=== PATIENT | male | born 1955 | race Caucasian/White ===

== ENCOUNTER 2021-01-15 12:20 | Outpatient (REF) | payer OTHER, SELFPAY ==
[2021-01-15 13:55] LABS: MANUAL DIFF FLAG NO
[2021-01-15 14:02] LABS: Basophils Absolute Auto 0.1 X10*3/uL (0.0-0.2); Eosinophils Absolute Auto 0.1 X10*3/uL (0.0-0.4); Hemoglobin 19.1 g/dl (14.0-18.0); Imm Gran Abs Auto 0.05 X10*3/uL (0.00-0.03); Imm Gran Pct Auto 0.9 % (0.0-0.4); Lymphocytes Absolute Auto 1.2 X10*3/uL (1.2-4.9); Lymphocytes Percent Auto 19.8 % (20-40); Mean Corpuscular HGB Conc 33.9 g/dl (31.0-36.0); Mean Corpuscular Hemoglobin 34.4 pg (27.0-33.0); Mean Corpuscular Volume 101.6 fL (80-98); Mean Platelet Volume 10.4 fL (9.4-12.4); Monocytes Absolute Auto 0.7 X10*3/uL (0.1-1.2); Monocytes Percent Auto 12.7 % (2-11); Neutrophils Absolute Auto 3.8 X10*3/uL (2.0-8.3); Neutrophils Percent Auto 64.6 % (45-73); Platelet Count 168 X10*3/uL (160-400); Red Blood Count 5.55 X10*6/uL (4.60-5.80); Red Cell Distribution Width 12.7 % (11.0-16.0); White Blood Count 5.8 X10*3/uL (4.8-10.8)
[2021-01-15 14:03] LABS: Hematocrit 56.4 % (42-52)
[2021-01-15 14:33] LABS: Alanine Aminotransferase 22 U/L (0-40); Albumin Level 4.3 g/dL (3.5-5.0); Alkaline Phosphatase 131 U/L (39-117); Anion Gap 15 (12-20); Aspartate Amino Transferase 24 U/L (5-37); Bilirubin Total 1.1 mg/dL (0.0-1.0); Blood Urea Nitrogen 10 mg/dL (9-16); Calcium 9.4 mg/dL (8.4-10.2); Carbon Dioxide 28 mmol/L (22-29); Chloride 101 mmol/L (96-108); Cholesterol 190 mg/dL; Estimated Glomerular Filt Rate 59; Glucose Fasting 99 mg/dL (60-99); HDL Cholesterol 64 mg/dL; LDL Cholesterol Calculated 107 mg/dl; Potassium 4.4 mmol/L (3.3-5.1); Sodium 140 mmol/L (135-145); Total Protein 7.6 g/dL (6.5-8.0); Triglycerides 98 mg/dL
[2021-01-15 14:55] LABS: PSA,Total (Free>4and<10) 0.95 ng/mL (0.00-4.00); TSH reflex Free T4 1.64 uIU/mL (0.32-4.0); Vitamin D 25-OH Total 18.1 ng/mL (>30)
[2021-01-15 19:10] LABS: Vitamin B12 511 pg/mL (200-900)
[2021-01-16 04:34] LABS: Folate 11.4 ng/mL (> or = 4.0)
== END 2021-01-15 12:21 | disposition home or self-care (01) ==
LOC: HO.HMGCLDS 12:20
PROVIDERS: PCP Internal Medicine; Visit Provider Internal Medicine
DX: Z00.01 Encounter for general adult medical examination with abnormal findings (principal); R06.02 Shortness of breath; I10 Essential (primary) hypertension; R05 Cough; F12.10 Cannabis abuse, uncomplicated; F17.210 Nicotine dependence, cigarettes, uncomplicated
CPT/HCPCS: 36415; 80053; 80061; 82306; 82607; 82746; 84153; 84443; 85025

== ENCOUNTER 2021-04-15 07:42 | Outpatient (REF) | payer OTHER, SELFPAY ==
--- NOTE | ~2021-04-15 | CT_ITS ---
EXAMINATION: CT CHEST SCREENING CLINICAL INFORMATION: Nicotine dependence. COMPARISON: None. TECHNIQUE: Multidetector volumetric CT imaging of the chest is performed without contrast using low dose technique. Additional 2-D coronal and sagittal reformatted images and axial 3-D maximum intensity projection (MIP) images are generated on the CT workstation. This CT examination was performed using dose optimization techniques as appropriate, variously including the following: *Automated exposure control *Adjustment of mA and/or kV according to patient size (this includes techniques or standardized protocols for targeted exams where dose is matched to indication/reason for exam; i.e. extremities or head) *Use of iterative reconstruction technique DLP: 59 mGy-cm FINDINGS: LUNGS: There is evidence of emphysema. There is mild biapical pleural and parenchymal scarring. There are linear densities in both upper lobes probably representing scarring. There is a 3 mm left lower lobe nodule axial image 406 series 4. There is a mixed cystic and reticular area seen in the anterior segment of the right upper lobe near the interhemispheric fissure. MEDIASTINUM: There is mild coronary artery calcification. The ascending thoracic aorta is upper normal in size measuring 4 cm. The heart does not appear enlarged. There is no pericardial effusion. No adenopathy. Visualized thyroid gland unremarkable. PLEURA: There is no pleural effusion. No pleural mass or thickening. AXILLA: No lymphadenopathy. UPPER ABDOMEN: Unremarkable. OSSEOUS STRUCTURES: Mild degenerative changes of the spine. Slight loss of height of the T7-T9 vertebral bodies questionable for mild old compression fractures. CT/CT lung screening IMPRESSION: Emphysema. Bilateral upper lobe scarring. Solitary 3 mm left lower lobe nodule. ASSESSMENT: Lung-RADS category 2: Benign. RECOMMENDATION: Annual low-dose chest CT followup recommended.
== END 2021-04-15 07:43 | disposition home or self-care (01) ==
LOC: HO.CT 07:42
PROVIDERS: PCP Internal Medicine; Visit Provider Surgery
DX: Z12.2 Encounter for screening for malignant neoplasm of respiratory organs (principal); F17.210 Nicotine dependence, cigarettes, uncomplicated
CPT/HCPCS: 71271

== ENCOUNTER → 2021-04-16 10:11 | Outpatient (BNVA) | payer OTHER, SELFPAY | PROVIDERS: PCP Internal Medicine; Referring Provider Internal Medicine; Visit Provider Internal Medicine | DX: I25.10 Atherosclerotic heart disease of native coronary artery without angina pectoris (principal); I77.819 Aortic ectasia, unspecified site; I11.9 Hypertensive heart disease without heart failure; I51.7 Cardiomegaly; F17.210 Nicotine dependence, cigarettes, uncomplicated | CPT/HCPCS: 99202 ==

== ENCOUNTER → 2021-04-24 08:43 | Outpatient (BNVA) | payer OTHER, SELFPAY | PROVIDERS: PCP Internal Medicine; Visit Provider Internal Medicine Pulmonary Disease | DX: J44.9 Chronic obstructive pulmonary disease, unspecified (principal); F17.200 Nicotine dependence, unspecified, uncomplicated | CPT/HCPCS: 99202 ==

== ENCOUNTER 2021-04-30 21:09 | Inpatient (IN) | payer OTHER, SELFPAY ==
--- NOTE | ~2021-04-30 | XR_ITS ---
EXAMINATION: XR CHEST CLINICAL INFORMATION: NG tube placement COMPARISON: CT 04/15/2021 TECHNIQUE: Frontal view of the chest was obtained. FINDINGS: Enteric tube terminates in the stomach. Cardiac leads overlie the chest. The lung apices are not fully included in the [id number] of this study. Hyperexpanded lungs. Known emphysema. No consolidation, edema, or effusion. No pneumothorax. The cardiomediastinal silhouette is within normal limits. XR/XR chest 1V IMPRESSION: Enteric tube terminating in the stomach.
--- NOTE | ~2021-04-30 | CT_ITS ---
EXAMINATION: CT ABDOMEN AND PELVIS WITH CONTRAST CLINICAL INFORMATION: Abdominal pain. Abdominal distention. History of small bowel obstruction. COMPARISON: None TECHNIQUE: Multidetector volumetric images were obtained from the superior aspect of the liver through the pubic symphysis following administration 85 mL of Omnipaque 350 intravenous contrast. Sagittal and coronal reformatted images were obtained on the technologist's workstation. Oral contrast: No This CT examination was performed using dose optimization techniques as appropriate, variously including the following: *Automated exposure control *Adjustment of mA and/or kV according to patient size (this includes techniques or standardized protocols for targeted exams where dose is matched to indication/reason for exam; i.e. extremities or head) *Use of iterative reconstruction technique DLP: 432 mGy-cm FINDINGS: LUNG BASES: The visualized lung bases are unremarkable. LIVER, GALLBLADDER, AND BILIARY TREE: Hepatic cyst inferior right lobe of liver segment 6 measuring 1.6 cm. No suspicious hepatic lesions. No intrahepatic bile duct dilatation. Gallbladder is contracted. Small calcified gallstone within the gallbladder. No edema around the gallbladder. No bile duct dilatation. The extrahepatic CBD measures 6 mm in diameter. PANCREAS: Unremarkable. SPLEEN: Unremarkable. ADRENAL GLANDS: Unremarkable. KIDNEYS AND URETERS: The kidneys are normal in size, shape, and attenuation. No hydronephrosis, hydroureter, or calculi seen. No perinephric stranding. BLADDER: Unremarkable. GASTROINTESTINAL TRACT: There are mildly dilated small bowel loops in the mid to proximal abdomen. The distal small bowel loops are decompressed. Bowel pattern suggesting a mild small bowel obstruction. Transition point in the low pelvis. Coronal image 40/85 series 7. No mesenteric twist. No bowel wall thickening or edema. No distention of the colon. Moderate volume of stool in the colon. There are a few diverticula sigmoid colon but no evidence of diverticulitis. The appendix is not seen. ABDOMINAL WALL: There is an irregular soft tissue mass at the anterior abdominal wall at the left inguinal region.. This measures 2.1 x 3.1 x 1.3 cm. LYMPH NODES: Normal. VASCULAR: Vascular calcifications of aorta and iliac arteries. There is no aneurysm. PELVIC VISCERA: Unremarkable. OSSEOUS STRUCTURES: Unremarkable. CT/CT abdomen pelvis w con IMPRESSION: 1. Mild small bowel obstruction with transition point in the low pelvis. No bowel wall thickening or edema. 2. Soft tissue mass involving the anterior abdominal wall at the left inguinal region. 3. Contracted gallbladder with small gallstone. No bile duct dilatation.
[2021-04-30 21:21] VITALS: BP 152/108; PULSE 106; RESP 20; TEMP 36.6; BMI 24.3
--- NOTE | 2021-04-30 21:56 | ED.ABDPAIN ---
HPI - Abdominal Pain General Chief Complaint: Abdominal Pain Stated Complaint: abd pain Time Seen by Provider: 04/30/21 21:54 Source: patient and old records reviewed Mode of arrival: ambulatory Limitations: no limitations History of Present Illness MD elicited complaint: abdominal pain Pertinent past history: other (SBO) Onset (ago): week(s) (1) Pain Consistency: constant Location: epigastric Severity: severe Quality: stabbing Radiation: back and chest Migration to: no migration Exacerbating factors: eating and movement Relieving factors: nothing Associated symptoms: nausea and diarrhea Related Data Home Medications Medication Instructions Recorded Confirmed amlodipine 2.5 mg PO BEDTIME 04/30/21 04/30/21 pantoprazole 1 tab PO DAILY 04/30/21 04/30/21 tiotropium bromide [Spiriva with 1 cap INHALATION DAILY 04/30/21 04/30/21 HandiHaler] Previous Rx's Medication Instructions Recorded albuterol sulfate 90 mcg/actuation 2 puff INHALATION Q6H PRN #8.5 g 03/16/21 aerosol inhaler folic acid 1 mg tablet 1 mg PO DAILY #30 tab 03/27/21 multivitamin 1 tab PO DAILY #30 tab 03/27/21 umeclidinium 62.5 mcg-vilanterol 1 inh INHALATION DAILY 30 Days #1 04/24/21 25 mcg/actuation powdr for ea inhalation Allergies Allergy/AdvReac Type Severity Reaction Status Date / Time No Known Allergies Allergy Verified 04/30/21 21:21 Review of Systems Review of Systems Constitutional : No Weight loss, No Fever, No Chills ENT/Mouth : No sore throat, No Rhinorrhea Eyes: No Swelling, No Redness Cardiovascular : No Chest Pain, No SOB, NoEdema Respiratory : No Cough, No Sputum, No Wheezing Gastrointestinal : Positive Nausea, Positive Vomiting, positive Diarrhea, positive abdominal Pain, No Hematochezia, No Melena Genitourinary : No Dysuria, No Urinary Frequency, No Hematuria, No Urgency Musculoskeletal : No joint pain, No Myalgias, No Joint Swelling Skin : No Skin Lesions, No rash Neuro : No Weakness, No Numbness, No Dizziness, No Headache Psych : No Anxiety/Panic, No Depression Heme/Lymph: No Bruising, No Lymphadenopathy Endocrine : No Polyuria, No Polydipsia All other systems reviewed and are negative. Physical Exam Vital Signs: Vital Signs: Last Vital Signs Temp 98.0 F 05/01/21 00:22 Pulse 89 05/01/21 00:22 Resp 18 05/01/21 00:22 BP 161/93 H 05/01/21 00:22 Pulse Ox 94 05/01/21 00:22 Body Mass Index 24.3 Appearance: Alert. Oriented X3. anxious in pain mild acute distress. Eyes: Pupils equal, round and reactive to light. ENT: Pharynx normal. Neck: Normal inspection. Neck supple. CVS: Normal heart rate and rhythm. Pulses normal. Respiratory: No respiratory distress. Breath sounds normal. Abdomen: Soft and moderate epigastric ttp with guarding no rebound distended on exam Skin: Skin warm and dry. Normal skin color. Normal skin turgor. Extremities: No lower extremity edema. No calf ttp Neuro: Oriented X 3. No motor deficit. No sensory deficit. Course Course Course Narrative: CT scan positive for SBO - NG tube ordered, repeat IV pain medications ordered will call Dr. Chiang for admission - hx of same in past in January at [facility] did not require surgery Spoke to Dr. Chiang given his multiple medical problems including ETOH abuse and concern for withdrawal he is requesting medicine admission and he will follow along MDM - Abdominal Pain MDM Narrative Medical decision making narrative: 65 yo male heavy ETOH abuse, hx of SBO not requiring surgery in the past (prior hernia repair), HTN, chronic smoker, COPD comes in with c/o 1 week of upper abdominal pain radiating to back and chest along with nausea diarrhea + flatus seems unusual for SBO ?pancreatitis, will obtain labs, CT scan to evaluate pancreas as well as possible SBO, IV morphine for pain, EKG, dispo per results and findings, anticipate admission. Lab Data Result diagrams: 04/30/21 22:07 04/30/21 22:07 Labs: Lab Results 04/30/21 04/30/21 04/30/21 Range/Units 22:07 22:07 22:07 WBC 7.8 (4.8-10.8) X10*3/uL RBC 5.92 H (4.60-5.80) X10*6/uL Hgb 20.8 H (14.0-18.0) g/dl Hct 60.3 H (42-52) % MCV 101.9 H (80-98) fL MCH 35.1 H (27.0-33.0) pg MCHC 34.5 (31.0-36.0) g/dl RDW 14.1 (11.0-16.0) % Plt Count 155 L (160-400) X10*3/uL MPV 10.1 (9.4-12.4) fL Immature Gran % (Auto) 0.8 H (0.0-0.4) % Neut % (Auto) 69.1 (45-73) % Lymph % (Auto) 18.3 L (20-40) % [place] % (Auto) 10.3 (2-11) % Eos % (Auto) 0.9 (0-4) % Baso % (Auto) 0.6 (0-2) % Lymph # (Auto) 1.4 (1.2-4.9) X10*3/uL [place] # (Auto) 0.8 (0.1-1.2) X10*3/uL Eos # (Auto) 0.1 (0.0-0.4) X10*3/uL Baso # (Auto) 0.1 (0.0-0.2) X10*3/uL Abs Immat Gran (auto) 0.06 H (0.00-0.03) X10*3/uL Absolute Neuts (auto) 5.4 (2.0-8.3) X10*3/uL Absolute Nucleated RBC 0.000 (0.0-0.012) X10*3/uL Nucleated RBC % (auto) 0.0 (0.0-0.2) /100WBC Sodium 137 (135-145) mmol/L Potassium 4.4 (3.3-5.1) mmol/L Chloride 105 (96-108) mmol/L Carbon Dioxide 20 L (22-29) mmol/L Anion Gap 16 (12-20) BUN 10 (9-16) mg/dL Creatinine 1.10 (0.5-1.4) mg/dL Estim Creat Clear Calc 66.5 Estimated GFR > 60 Random Glucose 127 H (60-115) mg/dL Calcium 9.4 (8.4-10.2) mg/dL Magnesium 1.9 (1.6-2.6) mg/dL Total Bilirubin 1.0 (0.0-1.0) mg/dL AST 24 (5-37) U/L ALT 18 (0-40) U/L Alkaline Phosphatase 161 H D (39-117) U/L Troponin I High Sens (<3.5-35.0) ng/L Total Protein 7.4 (6.5-8.0) g/dL Albumin 3.9 (3.5-5.0) g/dL Lipase 38 (8-78) U/L COVID-19 (ELOISE) Negative (Negative) COVID-19 Clin Com See Note 04/30/21 Range/Units 22:07 WBC (4.8-10.8) X10*3/uL RBC (4.60-5.80) X10*6/uL Hgb (14.0-18.0) g/dl Hct (42-52) % MCV (80-98) fL MCH (27.0-33.0) pg MCHC (31.0-36.0) g/dl RDW (11.0-16.0) % Plt Count (160-400) X10*3/uL MPV (9.4-12.4) fL Immature Gran % (Auto) (0.0-0.4) % Neut % (Auto) (45-73) % Lymph % (Auto) (20-40) % [place] % (Auto) (2-11) % Eos % (Auto) (0-4) % Baso % (Auto) (0-2) % Lymph # (Auto) (1.2-4.9) X10*3/uL [place] # (Auto) (0.1-1.2) X10*3/uL Eos # (Auto) (0.0-0.4) X10*3/uL Baso # (Auto) (0.0-0.2) X10*3/uL Abs Immat Gran (auto) (0.00-0.03) X10*3/uL Absolute Neuts (auto) (2.0-8.3) X10*3/uL Absolute Nucleated RBC (0.0-0.012) X10*3/uL Nucleated RBC % (auto) (0.0-0.2) /100WBC Sodium (135-145) mmol/L Potassium (3.3-5.1) mmol/L Chloride (96-108) mmol/L Carbon Dioxide (22-29) mmol/L Anion Gap (12-20) BUN (9-16) mg/dL Creatinine (0.5-1.4) mg/dL Estim Creat Clear Calc Estimated GFR Random Glucose (60-115) mg/dL Calcium (8.4-10.2) mg/dL Magnesium (1.6-2.6) mg/dL Total Bilirubin (0.0-1.0) mg/dL AST (5-37) U/L ALT (0-40) U/L Alkaline Phosphatase (39-117) U/L Troponin I High Sens 16.6 (<3.5-35.0) ng/L Total Protein (6.5-8.0) g/dL Albumin (3.5-5.0) g/dL Lipase (8-78) U/L COVID-19 (ELOISE) (Negative) COVID-19 Clin Com ECG Data Attestation: I personally reviewed and interpreted this ECG as follows: ECG interpretation date: 04/30/21 ECG interpretation time: 23:17 Interpretation: Rate: 96 Rhythm: NSR Mcloud: left Normal P waves. Normal RYDER. Normal QRS complex. ST T wave : normal no LEYDI qTC: normal prior studies: no acute ischemia The study has been interpreted contemporaneously by me. . Critical Care Time Critical Care Time Critical Care Time: Yes Total Critical Care Time: 30 Attestation: medical consult, IVF, repeat IV pain medications I attest to this time spent taking care of the patient Discharge Plan Discharge Clinical Impression: Alcohol abuse, SBO (small bowel obstruction), Polycythemia Vomiting Qualifiers: Vomiting type: unspecified Vomiting Intractability: non-intractable Nausea presence: with nausea Qualified Code(s): R11.2 - Nausea with vomiting, unspecified Abdominal pain Qualifiers: Abdominal location: epigastric Qualified Code(s): R10.13 - Epigastric pain Patient Disposition: Admitted As Inpatient PENDING SALE TO [facility] Past Medical History Attestation statement: The following information was validated with the patient. Medical History Alcohol use disorder Change in multiple pigmented skin lesions Cigarette smoker motivated to quit Cough Dyspepsia Emphysema lung Essential hypertension GERD (gastroesophageal reflux disease) Heavy tobacco smoker >10 cigarettes per day History of small bowel obstruction Hypertensive cardiomegaly Macrocytosis without anemia Shortness of breath on exertion Surgical History Hx of colonoscopy Family History Family History Mother CAD (coronary artery disease) Social History Social History Alcohol intake: current Alcohol intake frequency: 3 or more drinks per day Patient Tobacco Use Status: Current someday Tobacco user Use of substances other than those prescribed or required for medical reasons: No Advance Directives: No Advance Directives Information Provided: No
--- NOTE | 2021-04-30 21:58 | ECG_ITS ---
Test Reason : ABD PAIN Blood Pressure : / mmHG Vent. Rate : 096 BPM Atrial Rate : 096 BPM P-R Int : 142 ms QRS Dur : 082 ms QT Int : 362 ms P-R-T Axes : 068 -15 053 degrees QTc Int : 457 ms Normal sinus rhythm Biatrial enlargement Abnormal ECG No previous ECGs available Referred By: Elizabeth Corona Electronically Signed By:JIMENA GOLD
[2021-04-30 22:00] VITALS: BP 163/93; PULSE 96; RESP 23; TEMP 37; O2SAT 96
--- NOTE | 2021-04-30 22:15 | PHA.MEDREC ---
Pharmacy Consult ? Medication Reconciliation Pharmacy has completed the medication reconciliation. Per patient, spiriva was replaced by a new inhaler. anoro, but has not been picked up yet. Pt is still using spiriva but understands once anoro is started, to D/C other med
[2021-04-30 22:23] LABS: MANUAL DIFF FLAG NO
[2021-04-30] MEDS: Morphine Sulfate 4 MG/ML CARTRIDGE IVPUSH (22:23)
[2021-04-30] MEDS: Lactated Ringers 500 ML 999 ML IV (22:23)
[2021-04-30] MEDS: 0.9 % Sodium Chloride 1,000 ML 999 ML IVCONT (22:23)
[2021-04-30] MEDS: ondansetron HCL 4 MG/2 ML VIAL IVPUSH (22:23)
[2021-04-30 22:25] LABS: Basophils Absolute Auto 0.1 X10*3/uL (0.0-0.2); Basophils Percent Auto 0.6 % (0-2); Eosinophils Absolute Auto 0.1 X10*3/uL (0.0-0.4); Eosinophils Percent Auto 0.9 % (0-4); Imm Gran Abs Auto 0.06 X10*3/uL (0.00-0.03); Imm Gran Pct Auto 0.8 % (0.0-0.4); Lymphocytes Absolute Auto 1.4 X10*3/uL (1.2-4.9); Lymphocytes Percent Auto 18.3 % (20-40); Mean Corpuscular HGB Conc 34.5 g/dl (31.0-36.0); Mean Corpuscular Hemoglobin 35.1 pg (27.0-33.0); Mean Corpuscular Volume 101.9 fL (80-98); Mean Platelet Volume 10.1 fL (9.4-12.4); Monocytes Absolute Auto 0.8 X10*3/uL (0.1-1.2); Monocytes Percent Auto 10.3 % (2-11); Neutrophils Absolute Auto 5.4 X10*3/uL (2.0-8.3); Neutrophils Percent Auto 69.1 % (45-73); Platelet Count 155 X10*3/uL (160-400); Red Blood Count 5.92 X10*6/uL (4.60-5.80); Red Cell Distribution Width 14.1 % (11.0-16.0); White Blood Count 7.8 X10*3/uL (4.8-10.8)
[2021-04-30 22:29] LABS: Hematocrit 60.3 % (42-52); Hemoglobin 20.8 g/dl (14.0-18.0)
[2021-04-30] MEDS: HYDROmorphone HCl 1 MG/ML SYRINGE IVPUSH (22:38)
[2021-04-30 23:02] LABS: Alanine Aminotransferase 18 U/L (0-40); Albumin Level 3.9 g/dL (3.5-5.0); Alkaline Phosphatase 161 U/L (39-117); Anion Gap 16 (12-20); Aspartate Amino Transferase 24 U/L (5-37); Blood Urea Nitrogen 10 mg/dL (9-16); Calcium 9.4 mg/dL (8.4-10.2); Carbon Dioxide 20 mmol/L (22-29); Chloride 105 mmol/L (96-108); Creatinine Clr Calc Pharmacy 66.5; Estimated Glomerular Filt Rate > 60; Glucose Random 127 mg/dL (60-115); Lipase 38 U/L (8-78); Magnesium 1.9 mg/dL (1.6-2.6); Potassium 4.4 mmol/L (3.3-5.1); Sodium 137 mmol/L (135-145); Total Protein 7.4 g/dL (6.5-8.0); Troponin-I High Sensitivity 16.6 ng/L (<3.5-35.0)
[2021-04-30 23:13] LABS: COVID-19 Test Negative (Negative); IDNOW Serial# 9DD0AD1C
[2021-04-30] MEDS: iohexoL 350 MG/ML 100 ML INFUS..BTL 85 ML IV (23:24)
[2021-04-30 23:28] VITALS: BP 169/88; PULSE 95; RESP 19; O2SAT 92
[2021-05-01] VITALS (19 sets, daily range): BP systolic 125–181; BP diastolic 75–95; PULSE 72–94; RESP 18–26; TEMP 36.1–37.2; O2SAT 90–97
--- NOTE | 2021-05-01 00:21 | P.HPHOSP_ITS ---
History of Present Illness Date of Service: 05/01/21 Chief Complaint: abdominal pain 65-year-old male with a past medical history of hypertension, alcohol abuse, COPD -not on home oxygen, history of hernia repair, alcohol abuse, tobacco dependence; history of SBO in January of 2021 -improved with conservative carolyn gement, did not require surgery; presented to the hospital today with a chief complaint of nausea vomiting and abdominal discomfort for the past 1 week. Patient reported abdominal pain is located in the center of the abdomen radiating to the back; patient does report loose stool and passing gas; denies any fever chills cough. patient reported that his current symptoms are similar to the ones when he was admitted to [facility] for SBO. Denies any chest pain palpitations lightheadedness or dizziness. Patient does report drinking alcohol regularly Last drink was this afternoon. Also reports smoking cigarettes daily. Denies any shortness of breath. Denies any urinary symptoms Review of all other systems is negative except mentioned above ER course: Per ER team patient noted to have abdominal tenderness, diffuse, no guarding no rigidity; given a dose of Dilaudid with improvement in the abdominal pain. CT abdomen showed mild SBO with transition point; discussed with Dr. Chiang who opined that as the patient improved with conservative management before, will do the same now and monitor the patient, did not recommend any emergency surgery, recommended admission to the medicine service. [facility] Medical History Alcohol use disorder Change in multiple pigmented skin lesions Cigarette smoker motivated to quit Cough Dyspepsia Emphysema lung Essential hypertension GERD (gastroesophageal reflux disease) Heavy tobacco smoker >10 cigarettes per day History of small bowel obstruction Hypertensive cardiomegaly Macrocytosis without anemia Shortness of breath on exertion Family History Mother CAD (coronary artery disease) Surgical History Hx of colonoscopy Social History Household Members: Other Household Members Other:: SON AND UNCLE Housing: House Do you presently have visiting nurse or other home services: No Alcohol intake: current Alcohol intake frequency: 3 or more drinks per day Patient Tobacco Use Status: Current someday Tobacco user Tobacco use type: Cigarette Cigarette Packs Per Day: 0.5 Cigarettes Per Day: 145 Second Hand Smoke Exposure: Yes service: No Current occupational status: retired Meds Allergies Allergy/AdvReac Type Severity Reaction Status Date / Time No Known Allergies Allergy Verified 05/07/21 11:02 Active Medications: Current Medications Generic Name Dose Route Start Last Admin Trade Name Freq PRN Reason Stop Dose Admin Albuterol Sulfate 2 puff 05/01/21 00:10 Albuterol Sulfate 90 Mcg 8 Gm Inhaler INHALE Q6H PRN shortness of breath or wheezing Albuterol/Ipratropium 3 ml 05/01/21 00:11 Albuterol/Iprat 2.5/0.5mg 3 Ml Ampul.Neb INHALE RQ4H PRN Shortness of Breath/Wheezing Famotidine 20 mg 05/01/21 09:00 Famotidine/Pf 20 Mg/2 Ml Vial IVPUSH BID [facility] Dextrose/Sodium Chloride 1,000 mls @ 50 mls/hr 05/01/21 00:15 D51/2ns IVCONT .Q20H [facility] Labetalol HCl 10 mg 05/01/21 00:07 Labetalol Hcl 100 Mg/20 Ml Vial IVPUSH Q3H PRN BP>140/90 Morphine Sulfate 1 mg 05/01/21 00:07 Morphine Sulfate 4 Mg/Ml Cartridge IVPUSH Q4H PRN Pain, Severe (Pain Scale 7-10) Nicotine 21 mg 05/01/21 09:00 Nicotine 21 Mg Patch.[id number] TRANSDERMA DAILY [facility] Pharmacy Consult 1 each 04/30/21 21:54 Consult Rx Perform Med Rec MISCELLANE ONCE PRN Consult order Pharmacy Consult 1 each 04/30/21 23:52 Consult Rx Etoh Phenob Dosing MISCELLANE 04/30/21 23:53 ONCE ONE Protocol Sodium Chloride 3 ml 05/01/21 08:00 0.9 % Sodium Chloride Flush 3 Ml [facility]ringe [facility] Medications Medication Instructions Recorded Confirmed Last Taken Type pantoprazole 1 tab PO DAILY 04/30/21 04/30/21 04/30/21 History Physical Exam Vital Signs and Narrative: Vital Signs: Last Vital Signs Temp 98.6 F 04/30/21 22:00 Pulse 95 04/30/21 23:28 Resp 19 04/30/21 23:28 BP 169/88 H 04/30/21 23:28 Pulse Ox 92 04/30/21 23:28 Body Mass Index 24.3 Gen: Appears be in no acute distress HEENT: NCAT, Moist mucosa. Pulmonary: Vesicular breath sounds, fair air entry CVS: Normal S1-S2 Abdomen: BS+, Soft, mildly tender diffusely Extremities: Warm well perfused Neuro: Alert and awake. Results Labs CBC and Chem 7: 05/03/21 05:46 05/05/21 04:29 Labs: Laboratory Results - last 24 hr 04/30/21 04/30/21 04/30/21 22:07 22:07 22:07 MCV 101.9 H MCH 35.1 H MCHC 34.5 RDW 14.1 Plt Count 155 L MPV 10.1 Immature Gran % (Auto) 0.8 H Neut % (Auto) 69.1 Lymph % (Auto) 18.3 L Bartholomew % (Auto) 10.3 Eos % (Auto) 0.9 Baso % (Auto) 0.6 Lymph # (Auto) 1.4 Bartholomew # (Auto) 0.8 Eos # (Auto) 0.1 Baso # (Auto) 0.1 Abs Immat Gran (auto) 0.06 H Absolute Neuts (auto) 5.4 Absolute Nucleated RBC 0.000 Nucleated RBC % (auto) 0.0 Anion Gap 16 Estim Creat Clear Calc 66.5 Estimated GFR > 60 Random Glucose 127 H Calcium 9.4 Magnesium 1.9 Total Bilirubin 1.0 AST 24 ALT 18 Alkaline Phosphatase 161 H D Troponin I High Sens Total Protein 7.4 Albumin 3.9 Lipase 38 COVID-19 (ELOISE) Negative COVID-19 Clin Com See Note 04/30/21 22:07 MCV MCH MCHC RDW Plt Count MPV Immature Gran % (Auto) Neut % (Auto) Lymph % (Auto) Bartholomew % (Auto) Eos % (Auto) Baso % (Auto) Lymph # (Auto) Bartholomew # (Auto) Eos # (Auto) Baso # (Auto) Abs Immat Gran (auto) Absolute Neuts (auto) Absolute Nucleated RBC Nucleated RBC % (auto) Anion Gap Estim Creat Clear Calc Estimated GFR Random Glucose Calcium Magnesium Total Bilirubin AST ALT Alkaline Phosphatase Troponin I High Sens 16.6 Total Protein Albumin Lipase COVID-19 (ELOISE) COVID-19 Clin Com Imaging Radiologist's Impressions: Impressions Abdomen/Pelvis CT 04/30/21 21:54 IMPRESSION: 1. Mild small bowel obstruction with transition point in the low pelvis. No bowel wall thickening or edema. 2. Soft tissue mass involving the anterior abdominal wall at the left inguinal region. 3. Contracted gallbladder with small gallstone. No bile duct dilatation. Assessment and Plan (1) SBO (small bowel obstruction): 65-year-old male with a past medical history of hypertension, COPD, aortic aneurysm, tobacco dependence, alcohol abuse, history of SBO presented with nausea vomiting and abdominal pain for 1 week; noted to have SBO with transition point. Admitted for further management. Mild SBO with transition point: Patient currently does report that he is passing gas. Abdominal pain improved a of received Dilaudid in the ER. Supportive care Zofran p.r.n. Gentle IV fluids Dr. Chiang from general surgery recommended admission to Medicine Service and conservative management for now. NPO history of aortic aneurysm: Patient's blood pressure currently on the higher side. Patient is on a strict NPO. Head home amlodipine. Will keep patient on labetalol on p.r.n. with Will blood pressure less than 140/90. alcohol abuse: Patient started on the pillow protocol in the ER. Will contin ue. reportedly patient was delirious when admitted to [facility] COPD: Stable. DuoNebs p.r.n. tobacco dependence: Nicotine patch offered polycythemia: Patient's hemoglobin is now 20. similar to prior numbers. Will continue to monitor. DVT prophylaxis: SCD boots Code status: Full code Quality Stroke Does the patient have a stroke diagnosis?: No VTE Prior VTE?: No VTE Risk Level:: Medical - moderate - high VTE Device Contraindication: N/A - Device Ordered VTE Drug Contraindication: Patient Refused
[2021-05-01] MEDS: Lidocaine HCl 4 % MPF w/MADgic 5 ML AMPUL 1 APPL TOPICAL (00:25)
[2021-05-01] MEDS: Dextrose 5 % and 0.45 % NaCl 1,000 ML 50 ML IVCONT (00:59)
[2021-05-01] MEDS: PHENobarbitaL sodium 130 MG/ML VIAL 218 MG IM (01:02)
[2021-05-01 01:07] LABS: Glucose Urine UA NEG (NEG); Leukocyte Esterase Urine NEG (NEG); Nitrite Urine NEG (NEG); PH 5.5 (5.0-8.0); Specific Gravity - Urine <= 1.005 (1.005-1.025); Urine Blood NEG (NEG); Urine Ketones NEG (NEG); Urine Protein NEG (NEG-TRACE)
[2021-05-01 01:08] LABS: Appearance Urine CLEAR; Color Urine STRAW
[2021-05-01] MEDS: Labetalol HCL 100 MG/20 ML VIAL 10 MG IVPUSH ×4 (01:15→20:24)
[2021-05-01] MEDS: Albuterol/Iprat 2.5/0.5MG 3 ML AMPUL.NEB INHALE (03:08)
[2021-05-01] MEDS: PHENobarbitaL sodium 130 MG/ML VIAL 163 MG IM ×2 (03:59→06:01)
[2021-05-01] MEDS: Morphine Sulfate 4 MG/ML CARTRIDGE 1 MG IVPUSH ×2 (04:05→15:32)
--- NOTE | 2021-05-01 05:09 | PC.NURSE ---
Pt to [facility] room 472 at 0305. A&O X3. Was having a coughing spell. Strong dry cough noted. O2 sat 90%. Lungs diminished throughout with scattered wheezes. Resp called and gave updraft treatment with good effect. BP on arrival 157/94 and up to 161/92 at which point pt received labetolol which brought BP down to 125/75. Pt was also c/o pain left neck and mid/left abd and received morphine with good effect. 12-lead EKG was done with pain but no abnormalities noted. Pt admitted to unit and unit routine and fell asleep once settled. Monitor showed NSR, rate 70's.
[2021-05-01 05:53] LABS: MANUAL DIFF FLAG NO
[2021-05-01 06:06] LABS: Basophils Absolute Auto 0.1 X10*3/uL (0.0-0.2); Basophils Percent Auto 0.9 % (0-2); Eosinophils Absolute Auto 0.1 X10*3/uL (0.0-0.4); Eosinophils Percent Auto 1.2 % (0-4); Hematocrit 53.2 % (42-52); Hemoglobin 17.6 g/dl (14.0-18.0); Imm Gran Abs Auto 0.06 X10*3/uL (0.00-0.03); Imm Gran Pct Auto 1.1 % (0.0-0.4); Lymphocytes Absolute Auto 1.2 X10*3/uL (1.2-4.9); Lymphocytes Percent Auto 21.3 % (20-40); Mean Corpuscular HGB Conc 33.1 g/dl (31.0-36.0); Mean Corpuscular Hemoglobin 34.4 pg (27.0-33.0); Mean Corpuscular Volume 103.9 fL (80-98); Mean Platelet Volume 10.1 fL (9.4-12.4); Monocytes Absolute Auto 0.6 X10*3/uL (0.1-1.2); Monocytes Percent Auto 10.2 % (2-11); Neutrophils Absolute Auto 3.7 X10*3/uL (2.0-8.3); Neutrophils Percent Auto 65.3 % (45-73); Platelet Count 132 X10*3/uL (160-400); Red Blood Count 5.12 X10*6/uL (4.60-5.80); Red Cell Distribution Width 14.2 % (11.0-16.0); White Blood Count 5.7 X10*3/uL (4.8-10.8)
[2021-05-01 06:50] LABS: Anion Gap 12 (12-20); Blood Urea Nitrogen 9 mg/dL (9-16); Calcium 8.6 mg/dL (8.4-10.2); Carbon Dioxide 25 mmol/L (22-29); Chloride 106 mmol/L (96-108); Estimated Glomerular Filt Rate > 60; Glucose Random 127 mg/dL (60-115); Potassium 3.8 mmol/L (3.3-5.1); Sodium 139 mmol/L (135-145)
--- NOTE | 2021-05-01 07:20 | PM.CNGS ---
History of Present Illness Consult details Consult date: 05/01/21 Narrative: 65-year-old male admitted at midnight because of possible partial small-bowel obstruction. He states that he has been having some periodic abdominal pain, mostly in the upper abdomen for almost a week now. He has had diarrhea as well. He denies vomiting but does have nausea. He is passing flatus. His pain is much better today and says that he actually does not have pain at this time. He has multiple medical problems including COPD , cardiomegaly, aortic ectasia, heavy alcohol intake and hypertension. He was admitted last year for partial small-bowel obstruction which resolved on its own. He does admit to continuing to drink heavily. He says he does not have abdominal pain now and his main complaint is that he has a persistent headache. Review of his H&P shows that he was admitted for similar condition at [facility] last January,. Review of Systems Constitutional: Constitutional: Denies chills and Denies fever(s) Cardiovascular: Cardiovascular: Denies chest pain, Denies dyspnea and Denies dyspnea on exertion Respiratory: Respiratory: Reports cough, Denies dyspnea and Denies dyspnea on exertion Gastrointestinal: Gastrointestinal: Denies hematochezia and Denies change in bowel habits Genitourinary: Genitourinary: Denies hematuria and Denies difficulty urinating Musculoskeletal: Musculoskeletal: Denies back pain and Denies limited range of motion Neurologic: Denies focal weakness and Denies convulsions Psychiatric: Psychiatric: Denies depression and Denies mood swings PMFSH Past Medical History Medical History Alcohol use disorder Change in multiple pigmented skin lesions Cigarette smoker motivated to quit Cough Dyspepsia Emphysema lung Essential hypertension GERD (gastroesophageal reflux disease) Heavy tobacco smoker >10 cigarettes per day History of small bowel obstruction Hypertensive cardiomegaly Macrocytosis without anemia Shortness of breath on exertion Family History Family History Mother CAD (coronary artery disease) Surgical History Surgical History Hx of colonoscopy Social History Social History Household Members: Other Household Members Other:: SON AND UNCLE Housing: House Do you presently have visiting nurse or other home services: No Alcohol intake: current Alcohol intake frequency: 3 or more drinks per day Patient Tobacco Use Status: Current someday Tobacco user Tobacco use type: Cigarette Cigarette Packs Per Day: 0.5 Cigarettes Per Day: 145 Second Hand Smoke Exposure: Yes service: No Current occupational status: retired Meds Allergies Allergy/AdvReac Type Severity Reaction Status Date / Time No Known Allergies Allergy Verified 04/30/21 21:21 Active Medications: Current Medications Generic Name Dose Route Start Last Admin Trade Name Freq PRN Reason Stop Dose Admin Albuterol Sulfate 2 puff 05/01/21 00:10 Albuterol Sulfate 90 Mcg 8 Gm Inhaler INHALE Q6H PRN shortness of breath or wheezing Albuterol/Ipratropium 3 ml 05/01/21 00:11 05/01/21 03:08 Albuterol/Iprat 2.5/0.5mg 3 Ml Ampul.Neb INHALE 3 ml RQ4H PRN Administration Shortness of Breath/Wheezing Famotidine 20 mg 05/01/21 09:00 Famotidine/Pf 20 Mg/2 Ml Vial IVPUSH BID [facility] Dextrose/Sodium Chloride 1,000 mls @ 50 mls/hr 05/01/21 00:15 05/01/21 00:59 D51/2ns IVCONT 50 mls/hr .Q20H DEJAN Administration Labetalol HCl 10 mg 05/01/21 00:07 05/01/21 04:15 Labetalol Hcl 100 Mg/20 Ml Vial IVPUSH 10 mg Q3H PRN Administration BP>140/90 Medication 1 each 05/01/21 09:00 No Benzodiazepines MISCELLANE DAILY [facility] Morphine Sulfate 1 mg 05/01/21 00:07 05/01/21 04:05 Morphine Sulfate 4 Mg/Ml Cartridge IVPUSH 1 mg Q4H PRN Administration Pain, Severe (Pain Scale 7-10) Nicotine 21 mg 05/01/21 09:00 Nicotine 21 Mg Patch.Td24 TRANSDERMA DAILY [facility] Pharmacy Consult 1 each 04/30/21 21:54 Consult Rx Perform Med Rec MISCELLANE ONCE PRN Consult order Phenobarbital 45 mg 05/01/21 21:00 Phenobarbital 15 Mg Tablet PO 05/03/21 09:01 BID [facility] Protocol Phenobarbital 15 mg 05/03/21 21:00 Phenobarbital 15 Mg Tablet PO 05/05/21 09:01 BID [facility] Protocol Phenobarbital 15 mg 05/06/21 09:00 Phenobarbital 15 Mg Tablet PO 05/07/21 09:01 DAILY [facility] Protocol Sodium Chloride 3 ml 05/01/21 08:00 0.9 % Sodium Chloride Flush 3 Ml Syringe IVFLUSH QSHIFT [facility] Home Medications Medication Instructions Recorded Confirmed Last Taken Type Spiriva with HandiHaler 1 cap INHALATION DAILY 04/30/21 04/30/21 04/30/21 History pantoprazole 1 tab PO DAILY 04/30/21 04/30/21 04/30/21 History Physical Exam Vital Signs: Vital Signs: Last Vital Signs Temp 98.7 F 05/01/21 03:05 Pulse 72 05/01/21 05:27 Resp 18 05/01/21 05:26 BP 125/75 05/01/21 05:27 Pulse Ox 93 05/01/21 04:15 Body Mass Index 24.3 Const: Other: NG tube in place, appears anxious, complaints of headache General: comfortable and no acute distress Orientation/consciousness: patient oriented x3 Neck: Neck: Yes no lymphadenopathy Resp: Auscultation: clear to auscultation bilaterally Cardio: Rhythm: regular rhythm GI: Palpation (GI): Soft to palpation, nontender and no guarding Neuro: General: patient oriented x3 Results Labs Result diagrams: 05/03/21 05:46 05/05/21 04:29 Labs: Abnormal lab results 04/30/21 04/30/21 05/01/21 Range/Units 22:07 22:07 05:28 RBC 5.92 H (4.60-5.80) X10*6/uL Hgb 20.8 H (14.0-18.0) g/dl Hct 60.3 H 53.2 H (42-52) % MCV 101.9 H 103.9 H (80-98) fL MCH 35.1 H 34.4 H (27.0-33.0) pg Plt Count 155 L 132 L (160-400) X10*3/uL Immature Gran % (Auto) 0.8 H 1.1 H (0.0-0.4) % Lymph % (Auto) 18.3 L (20-40) % Abs Immat Gran (auto) 0.06 H 0.06 H (0.00-0.03) X10*3/uL Carbon Dioxide 20 L (22-29) mmol/L Random Glucose 127 H (60-115) mg/dL Alkaline Phosphatase 161 H D (39-117) U/L 05/01/21 Range/Units 05:28 RBC (4.60-5.80) X10*6/uL Hgb (14.0-18.0) g/dl Hct (42-52) % MCV (80-98) fL MCH (27.0-33.0) pg Plt Count (160-400) X10*3/uL Immature Gran % (Auto) (0.0-0.4) % Lymph % (Auto) (20-40) % Abs Immat Gran (auto) (0.00-0.03) X10*3/uL Carbon Dioxide (22-29) mmol/L Random Glucose 127 H (60-115) mg/dL Alkaline Phosphatase (39-117) U/L Short CBC 04/30/21 05/01/21 Range/Units 22:07 05:28 WBC 7.8 5.7 (4.8-10.8) X10*3/uL Hgb 20.8 H 17.6 (14.0-18.0) g/dl Hct 60.3 H 53.2 H (42-52) % Plt Count 155 L 132 L (160-400) X10*3/uL BMP 04/30/21 05/01/21 22:07 05:28 Sodium 137 139 Potassium 4.4 3.8 Chloride 105 106 Carbon Dioxide 20 L 25 BUN 10 9 Creatinine 1.10 1.16 Calcium 9.4 8.6 D Liver Function 04/30/21 Range/Units 22:07 Total Bilirubin 1.0 (0.0-1.0) mg/dL AST 24 (5-37) U/L ALT 18 (0-40) U/L Alkaline Phosphatase 161 H D (39-117) U/L Albumin 3.9 (3.5-5.0) g/dL Urine 05/01/21 Range/Units 00:53 Urine Color STRAW Urine Appearance CLEAR Urine pH 5.5 (5.0-8.0) Ur Specific [place] <= 1.005 (1.005-1.025) Urine Protein NEG (NEG-TRACE) MG/DL Urine Glucose (UA) NEG (NEG) MG/DL All other labs normal. Assessment and Plan (1) SBO (small bowel obstruction): Status: Acute He was admitted because of abdominal pain and nausea. I have reviewed his CAT scan and this showed some mild dilatation of the small bowel proximally with suggestion of a transition in the pelvis. The only surgery He has had was for an inguinal hernia. Clinically, he has a very benign exam. He does not have pain at this time. An NG tube was placed early this morning. There does not appear to be significant output. The patient actually has been passing watery stools. We will continue with current management with NG tube and bowel rest for now. Again, clinically he has a very benign exam. He will be followed by the Surgical Service during this hospital stay. His history is noteworthy for multiple medical issues including cardiomegaly, hypertension, and significant COPD. I have reviewed his CAT scan images with the radiologist. Procedures Date of Service Date of Service: 05/06/21
[2021-05-01] MEDS: Nicotine 21 MG PATCH.TD24 TRANSDERMA (08:00)
[2021-05-01] MEDS: Famotidine/PF 20 MG/2 ML VIAL IVPUSH ×2 (08:00→20:23)
[2021-05-01] MEDS: 0.9 % Sodium Chloride Flush 3 ML SYRINGE IVFLUSH ×3 (08:00→23:53)
[2021-05-01] MEDS: Dextrose 5 % and 0.9 % NaCl 1,000 ML 100 ML IVCONT ×2 (08:11→18:02)
--- NOTE | 2021-05-01 08:34 | MHC.CM.PN ---
CM met with Patient at bedside; he lives in a house with his Son and he is functionally independent. Patient's Sister/Jennifer is HCP. Patient's goal for dc is to return home/no services and CM has initiated and will follow for dc planning.PCP is Dr. Iveth Stokes.
--- NOTE | 2021-05-01 08:38 | MHC.CM.PN ---
ADDENDUM- Patient has a diagnosis of ETOH and may benefit from a Care Team Consult.
--- NOTE | 2021-05-01 13:00 | PM.EVENT ---
Event Note Date of Service: 05/01/21 Event Note: 65-year-old male with a past medical history of hypertension, alcohol abuse, COPD -not on home oxygen, history of hernia repair, alcohol abuse, tobacco dependence; history of SBO in January of 2021 admitted to [facility]. symptomsimproved with conservative management, did not require surgery; presented to the hospital today with a chief complaint of nausea, vomiting and abdominal discomfort for the past 1 week.CAT scan of abdomen showed some mild dilatation of the small bowel proximally with suggestion of a transition in the pelvis, NG tube placed, patient made npo and admitted to medical floor for continued monitoring and treatment this a.m. patient complaining of sore throat due to NG tube, abdominal pain has improved, NG tube with 200 mL of drainage on exam awake alert abdomen soft bowel sounds are of Mild SBO with transition point abdominal pain is improving NG with low output, patient being followed by General surgery continue NPO, IV fluids,for throat discomfort will place him on viscous lidocaine patient had 3 bowel movements yesterday , continue supportive care with antiemetics and analgesics History of aortic aneurysm: Patient's blood pressure currently on the higher side. Patient is on a strict NPO. Head home amlodipine. Will keep patient on labetalol on p.r.n. with Will blood pressure less than 140/90. alcohol abuse: continue phenobarb protocol, reportedly patient was delirious when admitted to [facility] COPD: no acute exacerbation, continue DuoNebs p.r.n. Tobacco dependence: continue Nicotine patch Polycythemia: likely secondary to tobacco use hemoglobin improved from 20-17.6, Will continue to monitor. DVT prophylaxis: SCD boots Code status: Full code
--- NOTE | 2021-05-01 17:45 | ECG_ITS ---
Test Reason : chest pain Blood Pressure : / mmHG Vent. Rate : 072 BPM Atrial Rate : 072 BPM P-R Int : 140 ms QRS Dur : 086 ms QT Int : 416 ms P-R-T Axes : 058 -19 052 degrees QTc Int : 455 ms Normal sinus rhythm Possible Left atrial enlargement Borderline ECG No previous ECGs available Referred By: Ajit Richardson Electronically Signed By:JIMENA GOLD
--- NOTE | 2021-05-01 19:35 | PC.NURSE ---
patient reported left sided chest pain 8/10 reproducible, Pt was hldinh the chest from the pain ,was crying.Dr Richardson was notified, EKG ordered , Dr Zarate reviewed EKG, Chest pain resolved on his own. No sob,BP163/94 hr 72 , o2 sat 95% on room air
[2021-05-01] MEDS: PHENobarbitaL 15 MG TABLET 45 MG PO (20:24)
[2021-05-02] VITALS (7 sets, daily range): BP systolic 142–167; BP diastolic 81–91; PULSE 75–80; RESP 16–20; TEMP 36.3–36.7; O2SAT 94–98
[2021-05-02] MEDS: Dextrose 5 % and 0.9 % NaCl 1,000 ML 100 ML IVCONT ×3 (03:41→23:01)
[2021-05-02] MEDS: amLODIPine Besylate 2.5 MG TABLET PO (08:57)
[2021-05-02] MEDS: PHENobarbitaL 15 MG TABLET 45 MG PO ×2 (08:58→20:16)
[2021-05-02] MEDS: Nicotine 21 MG PATCH.TD24 TRANSDERMA (08:59)
[2021-05-02] MEDS: Famotidine/PF 20 MG/2 ML VIAL IVPUSH ×2 (08:59→20:16)
[2021-05-02] MEDS: 0.9 % Sodium Chloride Flush 3 ML SYRINGE IVFLUSH ×2 (09:01→20:17)
[2021-05-02] MEDS: Lidocaine HCl Viscous 2 % 15 ML SOLUTION MUCOUS MEM (09:26)
--- NOTE | 2021-05-02 09:49 | PC.NURSE ---
Per MD instructions, NG tube is off suction until 1:30. Contact MD at that time.
[2021-05-02] MEDS: Morphine Sulfate 4 MG/ML CARTRIDGE 1 MG IVPUSH (12:57)
--- NOTE | 2021-05-02 13:51 | P.PNGS_ITS ---
Subjective Subjective Date of Service: 05/02/21 Interval history: Reports neck and throat pain related to NG tube. Passing a small amount of flatus. No bowel movement since admission. Reports shortness of breath related to recent walk to the bathroom. Physical Exam Vital Signs: Vital Signs: Last Vital Signs Temp 97.3 F 05/02/21 11:06 Pulse 80 05/02/21 11:06 Resp 18 05/02/21 11:06 BP 161/90 H 05/02/21 11:06 Pulse Ox 96 05/02/21 11:06 Body Mass Index 24.3 Const: General: cooperative, no acute distress and alert Resp: Effort & Inspection: normal respiratory effort Auscultation: clear to auscultation bilaterally Cardio: Rate: regular rate Rhythm: regular rhythm GI: Other: Round, normal bowel sounds, no palpable masses, mild diffuse tender ness Skin: Other: Warm and dry Progress Note: A&P Assessment and plan (1) Abdominal pain: Status: Acute (2) SBO (small bowel obstruction): Status: Acute (3) Alcohol use disorder: Status: Acute (4) COPD (chronic obstructive pulmonary disease): Status: Acute Assessment and Plan: 65-year-old male with multiple chronic medical conditions presenting with abdominal pain nausea and vomiting. CT scan showed some mildly dilated loops of small bowel with normal caliber distal small bowel in the possibility of mild small-bowel obstruction was raised. Patient continues to pass flatus. Review of CT scan yesterday, Dr. Chiang and Dr. Tarango, indicated low likelihood of bowel obstruction based upon image findings. NG tube output has been moderate. Discussed with Dr. Richardson. NG tube to be clamped for 4 hours. If output is 100 cc or below, NG tube will be removed and clear liquid diet initiated. Fall Risk Details Current Medications: Current Medications Generic Name Dose Route Start Last Admin Trade Name Freq PRN Reason Stop Dose Admin Albuterol Sulfate 2 puff 05/01/21 00:10 Albuterol Sulfate 90 Mcg 8 Gm Inhaler INHALE Q6H PRN shortness of breath or wheezing Albuterol/Ipratropium 3 ml 05/01/21 00:11 05/01/21 03:08 Albuterol/Iprat 2.5/0.5mg 3 Ml Ampul.Neb INHALE 3 ml RQ4H PRN Administration Shortness of Breath/Wheezing Amlodipine Besylate 2.5 mg 05/02/21 09:00 05/02/21 08:57 Amlodipine Besylate 2.5 Mg Tablet PO 2.5 mg DAILY DEJAN Administration Protocol Famotidine 20 mg 05/01/21 09:00 05/02/21 08:59 Famotidine/Pf 20 Mg/2 Ml Vial IVPUSH 20 mg BID DEJAN Administration Dextrose/Sodium Chloride 1,000 mls @ 100 mls/hr 05/01/21 08:15 05/02/21 13:09 D5ns IVCONT 100 mls/hr .Q10H DEJAN Administration Labetalol HCl 10 mg 05/01/21 00:07 05/01/21 20:24 Labetalol Hcl 100 Mg/20 Ml Vial IVPUSH 10 mg Q3H PRN Administration BP>140/90 Lidocaine HCl 15 ml 05/01/21 13:10 05/02/21 09:26 Lidocaine Hcl Viscous 2 % 15 Ml Solution MUCOUS MEM 15 ml Q3H PRN Administration Sore Throat Medication 1 each 05/01/21 09:00 No Benzodiazepines MISCELLANE DAILY [facility] Morphine Sulfate 1 mg 05/01/21 00:07 05/02/21 12:57 Morphine Sulfate 4 Mg/Ml Cartridge IVPUSH 1 mg Q4H PRN Administration Pain, Severe (Pain Scale 7-10) Nicotine 21 mg 05/01/21 09:00 05/02/21 08:59 Nicotine 21 Mg Patch.Td24 TRANSDERMA 21 mg DAILY DEJAN Administration Pharmacy Consult 1 each 04/30/21 21:54 Consult Rx Perform Med Rec MISCELLANE ONCE PRN Consult order Phenobarbital 45 mg 05/01/21 21:00 05/02/21 08:58 Phenobarbital 15 Mg Tablet PO 05/03/21 09:01 45 mg BID DEJAN Administration Protocol Phenobarbital 15 mg 05/03/21 21:00 Phenobarbital 15 Mg Tablet PO 05/05/21 09:01 BID DEJAN Protocol Phenobarbital 15 mg 05/06/21 09:00 Phenobarbital 15 Mg Tablet PO 05/07/21 09:01 DAILY DEJAN Protocol Sodium Chloride 3 ml 05/01/21 08:00 05/02/21 09:01 0.9 % Sodium Chloride Flush 3 Ml Syringe IVFLUSH 3 ml QSHIFT DEJAN Administration Time Spent With Patient Time: Total time spent is greater than 50% in coordination of care (as docu mented) at patient's floor/unit and/or counseling patient: Time with patient: 15 - 24 minutes Procedures Date of Service Date of Service: 05/02/21 Quality Stroke Does the patient have a stroke diagnosis?: No VTE Prior VTE?: No VTE Risk Level:: Medical - moderate - high VTE Device Contraindication: N/A - Device Ordered VTE Drug Contraindication: Patient Refused
--- NOTE | 2021-05-02 14:34 | P.PNIM_ITS ---
Subjective Subjective Date of Service: 05/02/21 Interval History: Patient complaining of coughing due to throat irritation related to NG tube, admits that abdominal pain is better passing flatus, no fevers no chills no other acute issues. ROS [employer] no headache, no dizziness CVS no chest pain, no palpatation no urinary symptoms of urgency, no frequency Skin no rash Physical Exam Vital Signs: Vital Signs: Last Vital Signs Temp 97.3 F 05/02/21 11:06 Pulse 80 05/02/21 11:06 Resp 18 05/02/21 11:06 BP 161/90 H 05/02/21 11:06 Pulse Ox 96 05/02/21 11:06 Body Mass Index 24.3 General no acute distress. Neck no JVD. CVS regular rate rhythm, Respiratory lungs clear to auscultation, no respiratory distress, no wheeze Gastrointestinal abdomen soft,mild tenderness to palpation,bowel sounds audible, no guarding , no rigidity. Extremities no edema. Neuro nonfocal patient moving all 4 extremity speech clear. Skin no rash Objective Data Current Medications Generic Name Dose Route Start Last Admin Trade Name Freq PRN Reason Stop Dose Admin Albuterol Sulfate 2 puff 05/01/21 00:10 Albuterol Sulfate 90 Mcg 8 Gm Inhaler INHALE Q6H PRN shortness of breath or wheezing Albuterol/Ipratropium 3 ml 05/01/21 00:11 05/01/21 03:08 Albuterol/Iprat 2.5/0.5mg 3 Ml Ampul.Neb INHALE 3 ml RQ4H PRN Administration Shortness of Breath/Wheezing Amlodipine Besylate 2.5 mg 05/02/21 09:00 05/02/21 08:57 Amlodipine Besylate 2.5 Mg Tablet PO 2.5 mg DAILY DEJAN Administration Protocol Famotidine 20 mg 05/01/21 09:00 05/02/21 08:59 Famotidine/Pf 20 Mg/2 Ml Vial IVPUSH 20 mg BID DEJAN Administration Dextrose/Sodium Chloride 1,000 mls @ 100 mls/hr 05/01/21 08:15 05/02/21 13:09 D5ns IVCONT 100 mls/hr .Q10H DEJAN Administration Labetalol HCl 10 mg 05/01/21 00:07 05/01/21 20:24 Labetalol Hcl 100 Mg/20 Ml Vial IVPUSH 10 mg Q3H PRN Administration BP>140/90 Lidocaine HCl 15 ml 05/01/21 13:10 05/02/21 09:26 Lidocaine Hcl Viscous 2 % 15 Ml Solution MUCOUS MEM 15 ml Q3H PRN Administration Sore Throat Medication 1 each 05/01/21 09:00 No Benzodiazepines MISCELLANE DAILY [facility] Morphine Sulfate 1 mg 05/01/21 00:07 05/02/21 12:57 Morphine Sulfate 4 Mg/Ml Cartridge IVPUSH 1 mg Q4H PRN Administration Pain, Severe (Pain Scale 7-10) Nicotine 21 mg 05/01/21 09:00 05/02/21 08:59 Nicotine 21 Mg Patch.Td24 TRANSDERMA 21 mg DAILY [facility] Administration Pharmacy Consult 1 each 04/30/21 21:54 Consult Rx Perform Med Rec MISCELLANE ONCE PRN Consult order Phenobarbital 45 mg 05/01/21 21:00 05/02/21 08:58 Phenobarbital 15 Mg Tablet PO 05/03/21 09:01 45 mg BID [facility] Administration Protocol Phenobarbital 15 mg 05/03/21 21:00 Phenobarbital 15 Mg Tablet PO 05/05/21 09:01 BID DEJAN Protocol Phenobarbital 15 mg 05/06/21 09:00 Phenobarbital 15 Mg Tablet PO 05/07/21 09:01 DAILY [facility] Protocol Sodium Chloride 3 ml 05/01/21 08:00 05/02/21 09:01 0.9 % Sodium Chloride Flush 3 Ml Syringe IVFLUSH 3 ml QSHIFT [facility] Administration Labs CBC & Chem 7: 05/01/21 05:28 05/01/21 05:28 Quality Stroke Does the patient have a stroke diagnosis?: No VTE Prior VTE?: No VTE Risk Level:: Medical - moderate - high VTE Device Contraindication: N/A - Device Ordered VTE Drug Contraindication: Patient Refused Assessment and Plan (1) Abdominal pain: Status: Acute (2) SBO (small bowel obstruction): Status: Acute (3) Alcohol abuse: Status: Acute (4) Polycythemia: Status: Acute (5) COPD (chronic obstructive pulmonary disease): Status: Acute Assessment and Plan: Abdominal pain/ Mild SBO Mild persistent abdominal pain/NG tube clamped for 3 hours, no significant residual noted therefore NG tube discontinued, will start patient on clear liquid diet Continue IV fluids monitor electrolytes, decrease IV fluid Encourage out of bed to chair and ambulation, continue supportive care with antiemetics and analgesic History of aortic aneurysm: Patient's blood pressure currently on the higher side. Resume Norvasc, continue as needed labetalol Follow BP closely alcohol abuse: continue phenobarb protocol, reportedly patient was delirious when admitted to [facility] COPD: no acute exacerbation, continue DuoNebs p.r.n. Tobacco dependence: continue Nicotine patch Polycythemia: likely secondary to tobacco use hemoglobin improved from 20-17.6, Will continue to monitor CBC. DVT prophylaxis: SCD boots Code status: Full code
[2021-05-03] VITALS (7 sets, daily range): BP systolic 132–163; BP diastolic 81–93; PULSE 75–82; RESP 18–20; TEMP 36.1–36.8; O2SAT 95–97
[2021-05-03 06:19] LABS: PLT CLUMP 1
[2021-05-03 06:20] LABS: Hematocrit 51.3 % (42-52); Mean Corpuscular HGB Conc 33.1 g/dl (31.0-36.0); Mean Corpuscular Hemoglobin 34.5 pg (27.0-33.0); Mean Corpuscular Volume 104.1 fL (80-98); Mean Platelet Volume 9.7 fL (9.4-12.4); Platelet Count 108 X10*3/uL (160-400); Red Blood Count 4.93 X10*6/uL (4.60-5.80); Red Cell Distribution Width 13.8 % (11.0-16.0); White Blood Count 4.9 X10*3/uL (4.8-10.8)
[2021-05-03 06:46] LABS: Anion Gap 11 (12-20); Blood Urea Nitrogen 7 mg/dL (9-16); Calcium 8.1 mg/dL (8.4-10.2); Carbon Dioxide 26 mmol/L (22-29); Chloride 105 mmol/L (96-108); Creatinine Clr Calc Pharmacy 79.5; Estimated Glomerular Filt Rate > 60; Glucose Random 98 mg/dL (60-115); Magnesium 1.7 mg/dL (1.6-2.6); Potassium 3.7 mmol/L (3.3-5.1); Sodium 138 mmol/L (135-145)
[2021-05-03] MEDS: Dextrose 5 % and 0.9 % NaCl 1,000 ML 100 ML IVCONT (08:36)
[2021-05-03] MEDS: Famotidine/PF 20 MG/2 ML VIAL IVPUSH (08:37)
[2021-05-03] MEDS: amLODIPine Besylate 5 MG TABLET PO (08:37)
[2021-05-03] MEDS: 0.9 % Sodium Chloride Flush 3 ML SYRINGE IVFLUSH ×3 (08:37→20:01)
[2021-05-03] MEDS: PHENobarbitaL 15 MG TABLET 45 MG PO (08:37)
[2021-05-03] MEDS: Nicotine 21 MG PATCH.TD24 TRANSDERMA (08:38)
--- NOTE | 2021-05-03 10:02 | P.PNIM_ITS ---
Subjective Subjective Date of Service: 05/03/21 Interval History: Denies abdominal pain, no nausea, no vomiting, had 2 bowel movement last night and 1 bowel movement this morning, tolerating clear liquid diet. 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 Neck no JVD. CVS regular rate rhythm, Respiratory lungs clear to auscultation, no respiratory distress, no wheeze Gastrointestinal abdomen soft, non tender,bowel sounds audible, no guarding , no rigidity. Extremities no edema. Neuro nonfocal, patient moving all 4 extremity, speech clear. Skin no rash Objective Data Current Medications Generic Name Dose Route Start Last Admin Trade Name Freq PRN Reason Stop Dose Admin Albuterol Sulfate 2 puff 05/01/21 00:10 Albuterol Sulfate 90 Mcg 8 Gm Inhaler INHALE Q6H PRN shortness of breath or wheezing Albuterol/Ipratropium 3 ml 05/01/21 00:11 05/01/21 03:08 Albuterol/Iprat 2.5/0.5mg 3 Ml Ampul.Neb INHALE 3 ml RQ4H PRN Administration Shortness of Breath/Wheezing Amlodipine Besylate 5 mg 05/03/21 09:00 05/03/21 08:37 Amlodipine Besylate 5 Mg Tablet PO 5 mg DAILY DEJAN Administration Protocol Famotidine 20 mg 05/01/21 09:00 05/03/21 08:37 Famotidine/Pf 20 Mg/2 Ml Vial IVPUSH 20 mg BID DEJAN Administration Dextrose/Sodium Chloride 1,000 mls @ 80 mls/hr 05/01/21 08:15 05/03/21 08:36 D5ns IVCONT 100 mls/hr .[id number] DEJAN Administration Labetalol HCl 10 mg 05/01/21 00:07 05/01/21 20:24 Labetalol Hcl 100 Mg/20 Ml Vial IVPUSH 10 mg Q3H PRN Administration BP>140/90 Lidocaine HCl 15 ml 05/01/21 13:10 05/02/21 09:26 Lidocaine Hcl Viscous 2 % 15 Ml Solution MUCOUS MEM 15 ml Q3H PRN Administration Sore Throat Medication 1 each 05/01/21 09:00 No Benzodiazepines MISCELLANE DAILY [facility] Morphine Sulfate 3 mg 05/02/21 15:08 Morphine Sulfate 4 Mg/Ml Cartridge IVPUSH Q4H PRN Pain, Severe (Pain Scale 7-10) Nicotine 21 mg 05/01/21 09:00 05/03/21 08:38 Nicotine 21 Mg Patch.Td24 TRANSDERMA 21 mg DAILY [facility] Administration Pharmacy Consult 1 each 04/30/21 21:54 Consult Rx Perform Med Rec MISCELLANE ONCE PRN Consult order Phenobarbital 15 mg 05/03/21 21:00 Phenobarbital 15 Mg Tablet PO 05/05/21 09:01 BID [facility] Protocol Phenobarbital 15 mg 05/06/21 09:00 Phenobarbital 15 Mg Tablet PO 05/07/21 09:01 DAILY [facility] Protocol Sodium Chloride 3 ml 05/01/21 08:00 05/03/21 08:37 0.9 % Sodium Chloride Flush 3 Ml Syringe IVFLUSH 3 ml QSHIFT [facility] Administration Labs CBC & Chem 7: 05/03/21 05:46 05/03/21 05:46 Labs: Laboratory Results - last 24 hr 05/03/21 05/03/21 05:46 05:46 WBC 4.9 RBC 4.93 Hgb 17.0 Hct 51.3 MCV 104.1 H MCH 34.5 H MCHC 33.1 RDW 13.8 Plt Count 108 L MPV 9.7 Absolute Nucleated RBC 0.000 Nucleated RBC % (auto) 0.0 Sodium 138 Potassium 3.7 Chloride 105 Carbon Dioxide 26 Anion Gap 11 L BUN 7 L Creatinine 0.92 Estim Creat Clear Calc 79.5 Estimated GFR > 60 Random Glucose 98 Calcium 8.1 L Magnesium 1.7 Quality Stroke Does the patient have a stroke diagnosis?: No VTE Prior VTE?: No VTE Risk Level:: Medical - moderate - high VTE Device Contraindication: N/A - Device Ordered VTE Drug Contraindication: Patient Refused Assessment and Plan (1) SBO (small bowel obstruction): Status: Acute (2) Alcohol abuse: Status: Acute (3) Polycythemia: Status: Acute (4) COPD (chronic obstructive pulmonary disease): Status: Acute (5) Smoking: Status: Acute (6) Cardiomegaly: Status: Acute (7) Coronary artery calcification seen on CT scan: Status: Acute (8) Hypertensive cardiomegaly: Status: Acute Assessment and Plan: 65-year-old male with a past medical history of hypertension, alcohol abuse, COPD -not on home oxygen, history of hernia repair, alcohol abuse, tobacco dependence; history of SBO in January of 2021 -improved with conservative ma nagement admitted at [facility], did not require surgery; presented to the hospital today with a chief complaint of nausea, vomiting and abdominal discomfort for the past 1 week. Abdominal pain/ Mild SBO Differential diagnosis gastritis, electrolytes abnormality and history of prior hernia repair Abdominal pain resolved with conservative treatment, NG tube discontinued 05/02 patient tolerating clear liquid diet common had 2 bowel movement last night, no nausea, no vomiting Will DC IV fluid, advanced diet to low residue, add daily Pepcid. Encourage out of bed to chair and ambulation, History of aortic aneurysm: Recommend good blood pressure control and close outpatient follow-up with PCP and vascular surgeon. alcohol abuse: continue phenobarb protocol, reportedly patient was delirious when admitted to [facility], strongly advised to abstain from alcohol obtain care team consult COPD: no acute exacerbation, continue DuoNebs p.r.n. Tobacco dependence: continue Nicotine patch. Polycythemia: likely secondary to tobacco use hemoglobin improved from 20-17. No symptoms of headache or dizziness, normal B12 and folate. Recent CT scan from [facility] showed borderline cardiomegaly, left coronary artery calcification, ascending aortic ectasia, mild aortic arch calcification and possible pulmonary hypertension. Being followed by cardiology Dr. Baumann as outpt. DVT prophylaxis: SCD boots Code status: Full code
--- NOTE | 2021-05-03 10:52 | PM.PNGS ---
Subjective Subjective Date of Service: 05/03/21 Interval history: Feels better today. No abdominal pain. Tolerating clear liquid diet. Had 2 bowel movements. No complaints of shortness of breath. Physical Exam Vital Signs: Vital Signs: Last Vital Signs Temp 97.1 F 05/03/21 07:16 Pulse 78 05/03/21 08:37 Resp 18 05/03/21 07:16 BP 144/82 H 05/03/21 08:37 Pulse Ox 95 05/03/21 07:16 Body Mass Index 24.3 Const: General: cooperative, healthy appearing and no acute distress Resp: Effort & Inspection: normal respiratory effort Auscultation: clear to auscultation bilaterally Cardio: Rate: regular rate Rhythm: regular rhythm GI: Other: Round, soft, nontender, no palpable masses, normoactive bowel sounds Skin: Other: Warm and dry Progress Note: A&P Assessment and plan (1) Abdominal pain: Status: Acute (2) Vomiting: Status: Acute (3) SBO (small bowel obstruction): Status: Acute Assessment and Plan: Abdominal pain, nausea and vomiting have resolved. Advancing to solid diet today. If he is able to tolerate this, anticipate discharge tomorrow. He has an appointment scheduled with Gastroenterology later this week. Fall Risk Details Current Medications: Current Medications Generic Name Dose Route Start Last Admin Trade Name Freq PRN Reason Stop Dose Admin Albuterol Sulfate 2 puff 05/01/21 00:10 Albuterol Sulfate 90 Mcg 8 Gm Inhaler INHALE Q6H PRN shortness of breath or wheezing Albuterol/Ipratropium 3 ml 05/01/21 00:11 05/01/21 03:08 Albuterol/Iprat 2.5/0.5mg 3 Ml Ampul.Neb INHALE 3 ml RQ4H PRN Administration Shortness of Breath/Wheezing Amlodipine Besylate 5 mg 05/03/21 09:00 05/03/21 08:37 Amlodipine Besylate 5 Mg Tablet PO 5 mg DAILY DEJAN Administration Protocol Labetalol HCl 10 mg 05/01/21 00:07 05/01/21 20:24 Labetalol Hcl 100 Mg/20 Ml Vial IVPUSH 10 mg Q3H PRN Administration BP>140/90 Lidocaine HCl 15 ml 05/01/21 13:10 05/02/21 09:26 Lidocaine Hcl Viscous 2 % 15 Ml Solution MUCOUS MEM 15 ml Q3H PRN Administration Sore Throat Medication 1 each 05/01/21 09:00 No Benzodiazepines MISCELLANE DAILY [facility] Nicotine 21 mg 05/01/21 09:00 05/03/21 08:38 Nicotine 21 Mg Patch.Td24 TRANSDERMA 21 mg DAILY DEJAN Administration Pharmacy Consult 1 each 04/30/21 21:54 Consult Rx Perform Med Rec MISCELLANE ONCE PRN Consult order Phenobarbital 15 mg 05/03/21 21:00 Phenobarbital 15 Mg Tablet PO 05/05/21 09:01 BID [facility] Protocol Phenobarbital 15 mg 05/06/21 09:00 Phenobarbital 15 Mg Tablet PO 05/07/21 09:01 DAILY [facility] Protocol Sodium Chloride 3 ml 05/01/21 08:00 05/03/21 08:37 0.9 % Sodium Chloride Flush 3 Ml Syringe IVFLUSH 3 ml QSHIFT [facility] Administration Time Spent With Patient Time: Total time spent is greater than 50% in coordination of care (as documented) at patient's floor/unit and/or counseling patient: Time with patient: less than 15 minutes Procedures Date of Service Date of Service: 05/03/21 Quality Stroke Does the patient have a stroke diagnosis?: No VTE Prior VTE?: No VTE Risk Level:: Medical - moderate - high VTE Device Contraindication: N/A - Device Ordered VTE Drug Contraindication: Patient Refused
--- NOTE | 2021-05-03 14:12 | MHC.RECOVSUP ---
Recovery Support note: Patient is a 65 year old Scottish speaking male who presented to [facility] due to abdominal pain and was medically admitted. 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 Patient reports he typically drinks 2 beers and 5 shots worth of fireball each night after dinner. Patient reports he goes to bed after this and that this pattern of drinking has not been problematic for him. This magnetic tape typewriter operator discussed with patient that his body is physically dependent on the alcohol due to his level and pattern of consumption and that overtime this will lead to more and more health problems. Patient acknowledged. Patient reports he stopped drinking for a couple weeks towards the end of January and early February after he was diagnosed with SBO. Patient reports his symptoms resolved and he thought he could start drinking again. Patient reports his symptoms returned with his return to alcohol and he acknowledges the connection between the two. Patient reports he plans to stop drinking again and allow his body time to heal. Patient states he does not anticipate any issues in doing this. Discussed recovery supports with patient including AA, IOP, medications for alcohol use disorder and outpatient therapy. Patient declined information on these resources. Patient reports he has a friend he can reach out to for support and that this friend offered to take him to AA meetings and that he plans to do this. Encouraged patient to consider alternative supports if he feels he needs more help later on. Patient acknowledged. Patient reports no questions at this time. Discussed case with patient's RN.
[2021-05-03] MEDS: PHENobarbitaL 15 MG TABLET PO (20:00)
[2021-05-04] VITALS (9 sets, daily range): BP systolic 116–178; BP diastolic 63–87; PULSE 71–81; RESP 18–20; TEMP 36.1–36.7; O2SAT 94–98
[2021-05-04 07:15] LABS: Magnesium 1.8 mg/dL (1.6-2.6)
--- NOTE | 2021-05-04 07:30 | CA_ITS ---
Transthoracic Echocardiogram Patient (Last, First, Middle): Kingston Tomas, Gender: Male Date of : 1955 Age: 65 Procedure Date: 05/04/2021 Procedure Type: Transthoracic Echocardiogram Location: [facility] [place] Height: 172.72 cm Weight: 72.58 kg BSA: 1.86 m2 Heart Rate: bpm BP: 144 / 86 mmHg Professor Of Literacy: Leon MD: Stoney Rossi MD Symptoms: NSVT Conclusions: - Normal left ventricular size, thickness, systolic function, and wall motion - Normal right ventricular cavity size and systolic function - There is mild dilatation of the ascending aorta measuring 3.70 cm. Findings Left Ventricle Normal left ventricular size, thickness, systolic function, and wall motion. The visually estimated ejection fraction is between 55-60%. Diastolic function is normal for age. Right Ventricle Normal right ventricular cavity size and systolic function. Atria Both atria are normal in size. Aortic Valve Normal aortic valve structure and function. There is no aortic valve stenosis. There is trace (trivial) aortic valve regurgitation. Mitral Valve Normal mitral valve structure and function. There is trace mitral valve regurgitation. There is no mitral valve stenosis. Pulmonic Valve Normal pulmonic valve structure and function. There is trace pulmonic valve regurgitation. Tricuspid Valve Normal tricuspid valve structure and function. There is trace tricuspid valve regurgitation. Normal right atrial pressure. There is no evidence of pulmonary hypertension. Great Vessels There is mild dilatation of the ascending aorta measuring 3.70 cm. The visualized portions of the pulmonary artery and branches are normal. Venous The inferior vena cava is normal in size and does not collapse with inspiration. Pericardium/Pleural There is no evidence of pericardial effusion. Prior Study Comparison No prior study available for comparison. Measurements 2D Linear Measurements RVIDd: 2.72 RVIDd Index: 1.46 IVSd: 0.81 0.6-0.9/0.6-1.0 cm LVIDd: 5.31 3.9-5.3/4.2-5.9 cm LVIDd Index: 2.85 2.4-3.2/2.2-3.1 cm/m2 LVIDs: 3.60 2.0-3.6 cm LVPWd: 1.06 0.7-1.1 cm Ao Root: 3.80 2.1-3.5 cm LA Diam: 3.30 2.7-3.8/3.0-4.0 cm LAIDs Index: 1.77 1.5-2.3 cm/m2 LV Mass: 228.76 67-162/88-224 g LV Mass Index: 122.99 43-95/49-115 g/m2 LVOT Diam: 2.50 3.0+(-)1.3 cm 2D Systolic Function EF 4C: 57.30 >55% EF 2C: 43.80 >55% Mitral Valve MV Pk E: 0.35 MV PK A: 0.59 MV Decel Time: 308.00 E/A: 0.60 E'Lateral: 3.81 E'Medial: 4.79 E/E' Med: 7.30 E/E' Lat: 9.20 Aortic Valve AoV Pk Nicanor: 1.00 AoV Mn Nicanor: 0.82 AoV VTI: 0.19 AoV Pk Grad: 4.00 Aov Mn Grad: 3.00 LUPILLO Cont.VTI: 3.89 LVOT LVOT Pk Nicanor: 0.79 LVOT Mn Nicanor: 0.56 LVOT VTI: 0.15 LVOT Pk Grad: 2.00 LVOT Mn Grad: 1.00 LVOT Diam: 2.50 LVOT Area: 4.91 Diastolic Function MV Pk E: 0.35 MV Pk A: 0.59 E/A: 0.60 E'Medial: 4.79 E/E' Med: 7.30 E' Laterial: 3.81 E/E' Lat: 9.20 Tricuspid Valve TR Pk Nicanor: 2.32 TR Pk Grad: 22.00 RA Press: 3.00 RVSP: 25.00 Great Vessels Aorta Ao Root-2D: 3.80 2.0-3.7 cm Ao Asc: 3.70 2.1-3.4 cm Ao Arch: 2.80 Updated in Other Vendor System with Status of Final Jeffrey Garza MD electronically signed on 05/04/2021 9:20:18 PM with status of Final
[2021-05-04] MEDS: 0.9 % Sodium Chloride Flush 3 ML SYRINGE IVFLUSH ×3 (09:04→20:44)
[2021-05-04] MEDS: PHENobarbitaL 15 MG TABLET PO ×2 (09:05→20:44)
[2021-05-04] MEDS: amLODIPine Besylate 5 MG TABLET PO (09:05)
[2021-05-04] MEDS: Nicotine 21 MG PATCH.TD24 TRANSDERMA (09:05)
[2021-05-04] MEDS: Famotidine 20 MG TABLET PO (09:07)
--- NOTE | 2021-05-04 11:03 | PM.PNGS ---
Subjective Subjective Date of Service: 05/04/21 Interval history: Feels well Denies abdominal pain Passing flatus Tolerating diet Physical Exam Vital Signs: Vital Signs: Last Vital Signs Temp 97.5 F 05/04/21 07:46 Pulse 71 05/04/21 09:05 Resp 20 05/04/21 07:46 BP 116/63 05/04/21 09:05 Pulse Ox 95 05/04/21 07:46 Body Mass Index 24.3 Const: General: comfortable and no acute distress Resp: Effort & Inspection: normal respiratory effort Cardio: Rate: regular rate GI: Inspection: No distended Palpation (GI): Soft to palpation, not firm, nontender and no guarding Progress Note: A&P Assessment and plan (1) SBO (small bowel obstruction): Status: Acute Assessment and Plan: Symptoms completely resolved Good GI function Tolerating diet well Okay to DC home from surgical standpoint He has follow-up with GI Fall Risk Details Current Medications: Current Medications Generic Name Dose Route Start Last Admin Trade Name Freq PRN Reason Stop Dose Admin Albuterol Sulfate 2 puff 05/01/21 00:10 Albuterol Sulfate 90 Mcg 8 Gm Inhaler INHALE Q6H PRN shortness of breath or wheezing Albuterol/Ipratropium 3 ml 05/01/21 00:11 05/01/21 03:08 Albuterol/Iprat 2.5/0.5mg 3 Ml Ampul.Neb INHALE 3 ml RQ4H PRN Administration Shortness of Breath/Wheezing Amlodipine Besylate 5 mg 05/03/21 09:00 05/04/21 09:05 Amlodipine Besylate 5 Mg Tablet PO 5 mg DAILY DEJAN Administration Protocol Famotidine 20 mg 05/04/21 09:00 05/04/21 09:07 Famotidine 20 Mg Tablet PO 20 mg DAILY DEJAN Administration Lidocaine HCl 15 ml 05/01/21 13:10 05/02/21 09:26 Lidocaine Hcl Viscous 2 % 15 Ml Solution MUCOUS MEM 15 ml Q3H PRN Administration Sore Throat Medication 1 each 05/01/21 09:00 No Benzodiazepines MISCELLANE DAILY DEJAN Nicotine 21 mg 05/01/21 09:00 05/04/21 09:05 Nicotine 21 Mg Patch.Td24 TRANSDERMA 21 mg DAILY DEJAN Administration Pharmacy Consult 1 each 04/30/21 21:54 Consult Rx Perform Med Rec MISCELLANE ONCE PRN Consult order Phenobarbital 15 mg 05/03/21 21:00 05/04/21 09:05 Phenobarbital 15 Mg Tablet PO 05/05/21 09:01 15 mg BID DEJAN Administration Protocol Phenobarbital 15 mg 05/06/21 09:00 Phenobarbital 15 Mg Tablet PO 05/07/21 09:01 DAILY DEJAN Protocol Sodium Chloride 3 ml 05/01/21 08:00 05/04/21 09:04 0.9 % Sodium Chloride Flush 3 Ml Syringe IVFLUSH 3 ml QSHIFT DEJAN Administration Time Spent With Patient Time: Total time spent is greater than 50% in coordination of care (as documented) at patient's floor/unit and/or counseling patient: Time with patient: 15 - 24 minutes Procedures Date of Service Date of Service: 05/04/21 Quality Stroke Does the patient have a stroke diagnosis?: No VTE Prior VTE?: No VTE Risk Level:: Medical - moderate - high VTE Device Contraindication: N/A - Device Ordered VTE Drug Contraindication: Patient Refused
[2021-05-04] MEDS: Cyclobenzaprine HCl 5 MG TABLET PO (15:49)
--- NOTE | 2021-05-04 17:10 | P.PNIM_ITS ---
Subjective Subjective Date of Service: 05/04/21 Interval History: tolerating diet, passing gas, had BMs yesterday last night around 23:30 had 11 beats of VT without any palpitations, lighthe adedness has seen cardiology as outpt- planning ischemic w/u c/o neck pain Physical Exam Vital Signs: Vital Signs: Last Vital Signs Temp 97.4 F 05/04/21 15:15 Pulse 73 05/04/21 15:15 Resp 20 05/04/21 15:15 BP 158/86 H 05/04/21 16:55 Pulse Ox 97 05/04/21 15:15 Body Mass Index 24.3 Gen: in no acute distress HEENT: sclera anicteric, moist mucus membranes Neck: supple Lungs: clear to auscultation bilaterally Heart: regular rate and rhythm, no murmurs Abd: soft, non-tender, non-distended Ext: no edema, L trapezius muscle spasm Skin: warm/well-perfused Neuro: alert and oriented x3, no focal findings Psych: appropriate affect Objective Data Current Medications Generic Name Dose Route Start Last Admin Trade Name Juanq PRN Reason Stop Dose Admin Acetaminophen 650 mg 05/04/21 16:01 Acetaminophen 325 Mg Tablet PO Q4H PRN headache Albuterol Sulfate 2 puff 05/01/21 00:10 Albuterol Sulfate 90 Mcg 8 Gm Inhaler INHALE Q6H PRN shortness of breath or wheezing Albuterol/Ipratropium 3 ml 05/01/21 00:11 05/01/21 03:08 Albuterol/Iprat 2.5/0.5mg 3 Ml Ampul.Neb INHALE 3 ml RQ4H PRN Administration Shortness of Breath/Wheezing Amlodipine Besylate 5 mg 05/03/21 09:00 05/04/21 09:05 Amlodipine Besylate 5 Mg Tablet PO 5 mg DAILY DEJAN Administration Protocol Cyclobenzaprine HCl 5 mg 05/04/21 11:59 05/04/21 15:49 Cyclobenzaprine Hcl 5 Mg Tablet PO 5 mg TID PRN Administration left neck pain Famotidine 20 mg 05/04/21 09:00 05/04/21 09:07 Famotidine 20 Mg Tablet PO 20 mg DAILY DEJAN Administration Lidocaine HCl 15 ml 05/01/21 13:10 05/02/21 09:26 Lidocaine Hcl Viscous 2 % 15 Ml Solution MUCOUS MEM 15 ml Q3H PRN Administration Sore Throat Medication 1 each 05/01/21 09:00 No Benzodiazepines MISCELLANE DAILY DEJAN Nicotine 21 mg 05/01/21 09:00 05/04/21 09:05 Nicotine 21 Mg Patch.Td24 TRANSDERMA 21 mg DAILY [facility] Administration Pharmacy Consult 1 each 04/30/21 21:54 Consult Rx Perform Med Rec MISCELLANE ONCE PRN Consult order Phenobarbital 15 mg 05/03/21 21:00 05/04/21 09:05 Phenobarbital 15 Mg Tablet PO 05/05/21 09:01 15 mg BID DEJAN Administration Protocol Phenobarbital 15 mg 05/06/21 09:00 Phenobarbital 15 Mg Tablet PO 05/07/21 09:01 DAILY [facility] Protocol Sodium Chloride 3 ml 05/01/21 08:00 05/04/21 15:50 0.9 % Sodium Chloride Flush 3 Ml Syringe IVFLUSH 3 ml QSHIFT [facility] Administration Labs CBC & Chem 7: 05/03/21 05:46 05/03/21 05:46 Labs: Laboratory Results - last 24 hr 05/04/21 05:37 Magnesium 1.8 Quality Stroke Does the patient have a stroke diagnosis?: No VTE Prior VTE?: No VTE Risk Level:: Medical - moderate - high VTE Device Contraindication: N/A - Device Ordered VTE Drug Contraindication: Patient Refused Assessment and Plan (1) SBO (small bowel obstruction): Status: Acute (2) Alcohol abuse: Status: Acute (3) Polycythemia: Status: Acute (4) COPD (chronic obstructive pulmonary disease): Status: Acute (5) Smoking: Status: Acute (6) Cardiomegaly: Status: Acute (7) Coronary artery calcification seen on CT scan: Status: Acute (8) Hypertensive cardiomegaly: Status: Acute Assessment and Plan: hospital d#4 65yo M with HTN, EtOH abuse, COPD, tobacco abuse, prior SBO January 2021 managed nonoperatively admitted for mild SBO, resolved developed NSVT # NSVT - possibly has cardiomyopathy from EtOH. Recent CT scan from [facility] showed borderline cardiomegaly, left coronary artery calcification, ascending aortic ectasia, mild aortic arch calcification and possible pulmonary hypertension. - TTE + cardiology consult pending. check K/Mg # SBO - NG tube discontinued 05/02, on regular diet since yesterday # ascending aortic aneursym - BP control, outpt vascular surgery f/u # HTN - increase amlodipine # EtOH abuse - drinks 2-3 beers + 4-5 servings of hard liquor daily. high risk withdrawal- placed on phenobarbital taper + vitamins. CARE team consult done, will consult Addicition Medicine as well # COPD, not in acute exacerbation - prn nebs # tobacco abuse - NRT # polycythemia - likely due to COPD; improved # VTE ppx - SCDs
--- NOTE | 2021-05-04 19:00 | ECG_ITS ---
Test Reason : repeat EKG CP Blood Pressure : / mmHG Vent. Rate : 069 BPM Atrial Rate : 069 BPM P-R Int : 140 ms QRS Dur : 086 ms QT Int : 400 ms P-R-T Axes : 067 011 060 degrees QTc Int : 428 ms Normal sinus rhythm Possible Left atrial enlargement Borderline ECG No previous ECGs available Referred By: Roosevelt Vizcaino Electronically Signed By:Jeffrey Garza
[2021-05-04 19:31] LABS: Troponin-I High Sensitivity 14.7 ng/L (<3.5-35.0)
[2021-05-05 03:35] VITALS: BP 125/73; PULSE 72; RESP 18; TEMP 36.3; O2SAT 94
[2021-05-05 05:14] LABS: Anion Gap 14 (12-20); Blood Urea Nitrogen 13 mg/dL (9-16); Calcium 8.8 mg/dL (8.4-10.2); Carbon Dioxide 25 mmol/L (22-29); Chloride 102 mmol/L (96-108); Creatinine Clr Calc Pharmacy 80.3; Estimated Glomerular Filt Rate > 60; Glucose Random 99 mg/dL (60-115); Magnesium 1.9 mg/dL (1.6-2.6); Sodium 137 mmol/L (135-145)
[2021-05-05 07:20] VITALS: BP 156/94; PULSE 75; RESP 20; TEMP 36.7; O2SAT 95
[2021-05-05] MEDS: Famotidine 20 MG TABLET PO (07:52)
[2021-05-05] MEDS: 0.9 % Sodium Chloride Flush 3 ML SYRINGE IVFLUSH (07:52)
[2021-05-05 07:53] VITALS: BP 156/90; PULSE 75
[2021-05-05] MEDS: Nicotine 21 MG PATCH.TD24 TRANSDERMA (07:53)
[2021-05-05] MEDS: amLODIPine Besylate 5 MG TABLET 10 MG PO (07:53)
[2021-05-05] MEDS: PHENobarbitaL 15 MG TABLET PO (07:53)
[2021-05-05 11:03] VITALS: BP 136/80; PULSE 76; RESP 20; TEMP 36.6; O2SAT 96
[2021-05-05 15:11] VITALS: BP 152/83; PULSE 73; RESP 20; TEMP 36.8; O2SAT 98
--- NOTE | 2021-05-05 15:44 | MHC.CM.PN ---
Patient has been medically cleared for dc to home today, no services.
--- NOTE | 2021-05-05 15:47 | PM.DS ---
DS: Providers Provider Date of Service: 05/05/21 Date of admission: 05/01/21 00:07 Primary care physician: Iveth Stokes MD Consults: 05/01/21 00:07 Consult to General Surgery Routine Consulting Provider: Surinder Chiang Reason for consultation: SBO 05/03/21 10:02 Consult to Care Team Routine Comment: Reason for consultation: etoh 05/03/21 23:32 Consult to Cardiology Routine Consulting Provider: Garth Baumann Reason for consultation: NSVT 05/04/21 17:16 Addiction Medicine Routine Consulting Provider: Alma Angeles Reason for consultation: etoh DS: Diagnosis Discharge Diagnosis (1) SBO (small bowel obstruction): Status: Acute (2) Alcohol abuse: Status: Acute (3) Hypertensive cardiomegaly: Status: Acute (4) Alcohol use disorder: Status: Acute (5) Cigarette smoker motivated to quit: Status: Acute (6) NSVT (nonsustained ventricular tachycardia): Status: Acute DS: Medications Discharge Medications Home Medications: Home Medications Medication Instructions Recorded Confirmed Spiriva with HandiHaler 1 cap INHALATION DAILY 04/30/21 04/30/21 pantoprazole 1 tab PO DAILY 04/30/21 04/30/21 Previous Rx's Medication Instructions Recorded albuterol sulfate 90 mcg/actuation 2 puff INHALATION Q6H PRN #8.5 g 03/16/21 aerosol inhaler folic acid 1 mg tablet 1 mg PO DAILY #30 tab 03/27/21 multivitamin 1 tab PO DAILY #30 tab 03/27/21 umeclidinium 62.5 mcg-vilanterol 1 inh INHALATION DAILY 30 Days #1 04/24/21 25 mcg/actuation powdr for ea inhalation amlodipine 10 mg PO DAILY #30 tab 05/05/21 cyclobenzaprine 5 mg PO TID PRN #12 tab 05/05/21 naltrexone 50 mg PO DAILY #30 tab 05/05/21 nicotine 21 mg TRANSDERMAL DAILY #30 ea 05/05/21 DS: Summary Hospital Course Hospital Course: from admission H+P by hospitalist Stoney Rossi, 05/01/21: 65-year-old male with a past medical history of hypertension, alcohol abuse, COPD -not on home oxygen, history of hernia repair, alcohol abuse, tobacco dependence; history of SBO in January of 2021 -improved with conservative management, did not require surgery; presented to the hospital today with a chief complaint of nausea vomiting and abdominal discomfort for the past 1 week. Patient reported abdominal pain is located in the center of the abdomen radiating to the back; patient does report loose stool and passing gas; denies any fever chills cough. patient reported that his current symptoms are similar to the ones when he was admitted to [facility] for SBO. Denies any chest pain palpitations lightheadedness or dizziness. Patient does report drinking alcohol regularly Last drink was this afternoon. Also reports smoking cigarettes daily. Denies any shortness of breath. Denies any urinary symptoms Review of all other systems is negative except mentioned above ER course: Per ER team patient noted to have abdominal tenderness, diffuse, no guarding no rigidity; given a dose of Dilaudid with improvement in the abdominal pain. CT abdomen showed mild SBO with transition point; discussed with Dr. Chiang who opined that as the patient improved with conservative management before, will do the same now and monitor the patient, did not recommend any emergency surgery, recommended admission to the medicine service. The patient was admitted to the medical service and treated nonoperatively for SBO, which resolved with NG tube and bowel rest. Diet was gradually advanced with good tolerance. He developed an 11-beat episode of NSVT without symptoms, but echocardiogram did not demonstrate any evidence of structural heart disease and electrolytes were normal. He was, however, noted to have aortic root dilation and outpatient vascular surgery consult is recommended. He was discharged home with instructions to follow up with his primary care doctor and his transportation engineering technician, who has already arranged for a stress test on the patient. For better blood pressure control, amlodipine was increased from 2.5 to 10 mg daily. Smoking cessation was counseled and NRT prescribed. He drinks heavily and was thought to be at high risk of withdrawal and therefore was placed on a phenobarbital taper along with vitamin supplementation. He saw the addiction medicine specialist and was prescribed naltrexone to reinforce sobriety. He will follow up with the [facility] upon discharge for management of alcohol use disorder. Time Spent with Patient Time attestation: Total time spent providing and/or coordinating discharge services: 35 Discharge coordination time: Greater than 30 minutes Quality: Stroke Does the patient have a stroke diagnosis?: No Physical Exam Vital Signs: Vital Signs: Last Vital Signs Temp 98.2 F 05/05/21 15:11 Pulse 73 05/05/21 15:11 Resp 20 05/05/21 15:11 BP 152/83 H 05/05/21 15:11 Pulse Ox 98 05/05/21 15:11 Body Mass Index 24.3 Gen: in no acute distress HEENT: sclera anicteric, moist mucus membranes Neck: supple Lungs: clear to auscultation bilaterally Heart: regular rate and rhythm, no murmurs Abd: soft, non-tender, non-distended Ext: no edema Skin: warm/well-perfused Neuro: alert and oriented x3, no focal findings Psych: appropriate affect DS: Data Data Completed and Pending Completed studies during hospitalization [Text1]: Laboratory Results WBC 4.9 X10*3/uL (4.8-10.8) 05/03/21 05:46 RBC 4.93 X10*6/uL (4.60-5.80) 05/03/21 05:46 Hgb 17.0 g/dl (14.0-18.0) 05/03/21 05:46 Hct 51.3 % (42-52) 05/03/21 05:46 MCV 104.1 fL (80-98) H 05/03/21 05:46 MCH 34.5 pg (27.0-33.0) H 05/03/21 05:46 MCHC 33.1 g/dl (31.0-36.0) 05/03/21 05:46 RDW 13.8 % (11.0-16.0) 05/03/21 05:46 Plt Count 108 X10*3/uL (160-400) L 05/03/21 05:46 MPV 9.7 fL (9.4-12.4) 05/03/21 05:46 Immature Gran % (Auto) 1.1 % (0.0-0.4) H 05/01/21 05:28 Neut % (Auto) 65.3 % (45-73) 05/01/21 05:28 Lymph % (Auto) 21.3 % (20-40) 05/01/21 05:28 Baker % (Auto) 10.2 % (2-11) 05/01/21 05:28 Eos % (Auto) 1.2 % (0-4) 05/01/21 05:28 Baso % (Auto) 0.9 % (0-2) 05/01/21 05:28 Lymph # (Auto) 1.2 X10*3/uL (1.2-4.9) 05/01/21 05:28 Baker # (Auto) 0.6 X10*3/uL (0.1-1.2) 05/01/21 05:28 Eos # (Auto) 0.1 X10*3/uL (0.0-0.4) 05/01/21 05:28 Baso # (Auto) 0.1 X10*3/uL (0.0-0.2) 05/01/21 05:28 Abs Immat Gran (auto) 0.06 X10*3/uL (0.00-0.03) H 05/01/21 05:28 Absolute Neuts (auto) 3.7 X10*3/uL (2.0-8.3) 05/01/21 05:28 Absolute Nucleated RBC 0.000 X10*3/uL (0.0-0.012) 05/03/21 05:46 Nucleated RBC % (auto) 0.0 /100WBC (0.0-0.2) 05/03/21 05:46 Sodium 137 mmol/L (135-145) 05/05/21 04:29 Potassium 4.0 mmol/L (3.3-5.1) 05/05/21 04:29 Chloride 102 mmol/L (96-108) 05/05/21 04:29 Carbon Dioxide 25 mmol/L (22-29) 05/05/21 04:29 Anion Gap 14 (12-20) 05/05/21 04:29 BUN 13 mg/dL (9-16) D 05/05/21 04:29 Creatinine 0.91 mg/dL (0.5-1.4) 05/05/21 04:29 Estim Creat Clear Calc 80.3 05/05/21 04:29 Estimated GFR > 60 05/05/21 04:29 Random Glucose 99 mg/dL (60-115) 05/05/21 04:29 Calcium 8.8 mg/dL (8.4-10.2) D 05/05/21 04:29 Magnesium 1.9 mg/dL (1.6-2.6) 05/05/21 04:29 Total Bilirubin 1.0 mg/dL (0.0-1.0) 04/30/21 22:07 AST 24 U/L (5-37) 04/30/21 22:07 ALT 18 U/L (0-40) 04/30/21 22:07 Alkaline Phosphatase 161 U/L (39-117) H D 04/30/21 22:07 Troponin I High Sens 14.7 ng/L (<3.5-35.0) 05/04/21 18:47 Total Protein 7.4 g/dL (6.5-8.0) 04/30/21 22:07 Albumin 3.9 g/dL (3.5-5.0) 04/30/21 22:07 Lipase 38 U/L (8-78) 04/30/21 22:07 Urine Color STRAW 05/01/21 00:53 Urine Appearance CLEAR 05/01/21 00:53 Urine pH 5.5 (5.0-8.0) 05/01/21 00:53 Ur Specific Floral <= 1.005 (1.005-1.025) 05/01/21 00:53 Urine Protein NEG MG/DL (NEG-TRACE) 05/01/21 00:53 Urine Glucose (UA) NEG MG/DL (NEG) 05/01/21 00:53 Urine Ketones NEG MG/DL (NEG) 05/01/21 00:53 Urine Blood NEG (NEG) 05/01/21 00:53 Urine Nitrite NEG (NEG) 05/01/21 00:53 Ur Leukocyte Esterase NEG (NEG) 05/01/21 00:53 COVID-19 (ELOISE) Negative (Negative) 04/30/21 22:07 COVID-19 Clin Com See Note 04/30/21 22:07 Impressions Abdomen/Pelvis CT 04/30/21 21:54 IMPRESSION: 1. Mild small bowel obstruction with transition point in the low pelvis. No bowel wall thickening or edema. 2. Soft tissue mass involving the anterior abdominal wall at the left inguinal region. 3. Contracted gallbladder with small gallstone. No bile duct dilatation. Chest X-Ray 05/01/21 00:00 IMPRESSION: Enteric tube terminating in the stomach. TTE 05/04/21 Normal left ventricular size, thickness, systolic function, and wall motion - Normal right ventricular cavity size and systolic function - There is mild dilatation of the ascending aorta measuring 3.70 cm. Discharge Plan Discharge Patient Disposition: Home, Self-Care Discharge Diagnosis: non-sustained ventricular tachycardia small bowel obstruction ascending aortic aneurysm hypertension alcohol abuse tobacco abuse Referrals: Iveth Stokes MD [Primary Care Provider] - 1 Week Alma Angeles CNP [Nurse Practitioner] - 1 Week Garth Baumann MD [Physician] - 1 Week Discharge Medications: New naltrexone 50 mg tablet 50 mg PO DAILY Qty: 30 RF: 0 nicotine 21 mg/24 hr Patch 24 Hour 21 mg transdermal DAILY Qty: 30 RF: 0 cyclobenzaprine 5 mg Tablet 5 mg PO TID PRN (Reason: left neck pain) Qty: 12 RF: 0 amlodipine 10 mg tablet 10 mg PO DAILY Qty: 30 RF: 0 Continued albuterol sulfate [ProAir HFA] 90 mcg/actuation HFA aerosol inhaler 2 puff inhalation Q6H PRN (Reason: shortness of breath or wheezing) Qty: 8.5 RF: 4 multivitamin [Daily-Susan] Tablet 1 tab PO DAILY Qty: 30 RF: 4 folic acid 1 mg tablet 1 mg PO DAILY Qty: 30 RF: 5 pantoprazole 40 mg tablet,delayed release (DR/EC) 1 tab PO DAILY RF: 0 Spiriva with HandiHaler 18 mcg capsule, w/inhalation device 1 cap inhalation DAILY RF: 0 Anoro Ellipta 62.5-25 mcg/actuation blister with device 1 inh inhalation DAILY 30 Days Qty: 1 RF: 6 Discontinued amlodipine 2.5 mg tablet 2.5 mg PO BEDTIME RF: 0 Discharge Orders: Discharge Order (Routine); Ordered 05/05/21 Ordered By: Roosevelt Vizcaino Diet: advance to usual diet Activity on Discharge: As tolerated Stand Alone Forms: Patient Portal Discharge page Activity Restrictions/Additional Instructions: no smoking no alcohol Care Plan Goals: prevention of heart disease sobriety Health Concerns: non-sustained ventricular tachycardia small bowel obstruction ascending aortic aneurysm hypertension alcohol abuse tobacco abuse Plan of Treatment: follow up with transportation engineering technician in 2 weeks as scheduled; avoid alcohol SBO resolved follow up with vascular surgeon as outpatient in 1 month increase amlodipine to 10 mg daily avoid alcohol; take naltrexone 50 mg daily and follow up with [facility] nicotine patch to stop smoking Assessment: as above Patient Instructions: Bowel Obstruction (DC)
--- NOTE | 2021-05-05 16:16 | HO.ADDICTCON ---
History of Present Illness Date of Service: 05/05/2021 Chief Complaint: SBO Reason for Consult: Alcohol use disorder Requesting physician: Roosevelt Vizcaino Discussed with referring provider: Yes Sources of Information: patient interviewed and chart reviewed [facility] Narrative: Patient is a 65-year-old male currently medically admitted with small bowel obstruction. Patient also reporting history of daily alcohol use, so addiction consult was requested to evaluate and treat. Of note patient was previously seen by recovery personal support worker and at that time patient declined any intervention. Patient seen in room 472. He was awake, alert, pleasant and engaged in interview. Patient denying any issues related to alcohol, states that he drinks a couple of beers and 5 shots of fireball every evening with his neighbor when his neighbor comes home from work. He denies any issues with family or friendships. Denies any legal issues related to drinking. He does however acknowledge health issues which she has been told have been worsened by his alcohol use. While patient displayed what appeared to be minimal insight related to alcohol use, he was also very open to discussing alcohol use disorder and any associated treatments. He reports that he has been drinking at this rate for the last 5 or so years, and overall he did not start drinking till he was about 32 years old. He denies any history of treatment for alcohol use disorder. And later did acknowledge that his sisters have been encouraging him to decrease alcohol use due to his current health issues. Past Psychiatric History: Denies Medical Evaluation Reviewed: Yes Personal & Social History: Lives with his son. Review of Systems Constitutional: Reports as per HPI, Reports no additional constitutional complaints, Denies difficulty sleeping, Denies malaise and Denies night sweats Gastrointestinal: Denies loose stools, Denies nausea and Denies vomiting Psychiatric: Denies anxiety and Denies depression Diagnostics Vital Signs (24Hr): Vital Signs - 24 hr 05/04/21 16:55 05/04/21 19:09 05/04/21 23:45 Temperature 98.1 F 98.1 F Pulse Rate 80 81 Respiratory Rate 20 18 Blood Pressure 158/86 H 156/79 H 124/72 Pulse Oximetry 98 94 05/05/21 03:35 05/05/21 07:20 05/05/21 07:53 Temperature 97.3 F 98.0 F Pulse Rate 72 75 75 Respiratory Rate 18 20 Blood Pressure 125/73 156/94 H 156/90 H Pulse Oximetry 94 95 05/05/21 11:03 05/05/21 15:11 Temperature 97.8 F 98.2 F Pulse Rate 76 73 Respiratory Rate 20 20 Blood Pressure 136/80 152/83 H Pulse Oximetry 96 98 Body Mass Index 24.3 Labs Results: 05/03/21 05:46 05/05/21 04:29 Labs: Laboratory Results - last 48 hr 05/04/21 05/04/21 05/05/21 05:37 18:47 04:29 Sodium 137 Potassium 4.0 Chloride 102 Carbon Dioxide 25 Anion Gap 14 BUN 13 D Creatinine 0.91 Estim Creat Clear Calc 80.3 Estimated GFR > 60 Random Glucose 99 Calcium 8.8 D Magnesium 1.8 1.9 Troponin I High Sens 14.7 Imaging Radiology Impressions: ITS Impressions Abdomen/Pelvis CT 04/30/21 21:54 IMPRESSION: 1. Mild small bowel obstruction with transition point in the low pelvis. No bowel wall thickening or edema. 2. Soft tissue mass involving the anterior abdominal wall at the left inguinal region. 3. Contracted gallbladder with small gallstone. No bile duct dilatation. Chest X-Ray 05/01/21 00:00 IMPRESSION: Enteric tube terminating in the stomach. Mental Status Exam Mental Status Exam Patient Orientation: Person, Place, Time and Situation Level of Consciousness: Awake, Appropriate and Alert Patient Behavior: Appropriate Mood Description: Calm and Appropriate Affect Description: Calm and Appropriate Patient Cognition Impaired: No Ability to Follow Directions: Excellent Speech Pattern: Clear Hallucinations: None Delusions: Not Present Thought Process: Goal Oriented Thought Content: positive for Intact Judgement: Good Medications Medications Current Medications Generic Name Dose Route Start Last Admin Trade Name Gwyn PRN Reason Stop Dose Admin Acetaminophen 650 mg 05/04/21 16:01 Acetaminophen 325 Mg Tablet PO Q4H PRN headache Albuterol Sulfate 2 puff 05/01/21 00:10 Albuterol Sulfate 90 Mcg 8 Gm Inhaler INHALE Q6H PRN shortness of breath or wheezing Albuterol/Ipratropium 3 ml 05/01/21 00:11 05/01/21 03:08 Albuterol/Iprat 2.5/0.5mg 3 Ml Ampul.Neb INHALE 3 ml RQ4H PRN Administration Shortness of Breath/Wheezing Amlodipine Besylate 10 mg 05/05/21 09:00 05/05/21 07:53 Amlodipine Besylate 5 Mg Tablet PO 10 mg DAILY DEJAN Administration Protocol Cyclobenzaprine HCl 5 mg 05/04/21 11:59 05/04/21 15:49 Cyclobenzaprine Hcl 5 Mg Tablet PO 5 mg TID PRN Administration left neck pain Famotidine 20 mg 05/04/21 09:00 05/05/21 07:52 Famotidine 20 Mg Tablet PO 20 mg DAILY DEJAN Administration Lidocaine HCl 15 ml 05/01/21 13:10 05/02/21 09:26 Lidocaine Hcl Viscous 2 % 15 Ml Solution MUCOUS MEM 15 ml Q3H PRN Administration Sore Throat Medication 1 each 05/01/21 09:00 No Benzodiazepines MISCELLANE DAILY DEJAN Nicotine 21 mg 05/01/21 09:00 05/05/21 07:53 Nicotine 21 Mg Patch.[id number] TRANSDERMA 21 mg DAILY DEJAN Administration Pharmacy Consult 1 each 04/30/21 21:54 Consult Rx Perform Med Rec MISCELLANE ONCE PRN Consult order Phenobarbital 15 mg 05/06/21 09:00 Phenobarbital 15 Mg Tablet PO 05/07/21 09:01 DAILY DEJAN Protocol Sodium Chloride 3 ml 05/01/21 08:00 05/05/21 07:52 0.9 % Sodium Chloride Flush 3 Ml Syringe IVFLUSH 3 ml QSHIFT DEJAN Administration Allergies Allergies Allergy/AdvReac Type Severity Reaction Status Date / Time No Known Allergies Allergy Verified 04/30/21 21:21 Assessment & Plan Assessment & Plan (1) Alcohol use disorder: Status: Acute Recommendations: Lengthy discussion with patient regarding treatment options for alcohol use disorder. Patient agreeable to trial of naltrexone. Reports that his goal would eventually be to have the Vivitrol injections so that he does have to take medication every day. Discussed dosing time, goals of treatment, and side effects. Questions answered for patient Discussed case with recovery support RN, who then provided patient with additional information about medications for alcohol use disorder as well as how to obtain an appointment at the [facility]. Total of 50 minutes spent with patient and coordinating care including discharge planning around treatment for alcohol use disorder. Greater than 50% of the session was spent on counseling and/or coordination of care PMFSH Past Medical History Medical History Alcohol use disorder Change in multiple pigmented skin lesions Cigarette smoker motivated to quit Cough Dyspepsia Emphysema lung Essential hypertension GERD (gastroesophageal reflux disease) Heavy tobacco smoker >10 cigarettes per day History of small bowel obstruction Hypertensive cardiomegaly Macrocytosis without anemia Shortness of breath on exertion Family History Family History Mother CAD (coronary artery disease) Surgical History Surgical History Hx of colonoscopy Social History Social History Household Members: Other Household Members Other:: SON AND UNCLE Housing: House Do you presently have visiting nurse or other home services: No Alcohol intake: current Alcohol intake frequency: 3 or more drinks per day Patient Tobacco Use Status: Current someday Tobacco user Tobacco use type: Cigarette Cigarette Packs Per Day: 0.5 Cigarettes Per Day: 145 Smoked in Last 30 Days: Yes Patient Interested in Nicotine Replacement: Yes Patient Given Instructions on How to Stop Smoking: Yes Date Education Initiated: 05/01/21 Second Hand Smoke Exposure: Yes Use of substances other than those prescribed or required for medical reasons: No Currently Displaying Signs/Symptoms of Drug Intoxication Withdrawal: No Any prior treatment program specific to substance use: No Have you been hit, kicked, punched, or otherwise hurt by someone within the past year? If so, by whom?: No Do you feel safe in your current relationship?: No Is there a partner from a previous relationship who is making you feel unsafe now?: No Are you made to feel afraid or neglected: No Spiritual Healthcare Practices: NONE L[employer] Healthcare Practices: NONE Cultural Healthcare Practices: NONE Advance Directives: No Advance Directives Information Provided: No Do you have thoughts of harming others: None Do you have a plan to hurt others: No Plan Recently lost weight without trying: No Nutrition Risks: Receiving home tube feeding or CPN Poor oral hygiene: No service: No Current occupational status: retired
== END 2021-05-05 17:00 | disposition home or self-care (01) | DRG 247 ==
LOC: HO.ED 05-01 00:08 → HO.EDOVER 05-01 01:18 → HO.IMC 05-01 01:48
PROVIDERS: Hospitalist; Admitting Provider Hospitalist; Emergency Provider Emergency Medicine; PCP Internal Medicine; Visit Provider Family Medicine
DX: K56.609 Unspecified intestinal obstruction, unspecified as to partial versus complete obstruction (principal); I11.9 Hypertensive heart disease without heart failure; D75.1 Secondary polycythemia; I47.1 Supraventricular tachycardia; F17.210 Nicotine dependence, cigarettes, uncomplicated; I71.4 Abdominal aortic aneurysm, without rupture; F10.10 Alcohol abuse, uncomplicated; J44.9 Chronic obstructive pulmonary disease, unspecified; Z20.822 Contact with and (suspected) exposure to COVID-19; Z71.6 Tobacco abuse counseling; Z79.899 Other long term (current) drug therapy
CPT/HCPCS: 36415; 71045; 74177; 80048; 80053; 81003; 83690; 83735; 84484; 85025; 85027; 87635; 93005; 93306; 94640; 99285; J1170; J2270; J2405; J2560; Q9967

== ENCOUNTER → 2021-05-07 10:47 | Outpatient (BNVA) | payer OTHER, SELFPAY | PROVIDERS: Referring Provider Internal Medicine; Visit Provider Physician Assistant ==

== ENCOUNTER 2021-05-07 11:47 | Emergency (ER) | payer OTHER, SELFPAY ==
--- NOTE | 2021-05-07 | ECG_ITS ---
Test Reason : DYSPNEA Blood Pressure : / mmHG Vent. Rate : 086 BPM Atrial Rate : 086 BPM P-R Int : 138 ms QRS Dur : 080 ms QT Int : 378 ms P-R-T Axes : 066 -20 063 degrees QTc Int : 452 ms Normal sinus rhythm Possible Left atrial enlargement Nonspecific T wave abnormality Abnormal ECG When compared with ECG of 04-MAY-2021 16:11, No significant change was found Referred By: Adela Phillips Electronically Signed By:Jeffrey Garza
--- NOTE | ~2021-05-07 | CT_ITS ---
EXAMINATION: CT ANGIOGRAM OF THE CHEST WITH AND WITHOUT CONTRAST (CT PULMONARY ANGIOGRAM FOR PE) CLINICAL INFORMATION: Emphysema. Worsening shortness of breath. Evaluate for a pulmonary embolism. COMPARISON: Chest radiograph dated 05/01/2021. CT lung screening dated 04/15/2021. TECHNIQUE: Prior to contrast administration, noncontrast localization images were obtained. Subsequently, multidetector volumetric imaging was performed from the thoracic inlet to below the diaphragms following the administration of 65 mL Omnipaque 350 intravenous contrast. No contrast reaction reported Sagittal, coronal, and MIP oblique sagittal reformatted images were obtained on the CT workstation, uploaded to PACS, and reviewed. This CT examination was performed using dose optimization techniques as appropriate, variously including the following: *Automated exposure control *Adjustment of mA and/or kV according to patient size (this includes techniques or standardized protocols for targeted exams where dose is matched to indication/reason for exam; i.e. extremities or head) *Use of iterative reconstruction technique Total exam dose-length product 249 mGy-cm FINDINGS: QUALITY OF STUDY/CONTRAST BOLUS: Satisfactory. PULMONARY ARTERIES: No central or segmental pulmonary emboli. THORACIC AORTA: No aortic aneurysm or dissection. Scattered atherosclerotic calcifications. LUNG: Prominent emphysematous changes are redemonstrated. No new focal airspace consolidation. No pulmonary mass or new pulmonary nodule. The previously seen left lower lobe subpleural nodule was not appreciated on the current examination. No new pulmonary nodule. PLEURA: No pleural effusion or pneumothorax. MEDIASTINUM: Normal heart size. No pericardial effusion. No hilar or mediastinal lymphadenopathy. No evidence of septal bowing or right heart strain. CHEST WALL/AXILLA: No axillary or internal mammary lymphadenopathy. OSSEOUS STRUCTURES: No acute or suspicious osseous abnormality. UPPER ABDOMEN: Simple right hepatic cyst. Otherwise unremarkable. No reflux of contrast into the hepatic veins to suggest elevated right heart pressures. CT/CT angio chest PE protocol IMPRESSION: 1. No CT angiographic evidence of acute pulmonary embolism. 2. Prominent emphysematous changes are redemonstrated. No new pulmonary nodule, mass, or airspace consolidation. 3. No significant lymphadenopathy. VTE: Negative.
[2021-05-07 11:52] VITALS: BP 136/79; PULSE 92; RESP 18; TEMP 36.7; O2SAT 98; BMI 23.8
[2021-05-07 12:00] VITALS: BP 151/85; PULSE 89; RESP 19; O2SAT 97
[2021-05-07 13:03] LABS: Basophils Percent Auto 0.4 % (0-2); Imm Gran Abs Auto 0.07 X10*3/uL (0.00-0.03); Imm Gran Pct Auto 0.9 % (0.0-0.4); Mean Platelet Volume 10.6 fL (9.4-12.4); Monocytes Absolute Auto 0.8 X10*3/uL (0.1-1.2); Monocytes Percent Auto 10.2 % (2-11); Neutrophils Absolute Auto 5.8 X10*3/uL (2.0-8.3); Red Cell Distribution Width 13.4 % (11.0-16.0)
[2021-05-07 13:05] LABS: Eosinophils Absolute Auto 0.1 X10*3/uL (0.0-0.4); Eosinophils Percent Auto 0.9 % (0-4); Hemoglobin 19.1 g/dl (14.0-18.0); Lymphocytes Percent Auto 12.4 % (20-40); Mean Corpuscular HGB Conc 33.7 g/dl (31.0-36.0); Mean Corpuscular Hemoglobin 34.7 pg (27.0-33.0); Mean Corpuscular Volume 102.7 fL (80-98); Neutrophils Percent Auto 75.2 % (45-73); Platelet Count 138 X10*3/uL (160-400); Red Blood Count 5.51 X10*6/uL (4.60-5.80); White Blood Count 7.7 X10*3/uL (4.8-10.8)
[2021-05-07 13:07] LABS: INTERNATIONAL NORM RATIO 1.1 (0.9-1.1)
[2021-05-07 13:09] LABS: Hematocrit 56.6 % (42-52); MANUAL DIFF FLAG NO
[2021-05-07 13:23] LABS: Alanine Aminotransferase 30 U/L (0-40); Alkaline Phosphatase 107 U/L (39-117); Anion Gap 15 (12-20); Aspartate Amino Transferase 32 U/L (5-37); Bilirubin Total 1.4 mg/dL (0.0-1.0); Blood Urea Nitrogen 16 mg/dL (9-16); Calcium 9.2 mg/dL (8.4-10.2); Carbon Dioxide 25 mmol/L (22-29); Chloride 102 mmol/L (96-108); Creatinine Clr Calc Pharmacy 61.9; Estimated Glomerular Filt Rate > 60; Glucose Random 98 mg/dL (60-115); Potassium 4.9 mmol/L (3.3-5.1); Sodium 137 mmol/L (135-145)
[2021-05-07 13:26] LABS: B Type Natriuretic Peptide 13 pg/mL (<100); Troponin-I High Sensitivity 5.3 ng/L (<3.5-35.0)
--- NOTE | 2021-05-07 13:43 | ED.SOB ---
HPI - SOB/Dyspnea General Chief Complaint: Dyspnea Stated Complaint: Sob Time Seen by Provider: 05/07/21 12:11 Source: patient Mode of arrival: ambulatory Limitations: no limitations History of Present Illness HPI Narrative: 65-year-old male with a past medical history of nonsustained ventricular tachycardia, aortic ectasia, coronary artery calcifications seen on CT scan, hypertensive cardiomegaly, essential hypertension, alcohol abuse, COPD/emphysema who is a daily smoker presenting to the ED with complaints of worsening shortness of breath for the past few days worse today after being seen by GI and sent here for further evaluation and treatment. On 04/30/2021 was seen here for epigastric abdominal pain and admitted for alcohol abuse/small bowel obstruction/polycythemia. He had an NG-tube placed then on 05/04/2021 was discharged after tolerating clear liquid diet and having 2 bowel movements. He reports associated dyspnea on exertion and orthopnea. He denies any dizziness, headaches, changes in vision, chest pain, palpitations, abdominal pain, nausea/vomiting/diarrhea, lower extremity edema, calf tenderness, recent CO to exposure any other symptoms complaints or concerns at this time. MD elicited complaint: shortness of breath, cough and pain with inspiration Pertinent past history: COPD (/emphysema) Onset (ago): day(s) (Days worse today) Timing: constant and progressively worsening Severity: severe Exacerbating factors: lying flat, exertion, movement, coughing, inspiration, talking and deep breaths Relieving factors: rest and upright position Known history of: COPD (/emphysema) Associated symptoms: pain with inspiration, cough, sputum production and orthopnea Treatment prior to arrival: none Related Data Home oxygen amount: none Home Medications Medication Instructions Recorded Confirmed pantoprazole 1 tab PO DAILY 04/30/21 04/30/21 Previous Rx's Medication Instructions Recorded albuterol sulfate 90 mcg/actuation 2 puff INHALATION Q6H PRN #8.5 g 03/16/21 aerosol inhaler folic acid 1 mg tablet 1 mg PO DAILY #30 tab 03/27/21 multivitamin 1 tab PO DAILY #30 tab 03/27/21 umeclidinium 62.5 mcg-vilanterol 1 inh INHALATION DAILY 30 Days #1 04/24/21 25 mcg/actuation powdr for ea inhalation amlodipine 10 mg PO DAILY #30 tab 05/05/21 cyclobenzaprine 5 mg PO TID PRN #12 tab 05/05/21 naltrexone 50 mg PO DAILY #30 tab 05/05/21 nicotine 21 mg TRANSDERMAL DAILY #30 ea 05/05/21 azithromycin See Rx Instructions .ROUTE 05/07/21 .COMPLEX #6 tab prednisone 40 mg PO DAILY 5 Days #10 tab 05/07/21 Allergies Allergy/AdvReac Type Severity Reaction Status Date / Time No Known Allergies Allergy Verified 05/07/21 11:02 Review of Systems Review of Systems: Constitutional : No Weight loss, No Fever, No Chills, No Night Sweats, No Fatigue, No Malaise ENT/Mouth : No Hearing loss, No Ear Pain, No Nasal Congestion, No Sinus Pain, No Hoarseness, No sore throat, No Rhinorrhea, No Swallowing Difficulty Eyes: No Eye Pain, No Swelling, No Redness, No Foreign Body, No Discharge, No Vision Changes Cardiovascular : Positive shortness of breath/dyspnea on exertion/orthopnea, No Chest Pain, No Edema, No extremity swelling, No Palpitations Respiratory : Positive Cough/Sputum, No Wheezing Gastrointestinal : No Nausea, No Vomiting, No Diarrhea, No abdominal Pain, No Hematochezia, No Melena Genitourinary : No irregular bleeding, No Dysuria, No Urinary Frequency, No Hematuria, No Urinary Incontinence, No Urgency, No Flank Pain, No Urinary Flow Changes, No Hesitancy Musculoskeletal : No joint pain, No Myalgias, No Joint Swelling Skin : No Skin Lesions, No rash Neuro : No Weakness, No Numbness, No Paresthesias, No Loss of Consciousness, No Dizziness, No Headache Psych : No Anxiety/Panic, No Depression, No SI/HI/AH/VH Heme/Lymph: No Bruising, No Bleeding,No Lymphadenopathy Endocrine : No Polyuria, No Polydipsia, No Temperature Intolerance Yes all other systems are reviewed and are negative [facility] Past Medical History Attestation statement: The following information was validated with the patient. Medical History Alcohol use disorder Change in multiple pigmented skin lesions Cigarette smoker motivated to quit Cough Dyspepsia Emphysema lung Essential hypertension GERD (gastroesophageal reflux disease) Heavy tobacco smoker >10 cigarettes per day History of small bowel obstruction Hypertensive cardiomegaly Macrocytosis without anemia Shortness of breath on exertion Surgical History Hx of colonoscopy Family History Family History Mother CAD (coronary artery disease) Social History Social History Household Members: Other Household Members Other:: SON AND UNCLE Housing: House Do you presently have visiting nurse or other home services: No Alcohol intake: current Alcohol intake frequency: 3 or more drinks per day Patient Tobacco Use Status: Current someday Tobacco user Tobacco use type: Cigarette Cigarette Packs Per Day: 0.5 Cigarettes Per Day: 145 Second Hand Smoke Exposure: Yes Advance Directives: No Advance Directives Information Provided: No service: No Current occupational status: retired Physical Exam Vital Signs: Vital Signs: Last Vital Signs Temp 98.0 F 05/07/21 11:52 Pulse 89 05/07/21 12:00 Resp 19 05/07/21 12:00 BP 151/85 H 05/07/21 12:00 Pulse Ox 97 05/07/21 12:00 Body Mass Index 23.8 vital signs have been reviewed as normal and appeared to be correct. Blood pressure normal. Heart rate normal. Respiration rate normal. Temperature normal. Oxygen saturation normal. Appearance: Alert. Oriented X3. No acute distress. Head: Normal external exam. Normocephalic. Atraumatic. Eyes: PERRLA. EOMI. Conjunctiva and sclera normal. Eyelids normal. ENT: EAC normal. TM's Normal. Pharynx normal. Uvula midline. Moist mucous membranes. No trismus noted. No drooling noted. No muffled voice noted. Neck: Normal inspection. Neck supple. FROM. No adenopathy. Thyroid Normal. No meningeal signs. No neck mass noted. CVS: Normal heart rate and rhythm. Heart sound normal. Pulses normal throughout. No murmurs/rales/gallops. Respiratory: No respiratory distress. Painless inspiration. Breath sounds normal. No wheezes/rales/rhonchi noted. Chest nontender. No accessory muscle usage noted or decreased air movement noted. Abdomen: Soft and nontender. Bowel sounds normal in all 4 quadrants. No distention noted. No organomegaly noted. No visible injury noted. Back: Full range of motion noted. No rashes/lesion/induration/fluctuance or signs of infection noted. Skin: Skin warm and dry. Normal skin color. Normal skin turgor. No rashes/lesions/lacerations noted. Extremities: No lower extremity edema. No calf tenderness noted. Extremities exhibit normal range of motion. Extremities nontender. Neuro: Oriented X 3. No motor deficit. No sensory deficit. Reflexes normal. Normal steady gait. No focal neuro deficits noted. Vascular: + radial pulses/+ 2 distal pedal pulses/+2 dorsalis pedis b/l. Normal cap refill. No cyanosis noted to upper extremity nails and lower extremity toes nails. Course Course Course Narrative: 12:21pm - 65-year-old male with a past medical history of nonsustained ventricular tachycardia, aortic ectasia, coronary artery calcifications seen on CT scan, hypertensive cardiomegaly, essential hypertension, alcohol abuse, COPD/emphysema who is a daily smoker presenting to the ED with complaints of worsening shortness of breath for the past few days worse today he reports associated dyspnea on exertion and orthopnea. Plan: Labs, EKG, CT angio chest for PE then re-evaluate. Reevaluation(s) Reevaluation #1: - labs returned and labs at baseline. EKG normal sinus rhythm no acute ischemic changes are noted. CTA of chest for PE negative for acute PE although revealed emphysema otherwise no other acute processes. 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 Patient and sister at bedside understand and agree with this plan. Time: 14:51 [facility] - SOB/Dyspnea Medical Records Attestation: I reviewed the patient's medical records. Lab Data Attestation: I reviewed the patient's lab results. Result diagrams: 05/07/21 12:51 05/07/21 12:51 Labs: Lab Results 05/07/21 05/07/21 05/07/21 Range/Units 12:51 12:51 12:51 WBC 7.7 (4.8-10.8) X10*3/uL RBC 5.51 (4.60-5.80) X10*6/uL Hgb 19.1 H (14.0-18.0) g/dl Hct 56.6 H (42-52) % MCV 102.7 H (80-98) fL MCH 34.7 H (27.0-33.0) pg MCHC 33.7 (31.0-36.0) g/dl RDW 13.4 (11.0-16.0) % Plt Count 138 L D (160-400) X10*3/uL MPV 10.6 (9.4-12.4) fL Immature Gran % (Auto) 0.9 H (0.0-0.4) % Neut % (Auto) 75.2 H (45-73) % Lymph % (Auto) 12.4 L (20-40) % Moody % (Auto) 10.2 (2-11) % Eos % (Auto) 0.9 (0-4) % Baso % (Auto) 0.4 (0-2) % Lymph # (Auto) 1.0 L (1.2-4.9) X10*3/uL Moody # (Auto) 0.8 (0.1-1.2) X10*3/uL Eos # (Auto) 0.1 (0.0-0.4) X10*3/uL Baso # (Auto) 0.0 (0.0-0.2) X10*3/uL Abs Immat Gran (auto) 0.07 H (0.00-0.03) X10*3/uL Absolute Neuts (auto) 5.8 (2.0-8.3) X10*3/uL Absolute Nucleated RBC 0.000 (0.0-0.012) X10*3/uL Nucleated RBC % (auto) 0.0 (0.0-0.2) /100WBC PT 12.0 (9.9-13.0) SEC INR 1.1 (0.9-1.1) Sodium 137 (135-145) mmol/L Potassium 4.9 D (3.3-5.1) mmol/L Chloride 102 (96-108) mmol/L Carbon Dioxide 25 (22-29) mmol/L Anion Gap 15 (12-20) BUN 16 (9-16) mg/dL Creatinine 1.18 (0.5-1.4) mg/dL Estim Creat Clear Calc 61.9 Estimated GFR > 60 Random Glucose 98 (60-115) mg/dL Calcium 9.2 (8.4-10.2) mg/dL Magnesium 2.0 (1.6-2.6) mg/dL Total Bilirubin 1.4 H (0.0-1.0) mg/dL AST 32 (5-37) U/L ALT 30 (0-40) U/L Alkaline Phosphatase 107 D (39-117) U/L Troponin I High Sens (<3.5-35.0) ng/L B-Natriuretic Peptide (<100) pg/mL Total Protein 7.0 (6.5-8.0) g/dL Albumin 4.0 (3.5-5.0) g/dL 05/07/21 Range/Units 12:51 WBC (4.8-10.8) X10*3/uL RBC (4.60-5.80) X10*6/uL Hgb (14.0-18.0) g/dl Hct (42-52) % MCV (80-98) fL MCH (27.0-33.0) pg MCHC (31.0-36.0) g/dl RDW (11.0-16.0) % Plt Count (160-400) X10*3/uL MPV (9.4-12.4) fL Immature Gran % (Auto) (0.0-0.4) % Neut % (Auto) (45-73) % Lymph % (Auto) (20-40) % Moody % (Auto) (2-11) % Eos % (Auto) (0-4) % Baso % (Auto) (0-2) % Lymph # (Auto) (1.2-4.9) X10*3/uL Moody # (Auto) (0.1-1.2) X10*3/uL Eos # (Auto) (0.0-0.4) X10*3/uL Baso # (Auto) (0.0-0.2) X10*3/uL Abs Immat Gran (auto) (0.00-0.03) X10*3/uL Absolute Neuts (auto) (2.0-8.3) X10*3/uL Absolute Nucleated RBC (0.0-0.012) X10*3/uL Nucleated RBC % (auto) (0.0-0.2) /100WBC PT (9.9-13.0) SEC INR (0.9-1.1) Sodium (135-145) mmol/L Potassium (3.3-5.1) mmol/L Chloride (96-108) mmol/L Carbon Dioxide (22-29) mmol/L Anion Gap (12-20) BUN (9-16) mg/dL Creatinine (0.5-1.4) mg/dL Estim Creat Clear Calc Estimated GFR Random Glucose (60-115) mg/dL Calcium (8.4-10.2) mg/dL Magnesium (1.6-2.6) mg/dL Total Bilirubin (0.0-1.0) mg/dL AST (5-37) U/L ALT (0-40) U/L Alkaline Phosphatase (39-117) U/L Troponin I High Sens 5.3 D (<3.5-35.0) ng/L B-Natriuretic Peptide 13 (<100) pg/mL Total Protein (6.5-8.0) g/dL Albumin (3.5-5.0) g/dL Imaging Data CTA of chest for PE: Attestation: I personally reviewed and interpreted this imaging study as follows: Radiologist's impression: FINDINGS: QUALITY OF STUDY/CONTRAST BOLUS: Satisfactory. PULMONARY ARTERIES: No central or segmental pulmonary emboli. THORACIC AORTA: No aortic aneurysm or dissection. Scattered atherosclerotic calcifications. LUNG: Prominent emphysematous changes are redemonstrated. No new focal airspace consolidation. No pulmonary mass or new pulmonary nodule. The previously seen left lower lobe subpleural nodule was not appreciated on the current examination. No new pulmonary nodule. PLEURA: No pleural effusion or pneumothorax. MEDIASTINUM: Normal heart size. No pericardial effusion. No hilar or mediastinal lymphadenopathy. No evidence of septal bowing or right heart strain. CHEST WALL/AXILLA: No axillary or internal mammary lymphadenopathy. OSSEOUS STRUCTURES: No acute or suspicious osseous abnormality. UPPER ABDOMEN: Simple right hepatic cyst. Otherwise unremarkable. No reflux of contrast into the hepatic veins to suggest elevated right heart pressures. CT/CT angio chest PE protocol IMPRESSION: 1. No CT angiographic evidence of acute pulmonary embolism. 2. Prominent emphysematous changes are redemonstrated. No new pulmonary nodule, mass, or airspace consolidation. 3. No significant lymphadenopathy. VTE: Negative. ECG Data Attestation: I personally reviewed and interpreted this ECG as follows: ECG interpretation date: 05/07/21 ECG interpretation time: 12:40 Interpretation: Normal sinus rhythm with a ventricular rate of 86 with left atrial enlargement with nonspecific T-wave abnormalities no acute ischemic changes noted. Similar compared to prior EKG 05/04/2021 Critical Care Time Critical Care Time Critical Care Time: Yes Total Critical Care Time: 60 Attestation: I personally attest to this time spent taking care of the patient Discharge Plan Discharge Clinical Impression: Emphysematous COPD, Bronchitis Patient Disposition: Home, Self-Care Instructions: Acute Bronchitis (ED), Emphysema (ED), COPD (Chronic Obstructive Pulmonary Disease) (ED) Prescriptions: New prednisone 20 mg tablet 40 mg PO DAILY 5 Days Qty: 10 RF: 0 azithromycin 250 mg tablet See Rx Instructions .ROUTE .COMPLEX Qty: 6 RF: 0 No Action albuterol sulfate [ProAir HFA] 90 mcg/actuation HFA aerosol inhaler 2 puff inhalation Q6H PRN (Reason: shortness of breath or wheezing) Qty: 8.5 RF: 4 multivitamin [Daily-Susan] Tablet 1 tab PO DAILY Qty: 30 RF: 4 folic acid 1 mg tablet 1 mg PO DAILY Qty: 30 RF: 5 pantoprazole 40 mg tablet,delayed release (DR/EC) 1 tab PO DAILY RF: 0 naltrexone 50 mg tablet 50 mg PO DAILY Qty: 30 RF: 0 nicotine 21 mg/24 hr Patch 24 Hour 21 mg transdermal DAILY Qty: 30 RF: 0 cyclobenzaprine 5 mg Tablet 5 mg PO TID PRN (Reason: left neck pain) Qty: 12 RF: 0 amlodipine 10 mg tablet 10 mg PO DAILY Qty: 30 RF: 0 Anoro Ellipta 62.5-25 mcg/actuation blister with device 1 inh inhalation DAILY 30 Days Qty: 1 RF: 6 Referrals: Iveth Stokes MD [Primary Care Provider] - 2 days Rodrigo Smith MD [Physician] - 2 days Print Language: [place] African
[2021-05-07] MEDS: iohexoL 350 MG/ML 100 ML INFUS..BTL IV (14:08)
== END 2021-05-07 15:19 | disposition home or self-care (01) ==
PROVIDERS: Physician Assistant Medical; Emergency Provider Emergency Medicine; PCP Internal Medicine
DX: J43.9 Emphysema, unspecified (principal); J40 Bronchitis, not specified as acute or chronic; R10.13 Epigastric pain; R06.02 Shortness of breath; I11.9 Hypertensive heart disease without heart failure; F17.210 Nicotine dependence, cigarettes, uncomplicated; Z79.899 Other long term (current) drug therapy
CPT/HCPCS: 36415; 71275; 80053; 83735; 83880; 84484; 85025; 85610; 93005; 99202; 99284; 99285; Q9967

== ENCOUNTER 2021-05-11 08:50 | Outpatient (REF) | payer OTHER, SELFPAY ==
--- NOTE | 2021-05-11 15:20 | PFT_ITS ---
Forced vital capacity is slightly decreased. FEV1 moderately decreased. QXW29-28 is markedly decreased and MVV slightly decreased. Post bronchodilator therapy, there is no significant change. Total lung capacity is at the lower limit of normal. Residual volume normal. Diffusion capacity is moderately decreased. CONCLUSION: Moderately severe obstructive airway disorder. No significant response to bronchodilator therapy. MD POPPY Mejia/LINDSEY / [id number]
== END 2021-05-11 08:51 | disposition home or self-care (01) ==
LOC: HO.RESP 08:50
PROVIDERS: PCP Internal Medicine; Visit Provider Internal Medicine Pulmonary Disease
DX: J44.9 Chronic obstructive pulmonary disease, unspecified (principal)
CPT/HCPCS: 94060; 94727; 94729

== ENCOUNTER → 2021-05-19 08:59 | Outpatient (BNVA) | payer OTHER, SELFPAY | PROVIDERS: PCP Internal Medicine; Visit Provider Internal Medicine Pulmonary Disease | DX: J44.9 Chronic obstructive pulmonary disease, unspecified (principal); R06.02 Shortness of breath | CPT/HCPCS: 99212 ==

== ENCOUNTER → 2021-05-26 08:06 | Outpatient (REF) | payer OTHER, SELFPAY ==
--- NOTE | ~2021-05-26 | NM_ITS ---
Lexiscan Myocardial perfusion study Indication: Coronary artery calcification on CT scan Technique: The patient was brought in for a Lexiscan perfusion study on 05/26/2021 and was injected 0.4 mg of Lexiscan intravenously. Within a minute of this injection 25 mCi of sestamibi was given intravenously. Images were obtained using the SPECT gamma camera interlaced with the gating device. Images were obtained in supine position. Resting perfusion study was performed on 05/27/2021. Patient was administered 25 mCi of sestamibi intravenously at rest. Images were then obtained in supine position. Total DLP 75mGy-cm. Images were processed with the software and compared side to side in short axis, horizontal long axis and vertical long axis views. Findings: Raw acquisition was reviewed. The stress perfusion study showed no significant perfusion abnormality. Both uncorrected as well as CT attenuation corrected images were reviewed. The gated study shows normal LV systolic function with calculated LVEF of 48%. LV cavity is normal in size. The gated study shows mild reduction in global wall thickening and contraction of segments. Resting study show. Gating at rest with ejection fraction at 39%. The findings are consistent with no reversible or fixed perfusion defects. NM/NM fabrice perf SPECT rest & str Impression: 1. Myocardial perfusion imaging study shows likely normal perfusion. 2. Gated LVEF is 48% during stress and 39% during rest. Correlate with echocardiogram. 3. Transient ischemic dilatation not present. EKG component of the test reported separately.
--- NOTE | 2021-05-26 08:11 | CA_ITS ---
Acquisition Time: 2021-05-26 08:37:56 Total Exercise Time: 00:02:00 Test Indications: SOB Medications: SEE CHART Protocol: LEXISCAN Max HR: 107 BPM 68% of Pred: 157 BPM Max BP: 134/086 mmHG Max Work Load: 1.0 METS Pharmacological stress test with Lexiscan injection, while sitting and kicking his legs, without anginal symptoms, with rare PAC and PVC, with normotensive response to injection, with nondiagnostic EKG for ischemia. In recovery he reported shortness of breath and dizziness that was treated with Aminophylline 75mg IVP to reverse Lexiscan with improvement in symptoms. Nuclear images pending. Test reviewed with Dr Baumann. Referred By: Garth Baumann Overread By: POLLY DE ANDA
== END ==
LOC: HO.CARD 08:06
PROVIDERS: PCP Internal Medicine; Visit Provider Internal Medicine
DX: I25.119 Atherosclerotic heart disease of native coronary artery with unspecified angina pectoris (principal)
CPT/HCPCS: 78452; 93017; A9500; J0280; J2785

== ENCOUNTER → 2021-06-08 09:02 | Outpatient (BNVA) | payer OTHER, SELFPAY | PROVIDERS: PCP Internal Medicine; Visit Provider Internal Medicine | DX: Z72.89 Other problems related to lifestyle (principal) | CPT/HCPCS: 99202; 99212 ==

== ENCOUNTER → 2021-06-10 13:02 | Outpatient (BNVA) | payer OTHER, SELFPAY | PROVIDERS: PCP Internal Medicine; Referring Provider Internal Medicine; Visit Provider Internal Medicine | DX: I51.7 Cardiomegaly (principal); I25.10 Atherosclerotic heart disease of native coronary artery without angina pectoris; I77.810 Thoracic aortic ectasia; I10 Essential (primary) hypertension; F17.210 Nicotine dependence, cigarettes, uncomplicated; F10.10 Alcohol abuse, uncomplicated | CPT/HCPCS: 99212 ==

== ENCOUNTER → 2021-06-23 10:26 | Outpatient (BNVA) | payer OTHER, SELFPAY | PROVIDERS: PCP Internal Medicine; Visit Provider Internal Medicine | DX: F10.20 Alcohol dependence, uncomplicated (principal); I25.10 Atherosclerotic heart disease of native coronary artery without angina pectoris; J44.9 Chronic obstructive pulmonary disease, unspecified; K21.9 Gastro-esophageal reflux disease without esophagitis; F17.210 Nicotine dependence, cigarettes, uncomplicated | CPT/HCPCS: 99212 ==

== ENCOUNTER 2022-01-18 12:09 | Outpatient (REF) | payer OTHER, SELFPAY ==
[2022-01-18 13:51] LABS: MANUAL DIFF FLAG NO
[2022-01-18 13:55] LABS: Basophils Absolute Auto 0.1 X10*3/uL (0.0-0.2); Eosinophils Absolute Auto 0.1 X10*3/uL (0.0-0.4); Eosinophils Percent Auto 2.3 % (0-4); Imm Gran Abs Auto 0.06 X10*3/uL (0.00-0.03); Lymphocytes Absolute Auto 1.1 X10*3/uL (1.2-4.9); Lymphocytes Percent Auto 18.6 % (20-40); Mean Corpuscular HGB Conc 33.4 g/dl (31.0-36.0); Mean Corpuscular Hemoglobin 35.6 pg (27.0-33.0); Mean Corpuscular Volume 106.5 fL (80.0-98.0); Mean Platelet Volume 10.4 fL (9.4-12.4); Monocytes Absolute Auto 0.6 X10*3/uL (0.1-1.2); Monocytes Percent Auto 10.5 % (2-11); Neutrophils Percent Auto 66.6 % (45-73); Platelet Count 186 X10*3/uL (160-400); Red Cell Distribution Width 14.2 % (11.0-16.0)
[2022-01-18 14:13] LABS: Hemoglobin 20.3 g/dl (14.0-18.0)
[2022-01-18 14:14] LABS: Hematocrit 60.7 % (42.0-52.0)
[2022-01-18 14:39] LABS: Alanine Aminotransferase 29 U/L (0-40); Albumin Level 4.2 g/dL (3.5-5.0); Alkaline Phosphatase 125 U/L (39-117); Anion Gap 12 (12-20); Aspartate Amino Transferase 29 U/L (5-37); Bilirubin Total 0.9 mg/dL (0.0-1.0); Blood Urea Nitrogen 10 mg/dL (9-16); Calcium 9.8 mg/dL (8.4-10.2); Carbon Dioxide 32 mmol/L (22-29); Chloride 100 mmol/L (96-108); Cholesterol 202 mg/dL; Estimated Glomerular Filt Rate > 60; Glucose Fasting 95 mg/dL (60-99); HDL Cholesterol 54 mg/dL; LDL Cholesterol Calculated 112 mg/dl; Sodium 139 mmol/L (135-145); Total Protein 7.7 g/dL (6.5-8.0); Triglycerides 182 mg/dL
== END 2022-01-18 12:10 | disposition home or self-care (01) ==
LOC: HO.HMGCLDS 12:09
PROVIDERS: Visit Provider Internal Medicine
DX: Z00.01 Encounter for general adult medical examination with abnormal findings (principal); D75.89 Other specified diseases of blood and blood-forming organs; F17.210 Nicotine dependence, cigarettes, uncomplicated; I10 Essential (primary) hypertension; J43.9 Emphysema, unspecified; K21.9 Gastro-esophageal reflux disease without esophagitis; Z28.21 Immunization not carried out because of patient refusal
CPT/HCPCS: 36415; 80053; 80061; 85025

== ENCOUNTER → 2022-01-26 10:02 | Outpatient (BNVA) | payer OTHER, SELFPAY | PROVIDERS: Visit Provider Internal Medicine | DX: Z51.81 Encounter for therapeutic drug level monitoring (principal); F10.20 Alcohol dependence, uncomplicated | CPT/HCPCS: 80305; 99212 ==

== ENCOUNTER 2022-01-28 19:48 | Emergency (ER) | payer OTHER, SELFPAY ==
--- NOTE | ~2022-01-28 | XR_ITS ---
EXAMINATION: XR CHEST CLINICAL INFORMATION: Dyspnea. COMPARISON: Chest radiograph dated from 05/01/2021 and CTA of the chest dated from 05/07/2021. TECHNIQUE: PA view of the chest was obtained. FINDINGS: Normal cardiomediastinal silhouette. No focal airspace opacities, pleural effusions or pneumothorax. No acute osseous abnormalities. The visualized upper abdomen is within normal limits. XR/XR chest 1V IMPRESSION: No acute cardiopulmonary findings.
--- NOTE | ~2022-01-28 | CT_ITS ---
EXAMINATION: CT ABDOMEN AND PELVIS WITHOUT CONTRAST CLINICAL INFORMATION: Abdominal pain, constipation COMPARISON: 04/30/2021 TECHNIQUE: Multidetector volumetric imaging was performed from the superior aspect of the liver through the pubic symphysis. Sagittal and coronal reformatted images were obtained on the technologist's workstation. This CT examination was performed using dose optimization techniques as appropriate, variously including the following: *Automated exposure control *Adjustment of mA and/or kV according to patient size (this includes techniques or standardized protocols for targeted exams where dose is matched to indication/reason for exam; i.e. extremities or head) *Use of iterative reconstruction technique DLP: 393 mGy-cm FINDINGS: LUNG BASES: The visualized lung bases are unremarkable. LIVER, GALLBLADDER, AND BILIARY TREE: The liver is normal in size, shape, and attenuation. No focal hepatic lesion or biliary ductal dilatation is present. The gallbladder appears somewhat contracted. PANCREAS: Unremarkable. SPLEEN: Unremarkable. ADRENAL GLANDS: Unremarkable. KIDNEYS AND URETERS: No hydronephrosis or obstructing calculus bilaterally. BLADDER: Unremarkable. GASTROINTESTINAL TRACT: Prominent duodenal diverticulum redemonstrated. No evidence of bowel obstruction. No bowel wall thickening is seen. Moderate stool noted in the colon. Appendix appears nondilated. No free fluid or free air is seen. ABDOMINAL WALL: Redemonstrated masslike soft tissue density in the left lower pelvis near the inguinal canal measuring up to approximately 2.7 cm in the axial plane, similar to prior. LYMPH NODES: Normal. VASCULAR: There is atherosclerotic calcification along the aorta and iliac arteries. PELVIC VISCERA: Unremarkable. OSSEOUS STRUCTURES: L5 superior endplate concavity is similar to prior. CT/CT abdomen pelvis wo con IMPRESSION: 1. No evidence of bowel obstruction. Moderate stool in the colon. 2. Redemonstrated masslike soft tissue density in the left lower pelvis near the inguinal canal, similar to 04/30/2021 and of uncertain clinical significance. Fleischner guidelines were followed.
--- NOTE | 2022-01-28 19:59 | ECG_ITS ---
Test Reason : SOB Blood Pressure : / mmHG Vent. Rate : 089 BPM Atrial Rate : 089 BPM P-R Int : 138 ms QRS Dur : 084 ms QT Int : 376 ms P-R-T Axes : 082 -01 076 degrees QTc Int : 457 ms Normal sinus rhythm Possible Left atrial enlargement Borderline ECG When compared with ECG of 07-MAY-2021 12:40, No significant change was found Referred By: Generic ED Physician Electronically Signed By:KAREN DELEON MD
[2022-01-28 20:00] VITALS: BP 145/97; PULSE 91; RESP 22; TEMP 36.6; O2SAT 97; BMI 24.1
[2022-01-28 20:15] LABS: MANUAL DIFF FLAG NO
[2022-01-28 20:17] LABS: Basophils Absolute Auto 0.1 X10*3/uL (0.0-0.2); Basophils Percent Auto 0.8 % (0-2); Eosinophils Absolute Auto 0.2 X10*3/uL (0.0-0.4); Eosinophils Percent Auto 3.5 % (0-4); Hemoglobin 19.7 g/dl (14.0-18.0); Imm Gran Abs Auto 0.03 X10*3/uL (0.00-0.03); Imm Gran Pct Auto 0.5 % (0.0-0.4); Lymphocytes Absolute Auto 1.5 X10*3/uL (1.2-4.9); Lymphocytes Percent Auto 24.2 % (20-40); Mean Corpuscular HGB Conc 34.6 g/dl (31.0-36.0); Mean Corpuscular Hemoglobin 35.8 pg (27.0-33.0); Mean Corpuscular Volume 103.5 fL (80.0-98.0); Mean Platelet Volume 9.9 fL (9.4-12.4); Monocytes Absolute Auto 0.6 X10*3/uL (0.1-1.2); Monocytes Percent Auto 9.5 % (2-11); Neutrophils Absolute Auto 3.9 x10*3/uL (2.0-8.3); Neutrophils Percent Auto 61.5 % (45-73); Platelet Count 170 X10*3/uL (160-400); Red Cell Distribution Width 13.3 % (11.0-16.0); White Blood Count 6.3 X10*3/uL (4.8-10.8)
[2022-01-28 20:18] LABS: Hematocrit 56.9 % (42.0-52.0)
[2022-01-28 20:30] LABS: Anion Gap 14 (12-20); Blood Urea Nitrogen 12 mg/dL (9-16); Calcium 9.4 mg/dL (8.4-10.2); Carbon Dioxide 27 mmol/L (22-29); Chloride 100 mmol/L (96-108); Creatinine Clr Calc Pharmacy 58.2; Estimated Glomerular Filt Rate 59; Glucose Random 101 mg/dL (60-115); Potassium 4.5 mmol/L (3.3-5.1); Sodium 136 mmol/L (135-145)
[2022-01-28 20:38] LABS: Troponin-I High Sensitivity 6.5 ng/L (<3.5-35.0)
[2022-01-29 00:44] VITALS: BP 170/96; PULSE 82; RESP 16; TEMP 36.4; O2SAT 98
--- NOTE | 2022-01-29 01:16 | ED.SOB ---
HPI - SOB/Dyspnea General Chief Complaint: Dyspnea Stated Complaint: sob, upper abd pain Time Seen by Provider: 01/29/22 01:00 Source: patient Mode of arrival: ambulatory Limitations: no limitations History of Present Illness MD elicited complaint: shortness of breath (from upper abdominal pain) Pertinent past history: other (ETOH gastritis) Onset (ago): day(s) (2) Context: other (known gastritis from ETOH started on PPI also senna for constipation no BM x 2 days) Timing: constant Severity: moderate Exacerbating factors: other (drinks fireball) Relieving factors: nothing Known history of: other (alcohol abuse) Associated symptoms: other (constipation) Treatment prior to arrival: other (PPI and senna) Related Data Previous Rx's Medication Instructions Recorded albuterol sulfate 90 mcg/actuation 2 puff INHALATION Q6H PRN #8.5 g 03/16/21 aerosol inhaler (ProAir HFA) umeclidinium 62.5 mcg-vilanterol 1 inh INHALATION DAILY 30 Days #1 04/24/21 25 mcg/actuation powdr for ea inhalation (Anoro Ellipta) amlodipine 5 mg tablet 5 mg PO DAILY #30 tab 01/18/22 clotrimazole-betamethasone 1 1 appl TOPICAL BID 10 Days #15 g 01/18/22 %-0.05 % topical cream nicotine 21 mg/24 hr daily 21 mg TRANSDERMAL QAM #30 ea 01/18/22 transdermal patch omeprazole 40 mg capsule,delayed 40 mg PO QAM #30 cap 01/18/22 release sennosides 8.6 mg-docusate sodium 1 tab-cap PO BEDTIME #30 tab 01/18/22 50 mg tablet (Senokot-S) folic acid 1 mg tablet 1 mg PO DAILY 30 Days #30 tab 01/26/22 naltrexone 50 mg tablet 50 mg PO DAILY 14 Days #14 tab 01/26/22 thiamine HCl (vitamin B1) 50 mg 50 mg PO DAILY 30 Days #30 tab 01/26/22 tablet lactulose 10 gram/15 mL oral 10 g (15 mL) PO DAILY PRN #237 ml 01/29/22 solution ondansetron 4 mg disintegrating 4 mg PO Q8H PRN #20 tab 01/29/22 tablet Allergies Allergy/AdvReac Type Severity Reaction Status Date / Time No Known Allergies Allergy Verified 01/18/22 12:19 Review of Systems Review of Systems: Constitutional : No Weight loss, No Fever, No Chills ENT/Mouth : No sore throat, No Rhinorrhea Eyes: No Swelling, No Redness Cardiovascular : No Chest Pain, pos SOB, No Edema Respiratory : No Cough, No Sputum, No Wheezing Gastrointestinal : Positive Nausea, no Vomiting,no Diarrhea, positive abdominal Pain, No Hematochezia, No Melena, pos constipation Genitourinary : No Dysuria, No Urinary Frequency, No Hematuria, No Urgency Musculoskeletal : No joint pain, No Myalgias, No Joint Swelling Skin : No Skin Lesions, No rash Neuro : No Weakness, No Numbness, No Dizziness, No Headache Psych : No Anxiety/Panic, No Depression Heme/Lymph: No Bruising, No Lymphadenopathy Endocrine : No Polyuria, No Polydipsia All other systems reviewed and are negative. [facility] Past Medical History Attestation statement: The following information was validated with the patient. Medical History Abdominal pain Alcohol use disorder Alcoholism Cardiomegaly Change in multiple pigmented skin lesions Cigarette smoker motivated to quit COPD (chronic obstructive pulmonary disease) Coronary artery calcification seen on CT scan Cough Dyspepsia Elevated hemoglobin Emphysema lung Essential hypertension GERD (gastroesophageal reflux disease) Heavy tobacco smoker >10 cigarettes per day History of small bowel obstruction Hypertensive cardiomegaly Macrocytosis without anemia Pneumococcal vaccination declined Polycythemia Refused influenza vaccine SBO (small bowel obstruction) Shortness of breath on exertion Smoking Vomiting Surgical History Hx of colonoscopy Family History Family History Mother CAD (coronary artery disease) Social History Social History Household Members: Other Household Members Other:: SON AND UNCLE Housing: House Do you presently have visiting nurse or other home services: No Alcohol intake: current Alcohol intake frequency: a few times a week Alcohol type: hard liquor Patient Tobacco Use Status: Current someday Tobacco user Tobacco use type: Cigarette Cigarette Packs Per Day: 0.5 Cigarettes Per Day: 10 e-Cigarette/Vaping Use: Never Used Second Hand Smoke Exposure: Yes Advance Directives: No Advance Directives Information Provided: Yes service: No Current occupational status: retired Cognitive needs: No Hearing needs: No Vision needs: No Physical Exam Vital Signs: Vital Signs: Last Vital Signs Temp 97.5 F 01/29/22 00:44 Pulse 76 01/29/22 02:32 Resp 16 01/29/22 02:32 BP 163/88 H 01/29/22 02:32 Pulse Ox 92 01/29/22 02:32 BMI result Body Mass Index 24.1 Appearance: Alert. Oriented X3. No acute distress. Eyes: Pupils equal, round and reactive to light. ENT: Pharynx normal. Neck: Normal inspection. Neck supple. CVS: Normal heart rate and rhythm. Pulses normal. Respiratory: No respiratory distress. Breath sounds normal. Abdomen: Soft and very mild epigastric ttp, no rebound or guarding Skin: Skin warm and dry. Normal skin color. Normal skin turgor. Extremities: No lower extremity edema. No calf ttp Neuro: Oriented X 3. No motor deficit. No sensory deficit. Course Course Course Narrative: no acute findings other than constipation feels better stable for DC MDM - SOB/Dyspnea MDM Narrative Medical decision making narrative: 66 yo male with hx of etoh abuse drinks 4 fireballs a day, GERD, COPD, come in with c/o upper abdominal pain x 2 days constipation it makes him feel short of breath at this time he denies GIB symptoms likely ETOH gastritis - will obtain troponin x 2, EKG, CXR, LFTs, lipase, CT scan IVF, IV protonix, thiamine/magnesium and IV ativan. Dispo per results and findings. Lab Data Result diagrams: 01/28/22 20:08 01/28/22 20:08 Labs: Lab Results 01/28/22 01/28/22 01/28/22 Range/Units 20:08 20:08 20:08 WBC 6.3 (4.8-10.8) X10*3/uL RBC 5.50 (4.60-5.80) X10*6/uL Hgb 19.7 H (14.0-18.0) g/dl Hct 56.9 H (42.0-52.0) % MCV 103.5 H (80.0-98.0) fL MCH 35.8 H (27.0-33.0) pg MCHC 34.6 (31.0-36.0) g/dl RDW 13.3 (11.0-16.0) % Plt Count 170 (160-400) X10*3/uL MPV 9.9 (9.4-12.4) fL Immature Gran % (Auto) 0.5 H (0.0-0.4) % Neut % (Auto) 61.5 (45-73) % Lymph % (Auto) 24.2 (20-40) % [place] % (Auto) 9.5 (2-11) % Eos % (Auto) 3.5 (0-4) % Baso % (Auto) 0.8 (0-2) % Lymph # (Auto) 1.5 (1.2-4.9) X10*3/uL [place] # (Auto) 0.6 (0.1-1.2) X10*3/uL Eos # (Auto) 0.2 (0.0-0.4) X10*3/uL Baso # (Auto) 0.1 (0.0-0.2) X10*3/uL Abs Immat Gran (auto) 0.03 (0.00-0.03) X10*3/uL Absolute Neuts (auto) 3.9 (2.0-8.3) x10*3/uL Absolute Nucleated RBC 0.000 (0.0-0.012) X10*3/uL Nucleated RBC % (auto) 0.0 (0.0-0.2) /100WBC Sodium 136 (135-145) mmol/L Potassium 4.5 (3.3-5.1) mmol/L Chloride 100 (96-108) mmol/L Carbon Dioxide 27 (22-29) mmol/L Anion Gap 14 (12-20) BUN 12 (9-16) mg/dL Creatinine 1.24 (0.5-1.4) mg/dL Estim Creat Clear Calc 58.2 Estimated GFR 59 Random Glucose 101 (60-115) mg/dL Calcium 9.4 (8.4-10.2) mg/dL Magnesium (1.6-2.6) mg/dL Total Bilirubin (0.0-1.0) mg/dL Direct Bilirubin (0.0-0.5) mg/dL AST (5-37) U/L ALT (0-40) U/L Alkaline Phosphatase (39-117) U/L Troponin I High Sens 6.5 (<3.5-35.0) ng/L Total Protein (6.5-8.0) g/dL Albumin (3.5-5.0) g/dL Lipase (8-78) U/L 01/29/22 01/29/22 Range/Units 02:21 02:21 WBC (4.8-10.8) X10*3/uL RBC (4.60-5.80) X10*6/uL Hgb (14.0-18.0) g/dl Hct (42.0-52.0) % MCV (80.0-98.0) fL MCH (27.0-33.0) pg MCHC (31.0-36.0) g/dl RDW (11.0-16.0) % Plt Count (160-400) X10*3/uL MPV (9.4-12.4) fL Immature Gran % (Auto) (0.0-0.4) % Neut % (Auto) (45-73) % Lymph % (Auto) (20-40) % [place] % (Auto) (2-11) % Eos % (Auto) (0-4) % Baso % (Auto) (0-2) % Lymph # (Auto) (1.2-4.9) X10*3/uL [place] # (Auto) (0.1-1.2) X10*3/uL Eos # (Auto) (0.0-0.4) X10*3/uL Baso # (Auto) (0.0-0.2) X10*3/uL Abs Immat Gran (auto) (0.00-0.03) X10*3/uL Absolute Neuts (auto) (2.0-8.3) x10*3/uL Absolute Nucleated RBC (0.0-0.012) X10*3/uL Nucleated RBC % (auto) (0.0-0.2) /100WBC Sodium (135-145) mmol/L Potassium (3.3-5.1) mmol/L Chloride (96-108) mmol/L Carbon Dioxide (22-29) mmol/L Anion Gap (12-20) BUN (9-16) mg/dL Creatinine (0.5-1.4) mg/dL Estim Creat Clear Calc Estimated GFR Random Glucose (60-115) mg/dL Calcium (8.4-10.2) mg/dL Magnesium 2.0 (1.6-2.6) mg/dL Total Bilirubin 0.6 (0.0-1.0) mg/dL Direct Bilirubin 0.2 (0.0-0.5) mg/dL AST 21 (5-37) U/L ALT 22 (0-40) U/L Alkaline Phosphatase 113 (39-117) U/L Troponin I High Sens 6.6 (<3.5-35.0) ng/L Total Protein 6.8 (6.5-8.0) g/dL Albumin 3.8 (3.5-5.0) g/dL Lipase 28 (8-78) U/L ECG Data Attestation: I personally reviewed and interpreted this ECG as follows: ECG interpretation date: 01/29/22 ECG interpretation time: 01:16 Interpretation: Rate: 89 Rhythm: NSR [place]: left Normal P waves. Normal RYDER. Normal QRS complex. ST T wave : normal no LEYDI, inverted aVL qTC: normal prior studies: no acute ischemia The study has been interpreted contemporaneously by me. Discharge Plan Discharge Clinical Impression: Acute alcoholic gastritis Qualifiers: Gastritis bleeding: without bleeding Qualified Code(s): K29.20 - Alcoholic gastritis without bleeding Constipation Qualifiers: Constipation type: other constipation type Qualified Code(s): K59.09 - Other constipation Patient Disposition: Home, Self-Care Instructions: Gastritis (ED), Constipation (ED) Additional Instructions: return to ED for any worsening symptoms or concerns Prescriptions: New ondansetron 4 mg tablet,disintegrating 4 mg PO Q8H PRN (Reason: nausea and vomiting) Qty: 20 0RF lactulose 10 gram/15 mL solution 10 g PO DAILY PRN (Reason: constipation) Qty: 237 0RF No Action albuterol sulfate [ProAir HFA] 90 mcg/actuation HFA aerosol inhaler 2 puff inhalation Q6H PRN (Reason: shortness of breath or wheezing) Qty: 8.5 4RF amlodipine 5 mg tablet 5 mg PO DAILY Qty: 30 2RF omeprazole 40 mg capsule,delayed release(/EC) 40 mg PO QAM Qty: 30 3RF sennosides-docusate sodium [Senokot-S] 8.6-50 mg tablet 1 tab-cap PO BEDTIME Qty: 30 0RF nicotine 21 mg/24 hr patch 24 hour 21 mg transdermal QAM Qty: 30 0RF clotrimazole-betamethasone 1-0.05 % cream 1 appl topical BID 10 Days Qty: 15 0RF Anoro Ellipta 62.5-25 mcg/actuation blister with device 1 inh inhalation DAILY 30 Days Qty: 1 6RF naltrexone 50 mg tablet 50 mg PO DAILY 14 Days Qty: 14 0RF folic acid 1 mg tablet 1 mg PO DAILY 30 Days Qty: 30 0RF thiamine HCl (vitamin B1) 50 mg tablet 50 mg PO DAILY 30 Days Qty: 30 11RF Referrals: Iveth Stokes MD [Primary Care Provider] - 2 days (if not better)
[2022-01-29] MEDS: Pantoprazole Sodium 40 MG/10 ML VIAL IVPUSH (02:23)
[2022-01-29] MEDS: LORazepam 2 MG/ML VIAL 1 MG IVPUSH (02:24)
[2022-01-29] MEDS: Magnesium Sulfate/H2O 2 GM/50 ML PIGGYBACK IV (02:25)
[2022-01-29] MEDS: 0.9 % Sodium Chloride 1,000 ML 999 ML IVCONT (02:29)
[2022-01-29] MEDS: Thiamine HCL 200 MG in 0.9 % Sodium Chloride 100 ML 204 MG IV (02:31)
[2022-01-29 02:32] VITALS: BP 163/88; PULSE 76; RESP 16; O2SAT 92
[2022-01-29 02:46] LABS: Alanine Aminotransferase 22 U/L (0-40); Albumin Level 3.8 g/dL (3.5-5.0); Alkaline Phosphatase 113 U/L (39-117); Aspartate Amino Transferase 21 U/L (5-37); Bilirubin Direct 0.2 mg/dL (0.0-0.5); Bilirubin Total 0.6 mg/dL (0.0-1.0); Lipase 28 U/L (8-78); Total Protein 6.8 g/dL (6.5-8.0)
[2022-01-29] MEDS: Lactulose 20 GM/30 ML SOLUTION PO (02:51)
[2022-01-29 02:52] LABS: Troponin-I High Sensitivity 6.6 ng/L (<3.5-35.0)
--- NOTE | 2022-01-29 03:20 | PC.NURSE ---
Iv removed, Reviewed discharge instructions with patient. Pt verbalized understanding.
== END 2022-01-29 03:26 | disposition home or self-care (01) ==
PROVIDERS: Emergency Provider Emergency Medicine; PCP Internal Medicine
DX: K29.20 Alcoholic gastritis without bleeding (principal); K59.00 Constipation, unspecified; R06.02 Shortness of breath; R10.10 Upper abdominal pain, unspecified; K31.9 Disease of stomach and duodenum, unspecified; Z79.899 Other long term (current) drug therapy; F17.210 Nicotine dependence, cigarettes, uncomplicated; Z71.6 Tobacco abuse counseling
CPT/HCPCS: 36415; 71045; 74176; 80048; 80076; 83690; 83735; 84484; 85025; 93005; 96365; 96366; 96375; 99212; 99284; J2060; J3411; J3475

== ENCOUNTER → 2022-02-01 10:47 | Outpatient (BNV) | payer MEDICARE, OTHER, SELFPAY | PROVIDERS: PCP Internal Medicine; Visit Provider Internal Medicine | DX: D58.2 Other hemoglobinopathies (principal) | CPT/HCPCS: 99203; 99213; 99214 ==

== ENCOUNTER 2022-02-02 10:57 | Outpatient (REF) | payer OTHER, SELFPAY ==
[2022-02-02 14:16] LABS: Prothrombin Time 11.1 SEC (9.9-13.0)
[2022-02-03 04:15] LABS: HBS Num1 0.81 mIU/mL (0-7.99); HBc Num1 0.07 S/CO (0.00-0.79); Hepatitis B Core Antibody Nonreactive (Nonreactive); ~Hepatitis B Surface Antibody NONREACTIVE (Nonreactive)
[2022-02-03 04:17] LABS: Hepatitis A Antibody IgG REACTIVE (Nonreactive); ~Hepatitis A Antibody IgG 1.06 S/CO (0.00-0.99)
[2022-02-03 04:22] LABS: HBsAGNum1 0.14 S/CO (0.00-0.99); HIV AB/AG Nonreactive (Nonreactive); HIV Num 1 0.06 S/CO (0.00-0.99); Hepatitis B Surface Antigen Negative (Negative); ~HepC Num1 0.13 S/CO (0.00-0.79); ~Hepatitis C Antibody Nonreactive (Nonreactive)
[2022-02-04 11:56] LABS: TS Negative Control Passed; TS Panel A 0; TS Panel B 0; TS Positive Control Passed; TSpotTB Negative (Negative)
[2022-02-05 17:42] LABS: FIB-ALT 19 U/L (9-46); FIB-Alpha-2-Macroglobulin 187 mg/dL (106-279); FIB-Apolipoprotein A1 156 mg/dL (94-176); FIB-GGT 25 U/L (3-70); FIB-Haptoglobin 65 mg/dL (43-212); FIB-Total Bilirubin 1.1 mg/dL (0.2-1.2); Liver Fibrosis Score 0.46; Liver Fibrosis Stage F1-F2; Nec Inflam Act Grade A0; Nec Inflam Act Score 0.09
== END 2022-02-02 10:58 | disposition home or self-care (01) ==
LOC: HO.HMGCLDS 10:57
PROVIDERS: PCP Internal Medicine; Visit Provider Internal Medicine
DX: Z11.4 Encounter for screening for human immunodeficiency virus [HIV] (principal); F10.20 Alcohol dependence, uncomplicated
CPT/HCPCS: 36415; 81596; 85610; 86481; 86704; 86706; 86708; 86803; 87340; 87389

== ENCOUNTER → 2022-02-10 10:38 | Outpatient (BNVA) | payer OTHER, SELFPAY | PROVIDERS: Visit Provider Internal Medicine | DX: F10.20 Alcohol dependence, uncomplicated (principal) | CPT/HCPCS: 80305; 96372; 99212; J2315 ==

== ENCOUNTER → 2022-03-05 13:16 | Outpatient (BNVA) | payer OTHER, SELFPAY | PROVIDERS: PCP Internal Medicine; Visit Provider Internal Medicine Pulmonary Disease | DX: R91.8 Other nonspecific abnormal finding of lung field (principal); J44.9 Chronic obstructive pulmonary disease, unspecified; F17.210 Nicotine dependence, cigarettes, uncomplicated | CPT/HCPCS: 99212 ==

== ENCOUNTER → 2022-03-10 10:45 | Outpatient (BNVA) | payer OTHER, SELFPAY | PROVIDERS: Visit Provider Internal Medicine | DX: Z51.81 Encounter for therapeutic drug level monitoring (principal); F10.20 Alcohol dependence, uncomplicated | CPT/HCPCS: 80305; 96372; 99212; J2315 ==

== ENCOUNTER → 2022-04-07 11:34 | Outpatient (BNVA) | payer OTHER, SELFPAY | PROVIDERS: Visit Provider Internal Medicine | DX: F10.20 Alcohol dependence, uncomplicated (principal); K21.9 Gastro-esophageal reflux disease without esophagitis; R63.0 Anorexia; R13.10 Dysphagia, unspecified; J44.9 Chronic obstructive pulmonary disease, unspecified | CPT/HCPCS: 80305; 96372; 99212; J2315 ==

== ENCOUNTER 2022-05-18 11:01 | Outpatient (REF) | payer OTHER, SELFPAY | END 2022-05-18 11:02 | disposition home or self-care (01) | LOC: HO.BBR 11:01 | PROVIDERS: Visit Provider Internal Medicine | DX: D75.1 Secondary polycythemia (principal) | CPT/HCPCS: 85014; 85018; 99195 ==

== ENCOUNTER 2022-06-02 09:45 | Outpatient (REF) | payer OTHER, SELFPAY ==
--- NOTE | ~2022-06-02 | FL_ITS ---
PROCEDURE: FL BARIUM SWALLOW CLINICAL INFORMATION: Gastroesophageal reflux disease. COMPARISON: None TECHNIQUE: Barium swallow examination is performed using fluoroscopic evaluation in addition to multiple fluoroscopic spot views. The patient is imaged both upright and prone and using both thick and thin sulfate along with effervescent granules. Fluoroscopy time: 1.8 minutes DAP: 4.226 Gycm2 Images: 66 FINDINGS: Following oral administration of thick barium, barium-coated turkey there is normal propagation of bolus from the oral cavity through the pharynx into esophagus without any evidence of obstruction, narrowing or stricture. There is mild retention of barium in the valleculae and piriform sinuses which clears with dry swallowing. On placing patient prone lying and oral administration of thin barium there is good distention of entire esophagus without any intrinsic filling defect or extrinsic impression. There is mild reflux but no hiatal hernia seen. FL/FL barium swallow IMPRESSION: Minimal reflux otherwise unremarkable barium swallow exam.
== END 2022-06-02 09:46 | disposition home or self-care (01) ==
LOC: HO.XRAY 09:45
PROVIDERS: PCP Internal Medicine; Visit Provider Physician Assistant
DX: R13.10 Dysphagia, unspecified (principal); J44.9 Chronic obstructive pulmonary disease, unspecified; K21.9 Gastro-esophageal reflux disease without esophagitis; R63.0 Anorexia; Z78.9 Other specified health status
CPT/HCPCS: 74220

== ENCOUNTER 2022-06-08 10:55 | Outpatient (REF) | payer OTHER, SELFPAY | END 2022-06-08 10:56 | disposition home or self-care (01) | LOC: HO.BBR 10:55 | PROVIDERS: Visit Provider Internal Medicine | DX: D75.1 Secondary polycythemia (principal) | CPT/HCPCS: 85014; 85018; 99195 ==

== ENCOUNTER 2022-06-08 14:20 | Emergency (ER) | payer OTHER, SELFPAY ==
--- NOTE | ~2022-06-08 | CT_ITS ---
EXAMINATION: CT ABDOMEN AND PELVIS WITHOUT CONTRAST CLINICAL INFORMATION: Right and left lower quadrant tenderness. History of small bowel obstruction. COMPARISON: 01/29/2022 TECHNIQUE: Multidetector volumetric imaging was performed from the superior aspect of the liver through the pubic symphysis. Sagittal and coronal reformatted images were obtained on the technologist's workstation. This CT examination was performed using dose optimization techniques as appropriate, variously including the following: *Automated exposure control *Adjustment of mA and/or kV according to patient size (this includes techniques or standardized protocols for targeted exams where dose is matched to indication/reason for exam; i.e. extremities or head) *Use of iterative reconstruction technique DLP: 395 mGy-cm FINDINGS: LUNG BASES: The visualized lung bases are unremarkable. LIVER, GALLBLADDER, AND BILIARY TREE: The liver is normal in size, shape, and attenuation. No focal hepatic lesion or biliary ductal dilatation is present. The gallbladder is decompressed with no evidence of radiopaque gallstones, gallbladder wall thickening, or obvious pericholecystic inflammatory changes. PANCREAS: Unremarkable. SPLEEN: Unremarkable. ADRENAL GLANDS: Unremarkable. KIDNEYS AND URETERS: The kidneys are normal in size, shape, and attenuation. No hydronephrosis, hydroureter, or calculi seen. No perinephric stranding. BLADDER: Unremarkable. GASTROINTESTINAL TRACT: The stomach is unremarkable. There is somewhat prominent fluid-filled appearance of the small bowel in the central abdomen. No discrete transition, as this is prominent to the level of the terminal ileum where there is a segment approximately 3 cm long which is decompressed. Gas and stool throughout the colon. Scattered diverticulosis without diverticulitis. The appendix is not definitively seen. ABDOMINAL WALL: Soft tissue nodularity is seen in the left inguinal region. This is similar to prior. LYMPH NODES: Normal. VASCULAR: Normal caliber aorta with mild to moderate atherosclerotic calcification. PELVIC VISCERA: Unremarkable. OSSEOUS STRUCTURES: No acute or suspicious osseous abnormality. Chronic central compression of the superior endplate of L5. This is likely a prominent Schmorl's node. CT/CT abdomen pelvis wo con IMPRESSION: Fluid-filled somewhat prominent small bowel in the central abdomen. This leads to a short segment of the terminal ileum which is decompressed. This is not the appearance of a high-grade obstruction. Partial obstruction possible. Enteritis also a consideration. Fleischner guidelines were followed.
--- NOTE | ~2022-06-08 | XR_ITS ---
EXAMINATION: XR ABDOMEN KUB CLINICAL INDICATION: Abdominal pain COMPARISON: CT abdomen and pelvis noncontrast 01/29/2022 TECHNIQUE: AP x2 views of the abdomen. FINDINGS: There is scattered gas in the bowel of normal caliber. No gaseous dilatation of bowel or abnormal collections of gas. The lung bases are clear. There are no visible urinary tract calculi. No acute bony abnormality. IMPRESSION -No bowel obstruction. Lung bases clear. -No visible urinary tract calculi.
[2022-06-08 15:03] VITALS: BP 141/90; PULSE 101; RESP 16; TEMP 36.5; O2SAT 97; BMI 22.8
[2022-06-08 15:13] LABS: MANUAL DIFF FLAG NO
[2022-06-08 15:14] LABS: Basophils Percent Auto 0.3 % (0-2); Eosinophils Absolute Auto 0.1 X10*3/uL (0.0-0.4); Eosinophils Percent Auto 0.8 % (0-4); Hemoglobin 17.4 g/dl (14.0-18.0); Imm Gran Abs Auto 0.04 X10*3/uL (0.00-0.03); Imm Gran Pct Auto 0.6 % (0.0-0.4); Lymphocytes Absolute Auto 1.7 X10*3/uL (1.2-4.9); Lymphocytes Percent Auto 22.9 % (20-40); Mean Corpuscular HGB Conc 34.1 g/dl (31.0-36.0); Mean Corpuscular Hemoglobin 33.5 pg (27.0-33.0); Mean Corpuscular Volume 98.1 fL (80.0-98.0); Mean Platelet Volume 9.9 fL (9.4-12.4); Monocytes Absolute Auto 0.8 X10*3/uL (0.1-1.2); Monocytes Percent Auto 10.8 % (2-11); Neutrophils Absolute Auto 4.7 x10*3/uL (2.0-8.3); Neutrophils Percent Auto 64.6 % (45-73); Platelet Count 165 X10*3/uL (160-400); Red Cell Distribution Width 13.2 % (11.0-16.0); White Blood Count 7.2 X10*3/uL (4.8-10.8)
[2022-06-08 15:29] LABS: Alanine Aminotransferase 10 U/L (0-40); Albumin Level 3.7 g/dL (3.5-5.0); Alkaline Phosphatase 89 U/L (39-117); Anion Gap 16 (12-20); Aspartate Amino Transferase 14 U/L (5-37); Bilirubin Total 0.6 mg/dL (0.0-1.0); Blood Urea Nitrogen 14 mg/dL (9-16); Calcium 8.7 mg/dL (8.4-10.2); Carbon Dioxide 22 mmol/L (22-29); Chloride 102 mmol/L (96-108); Creatinine Clr Calc Pharmacy 72.5; Estimated Glomerular Filt Rate > 60; Glucose Random 79 mg/dL (60-115); Potassium 4.5 mmol/L (3.3-5.1); Sodium 135 mmol/L (135-145); Total Protein 6.7 g/dL (6.5-8.0)
[2022-06-08 17:15] LABS: Lipase 26 U/L (8-78)
--- NOTE | 2022-06-08 19:45 | ED.ABDPAIN ---
HPI - Abdominal Pain General Chief Complaint: Abdominal Pain Stated Complaint: Urgent care called for catscan Time Seen by Provider: 06/08/22 16:43 Source: patient and old records reviewed Mode of arrival: ambulatory Limitations: no limitations History of Present Illness HPI narrative: 66-year-old male with a history of alcohol abuse, alcoholic gastritis, HTN, history of SBO, smoker, hx NSVT who presents to the ER for evaluation of abdominal pain for the last 1 week. He reports the pain started 1 week ago, is cramping in nature and goes from his right middle abdomen across to the middle. It comes and goes. He cannot say what makes it better or worse. He has had intermittent nausea but no vomiting. He has had 1 episode of nonbloody diarrhea each day for the last 1 week as well. Patient had a barium swallow on June 02. He reports the pain meds were starting before then by a day or 2. He follows with GI here. He is on Protonix. He reports his diet mainly consists of smoked and cured meats along with very spicy foods. While in the waiting room he ate jalapeno cheetoes. He is also drinking alcohol in off of his Vivitrol. He reports the pain was worse on Tuesday after he drank [employer] lemonade Tuesday. He has not had any fevers. No chills. He reports 1 day last week he had dark urine burning with urination but that has since resolved. MD elicited complaint: abdominal pain Pertinent past history: other (History of small-bowel obstructions) Onset (ago): week(s) (1) Pain Consistency: intermittent Location: R flank Severity: moderate Pain scale (0-10): 7 Quality: cramping Radiation: epigastric Migration to: periumbilical Exacerbating factors: nothing Relieving factors: nothing Context: history of similar episodes Associated symptoms: nausea and diarrhea Related Data Home Medications Medication Instructions Recorded Confirmed amlodipine 5 mg tablet 5 mg PO DAILY htn 05/04/22 05/04/22 folic acid 1 mg tablet 1 mg PO DAILY 06/08/22 Previous Rx's Medication Instructions Recorded albuterol sulfate 90 mcg/actuation 2 puff inhalation Q6H PRN 03/16/21 aerosol inhaler (ProAir HFA) shortness of breath or wheezing #8.5 grams ipratropium 0.5 mg-albuterol 3 mg 3 ml inhalation Q6-8H PRN wheezing 01/29/22 (2.5 mg base)/3 mL nebulization 30 days #180 mL soln omeprazole 40 mg capsule,delayed 40 mg PO QAM #30 caps 04/15/22 release dicyclomine 10 mg capsule 10 mg PO TID #30 caps 06/08/22 sucralfate 1 gram tablet (Carafate) 1 g PO BID #30 tabs 06/08/22 Allergies Allergy/AdvReac Type Severity Reaction Status Date / Time No Known Allergies Allergy Verified 06/08/22 15:03 Review of Systems Review of Systems Constitutional: No Fever, No Chills ENT/Mouth: No sore throat, No Rhinorrhea, No Swallowing Difficulty Cardiovascular: No Chest Pain, No SOB, No Orthopnea, No Edema Respiratory: No Cough, No Sputum, No Wheezing, No dyspnea Gastrointestinal: + Nausea, No Vomiting, + Diarrhea, + abdominal Pain, No Hematochezia, No Melena Genitourinary: No Dysuria, No Urinary Frequency, No Hematuria Musculoskeletal: No joint pain, No Myalgias Skin: No Skin Lesions, No rash Neuro: No Weakness, No Numbness, No Dizziness, No Headache Psych: No Anxiety/Panic, No Depression Heme/Lymph: No Bruising, No Lymphadenopathy Endocrine: No Polyuria, No Polydipsia PMFSH Past Medical History Medical History Abdominal pain Alcohol use disorder Alcoholic gastritis Alcoholism Cardiomegaly Change in multiple pigmented skin lesions Cigarette smoker motivated to quit Constipation COPD (chronic obstructive pulmonary disease) Coronary artery calcification seen on CT scan Cough Dyspepsia Elevated hemoglobin Emphysema lung Essential hypertension GERD (gastroesophageal reflux disease) Heavy tobacco smoker >10 cigarettes per day History of small bowel obstruction Hypertensive cardiomegaly Macrocytosis without anemia Pneumococcal vaccination declined Polycythemia Refused influenza vaccine SBO (small bowel obstruction) Shortness of breath on exertion Smoking Vomiting Surgical History Hx of colonoscopy Family History Family History Mother CAD (coronary artery disease) Social History Social History (Reviewed 06/08/22 @ 13:14 by DEB Jaffe Household Members: Other Household Members Other:: SON AND UNCLE Housing: House Do you presently have visiting nurse or other home services: No Alcohol intake: current Alcohol intake frequency: 0-2 drinks per day Alcohol type: hard liquor Patient Tobacco Use Status: Current everyday Tobacco user Tobacco use type: Cigarette Cigarettes Per Day: 5 e-Cigarette/Vaping Use: Never Used Second Hand Smoke Exposure: Yes Use of substances other than those prescribed or required for medical reasons: No Advance Directives: No Advance Directives Information Provided: No service: No Current occupational status: retired Cognitive needs: No Hearing needs: No Vision needs: No Physical Exam ED Vital Signs: Vital Signs - 24 hr 06/08/22 15:03 06/08/22 20:20 Temperature 97.7 F 98.3 F Pulse Rate 101 H 83 Respiratory Rate 16 20 Blood Pressure 141/90 H 158/102 H Pulse Oximetry 97 100 Oxygen Delivery Method Room Air Room Air BMI result Body Mass Index 22.8 Appearance: Alert. Oriented X3. No acute distress. Eyes: Pupils equal, round and reactive to light. ENT: Pharynx normal. Neck: Normal inspection. Neck supple. CVS: Normal heart rate and rhythm. Pulses normal. Respiratory: No respiratory distress. Breath sounds normal. Abdomen: Flat, mild tenderness throughout the entire abdomen with intermittent guarding. No rebound. Normal bowel sounds. No point tenderness. No tympany to percussion Skin: Skin warm and dry. skin color hyper pigmented. Normal skin turgor. No rashes. Extremities: No lower extremity edema. Neuro: Oriented X 3. No motor deficit. No sensory deficit. Course Course Course Narrative: 66 y/o male with history of SBO's in the past (treated non-surgically), alcohol abuse, COPD, polycythemia, dysphagia who presents to the ER for evaluation of abdominal cramping and pain associated with daily diarrhea for the last 7-8 days. He had a recent barium swallow with GI. He denies any vomiting or bloody diarrhea. Seen in urgent care this morning with a rigid abdomen sent to the ER for CT scan. Labs are unremarkable. KUB without any evidence of obstruction. CT scan is ordered. He is not rigid on exam but he is guarding. He is tolerating p.o. from the waiting room no vomiting. He is passing flatus. No BM today. Will re-evaluate after Bentyl and Carafate. Reevaluation(s) Reevaluation #1: CT scan showing fluid-filled somewhat prominent small bowel in the central abdomen, this leads to a short segment of the terminal ileum which is decompressed. Partial obstruction possible, enteritis also a consideration. Case was discussed with - his exam, clinical presentation and imaging is not consistent with the partial small-bowel obstruction. He is passing flatus and not vomiting. His abdominal pain is better and he is tolerating p.o.. He is stable for discharge home with plan to follow-up with his GI doctors as soon as possible. We discussed worsening signs and symptoms that should prompt urgent re-evaluation he expressed understanding. We also discussed the importance of significant dietary modifications and cessation of alcohol. Patient expressed understanding, food diary encouraged. Stable for DC. MDM - Abdominal Pain Lab Data Result diagrams: 06/08/22 15:10 06/08/22 15:10 Labs: Lab Results 06/08/22 06/08/22 Range/Units 15:10 15:10 WBC 7.2 (4.8-10.8) X10*3/uL RBC 5.20 (4.60-5.80) X10*6/uL Hgb 17.4 (14.0-18.0) g/dl Hct 51.0 (42.0-52.0) % MCV 98.1 H (80.0-98.0) fL MCH 33.5 H (27.0-33.0) pg MCHC 34.1 (31.0-36.0) g/dl RDW 13.2 (11.0-16.0) % Plt Count 165 (160-400) X10*3/uL MPV 9.9 (9.4-12.4) fL Immature Gran % (Auto) 0.6 H (0.0-0.4) % Neut % (Auto) 64.6 (45-73) % Lymph % (Auto) 22.9 (20-40) % [place] % (Auto) 10.8 (2-11) % Eos % (Auto) 0.8 (0-4) % Baso % (Auto) 0.3 (0-2) % Lymph # (Auto) 1.7 (1.2-4.9) X10*3/uL [place] # (Auto) 0.8 (0.1-1.2) X10*3/uL Eos # (Auto) 0.1 (0.0-0.4) X10*3/uL Baso # (Auto) 0.0 (0.0-0.2) X10*3/uL Abs Immat Gran (auto) 0.04 H (0.00-0.03) X10*3/uL Absolute Neuts (auto) 4.7 (2.0-8.3) x10*3/uL Absolute Nucleated RBC 0.000 (0.0-0.012) X10*3/uL Nucleated RBC % (auto) 0.0 (0.0-0.2) /100WBC Sodium 135 (135-145) mmol/L Potassium 4.5 (3.3-5.1) mmol/L Chloride 102 (96-108) mmol/L Carbon Dioxide 22 (22-29) mmol/L Anion Gap 16 (12-20) BUN 14 (9-16) mg/dL Creatinine 0.99 (0.5-1.4) mg/dL Estim Creat Clear Calc 72.5 Estimated GFR > 60 Random Glucose 79 (60-115) mg/dL Calcium 8.7 D (8.4-10.2) mg/dL Total Bilirubin 0.6 (0.0-1.0) mg/dL AST 14 (5-37) U/L ALT 10 (0-40) U/L Alkaline Phosphatase 89 D (39-117) U/L Total Protein 6.7 (6.5-8.0) g/dL Albumin 3.7 (3.5-5.0) g/dL Lipase 26 (8-78) U/L Discharge Plan Discharge Clinical Impression: Abdominal pain Patient Disposition: Home, Self-Care Instructions: Abdominal Pain (ED) Additional Instructions: Your lab workup today was unremarkable. Your urinalysis was negative for infection. Your CT scan did not show any bowel obstruction. Recommend following up with your GI provider as soon as possible. Recommend starting the prescribed medications as directed. Recommend making major diet modifications to help improve your abdominal pains. You need to avoid ALL SPICY AND ACIDIC FOODS. Stick to a bland diet and avoid alcohol. If you develop new or worsening symptoms call 911 or come back to the ER for further evaluation. Prescriptions: New dicyclomine 10 mg capsule 10 mg PO TID Qty: 30 0RF sucralfate [Carafate] 1 gram tablet 1 g PO BID Qty: 30 0RF No Action albuterol sulfate [ProAir HFA] 90 mcg/actuation HFA aerosol inhaler 2 puff inhalation Q6H PRN (Reason: shortness of breath or wheezing) Qty: 8.5 4RF omeprazole 40 mg capsule,delayed release(DR/EC) 40 mg PO QAM Qty: 30 3RF amlodipine 5 mg tablet 5 mg PO DAILY folic acid 1 mg tablet 1 mg PO DAILY ipratropium-albuterol 0.5 mg-3 mg(2.5 mg base)/3 mL solution for nebulization 3 ml inhalation Q6-8H PRN (Reason: wheezing) 30 Days Qty: 180 6RF Referrals: Kala Mazariegos PA-C [Physician Meteorological Equipment Repairer] - Interventions: ED Discharge Assessment Last Done: 06/08/22 22:10 Discharge Date/Time: 06/08/22 22:12
[2022-06-08 20:20] VITALS: BP 158/102; PULSE 83; RESP 20; TEMP 36.8; O2SAT 100
[2022-06-08] MEDS: Sucralfate 1 GM TABLET PO (20:27)
[2022-06-08] MEDS: Dicyclomine HCl 10 MG CAPSULE PO (20:27)
== END 2022-06-08 22:12 | disposition home or self-care (01) ==
PROVIDERS: Physician Assistant; Emergency Provider Internal Medicine; PCP Internal Medicine
DX: R10.9 Unspecified abdominal pain (principal); R30.0 Dysuria; F17.210 Nicotine dependence, cigarettes, uncomplicated; Z71.6 Tobacco abuse counseling; Z79.899 Other long term (current) drug therapy
CPT/HCPCS: 36415; 74018; 74176; 80053; 83690; 85025; 99284

== ENCOUNTER 2022-06-29 10:57 | Outpatient (REF) | payer OTHER, SELFPAY | END 2022-06-29 10:58 | disposition home or self-care (01) | LOC: HO.BBR 10:57 | PROVIDERS: Visit Provider Internal Medicine | DX: D75.1 Secondary polycythemia (principal) | CPT/HCPCS: 85014; 85018; 99195 ==

== ENCOUNTER → 2022-07-08 08:48 | Outpatient (BNVA) | payer OTHER, SELFPAY | PROVIDERS: PCP Internal Medicine; Visit Provider Physician Assistant | DX: R63.0 Anorexia (principal); K21.9 Gastro-esophageal reflux disease without esophagitis; R10.9 Unspecified abdominal pain; R19.8 Other specified symptoms and signs involving the digestive system and abdomen; J44.9 Chronic obstructive pulmonary disease, unspecified; D75.1 Secondary polycythemia; F10.20 Alcohol dependence, uncomplicated | CPT/HCPCS: 99212 ==

== ENCOUNTER 2022-07-20 10:55 | Outpatient (REF) | payer OTHER, SELFPAY | END 2022-07-20 10:56 | disposition home or self-care (01) | LOC: HO.BBR 10:55 | PROVIDERS: Visit Provider Internal Medicine | DX: D75.1 Secondary polycythemia (principal) | CPT/HCPCS: 85018; 99195 ==

== ENCOUNTER 2022-08-10 10:57 | Outpatient (REF) | payer OTHER, SELFPAY | END 2022-08-10 10:58 | disposition home or self-care (01) | LOC: HO.BBR 10:57 | PROVIDERS: Visit Provider Internal Medicine | DX: D75.1 Secondary polycythemia (principal) | CPT/HCPCS: 85018; 99195 ==

== ENCOUNTER 2022-08-31 10:46 | Outpatient (REF) | payer MEDICARE, MEDICAID, SELFPAY | END 2022-08-31 10:47 | disposition home or self-care (01) | LOC: HO.BBR 10:46 | PROVIDERS: Visit Provider Internal Medicine | DX: D75.1 Secondary polycythemia (principal) | CPT/HCPCS: 85014; 85018; 99195 ==

== ENCOUNTER → 2022-09-03 11:17 | Outpatient (BNVA) | payer MEDICARE, MEDICAID, OTHER, SELFPAY | PROVIDERS: PCP Internal Medicine; Visit Provider Internal Medicine Pulmonary Disease | DX: J44.9 Chronic obstructive pulmonary disease, unspecified (principal); J20.9 Acute bronchitis, unspecified | CPT/HCPCS: 99212 ==

== ENCOUNTER 2022-09-21 10:45 | Outpatient (REF) | payer MEDICARE, MEDICAID, OTHER, SELFPAY | END 2022-09-21 10:46 | disposition home or self-care (01) | LOC: HO.BBR 10:45 | PROVIDERS: Visit Provider Internal Medicine | DX: D75.1 Secondary polycythemia (principal) | CPT/HCPCS: 85014; 85018; 99195 ==

== ENCOUNTER 2022-10-12 09:48 | Outpatient (REF) | payer MEDICARE, SELFPAY | END 2022-10-12 09:49 | disposition home or self-care (01) | LOC: HO.BBR 09:48 | PROVIDERS: Visit Provider Internal Medicine | DX: D75.1 Secondary polycythemia (principal) | CPT/HCPCS: 85018; 99195 ==

== ENCOUNTER 2022-11-02 09:43 | Outpatient (REF) | payer MEDICARE, OTHER, SELFPAY | END 2022-11-02 09:44 | disposition home or self-care (01) | LOC: HO.BBR 09:43 | PROVIDERS: Visit Provider Internal Medicine | DX: D75.1 Secondary polycythemia (principal) | CPT/HCPCS: 85014; 85018; 99195 ==

== ENCOUNTER 2022-11-11 08:47 | Day surgery (SDC) | payer MEDICARE, OTHER, SELFPAY ==
--- NOTE | 2022-10-28 | ECG_ITS ---
Test Reason : preop Blood Pressure : / mmHG Vent. Rate : 077 BPM Atrial Rate : 077 BPM P-R Int : 144 ms QRS Dur : 086 ms QT Int : 390 ms P-R-T Axes : 082 038 065 degrees QTc Int : 441 ms Normal sinus rhythm Normal ECG When compared with ECG of 28-JAN-2022 19:55, No significant change was found Referred By: Joanna Gaffney Electronically Signed By:JIMENA GOLD
[2022-10-28 12:10] VITALS: BP 120/78; PULSE 82; RESP 20; O2SAT 100; BMI 23.7
--- NOTE | 2022-10-28 12:31 | HO.ANESPROP2 ---
Documented by User: Joanna Gaffney NP 11/10/22 12:11 HPI - Anesthesia Eval Consult details Narrative: 67yo M for Upper Endoscopy and Colonoscopy Pulmo cleared at low risk ETOH abuse Therapeutic phlebotomies Q3 weeks for polycythemia and macrocytosis - 11/02/2022 [facility] Active Problems Active Problems: All Active Problems (Updated 10/28/22 @ 12:04 by Carol Kimbrough, RN) Aortic ectasia (Acute) COPD (chronic obstructive pulmonary disease) (Acute) Pulmonary nodules (Acute) Encounter for screening colonoscopy (Acute) Poor historian (Acute) Poor appetite (Acute) Dysphagia (Acute) Change in bowel function (Acute) Abdominal pain (Acute) Acute bronchitis (Acute) Constipation (Acute) Alcoholic gastritis (Acute) Polycythemia (Acute) Elevated hemoglobin (Chronic) Cigarette smoker motivated to quit (Acute) Alcoholism (Acute) Pneumococcal vaccination declined (Acute) Refused influenza vaccine (Acute) Alcohol use disorder (Acute) History of small bowel obstruction (Acute) GERD (gastroesophageal reflux disease) (Acute) Emphysema lung (Acute) Change in multiple pigmented skin lesions (Acute) Dyspepsia (Acute) Macrocytosis without anemia (Acute) Heavy tobacco smoker >10 cigarettes per day (Acute) Shortness of breath on exertion (Acute) Essential hypertension (Acute) Past Medical History Medical History (Updated 10/28/22 @ 12:04 by Carol Kimbrough, RN) Abdominal pain Alcohol use disorder Alcoholic gastritis Alcoholism Cardiomegaly Change in multiple pigmented skin lesions Cigarette smoker motivated to quit Constipation COPD (chronic obstructive pulmonary disease) Coronary artery calcification seen on CT scan Cough Dyspepsia Elevated hemoglobin Emphysema lung Essential hypertension GERD (gastroesophageal reflux disease) Heavy tobacco smoker >10 cigarettes per day History of small bowel obstruction Hx of urethral stricture Hypertensive cardiomegaly Macrocytosis without anemia Pneumococcal vaccination declined Polycythemia Refused influenza vaccine SBO (small bowel obstruction) Shortness of breath on exertion Smoking Vomiting Family History Family History Mother CAD (coronary artery disease) Family history of problems with anesthesia: No Surgical History Surgical History (Updated 10/28/22 @ 12:04 by Carol Kimbrough, RN) History of surgery Hx of bilateral inguinal hernia repair Hx of colonoscopy Hx of elbow surgery Hx of varicose vein stripping History of Problems with Anesthesia: No Social History Social History Household Members: Other Household Members Other:: Uncle Housing: House Are you a primary companion caregiver to a significant other at home: No Do you presently have visiting nurse or other home services: No Alcohol intake: current Alcohol intake frequency: 3 or more drinks per day Alcohol type: hard liquor Patient Tobacco Use Status: Current everyday Tobacco user Tobacco use type: Cigarette Cigarette Packs Per Day: 0.5 Cigarettes Per Day: 10.0 Years Smoked: 50 Smoked in Last 30 Days: Yes e-Cigarette/Vaping Use: Never Used Patient Interested in Nicotine Replacement: Yes Patient Given Instructions on How to Stop Smoking: Yes Date Education Initiated: 10/28/22 Second Hand Smoke Exposure: No Use of substances other than those prescribed or required for medical reasons: No Substance Use Type Other:: Alcohol abuse- stopped drinking 10/23/22 Substance Use Frequency: Chronic Longstanding Have you been hit, kicked, punched, or otherwise hurt by someone within the past year? If so, by whom?: No Are you DNR?: No Advance Directives: No Advance Directives Information Provided: Yes Advance Directives on File: No Recently lost weight without trying: No Eating poorly because of decreased appetite: No Nutrition Risks: No Nutritional Risk service: No Current occupational status: retired Cognitive needs: No Hearing needs: No Vision needs: No Narrative Narrative: No recent illness No chest pain. SOB at baseline. Controlled with once daily nebulizer Meds Allergies Allergy/AdvReac Type Severity Reaction Status Date / Time No Known Allergies Allergy Verified 10/28/22 12:07 Exam Exam Date and Time: October 28, 2022 1231 Height,Weight and Vital Signs: Height 5 ft 8 in Weight 70.76 kg Last Vital Signs Pulse 82 10/28/22 12:10 Resp 20 10/28/22 12:10 BP 120/78 10/28/22 12:10 Pulse Ox 100 10/28/22 12:10 O2 Del Method 10/28/22 12:10 Pertinent Lab Results Pertinent Lab Results: Laboratory Tests 06/08/22 09/10/22 15:10 10:27 WBC 10.9 H Hgb 15.0 Hct 44.9 Plt Count 221 D Sodium 135 Potassium 4.5 Chloride 102 Carbon Dioxide 22 BUN 14 Creatinine 0.99 Narrative Narrative: EKG 10/2022 Vent. Rate : 077 BPM ? ? Atrial Rate : 077 BPM ?? P-R Int : 144 ms? QRS Dur : 086 ms ? ? QT Int : 390 ms ? ? ? P-R-T Axes : 082 038 065 degrees ?? QTc Int : 441 ms ? Normal sinus rhythm Normal ECG When compared with ECG of 28-JAN-2022 19:55, No significant change was found ECHO 2020 Conclusions: - Normal left ventricular size, thickness, systolic function, and wall motion? - Normal right ventricular cavity size and systolic function ? ? - There is mild dilatation of the ascending aorta measuring 3.70 cm.? NM fabrice perf SPECT rest & str 2020 Impression: ? 1.? Myocardial perfusion imaging study shows likely normal perfusion. 2.? Gated LVEF is 48% during stress and 39% during rest. Correlate with echocardiogram. 3. Transient ischemic dilatation not present. ? EKG component of the test reported separately. Airway Mallampati Class: I TM Dist: >3cm Neck ROM: Full Denture: Upper Loose/Missing/Broken Teeth: Yes (Lower teeth missing) Heart: RRR Lungs: CTAB Assessment and Plan Assessment Anesthesia Assessment: Anesthesia Plan Discussed, Smoking Cess. Discussed and PAT Visit Final Anesthetic Review Family History of Problems with Anesthesia: No History of Problems with Anesthesia: No Documented by User: Yg Dugan MD 11/11/22 09:43 [facility] Past Medical History Medical History (Updated 10/28/22 @ 12:04 by Carol Kimbrough RN) Abdominal pain Alcohol use disorder Alcoholic gastritis Alcoholism Cardiomegaly Change in multiple pigmented skin lesions Cigarette smoker motivated to quit Constipation COPD (chronic obstructive pulmonary disease) Coronary artery calcification seen on CT scan Cough Dyspepsia Elevated hemoglobin Emphysema lung Essential hypertension GERD (gastroesophageal reflux disease) Heavy tobacco smoker >10 cigarettes per day History of small bowel obstruction Hx of urethral stricture Hypertensive cardiomegaly Macrocytosis without anemia Pneumococcal vaccination declined Polycythemia Refused influenza vaccine SBO (small bowel obstruction) Shortness of breath on exertion Smoking Vomiting Family History Family History Mother CAD (coronary artery disease) Surgical History Surgical History (Updated 10/28/22 @ 12:04 by Carol Kimbrough RN) History of surgery Hx of bilateral inguinal hernia repair Hx of colonoscopy Hx of elbow surgery Hx of varicose vein stripping Social History Social History Household Members: Other Household Members Other:: Uncle Housing: House Are you a primary companion caregiver to a significant other at home: No Do you presently have visiting nurse or other home services: No Alcohol intake: current Alcohol intake frequency: 3 or more drinks per day Alcohol type: hard liquor Patient Tobacco Use Status: Current everyday Tobacco user Tobacco use type: Cigarette Cigarette Packs Per Day: 0.5 Cigarettes Per Day: 10.0 Years Smoked: 50 Smoked in Last 30 Days: Yes e-Cigarette/Vaping Use: Never Used Patient Interested in Nicotine Replacement: Yes Patient Given Instructions on How to Stop Smoking: Yes Date Education Initiated: 10/28/22 Second Hand Smoke Exposure: No Use of substances other than those prescribed or required for medical reasons: No Substance Use Type Other:: Alcohol abuse- stopped drinking 10/23/22 Substance Use Frequency: Chronic Longstanding Have you been hit, kicked, punched, or otherwise hurt by someone within the past year? If so, by whom?: No Are you DNR?: No Advance Directives: No Advance Directives Information Provided: Yes Advance Directives on File: No Recently lost weight without trying: No Eating poorly because of decreased appetite: No Nutrition Risks: No Nutritional Risk service: No Current occupational status: retired Cognitive needs: No Hearing needs: No Vision needs: No Meds Allergies Allergy/AdvReac Type Severity Reaction Status Date / Time No Known Allergies Allergy Verified 10/28/22 12:07 Assessment and Plan Final Anesthetic Review NPO: Yes ASA Class: III Final Preanesthetic Review: No Changes in Pt Med Stat, Meds/Allgs Chart Reviewed, Consent Obtained/Reviewed and Anes Risks/Benef Reviewed Patient Risk: Intermediate Procedure Risk: Intermediate Anesthetic Plan Anesthetic Plan: MAC: and Agree w/ Assess. and Plan Disposition: Standard PACU
--- NOTE | 2022-11-11 08:53 | P.HPSUR_ITS ---
Pre-Procedural Eval Section A Date of Service: 11/11/22 Section B Chief Complaint: Gastro-esophageal reflux disease without esophagit Details of Present Illness: poor appetite and abdominal pain Relevant Family History (Specify if Yes): No Relevant Social History: Alcohol Use (smoker as well) Present Medications: see Short Stay Collaborative assessment Medical History: Significant History (Abdominal pain Alcohol use disorder Alcoholic gastritis Alcoholism Cardiomegaly Change in multiple pigmented skin lesions Cigarette smoker motivated to quit Constipation COPD (chronic obst ructive pulmonary disease) Coronary artery calcification seen on CT scan Cough Dyspepsia Elevated hemoglobin Emp) History of Previous Operations: Relevant previous surgery/procedure and date(s) (History of surgery Hx of bilateral inguinal hernia repair Hx of colonoscopy Hx of elbow surgery Hx of varicose vein stripping) Allergies: Allergies Allergy/AdvReac Type Severity Reaction Status Date / Time No Known Allergies Allergy Verified 10/28/22 12:07 Review of Systems Sugical H&P ROS: Negative: Constitution, Cardiovascular, Respiratory, Neurological, Psychiatric, Hem-Onc, Allergic/Immunologic, Gastrointestinal, Genitourinary, Musculoskeletal, Integumentary, Endocrine and Eyes/Ears/Nose/Throat Exam Surgical H&P Exam: Normal: HEENT, Normal: Heart, Normal: Lungs, Normal: Extremities, Normal: Skin and Normal: Neurological and Significant Findings: Abdomen (tender upper abdomen) Plan Diagnosis/Plan: Unchanged I have reviewed the history and physical and performed a pertinent physical examination on my patient. No changes have occurred unless specified. Time Spent With Patient Time: Total time managing care of this patient today ____ minutes.
[2022-11-11 09:04] VITALS: BMI 23.7
[2022-11-11 09:13] VITALS: BP 133/85; PULSE 85; RESP 16; TEMP 36.2; O2SAT 99
--- NOTE | 2022-11-11 09:40 | W.PM.OPN ---
Operative Note Operative Note Date of Service: 11/11/22 Narrative: Operative Information Procedure Description: EGD, Colonoscopy Indication: poor appetite, abdominal pain, hx of abn Ct imaging of small bowel Anesthesia: MAC FLEXIBLE TRANSORAL UPPER GASTROINTESTINAL ENDOSCOPY AND COLONOSCOPY PROCEDURE NOTE UPPER ENDOSCOPY Consent: Indications for the procedure and potential complications of bleeding, perforation, reaction to medications and missed diagnosis were discussed with the patient and informed consent was obtained. Instrument: Olympus GIF H 190 J mid size upper endoscope Monitoring: Vital signs and clinical assessment, continuous EKG monitoring, Pulse oximetry, Carbon Dioxide monitoring and blood pressure monitoring were done throughout the procedure. Procedure: The patient was placed in the left lateral decubitis position and pre-procedure medications were administered and a bite block was placed. The endoscope was inserted into the mouth and advanced under direct vision to the third part of duodenum. A careful inspection was made as the upper endoscope was withdrawn including a retroflexed examination of the proximal stomach; Findings and interventions are described below. Findings: Larynx:normal Esophagus: GE junction at 38 cm, diaphragm hiatus at 40 cm, consistent with 2 cm sliding hiatal hernia, with erosive esophagitis noted LA grade B, as well as schatzki ring, bx taken from GEJ Stomach: Patchy gastritis. Biopsies were obtained. Grade 2 flap valve on retroflexed examination of the cardia. Duodenum: bulbar duodenitis noted, diverticulum noted in second part of duodenum which was large Intervention: Biopsies as noted above COLONOSCOPY Instrument: Olympus variable stiffness pediatric scope 190L Colonoscopy Monitoring: Vital signs and clinical assessment, continuous EKG monitoring, Pulse oximetry, Carbon Dioxide monitoring and blood pressure monitoring were done throughout the procedure. Colon withdrawal time was 15 minutes. Procedure: The patient was placed in the left lateral decubitis position and pre-procedure medications were administered. After a digital rectal examination of the ano-rectum, the video colonoscope was inserted into the rectum and advanced through the colon to the cecum/TI. The colonoscope was slowly withdrawn in a retrograde panoramic fashion and the colon mucosa was carefully examined including a retroflexed view of the rectum. Findings and interventions are described below. Procedure Difficulty: easy Findings: Terminal Ileum-normal, bx taken random colon bx taken Cecum:normal Ascending Colon: 10 mm sessile polyp seen on retroflexion, removed with cold snare Transverse Colon - x 1 sessile polyp 6-7 mm removed with cold forceps Descending Colon:normal Sigmoid Colon: normal Rectum: Retroflexion with medium sized internal hemorrhoids, grade I Anorectum - normal Colon preparation: [place] Bowel Preparation Scale Right colon; 2 Transverse colon: 3 Left colon; 3 (0 = Unprepared colon segment with mucosa not seen due to solid stool that cannot be cleared. 1 = Portion of mucosa of the colon segment seen, but other areas of the colon segment not well seen due to staining, residual stool and/or opaque liquid. 2 = Minor amount of residual staining, small fragments of stool and/or opaque liquid, but mucosa of colon segment seen well. 3 = Entire mucosa of colon segment seen well with no residual staining, small fragments of stool or opaque liquid) Impression and Post Procedure Diagnosis: Endoscopy Findings: erosive esophagitis hiatal hernia schatzki ring gastritis duodenitis duodenal diverticulum Colonoscopy Findings: polyps internal hemorrhoids Plan: Await Pathology results Repeat Colonoscopy in 5 years due to polyps or earlier if clinically indicated High fiber diet leaflet avoid straining at stool, epsom salts and sitz bath, anusol supps or cream commence PPI-will send 40 mg pantoprazole daily Above findings were reviewed with the patient and relevant handouts were provided if indicated.
[2022-11-11 10:34] VITALS: BP 77/48; PULSE 72; RESP 10; TEMP 36.1; O2SAT 98
[2022-11-11 10:44] VITALS: BP 87/55; PULSE 66; RESP 17
[2022-11-11 10:49] VITALS: BP 98/65; PULSE 73; RESP 18; O2SAT 95
[2022-11-11 10:58] VITALS: BP 123/72; PULSE 72; RESP 18; TEMP 36.1; O2SAT 99
== END 2022-11-11 11:30 ==
LOC: HO.SSS 08:47
PROVIDERS: PCP Internal Medicine; Visit Provider Internal Medicine Gastroenterology
PROC: (CPT 45385; principal; 2022-11-11 10:00)
DX: R19.4 Change in bowel habit (principal); R10.9 Unspecified abdominal pain; R63.0 Anorexia; R19.7 Diarrhea, unspecified; D12.2 Benign neoplasm of ascending colon; K63.5 Polyp of colon; K64.0 First degree hemorrhoids; K21.9 Gastro-esophageal reflux disease without esophagitis; K20.80 Other esophagitis without bleeding; K29.80 Duodenitis without bleeding; K29.50 Unspecified chronic gastritis without bleeding; K31.7 Polyp of stomach and duodenum; K22.2 Esophageal obstruction; K44.9 Diaphragmatic hernia without obstruction or gangrene; D75.1 Secondary polycythemia; R53.83 Other fatigue; J44.9 Chronic obstructive pulmonary disease, unspecified; I25.10 Atherosclerotic heart disease of native coronary artery without angina pectoris; I10 Essential (primary) hypertension; F10.20 Alcohol dependence, uncomplicated; Z79.899 Other long term (current) drug therapy; F17.210 Nicotine dependence, cigarettes, uncomplicated
CPT/HCPCS: 45385; 45380; 43239; 88305; 88342; 93005

== ENCOUNTER 2022-11-23 10:43 | Outpatient (REF) | payer MEDICARE, SELFPAY | END 2022-11-23 10:44 | disposition home or self-care (01) | LOC: HO.BBR 10:43 | PROVIDERS: Visit Provider Internal Medicine | DX: D75.1 Secondary polycythemia (principal) | CPT/HCPCS: 85018; 99195 ==

== ENCOUNTER → 2022-11-25 09:10 | Outpatient (BNVA) | payer MEDICARE, SELFPAY | PROVIDERS: PCP Internal Medicine; Referring Provider Internal Medicine; Visit Provider Physician Assistant | DX: K20.90 Esophagitis, unspecified without bleeding (principal); D12.6 Benign neoplasm of colon, unspecified | CPT/HCPCS: Q3014 ==

== ENCOUNTER → 2022-12-02 10:39 | Outpatient (BNVA) | payer MEDICARE, SELFPAY | PROVIDERS: PCP Internal Medicine; Visit Provider Surgery | DX: R19.09 Other intra-abdominal and pelvic swelling, mass and lump (principal) | CPT/HCPCS: 99202 ==

== ENCOUNTER 2022-12-14 10:50 | Outpatient (REF) | payer MEDICARE, SELFPAY | END 2022-12-14 10:51 | disposition home or self-care (01) | LOC: HO.BBR 10:50 | PROVIDERS: Visit Provider Internal Medicine | DX: D75.1 Secondary polycythemia (principal) | CPT/HCPCS: 85014; 85018; 99195 ==

== ENCOUNTER 2023-01-05 10:04 | Outpatient (REF) | payer MEDICARE, SELFPAY | END 2023-01-05 10:05 | disposition home or self-care (01) | LOC: HO.BBR 10:04 | PROVIDERS: Visit Provider Internal Medicine | DX: D75.1 Secondary polycythemia (principal) | CPT/HCPCS: 85014; 85018; 99195 ==

== ENCOUNTER → 2023-01-18 11:05 | Outpatient (BNVA) | payer MEDICARE, SELFPAY | PROVIDERS: PCP Internal Medicine; Visit Provider Internal Medicine Pulmonary Disease | DX: R91.8 Other nonspecific abnormal finding of lung field (principal); J44.9 Chronic obstructive pulmonary disease, unspecified; Z79.899 Other long term (current) drug therapy | CPT/HCPCS: 99212 ==

== ENCOUNTER 2023-01-28 10:47 | Outpatient (AMB) | payer MEDICARE, SELFPAY ==
[2023-01-28 10:47] VITALS: BP 140/90; PULSE 76; O2SAT 96; BMI 23.8
--- NOTE | 2023-01-28 10:47 | A.OFFPC_ITS ---
<Statement entered by Iveth Stokes MD - 11/25/25 00:15> This note has been administratively?closed. Vital Signs 01/28/23 10:47 Height 5 ft 8 in Weight 157 lb 0.8 oz BMI 23.8 BP 140/90 H Blood Pressure Location Lt brachial Position Sitting Pulse 76 Pulse Source Pulse Oximeter Temp Source Skin Pulse Oximetry (%) 96 Oxygen Delivery Method Room Air Intake Visit Reasons: Annual PE Intake Note: Patient is here today for a physical. pt states migraine headaches [id number]. last colonoscopy Oct Manager Social Responsibility Required: No Allergies No Known Allergies Allergy (Verified 11/19/25 11:10) Medication List - Last Reconciled 01/28/23 by Iveth Stokes MD albuterol sulfate 90 mcg/actuation (ProAir HFA) 2 puffs inhalation Q6H PRN amlodipine 5 mg PO DAILY ipratropium-albuterol 0.5 mg-3 mg(2.5 mg base)/3 mL 3 mL inhalation Q6-8H PRN 30 days pantoprazole 40 mg PO DAILY prednisone 5 mg PO DAILY Tobacco use date assessed: 01/28/23 Fall risk assessment: No Falls in past year Last assessed Fall Risk: 01/28/23 [facility] Medical History History of anemia Chronic left hip pain Cigarette smoker motivated to quit Anemia History of fracture of left hip Alcoholism Grief at loss of child CAD (coronary artery disease) Coronary artery calcification seen on CT scan Aortic ectasia Essential hypertension COPD (chronic obstructive pulmonary disease) Nicotine dependence, cigarettes, uncomplicated TIM (obstructive sleep apnea) Polycythemia Elevated hemoglobin Macrocytosis without anemia GERD (gastroesophageal reflux disease) Tubular adenoma of colon Constipation Alcoholic gastritis History of small bowel obstruction Hx of urethral stricture Psoriasis Change in multiple pigmented skin lesions Refused influenza vaccine Pneumococcal vaccination declined Surgical History History of repair of hip fracture Status post open reduction and internal fixation (ORIF) of fracture History of colonoscopy History of esophagogastroduodenoscopy (EGD) Hx of varicose vein stripping Hx of elbow surgery Hx of bilateral inguinal hernia repair History of surgery Family History Mother CAD (coronary artery disease) COPD (chronic obstructive pulmonary disease) Maternal Grandfather Brain tumor Maternal Uncle Eye cancer Social History Household Members: None Both parents involved: No Caregiver staying overnight: No Housing: Apartment Are you a primary administrator health care facility to a significant other at home: No Do you presently have visiting nurse or other home services: No (housework) 75 years or older and lives alone: No Alcohol intake: current Alcohol intake frequency: a few times a month Comment: 4-5 Smirnoff López Lemon Nips 2-3x/week Patient Tobacco Use Status: Former Tobacco user Tobacco use type: Cigarette Cigarette Packs Per Day: 0.5 Cigarettes Per Day: 10.0 Years Smoked: 50 e-Cigarette/Vaping Use: Never Used Second Hand Smoke Exposure: Yes Substance Use Type: Marijuana Trauma History: Sudden Loss of family members Special qamar needs: No Agree to transfusion: Yes service: No Current occupational status: retired Current occupational exposures/hazards: No Sexual orientation: Straight/Heterosexual Gender identity: Male Cognitive needs: Yes (Forgetful) Hearing needs: Yes Vision needs: Yes Questionnaire Thrive Questionnaire Date Thrive assessed: 02/02/22 AUDIT C Alcohol Use Questionnaire (AUDIT-C) 1. How often do you have a drink containing alcohol?: 2-3 times a week 2. How many drinks containing alcohol do you have on a typical day when you are drinking?: 3 or 4 3. How often do you have six or more drinks on one occasion?: Less than monthly Total Score: 5 JESS-7 AMB Questionnaire JESS-7 Date JESS - 7 assessed: 02/02/22 Source: Developed by Drs. Az Porras, Monserrat Calles, Fabrice Garcia and colleagues, with an educational shaheen from [employer]. Physical exam (Primary Care) Vital Signs: Last Vital Signs Pulse 76 01/28/23 10:47 BP 140/90 H 01/28/23 10:47 Pulse Ox 96 01/28/23 10:47 Oxygen Delivery Method Room Air 01/28/23 10:47 BMI result Body Mass Index 23.8 Tobacco/Smoking Status: Tobacco use Status Tobacco use date assessed 01/28/23 01/28/23 10:51 Patient Tobacco Use Status Current everyday Tobacco 01/28/23 10:47 Tobacco use type Cigarette 01/28/23 10:47 e-Cigarette/Vaping Use Never Used 01/28/23 10:47 Thrive Assessment: Date of Thrive Assessment Date Thrive assessed 02/02/22 01/28/23 10:47 Results Reviewed Results Reviewed: ENTERED: 01/10/23-[address] [facility] [address]: Iveth Stokes MD ORDERED: CBC Auto Diff Test Result Flag Reference Site WBC 6.0 4.8-10.8 X10*3/uL RBC 4.95 4.60-5.80 X10*6/uL HGB 12.4 L 14.0-18.0 g/dl HCT 40.6 L 42.0-52.0 % MCV 82.0 80.0-98.0 fL MCH 25.1 L 27.0-33.0 pg MCHC 30.5 L 31.0-36.0 g/dl RDW 15.1 11.0-16.0 % PLT 292 # 160-400 X10*3/uL MPV 9.9 9.4-12.4 fL Neut Pct Auto 54.5 45-73 % ImGran Pct Auto 0.5 H 0.0-0.4 % Lymp Pct Auto 27.1 20-40 % Phillips Pct Auto 13.9 H 2-11 % Eos Pct Auto 3.2 0-4 % Baso Pct Auto 0.8 0-2 % NRBC Pct Auto 0.0 0.0-0.2 /100WBC ANC Neut Abs # 3.2 2.0-8.3 x10*3/uL ImGran Abs Auto 0.03 0.00-0.03 X10*3/uL Lymph Abs Auto 1.6 1.2-4.9 X10*3/uL Phillips Abs Auto 0.8 0.1-1.2 X10*3/uL Eos Abs Auto 0.2 0.0-0.4 X10*3/uL Baso Abs Auto 0.1 0.0-0.2 X10*3/uL NRBC Abs Auto 0.000 0.0-0.012 X10*3/uL ENTERED: 01/10/23-[address] [facility] [address]: Iveth Stokes MD ORDERED: CMP Test Result Flag Reference Site Sodium 138 135-145 mmol/L Potassium 4.4 3.3-5.1 mmol/L CL 103 96-108 mmol/L CO2 27 22-29 mmol/L Gap 12 12-20 BUN 22 H 9-16 mg/dL Creat 1.35 0.5-1.4 mg/dL Estimated CrCl 52.7 eGFR (calculated from the MDRD study equation) and eCrCl (calculated from the Cockcroft-Gault equation) are based on different parameters and may not yield comparable results. If eCrCl result is absurd, please check patient's height/weight. EGFR 53 NOTE: For -[place] individuals, multiply the result by 1.210. Chronic Kidney Disease: Estimated GFR < 60 mL/min/1.73m2 Severe Kidney Disease: Estimated GFR < 15 mL/min/1.73m2 Glucose, Random 99 60-115 mg/dL CA 8.9 8.4-10.2 mg/dL Total Bili 0.5 0.0-1.0 mg/dL AST (GOT) 14 5-37 U/L ALT (GPT) 8 0-40 U/L Protein, Total 6.9 6.5-8.0 g/dL Alb 3.9 3.5-5.0 g/dL Alk Phos 116 39-117 U/L Coding Level of Care Code Admin Sign Off/No Billing Diagnoses Annual visit for general adult medical examination with abnormal findings Z00.01
== END 2023-01-28 12:11 | disposition home or self-care (01) ==
LOC: HO.HMGC 10:47
PROVIDERS: PCP Internal Medicine; Visit Provider Internal Medicine
DX: Z00.01 Encounter for general adult medical examination with abnormal findings (principal)
CPT/HCPCS: 99499

== ENCOUNTER 2023-01-31 08:43 | Outpatient (REF) | payer MEDICARE, SELFPAY ==
--- NOTE | ~2023-01-31 | CT_ITS ---
EXAMINATION: CT CHEST WITHOUT CONTRAST CLINICAL INFORMATION: Other nonspecific abnormal finding of lung field. COMPARISON: CT angiogram chest 05/07/[address] lung screening 04/15/2020. TECHNIQUE: Multidetector volumetric CT imaging of the chest was done. Axial MIP volume rendering provided. Sagittal and coronal reformatted images were obtained. This CT examination was performed using dose optimization techniques as appropriate, variously including the following: *Automated exposure control *Adjustment of mA and/or kV according to patient size (this includes techniques or standardized protocols for targeted exams where dose is matched to indication/reason for exam; i.e. extremities or head) *Use of iterative reconstruction technique DLP: 120 mGy-cm FINDINGS: LUNGS: Severe emphysematous changes are present in the lungs, most prominent in the upper lobes. A tiny punctate 3 mm subpleural left lower lobe nodule is seen (5:503) and unchanged from 04/15/2021 (prior 5:393). No worrisome lung masses are present. At the time of the prior PE study, I believe there were increased interstitial markings and some ground-glass changes which may have been due to superimposed pulmonary edema, and these have all resolved. MEDIASTINUM: Heart size is normal. No mediastinal or hilar lymphadenopathy. Prominent ascending aorta at 4 cm, a few millimeters larger than in 2020. CORONARY ARTERY CALCIFICATION: Present. PLEURA: There is no pleural effusion. No pleural mass or thickening. AXILLA: No lymphadenopathy. UPPER ABDOMEN: Unremarkable. OSSEOUS STRUCTURES: Mild degenerative changes are present in the spine. No bony destructive lesions. CT/CT chest wo IV con IMPRESSION: 1. Severe emphysema. 2. No worrisome lung masses are seen. Tiny punctate 3 mm left lower lobe nodule. 3. Incidental note made of prominent ascending aorta measuring 4 cm, a few millimeters larger than previously noted. Maximal dimension for a patient of this age would be 4.1 cm. 4. Lung-RADS category 2, benign. Fleischner guidelines were followed. Normal aortic diameters (in millimeters) Ascending aorta: 31+0.16 x age. Descending aorta: 21+0.16 x age. Reference: [employer] J 2005; 40 (3): 175-178
== END 2023-01-31 08:44 | disposition home or self-care (01) ==
LOC: HO.CT 08:43
PROVIDERS: PCP Internal Medicine; Visit Provider Internal Medicine Pulmonary Disease
DX: R91.8 Other nonspecific abnormal finding of lung field (principal)
CPT/HCPCS: 71250

== ENCOUNTER 2023-01-31 08:55 | Outpatient (REF) | payer MEDICARE, SELFPAY ==
--- NOTE | 2023-01-31 11:31 | PFT_ITS ---
INDICATION: COPD. SPIROMETRY: FEV1 to FVC of 69% with an FEV1 of 1.81 L, which is 57% of predicted and an FVC of 2.64 L, which is 61% of predicted. Post-bronchodilators, there was a significant improvement of the FVC by 34% and of the FEV1 about 42%. The maximum voluntary ventilation only 27% of predicted. LUNG VOLUMES: Total lung capacity 63% predicted with a residual volume of 94% predicted. Expiratory residual volume of 17% predicted. DIFFUSION CAPACITY: The patient could not perform the maneuver due to persistent coughing. COMPARISONS: PFTs from 2020. INTERPRETATION: There is an obstructive ventilatory defects consisting of moderate to severe COPD. The patient does have a significant response to bronchodilators noted and significant small airways disease. There is a severe decrease in the maximum voluntary ventilation likely secondary to deconditioning, although cannot rule out neuromuscular conditions. The patient does have also evidence of a restrictive ventilatory defect consistent with moderate restrictive lung disease. Thus far, underlying parenchymal conditions and/or neuromuscular conditions need to be ruled out. Again, his diffusion capacity could not be completed due to his persistent cough. When compared to 2020, there is a significant decrease in the FEV1 and also a significant decrease in the total lung capacity. Clinical correlation warranted. MD DEONDRE Chandler/LINDSEY / [id number]
== END 2023-01-31 08:56 | disposition home or self-care (01) ==
LOC: HO.RESP 08:55
PROVIDERS: PCP Internal Medicine; Visit Provider Internal Medicine Pulmonary Disease
DX: J44.9 Chronic obstructive pulmonary disease, unspecified (principal)
CPT/HCPCS: 94060; 94727

== ENCOUNTER 2023-01-31 11:11 | Outpatient (REF) | payer MEDICARE, SELFPAY ==
[2023-01-31 14:13] LABS: Cholesterol 176 mg/dL; HDL Cholesterol 58 mg/dL; LDL Cholesterol Calculated 107 mg/dl; Triglycerides 57 mg/dL
== END 2023-01-31 11:12 | disposition home or self-care (01) ==
LOC: HO.HMGCLDS 11:11
PROVIDERS: PCP Internal Medicine; Visit Provider Internal Medicine
DX: Z00.01 Encounter for general adult medical examination with abnormal findings (principal)
CPT/HCPCS: 36415; 80061

== ENCOUNTER → 2023-02-21 09:18 | Outpatient (BNVA) | payer MEDICARE, SELFPAY | PROVIDERS: PCP Internal Medicine; Visit Provider Physician Assistant | DX: K20.90 Esophagitis, unspecified without bleeding (principal); D12.6 Benign neoplasm of colon, unspecified; J44.9 Chronic obstructive pulmonary disease, unspecified | CPT/HCPCS: 99212 ==

== ENCOUNTER → 2023-02-24 14:24 | Outpatient (BNVA) | payer MEDICARE, SELFPAY | PROVIDERS: PCP Internal Medicine; Visit Provider Internal Medicine Pulmonary Disease | DX: J44.9 Chronic obstructive pulmonary disease, unspecified (principal); R91.8 Other nonspecific abnormal finding of lung field; Z79.899 Other long term (current) drug therapy | CPT/HCPCS: 99212 ==

== ENCOUNTER → 2023-04-05 10:10 | Outpatient (BNVA) | payer MEDICARE, SELFPAY | PROVIDERS: PCP Internal Medicine; Visit Provider Internal Medicine Pulmonary Disease | DX: J44.9 Chronic obstructive pulmonary disease, unspecified (principal); J20.9 Acute bronchitis, unspecified; R91.8 Other nonspecific abnormal finding of lung field | CPT/HCPCS: 99212 ==

== ENCOUNTER 2023-08-16 09:35 | Outpatient (AMB) | payer MEDICARE, SELFPAY ==
[2023-08-16 09:37] VITALS: BP 147/82; PULSE 93; O2SAT 99; BMI 23.6
--- NOTE | 2023-08-16 09:37 | MHC.OFFVIS ---
Intake Vital Signs 08/16/23 09:37 Height 5 ft 8 in Weight 155 lb 6.814 oz BMI 23.6 BP 147/82 H Blood Pressure Location Lt brachial Position Sitting Pulse 93 Pulse Source Doppler Pulse Oximetry (%) 99 Oxygen Delivery Method Room Air Intake Visit Reasons: COPD Allergies No Known Allergies Allergy (Verified 08/16/23 09:39) HPI COPD HPI Details 68-year-old gentleman, active 50+ pack-year smoker followed for underlying moderate COPD and pulmonary nodules. Over the last months patient complains of significantly acutely worsening symptoms including some wheezing, but no productive cough. He has been using duo nebs 3 times a day. Also complains of pain in his right leg. [facility] Medical History Abdominal pain Alcohol use disorder Alcoholic gastritis Alcoholism Cardiomegaly Change in multiple pigmented skin lesions Cigarette smoker motivated to quit Constipation COPD (chronic obstructive pulmonary disease) Coronary artery calcification seen on CT scan Cough Dyspepsia Elevated hemoglobin Emphysema lung Essential hypertension GERD (gastroesophageal reflux disease) Heavy tobacco smoker >10 cigarettes per day History of small bowel obstruction Hx of urethral stricture Hypertensive cardiomegaly Macrocytosis without anemia Pneumococcal vaccination declined Polycythemia Refused influenza vaccine SBO (small bowel obstruction) Shortness of breath on exertion Smoking Vomiting Surgical History History of esophagogastroduodenoscopy (EGD) History of surgery Hx of bilateral inguinal hernia repair Hx of colonoscopy Hx of elbow surgery Hx of varicose vein stripping Family History Mother CAD (coronary artery disease) Maternal Grandfather Brain tumor Maternal Uncle Eye cancer Social History Household Members: Other Household Members Other:: Uncle Housing: House Are you a primary care aide to a significant other at home: No Do you presently have visiting nurse or other home services: No Alcohol intake: current Alcohol intake frequency: 3 or more drinks per day Alcohol type: hard liquor Patient Tobacco Use Status: Current everyday Tobacco user Tobacco use type: Cigarette Cigarette Packs Per Day: 0.5 Cigarettes Per Day: 10.0 Years Smoked: 50 e-Cigarette/Vaping Use: Never Used Second Hand Smoke Exposure: No service: No Current occupational status: retired Cognitive needs: No Hearing needs: No Vision needs: No Review of Systems Const Denies daytime sleepiness, Denies excessive sweating, Denies fatigue, Denies fever(s), Denies lethargy, Denies malaise, Denies night sweats, Denies snoring and Denies weight loss Eyes Denies blurry vision and Denies itchy eyes ENT Denies nasal congestion, Denies post nasal drip, Denies sinus pain, Denies sinus pressure and Denies other ( Thrush) Card Denies chest pain, Denies pedal edema, Denies dyspnea, Reports dyspnea on exertion, Denies orthopnea and Denies paroxysmal nocturnal dyspnea Resp Denies cough, Denies hemoptysis, Denies excessive phlegm production, Denies dyspnea, Reports dyspnea on exertion, Denies snoring and Reports wheezing GI Denies abdominal pain and Denies heartburn Musc Denies myalgias, Denies arthralgias and Denies joint swelling Skin/Breast Denies rash Neuro Denies memory loss and Denies seizure-like activity Psych Denies abnormal sleep pattern, Denies anxiety and Denies memory loss Endo Denies excessive sweating, Denies fatigue and Denies heat intolerance Alberto/Lymph Denies easy bruising Aller/Immun Denies itchy eyes, Denies seasonal rhinorrhea and Reports wheezing Physical Exam Vital Signs: Last Vital Signs Pulse 93 08/16/23 09:37 BP 147/82 H 08/16/23 09:37 Pulse Ox 99 08/16/23 09:37 Oxygen Delivery Method Room Air 08/16/23 09:37 BMI result Body Mass Index 23.6 Const General: no acute distress and alert Nutritional Appearance: not obese Orientation/consciousness: Other orientation findings ( oriented) HEENT Head: Yes atraumatic Eyes General: appearance normal, both eyes and all related structures Sclerae: sclerae normal EOM: EOMs intact bilaterally Neck Neck: Yes supple Lymphatic: no lymphadenopathy noted Resp Effort & Inspection: normal respiratory effort and no use of accessory muscles Auscultation: wheezes ( Mild bilateral expiratory) Cardio Rate: regular rate Rhythm: regular rhythm Heart sounds: no gallops, no murmurs and no rubs Skin General skin exam: other ( warm) Extrem General: No clubbing, No cyanosis and No edema Assessment & Plan Assessment & Plan (1) COPD (chronic obstructive pulmonary disease): Code(s): J44.9 - Chronic obstructive pulmonary disease, unspecified Plan: significantly worsening control over the last months. Now with an acute exacerbation. Will treat with a course of prednisone. In office supplemental oxygen /6 minute walk test performed - patient does not require supplemental O2 at this time to maintain normal oximetry with exertion. (2) Dyspnea on exertion: Code(s): R06.09 - Other forms of dyspnea Plan: Will obtain CT angio chest s to rule out possible PE component. Orders: Orders CT angio chest PE protocol Today R06.09 - Other forms of dyspnea Basic Metabolic Panel Today R06.09 - Other forms of dyspnea Medications: New prednisone 40 mg (2 x 20 mg) PO DAILY 14 tabs 0RF Coding Level of Care Code Est Pt Level 4 (95745) Diagnoses COPD (chronic obstructive pulmonary disease) J44.9 Dyspnea on exertion R06.09
== END 2023-08-16 10:12 | disposition home or self-care (01) ==
PROVIDERS: PCP Internal Medicine; Visit Provider Internal Medicine Pulmonary Disease
DX: J44.9 Chronic obstructive pulmonary disease, unspecified (principal); R06.09 Other forms of dyspnea
CPT/HCPCS: 99214

== ENCOUNTER → 2023-08-16 09:35 | Outpatient (BNVA) | payer MEDICARE, SELFPAY | PROVIDERS: PCP Internal Medicine; Visit Provider Internal Medicine Pulmonary Disease | DX: J44.9 Chronic obstructive pulmonary disease, unspecified (principal); R06.09 Other forms of dyspnea | CPT/HCPCS: 99212 ==

== ENCOUNTER 2023-08-18 14:47 | Outpatient (AMB) | payer MEDICARE, SELFPAY ==
[2023-08-18 14:53] VITALS: BP 138/80; PULSE 100; O2SAT 97; BMI 23.6
--- NOTE | 2023-08-18 14:53 | MHC.PC.OV ---
Vital Signs 08/18/23 14:53 Height 5 ft 8 in Weight 155 lb 2 oz BMI 23.6 BP 138/80 Blood Pressure Location Lt brachial Position Sitting Pulse 100 Pulse Source Pulse Oximeter Pulse Oximetry (%) 97 Oxygen Delivery Method Room Air Intake Visit Reasons: rash and ongoing knee pain Intake Note: pt has a rash on both arms and his face that gets scabs and he peels off pt says he has had over the summer the rash is itchy and he has it on his stomach as well. pt says his right knee will give out randomly with pain and he says this started in the summer time as well Allergies No Known Allergies Allergy (Verified 08/18/23 15:20) Medication List - Last Reconciled 08/18/23 by Iveth Stokes MD amlodipine 5 mg PO DAILY ipratropium-albuterol 0.5 mg-3 mg(2.5 mg base)/3 mL 3 mL inhalation Q6-8H PRN 30 days prednisone 40 mg (2 x 20 mg) PO DAILY salmeterol (Serevent Diskus) 2 inhalations inhalation BID 30 days Tobacco use date assessed: 08/18/23 Fall risk assessment: No Falls in past year Last assessed Fall Risk: 08/18/23 Dental Screening Dental Screen Date: 08/18/23 Did you have a dental visit in the last 12 months?: No Did you have a dental problem in the last 6 months where you did not have access to dental care?: No Was dental information given to patient?: No HPI rash and ongoing knee pain HPI Details 68-year-old male here today complaining of a pruritic rash appearing on both arms and neck area, which has been present now for the last several weeks. Initially would start out a so whitish nodular lesion which would scab over and become pustular. Denies any recent travel. No pets at home. He also complains of itching and a rash in umbilical area which has recurred. She was prescribed clotrimazole-betamethasone which has afforded improvement, would like a refill. He has alcoholic disorder, sleeve was on Vivitrol but stop taking it. He drinks at least 3 daily consisting of a mixture of beer in late hard liquor. Would like a referral back to addiction medicine for help with quitting. Smoke cigarettes still despite his COPD, no desire to quit at present time. He complains of right knee occasionally giving out on him when he walks, denies any pain, joint swelling over said knee, no history of trauma. [facility] Medical History (Updated 08/19/23 @ 04:46 by Iveth Stokes MD) Skin lesion Hx of urethral stricture Constipation Alcoholic gastritis Elevated hemoglobin Alcoholism Pneumococcal vaccination declined Refused influenza vaccine Alcohol use disorder Abdominal pain Polycythemia Vomiting SBO (small bowel obstruction) COPD (chronic obstructive pulmonary disease) Smoking Cardiomegaly Coronary artery calcification seen on CT scan History of small bowel obstruction GERD (gastroesophageal reflux disease) Emphysema lung Hypertensive cardiomegaly Change in multiple pigmented skin lesions Dyspepsia Macrocytosis without anemia Cough Heavy tobacco smoker >10 cigarettes per day Shortness of breath on exertion Essential hypertension Surgical History History of esophagogastroduodenoscopy (EGD) Hx of varicose vein stripping Hx of elbow surgery Hx of bilateral inguinal hernia repair History of surgery Hx of colonoscopy Family History Mother CAD (coronary artery disease) Maternal Grandfather Brain tumor Maternal Uncle Eye cancer Social History Household Members: Other Household Members Other:: Uncle Housing: House Are you a primary emergency care tech to a significant other at home: No Do you presently have visiting nurse or other home services: No Alcohol intake: current Alcohol intake frequency: 3 or more drinks per day Alcohol type: hard liquor Patient Tobacco Use Status: Current everyday Tobacco user Tobacco use type: Cigarette Cigarette Packs Per Day: 0.5 Cigarettes Per Day: 10.0 Years Smoked: 50 e-Cigarette/Vaping Use: Never Used Second Hand Smoke Exposure: No service: No Current occupational status: retired Cognitive needs: No Hearing needs: No Vision needs: No Questionnaire Thrive Questionnaire Date Thrive assessed: 02/02/22 JESS-7 AMB Questionnaire JESS-7 Date JESS - 7 assessed: 02/02/22 Source: Developed by Drs. Az Porras, Monserrat Calles, Fabrice Garcia and colleagues, with an educational shaheen from [employer]. Review of Systems Const Denies daytime sleepiness, Denies excessive sweating, Denies fatigue, Denies fever(s), Denies headache(s), Denies lethargy, Denies malaise, Denies night sweats, Denies snoring and Denies weight loss Eyes Denies change in vision ENT Denies dizziness, Denies headache(s), Denies nasal congestion, Denies post nasal drip, Denies sinus pain, Denies sinus pressure and Denies other ( Thrush) Card Denies chest pain, Denies pedal edema, Denies dyspnea, Reports dyspnea on exertion and Denies orthopnea Resp Denies cough, Denies hemoptysis, Denies excessive phlegm production, Denies dyspnea, Reports dyspnea on exertion, Denies snoring and Reports wheezing GI Denies abdominal pain and Denies heartburn Reports no additional complaints Musc Reports as per HPI, Denies myalgias, Denies arthralgias and Denies joint swelling Skin/Breast Reports as per HPI Neuro Denies dizziness, Denies headache(s), Denies memory loss, Denies seizure-like activity and Denies tremor(s) Psych Denies abnormal sleep pattern, Denies anxiety and Denies memory loss Endo Denies excessive sweating, Denies fatigue and Denies heat intolerance Alberto/Lymph Denies easy bruising Aller/Immun Denies seasonal rhinorrhea and Reports wheezing Physical exam (Primary Care) Vital Signs: Last Vital Signs Pulse 100 08/18/23 14:53 BP 138/80 08/18/23 14:53 Pulse Ox 97 08/18/23 14:53 Oxygen Delivery Method Room Air 08/18/23 14:53 BMI result Body Mass Index 23.6 Tobacco/Smoking Status: Tobacco use Status Tobacco use date assessed 08/18/23 08/18/23 15:05 Patient Tobacco Use Status Current everyday Tobacco 08/18/23 15:05 Tobacco use type Cigarette 08/18/23 15:05 e-Cigarette/Vaping Use Never Used 08/18/23 15:05 Are you ready to quit: No Thrive Assessment: Date of Thrive Assessment Date Thrive assessed 02/02/22 08/18/23 15:05 Const Other: Alert orient x3, no acute distress noted ambulatory with normal gait Orientation/consciousness: patient oriented x3 HENMT Mouth: Normal oral and palatal mucosa present, oropharynx normal and moist mucous membranes Eyes Other: Anicteric General: appearance normal, both eyes and all related structures Neck Neck: Yes full ROM, Yes no lymphadenopathy and Yes supple Resp Auscultation: clear to auscultation bilaterally Cardio Other: S1-S2 present regular rate and rhythm GI Other: Normal bowel sounds, soft, nontender with no mass palpated Skin Other: Discrete is whitish nodular lesions with an erythematous base and some areas of pustules noted scattered on both upper extremities has scaly lesion on posterior neck area and scaly erythematous rash inside umbilical area General skin exam: no jaundice Neuro General: patient oriented x3, gait normal, moves all extremities, Normal light touch and pain sensation, no focal motor deficits and CN's II-XI intact bilaterally Extrem General: Yes full ROM, Yes no joint enlargement, Yes no pedal edema, Yes no calf tenderness and Yes normal gait Assessment and Plan Assessment & Plan (1) Alcoholism: Comment: previously on Vivitrol. He is F1-F2 degree of liver damage He is HIV and Hepatitis C negative Code(s): F10.20 - Alcohol dependence, uncomplicated Plan: Referred to addiction medicine at [facility] (2) Skin lesion: Code(s): L98.9 - Disorder of the skin and subcutaneous tissue, unspecified Plan: Dermatology consult ordered (3) Unstable knee: Code(s): M25.369 - Other instability, unspecified knee Qualifiers: Laterality: right Qualified Code(s): M25.361 - Other instability, right knee Plan: X-ray of right knee ordered (4) Pneumococcal vaccination declined: Code(s): Z28.21 - Immunization not carried out because of patient refusal (5) Acute dermatitis: Code(s): L30.9 - Dermatitis, unspecified Plan: Scaly erythematous rash on umbilical area. Prescription sent for clotrimazole-betamethasone 1-0.5%, to apply sparingly to affected area twice a day for no more than 10 days at a time. Keep areas clean and dry at all times Orders: Referrals Addiction Medicine Referral F10.20 - Alcohol dependence, uncomplicated Dermatology Referral L98.9 - Disorder of the skin and subcutaneous tissue, unspecified Medications: Refilled clotrimazole-betamethasone 1-0.05 % 1 appl topical BID 10 days 45 grams 0RF B35.4 - Tinea corporis Coding Level of Care Code Est Pt Level 4 (88870) Diagnoses Alcoholism F10.20 Skin lesion L98.9 Instability of right knee joint M25.361 Laterality: right Pneumococcal vaccination declined Z28.21 Acute dermatitis L30.9
== END 2023-08-18 17:29 | disposition home or self-care (01) ==
PROVIDERS: PCP Internal Medicine; Visit Provider Internal Medicine
DX: F10.20 Alcohol dependence, uncomplicated (principal); L98.9 Disorder of the skin and subcutaneous tissue, unspecified; M25.361 Other instability, right knee; Z28.21 Immunization not carried out because of patient refusal; L30.9 Dermatitis, unspecified
CPT/HCPCS: 99214

== ENCOUNTER 2023-08-18 15:50 | Outpatient (REF) | payer MEDICARE, OTHER, SELFPAY ==
--- NOTE | ~2023-08-18 | XR_ITS ---
EXAMINATION: XR KNEE, RIGHT CLINICAL INFORMATION: Instability. COMPARISON: None available. TECHNIQUE: Four views of the right knee. FINDINGS: No fracture or joint effusion. Alignment is anatomic. Joint spaces are maintained. Small enthesophyte at the insertion of the quadriceps tendon at the upper pole of the patella. Small volume of vascular calcifications posterior to the knee.. XR/XR knee RT 4V IMPRESSION: Normal right knee.
== END 2023-08-18 15:51 | disposition home or self-care (01) ==
LOC: HO.HMGCX 15:50
PROVIDERS: PCP Internal Medicine; Visit Provider Internal Medicine
DX: M25.361 Other instability, right knee (principal)
CPT/HCPCS: 73564

== ENCOUNTER 2023-08-25 09:36 | Outpatient (AMB) | payer MEDICARE, SELFPAY ==
[2023-08-25 09:39] VITALS: BP 134/82; PULSE 71; BMI 24.2
--- NOTE | 2023-08-25 09:39 | MHC.OFFVIS ---
Intake Vital Signs 08/25/23 09:39 Height 5 ft 8 in Weight 159 lb 2.78 oz BMI 24.2 BP 134/82 Blood Pressure Location Rt brachial Position Sitting Pulse 71 Intake Visit Reasons: overdue follow up/ [employer] Required: No Allergies No Known Allergies Allergy (Verified 08/25/23 09:41) Medication List - Last Reconciled 08/25/23 by Caryn Luna, [employer] amlodipine 5 mg PO DAILY clotrimazole-betamethasone 1-0.05 % 1 appl topical BID 10 days ipratropium-albuterol 0.5 mg-3 mg(2.5 mg base)/3 mL 3 mL inhalation Q6-8H PRN 30 days prednisone 40 mg (2 x 20 mg) PO DAILY salmeterol (Serevent Diskus) 2 inhalations inhalation BID 30 days HPI overdue follow up/ HPI Details Kingston is a 68-year-old male with past medical history of hypertension, smoking, COPD, coronary calcifications on CT scan, ascending aorta ectasia, who presents for follow-up. His last prior visit to cardiology was 06/10/2021. Today he reports that since his last visit his breathing has been gradually worsening. He has shortness of breath with all activities, even talking. He says he does not qualify for oxygen yet. He denies PND, orthopnea or edema. No chest discomfort at rest or with activity. No heart palpitations, presyncope, syncope, falls. He is mostly sedentary. He follows closely with Dr. Mesa for pulmonology. He continues to smoke. [facility] Medical History Skin lesion Hx of urethral stricture Constipation Alcoholic gastritis Elevated hemoglobin Alcoholism Pneumococcal vaccination declined Refused influenza vaccine Alcohol use disorder Abdominal pain Polycythemia Vomiting SBO (small bowel obstruction) COPD (chronic obstructive pulmonary disease) Smoking Cardiomegaly Coronary artery calcification seen on CT scan History of small bowel obstruction GERD (gastroesophageal reflux disease) Emphysema lung Hypertensive cardiomegaly Change in multiple pigmented skin lesions Dyspepsia Macrocytosis without anemia Cough Heavy tobacco smoker >10 cigarettes per day Shortness of breath on exertion Essential hypertension Surgical History History of esophagogastroduodenoscopy (EGD) Hx of varicose vein stripping Hx of elbow surgery Hx of bilateral inguinal hernia repair History of surgery Hx of colonoscopy Family History Mother CAD (coronary artery disease) Maternal Grandfather Brain tumor Maternal Uncle Eye cancer Social History Household Members: Other Household Members Other:: Uncle Housing: House Are you a primary career services assistant to a significant other at home: No Do you presently have visiting nurse or other home services: No Alcohol intake: current Alcohol intake frequency: 3 or more drinks per day Alcohol type: hard liquor Patient Tobacco Use Status: Current everyday Tobacco user Tobacco use type: Cigarette Cigarette Packs Per Day: 0.5 Cigarettes Per Day: 10.0 Years Smoked: 50 e-Cigarette/Vaping Use: Never Used Second Hand Smoke Exposure: No service: No Current occupational status: retired Cognitive needs: No Hearing needs: No Vision needs: No Review of Systems Const All systems reviewed & are unremarkable except as noted in HPI and below ENT Denies dizziness Card Details: Left chest pressure when laying down. Denies chest pain, Denies chest pain at rest, Denies chest pain with activity, Denies rapid heart rate, Denies pedal edema, Denies edema, Denies leg edema, Denies lightheadedness, Denies palpitations, Reports dyspnea and Reports dyspnea on exertion Resp Denies cough, Reports dyspnea and Reports dyspnea on exertion GI Denies hematochezia and Denies change in stool character Musc Denies abnormal gait, Denies limited range of motion, Denies muscle cramps, Denies muscle weakness, Denies numbness, Denies radiating pain into limb, Denies stiffness and Denies tingling Neuro Denies abnormal gait, Denies dizziness, Denies numbness and Denies tingling Endo Denies palpitations Physical Exam Vital Signs: Last Vital Signs Pulse 71 08/25/23 09:39 BP 134/82 08/25/23 09:39 BMI result Body Mass Index 24.2 Const Other: mild short of breath with talking, walking General: cooperative, comfortable and no acute distress Orientation/consciousness: patient oriented x3 Neck Neck: Yes normal visual inspection Resp Other: dimished lung sounds Effort & Inspection: normal respiratory effort Auscultation: clear to auscultation bilaterally and no wheezes Cardio Jugular venous distension: no JVD Rate: regular rate Rhythm: regular rhythm Heart sounds: S1 normal heart sound present, S2 normal heart sound present, no murmurs and no rubs Skin Other: redness to skin Neuro General: patient oriented x3 Extrem General: Yes normal to inspection Psych Appearance: grossly normal Mental Status: mental status grossly normal Speech and movement: Normal speech and movement present Office Procedures EKG Details: Today, read by me, normal sinus rhythm, right atrial enlargement, rate 71, QTC 428 millisecond [id number], Complete Assessment & Plan Assessment & Plan (1) Dyspnea on exertion: Code(s): R06.09 - Other forms of dyspnea Plan: Patient has shortness of breath with activity. He has known chronic COPD and continues to smoke. He follows closely with pulmonology, Dr. Mesa. His last echocardiogram 05/04/2021 showed EF 55-60%, no valve abnormalities or pulmonary hypertension, he did have mild dilated ascending aorta 3.7 cm. A nuclear stress test was done 05/26/2021 showing normal myocardial perfusion imaging. He does report a worsening of his breathing in the last 2 years. It is most likely related to his COPD and ongoing smoking. Discussed smoking sensation with him and he states that he has tried everything. EKG done today showing normal sinus rhythm with right atrial enlargement, rate 71. Will check echocardiogram to assess right heart and for pulmonary hypertension. Cardiology follow-up 6 months, sooner if needed (2) Heavy tobacco smoker >10 cigarettes per day: Code(s): F17.210 - Nicotine dependence, cigarettes, uncomplicated (3) COPD (chronic obstructive pulmonary disease): Code(s): J44.9 - Chronic obstructive pulmonary disease, unspecified (4) CAD (coronary artery disease): Code(s): I25.10 - Atherosclerotic heart disease of [place] coronary artery without angina pectoris Qualifiers: Coronary Disease-Associated Artery/Lesion type: [place] artery [place] vs. transplanted heart: [place] heart Associated angina: without angina Qualified Code(s): I25.10 - Atherosclerotic heart disease of [place] coronary artery without angina pectoris Plan: Presumed history of CAD. CT scan done in 2020 she did show coronary calcifications, cardiomegaly. Nuclear stress test in 2020 was normal. EKG done today shows no ischemia. No report of anginal sounding chest discomfort. He does have chronic shortness of breath which is most likely related to COPD. Will continue management for stable CAD. Will have him start on daily aspirin as well as atorvastatin 20 mg daily. Labs done 01/31/2023 showed LDL 107. He tells me he has an upcoming CT scan of the chest being done. Orders: Orders CA echo transthoracic complete Today R06.09 - Other forms of dyspnea, R94.31 - Abnormal electrocardiogram [ECG] [EKG] Medications: New aspirin 81 mg PO DAILY 90 tabs 3RF atorvastatin 20 mg PO BEDTIME 30 tabs 5RF Coding Level of Care Code Est Pt Level 4 (61424) Diagnoses Dyspnea on exertion R06.09 Heavy tobacco smoker >10 cigarettes per day F17.210 COPD (chronic obstructive pulmonary disease) J44.9 Coronary artery disease involving [place] coronary artery of [place] heart without angina pectoris I25.10 Coronary Disease-Associated Artery/Lesion type: [place] artery [place] vs. transplanted heart: [place] heart Associated angina: without angina CPT Codes EKG - CPT: [id number], Complete ([id number]) Time Spent (min) 28
== END 2023-08-25 10:16 | disposition home or self-care (01) ==
PROVIDERS: PCP Internal Medicine; Visit Provider Nurse Practitioner Family
DX: R06.09 Other forms of dyspnea (principal); F17.210 Nicotine dependence, cigarettes, uncomplicated; J44.9 Chronic obstructive pulmonary disease, unspecified; I25.10 Atherosclerotic heart disease of native coronary artery without angina pectoris
CPT/HCPCS: 93010; 99214

== ENCOUNTER → 2023-08-25 09:36 | Outpatient (BNVA) | payer MEDICARE, SELFPAY | PROVIDERS: PCP Internal Medicine; Visit Provider Nurse Practitioner Family | DX: I25.10 Atherosclerotic heart disease of native coronary artery without angina pectoris (principal); R06.09 Other forms of dyspnea; F17.210 Nicotine dependence, cigarettes, uncomplicated; J44.9 Chronic obstructive pulmonary disease, unspecified | CPT/HCPCS: 93005; 99212 ==

== ENCOUNTER 2023-09-02 09:51 | Emergency (ER) | payer MEDICARE, SELFPAY ==
--- NOTE | ~2023-09-02 | XR_ITS ---
EXAMINATION: XR CHEST CLINICAL INFORMATION: Dyspnea and chest pain COMPARISON: 01/29/2020 TECHNIQUE: 2 views of the chest were obtained. FINDINGS: Lungs are clear without evidence of nodules or infiltrates. Cardiomediastinal silhouette is normal. There is no pleural effusion. There is no vascular congestion. XR/XR chest 2V IMPRESSION: No active cardiopulmonary disease
[2023-09-02 09:58] VITALS: BP 128/70; PULSE 81; O2SAT 92
--- NOTE | 2023-09-02 09:59 | ECG_ITS ---
Test Reason : CP Blood Pressure : / mmHG Vent. Rate : 073 BPM Atrial Rate : 073 BPM P-R Int : 132 ms QRS Dur : 084 ms QT Int : 380 ms P-R-T Axes : 062 -09 041 degrees QTc Int : 418 ms Normal sinus rhythm Possible Left atrial enlargement Borderline ECG When compared with ECG of 28-OCT-2022 13:06, No significant change was found Referred By: Katlyn Leonard Electronically Signed By:CIRILO ROMERO MD
--- NOTE | 2023-09-02 09:59 | ED_ITS ---
HPI - General Adult General Chief complaint: Dyspnea Stated complaint: CP SOB HX OF COPD Source: patient, family (sisters), EMS and RN notes reviewed Mode of arrival: EMS Limitations: no limitations History of Present Illness HPI narrative: Patient is a 68-year-old male with history of CAD, COPD, esophagitis, aortic ectasia, alcoholic gastritis, polycythemia, SBO, cardiomegaly, GERD, HTN presenting to the emergency department with complaint of increasing shortness of breath, cough productive of white sputum over the past week as well as episodic chest pain. Patient's sister reports that patient's son last week by suicide and since that time patient has been unable to sleep, and has been wearing himself out by doing activities to distract himself from the grief of the loss of his son. He also complains of generalized body aches, headache, and fatigue. Denies fever. Denies abdominal pain, nausea, vomiting, diarrhea. Sister reports that he has been eating and drinking normally. He denies any lower extremity edema, calf pain or swelling. MD complaint: shortness of breath, chest pain Onset (ago): week(s) Location: chest Radiation: non-radiation Severity: moderate Quality: other (tightness) Pain Consistency: intermittent Relieving factors: none Exacerbating factors: movement Associated symptoms: cough, headaches and shortness of breath Treatments prior to arrival: none Related Data Previous Rx's Medication Instructions Recorded ipratropium 0.5 mg-albuterol 3 mg 3 ml inhalation Q6-8H PRN wheezing 09/03/22 (2.5 mg base)/3 mL nebulization 30 days #180 mL soln salmeterol 50 mcg/dose blister 2 inh inhalation BID 30 days #60 ea 04/05/23 powder for inhalation (Serevent Diskus) clotrimazole-betamethasone 1 1 appl topical BID 10 days #45 08/18/23 %-0.05 % topical cream grams amlodipine 5 mg tablet 5 mg PO DAILY #90 tabs 08/24/23 prednisone 20 mg tablet 40 mg (2 x 20 mg) PO DAILY #14 tabs 08/24/23 aspirin 81 mg tablet,delayed 81 mg PO DAILY #90 tabs 08/25/23 release atorvastatin 20 mg tablet 20 mg PO BEDTIME #30 tabs 08/25/23 hydroxyzine HCl 25 mg tablet 25 mg PO TID PRN anxiety #14 tabs 09/02/23 Allergies Allergy/AdvReac Type Severity Reaction Status Date / Time No Known Allergies Allergy Verified 08/25/23 09:41 Review of Systems 2 Review of Systems: As per HPI. Yes all other systems are reviewed and are negative [facility] Past Medical History Medical History Skin lesion Hx of urethral stricture Constipation Alcoholic gastritis Elevated hemoglobin Alcoholism Pneumococcal vaccination declined Refused influenza vaccine Alcohol use disorder Abdominal pain Polycythemia Vomiting SBO (small bowel obstruction) COPD (chronic obstructive pulmonary disease) Smoking Cardiomegaly Coronary artery calcification seen on CT scan History of small bowel obstruction GERD (gastroesophageal reflux disease) Emphysema lung Hypertensive cardiomegaly Change in multiple pigmented skin lesions Dyspepsia Macrocytosis without anemia Cough Heavy tobacco smoker >10 cigarettes per day Shortness of breath on exertion Essential hypertension Surgical History History of esophagogastroduodenoscopy (EGD) Hx of varicose vein stripping Hx of elbow surgery Hx of bilateral inguinal hernia repair History of surgery Hx of colonoscopy Family History Family History Mother CAD (coronary artery disease) Maternal Grandfather Brain tumor Maternal Uncle Eye cancer Social History Social History Household Members: Other Household Members Other:: Uncle Housing: House Are you a primary career transition specialist to a significant other at home: No Do you presently have visiting nurse or other home services: No Alcohol intake: current Alcohol intake frequency: 3 or more drinks per day Alcohol type: hard liquor Patient Tobacco Use Status: Current everyday Tobacco user Tobacco use type: Cigarette Cigarette Packs Per Day: 0.5 Cigarettes Per Day: 10.0 Years Smoked: 50 Smoked in Last 30 Days: Yes e-Cigarette/Vaping Use: Never Used Second Hand Smoke Exposure: No Use of substances other than those prescribed or required for medical reasons: Yes Substance Use Type: Marijuana Substance Use Frequency: Daily Advance Directives: No Advance Directives Information Provided: Yes service: No Current occupational status: retired Cognitive needs: No Hearing needs: No Vision needs: No Physical Exam ED Vital Signs: Vital Signs - 24 hr 09/02/23 10:16 09/02/23 10:52 09/02/23 11:14 Temperature 97.9 F Pulse Rate 80 73 72 Respiratory Rate 18 18 22 H Blood Pressure 125/70 125/63 Pulse Oximetry 96 97 Oxygen Delivery Method Room Air Room Air 09/02/23 12:28 09/02/23 14:22 Temperature Pulse Rate 70 89 Respiratory Rate 18 18 Blood Pressure 107/59 L Pulse Oximetry 99 Oxygen Delivery Method Room Air BMI result Body Mass Index 23.6 Const General: cooperative, no acute distress, alert and awake Orientation/consciousness: patient oriented x3 HENMT Head: Yes normocephalic and Yes atraumatic Mouth: Normal oral and palatal mucosa present Throat: Yes posterior oropharynx normal Eyes Pupils: Equal, round and reactive pupils present EOM: EOMs intact bilaterally Neck Neck: Yes normal visual inspection Chest Chest palpation & inspection: normal inspection of the chest and normal palpation of entire chest wall Resp Effort & Inspection: normal respiratory effort Auscultation: wheezes expiratory wheezes, inspiratory wheezes and throughout and diminished lung sounds bilateral and diffuse Cardio Rate: regular rate Rhythm: regular rhythm Heart sounds: S1 normal heart sound present and S2 normal heart sound present Peripheral pulses: Peripheral pulses 2+ throughout GI Inspection: Yes normal to inspection Palpation (GI): Soft to palpation and nontender Auscultation: normoactive bowel sounds General: Yes no CVA tenderness Back/Spine/Pelvis Back: no CVA tenderness Skin General skin exam: turgor normal and other (hyperpigmented color, warm and dry) Neuro General: patient oriented x3, tone normal, moves all extremities, no focal motor deficits and CN's II-XI intact bilaterally Cranial nerves: Yes Equal, round and reactive pupils present Extrem General: Yes normal to inspection, Yes full ROM, Yes capillary refill normal, Yes no pedal edema and Yes no calf tenderness Psych Appearance: grossly normal Mental Status: mental status grossly normal Speech and movement: Normal speech and movement present Affect: Sad affect present Attitude: cooperative Thought process: Normal thought process present Medications Administered Discontinued Medications Generic Name Dose Route Start Last Admin Trade Name Freq PRN Reason Stop Dose Admin Acetaminophen 650 mg 09/02/23 10:29 09/02/23 11:27 Acetaminophen 325 Mg Tablet PO 09/02/23 10:30 650 mg ONCE ONE Administration Albuterol Sulfate 2.5 mg/ 5 mg 09/02/23 12:23 09/02/23 12:27 Albuterol Sulfate 2.5 mg INHALE 09/02/23 12:24 5 mg ONCE ONE Administration Albuterol Sulfate 5 mg/ 0 mg 09/02/23 11:03 09/02/23 11:12 Albuterol/Ipratropium 3 ml INHALE 09/02/23 11:04 7.5 each ONCE ONE Administration Sodium Chloride 1,000 mls @ 999 mls/hr 09/02/23 11:00 09/02/23 13:07 Ns IV 09/02/23 12:00 Infused .Q1H1M DEJAN Infusion Medical Decision Making Medical Decision Making [facility] Narrative: 10:45 Patient is a 68-year-old male with history of CAD, COPD, esophagitis, aortic ectasia, alcoholic gastritis, polycythemia, SBO, cardiomegaly, GERD, HTN presenting to the emergency department with complaint of increasing shortness of breath, cough productive of white sputum over the past week as well as episodic chest pain. On exam patient is awake, A+Ox3, VS WNL, afebrile, normal neurological exam without focal deficits, physical exam findings as above. Given reported symptoms and physical exam findings, initial differential includes ACS, COPD exacerbation, pneumonia, viral illness, Covid, flu, acute anxiety. Less likely PE but will obtain D-dimer. Do not suspect sepsis at this time. Plan: EKG, labs, CXR, swabs for flu/covid Labs notable for mild leukocytosis, no anemia, BNP normal, mild NATALIE, will give IV fluids, troponin negative, D-dimer within normal limits. EKG shows normal sinus rhythm, possible left atrial enlargement, no significant change from prior. HEART score 4. X-ray notable for no acute disease. My interpretation is in agreement with the radiologist's interpretation. After results discussed with patient and family, feel symptoms are likely related to acute anxiety. Mya from CARE team spoke with patient and provided supportive counseling and resources. Will prescribe short course of hydroxyzine for anxiety. Instructed patient to follow-up with primary care provider as well. Return precautions discussed at bedside. Patient and family verbalized understanding of and agreement with plan. Differential Diagnosis Differential Diagnoses: The differential diagnosis associated with the presentation includes As per MDM. Admission/Observation Consideration of admission/observation: Escalation of care including admission/observation considered Consult Healthcare Provider Management of the patient was discussed with: Behavioral Health Provider Lab Data [facility] Lab Attestation statement: I reviewed the patient's lab results. As per MDM. 09/02/23 10:14 09/02/23 10:14 Labs: Lab Results 09/02/23 09/02/23 09/02/23 Range/Units 10:14 11:33 12:57 WBC 11.9 H (4.8-10.8) X10*3/uL RBC 5.20 (4.60-5.80) X10*6/uL Hgb 14.8 (14.0-18.0) g/dl Hct 45.7 (42.0-52.0) % MCV 87.9 (80.0-98.0) fL MCH 28.5 (27.0-33.0) pg MCHC 32.4 (31.0-36.0) g/dl RDW 15.9 (11.0-16.0) % Plt Count 187 (160-400) X10*3/uL MPV 10.1 (9.4-12.4) fL Immature Gran % (Auto) 0.8 H (0.0-0.4) % Neut % (Auto) 74.4 H (45-73) % Lymph % (Auto) 14.7 L (20-40) % [place] % (Auto) 9.6 (2-11) % Eos % (Auto) 0.3 (0-4) % Baso % (Auto) 0.2 (0-2) % Lymph # (Auto) 1.8 (1.2-4.9) X10*3/uL [place] # (Auto) 1.2 (0.1-1.2) X10*3/uL Eos # (Auto) 0.0 (0.0-0.4) X10*3/uL Baso # (Auto) 0.0 (0.0-0.2) X10*3/uL Abs Immat Gran (auto) 0.10 H (0.00-0.03) X10*3/uL Absolute Neuts (auto) 8.9 H (2.0-8.3) x10*3/uL Absolute Nucleated RBC 0.000 (0.0-0.012) X10*3/uL Nucleated RBC % (auto) 0.0 (0.0-0.2) /100WBC PT 10.2 L (11.1-13.3) SEC INR 0.8 L (0.9-1.1) D-Dimer High Sensitivty 228 NG/ML Sodium 138 (135-145) mmol/L Potassium 4.8 (3.3-5.1) mmol/L Chloride 105 (96-108) mmol/L Carbon Dioxide 30 H (22-29) mmol/L Anion Gap 8 L (12-20) BUN 23 H (9-16) mg/dL Creatinine 1.17 (0.5-1.4) mg/dL Estim Creat Clear Calc 60.0 Estimated GFR > 60 Random Glucose 117 H (60-115) mg/dL Calcium 9.3 (8.4-10.2) mg/dL Total Bilirubin 0.5 (0.0-1.0) mg/dL AST 17 (5-37) U/L ALT 21 (0-40) U/L Alkaline Phosphatase 66 (39-117) U/L Troponin I High Sens 3.2 (<3.5-35.0) ng/L B-Natriuretic Peptide 52 (<100) pg/mL Total Protein 6.6 (6.5-8.0) g/dL Albumin 3.7 (3.5-5.0) g/dL Urine Color Yellow Urine Appearance Clear Urine pH 5.5 (5.0-9.0) Ur Specific [place] 1.020 (1.005-1.025) Urine Protein Negative (Neg-Trace) mg/dL Urine Glucose (UA) Negative (Negative) mg/dL Urine Ketones Negative (Negative) mg/dL Urine Blood Negative (Negative) Urine Nitrite Negative (Negative) Ur Leukocyte Esterase Negative (Negative) COVID-19 (ELOISE) Negative (Negative) COVID-19 Clin Com See Note Influenza Type A (EUNICE) Negative (Negative) Influenza Type B (EUNICE) Negative (Negative) Influenza A & B Note See Note Independent Interpretation I performed an independent interpretation of an: Plain X-Ray Interpretation: EKG shows normal sinus rhythm, rate 73 beats per minute, normal CT and QT intervals, no significant change from prior no acute abnormalities on chest x-ray Radiology Impression Discussion of test interpretation with radiology: I have reviewed the radiologist's reading. Radiologist Impression: FINDINGS: Lungs are clear without evidence of nodules or infiltrates. Cardiomediastinal silhouette is normal. There is no pleural effusion. There is no vascular congestion. XR/XR chest 2V IMPRESSION: No active cardiopulmonary disease Independent Historian Clinical information obtained from an independent historian. History obtained from or confirmed by: Other (sisters) External Record Review External record reviewed: Inpatient record, Office record and Outpatient record Prescription Management I considered prescription management with: Other Scores Heart Score History: -0- slightly suspicious ECG: -0- normal Age: -2- > or = 65 Risk factory: -2- 3 or more risk factors or treated atherosclerosis Troponin: -0- < or = normal limit Score: 4 Risk: 16.6% Discharge Plan Discharge Clinical Impression: Acute anxiety, Grief reaction, Atypical chest pain Patient Disposition: Home, Self-Care Instructions: Chest Pain (DC), Grief and Loss (ED), Anxiety (ED) Additional Instructions: You were evaluated in the emergency department today for chest pain. Your evaluation has shown no signs of medical conditions requiring emergent intervention at this time, however we recommend that you follow-up with your primary care physician or your counter hand as soon as possible for further testing as an outpatient. Were being prescribed medication for anxiety, please take this as prescribed. Return to the emergency department if you experience worsening or uncontrolled chest pain, shortness of breath, lightheadedness, feeling faint, loss of consciousness, nausea, vomiting, or any other concerning symptoms. Prescriptions: New hydroxyzine HCl 25 mg tablet 25 mg PO TID PRN (Reason: anxiety) Qty: 14 0RF No Action amlodipine 5 mg tablet 5 mg PO DAILY Qty: 90 1RF prednisone 20 mg tablet 40 mg PO DAILY Qty: 14 0RF clotrimazole-betamethasone 1-0.05 % cream 1 appl topical BID 10 Days Qty: 45 0RF ipratropium-albuterol 0.5 mg-3 mg(2.5 mg base)/3 mL solution for nebulization 3 ml inhalation Q6-8H PRN (Reason: wheezing) 30 Days Qty: 180 6RF Serevent Diskus 50 mcg/dose blister with device 2 inh inhalation BID 30 Days Qty: 60 6RF atorvastatin 20 mg tablet 20 mg PO BEDTIME Qty: 30 5RF aspirin 81 mg tablet,delayed release (DR/EC) 81 mg PO DAILY Qty: 90 3RF
[2023-09-02 10:16] VITALS: BP 125/70; PULSE 80; RESP 18; O2SAT 96; BMI 23.6
[2023-09-02 10:24] LABS: MANUAL DIFF FLAG NO
[2023-09-02 10:26] LABS: Basophils Percent Auto 0.2 % (0-2); Eosinophils Percent Auto 0.3 % (0-4); Hematocrit 45.7 % (42.0-52.0); Hemoglobin 14.8 g/dl (14.0-18.0); Imm Gran Pct Auto 0.8 % (0.0-0.4); Lymphocytes Absolute Auto 1.8 X10*3/uL (1.2-4.9); Lymphocytes Percent Auto 14.7 % (20-40); Mean Corpuscular HGB Conc 32.4 g/dl (31.0-36.0); Mean Corpuscular Hemoglobin 28.5 pg (27.0-33.0); Mean Corpuscular Volume 87.9 fL (80.0-98.0); Mean Platelet Volume 10.1 fL (9.4-12.4); Monocytes Absolute Auto 1.2 X10*3/uL (0.1-1.2); Monocytes Percent Auto 9.6 % (2-11); Neutrophils Absolute Auto 8.9 x10*3/uL (2.0-8.3); Neutrophils Percent Auto 74.4 % (45-73); Platelet Count 187 X10*3/uL (160-400); Red Cell Distribution Width 15.9 % (11.0-16.0); White Blood Count 11.9 X10*3/uL (4.8-10.8)
[2023-09-02 10:35] LABS: INTERNATIONAL NORM RATIO 0.8 (0.9-1.1); Prothrombin Time 10.2 SEC (11.1-13.3)
[2023-09-02 10:38] LABS: Alanine Aminotransferase 21 U/L (0-40); Albumin Level 3.7 g/dL (3.5-5.0); Alkaline Phosphatase 66 U/L (39-117); Anion Gap 8 (12-20); Aspartate Amino Transferase 17 U/L (5-37); Bilirubin Total 0.5 mg/dL (0.0-1.0); Blood Urea Nitrogen 23 mg/dL (9-16); Calcium 9.3 mg/dL (8.4-10.2); Carbon Dioxide 30 mmol/L (22-29); Chloride 105 mmol/L (96-108); Estimated Glomerular Filt Rate > 60; Glucose Random 117 mg/dL (60-115); Potassium 4.8 mmol/L (3.3-5.1); Sodium 138 mmol/L (135-145); Total Protein 6.6 g/dL (6.5-8.0)
[2023-09-02 10:43] LABS: IDNOW Serial# BCCEAD1C; Influenza A Negative (Negative); Influenza B2 Negative (Negative)
[2023-09-02 10:44] LABS: B Type Natriuretic Peptide 52 pg/mL (<100)
[2023-09-02 10:52] VITALS: BP 125/63; PULSE 73; RESP 18; TEMP 36.6; O2SAT 97
[2023-09-02] MEDS: Albuterol Sulfate 5 MG, Albuterol/Iprat 2.5/0.5MG 3 ML 3 ML INHALE (11:12)
[2023-09-02 11:14] VITALS: PULSE 72; RESP 22; O2SAT 99
[2023-09-02 11:15] LABS: COVID-19 Test Negative (Negative); IDNOW Serial# BCCEAD1C
[2023-09-02] MEDS: Acetaminophen 325 MG TABLET 650 MG PO (11:27)
[2023-09-02] MEDS: 0.9 % Sodium Chloride 1,000 ML 999 ML IV (11:28)
[2023-09-02 11:30] LABS: D Dimer High Sensitivity 228 NG/ML
[2023-09-02 11:40] LABS: Appearance Urine Clear; Color Urine Yellow; Glucose Urine UA Negative (Negative); Leukocyte Esterase Urine Negative (Negative); Nitrite Urine Negative (Negative); PH 5.5 (5.0-9.0); Urine Blood Negative (Negative); Urine Ketones Negative (Negative); Urine Protein Negative (Neg-Trace)
--- NOTE | 2023-09-02 11:41 | PC.NURSE ---
pt is alert and oriented, skin flushed in color in the face, respirations even and unlabored ls wheezing through out when arrived - currently on a breathing treatment, pt reports right sided chest pain describes it as tightness that stared last week, pt son last wee unexpectedly. pt reports not sleeping well, poor po intake and just feeling down-denies si/hi. pt is a chronic alcoholic and last drink was on 08/31/23. vs stable at this time and ns on the monitor
[2023-09-02] MEDS: Albuterol Sulfate 2.5 MG, Albuterol Sulfate (0.083%) 2.5 MG 5 MG INHALE (12:27)
[2023-09-02 12:28] VITALS: PULSE 70; RESP 18; O2SAT 100
[2023-09-02 13:25] LABS: Troponin-I High Sensitivity 3.2 ng/L (<3.5-35.0)
[2023-09-02 14:22] VITALS: BP 107/59; PULSE 89; RESP 18; O2SAT 99
--- NOTE | 2023-09-02 14:23 | PC.NURSE ---
pt reports feeling better, ls improved improved, pt denies chest pain at this time care team at bedside talking to the pt
--- NOTE | 2023-09-02 14:30 | MHC.CARE ---
[employer] met with patient and his two sisters at bedside. Active listening, support provided. Community-resources for grief support and counseling provided to patient and family.
== END 2023-09-02 14:55 | disposition home or self-care (01) ==
PROVIDERS: Registered Nurse Emergency; Emergency Provider Emergency Medicine; PCP Internal Medicine
DX: R06.02 Shortness of breath (principal); R07.89 Other chest pain; R05.9 Cough, unspecified; R51.9 Headache, unspecified; F17.210 Nicotine dependence, cigarettes, uncomplicated; Z11.52 Encounter for screening for COVID-19; Z20.822 Contact with and (suspected) exposure to COVID-19; Z79.899 Other long term (current) drug therapy; Z71.6 Tobacco abuse counseling
CPT/HCPCS: 36415; 71046; 80053; 81003; 83880; 84484; 85025; 85379; 85610; 87502; 87635; 93005; 94640; 96360; 96361; 99284; 99285

== ENCOUNTER 2023-09-14 10:48 | Outpatient (AMB) | payer MEDICARE, SELFPAY ==
[2023-09-14 10:55] VITALS: BP 140/88; PULSE 91; O2SAT 100; BMI 24.0
--- NOTE | 2023-09-14 10:55 | MHC.PC.OV ---
Vital Signs 09/14/23 10:55 Height 5 ft 8 in Weight 158 lb 2 oz BMI 24.0 BP 140/88 H Blood Pressure Location Rt brachial Position Sitting Pulse 91 Pulse Source Pulse Oximeter Pulse Oximetry (%) 100 Oxygen Delivery Method Room Air Intake Visit Reasons[place] [facility] [place] SOB/Anxiety Intake Note: pt is here for a ER follow up [place] [facility] and would like a covid test because he was exposed at son's pt says he his skin has been dry and flaky and wants something for this Allergies No Known Allergies Allergy (Verified 09/17/23 00:44) Medication List - Last Reconciled 09/17/23 by Iveth Stokes MD amlodipine 5 mg PO DAILY aspirin 81 mg PO DAILY atorvastatin 20 mg PO BEDTIME clotrimazole-betamethasone 1-0.05 % 1 appl topical BID 10 days ipratropium-albuterol 0.5 mg-3 mg(2.5 mg base)/3 mL 3 mL inhalation Q6-8H PRN 30 days salmeterol (Serevent Diskus) 2 inhalations inhalation BID 30 days Tobacco use date assessed: 09/14/23 Fall risk assessment: No Falls in past year Last assessed Fall Risk: 09/14/23 HPI [facility] [place] follow SOB/Anxiety HPI Details 68-year-old male with history of coronary artery disease, COPD, active cigarette smoker, now down to 10 cigarettes a day, has alcoholic gastritis, polycythemia, history of small-bowel obstruction, cardiomegaly, GERD, hypertension, here today for a after an ER visit 09/02/2023 where he presented complaining of increasing shortness of breath, cough productive white sputum and acute anxiety attack. Patient's son recently about 2 weeks ago by suicide. Labs done at the ER showed presence of mild leukocytosis, no anemia, BMP normal, mild NATALIE which resolved after being given IV fluids, and D-dimer and troponin all came back negative. EKG showed normal sinus rhythm with possible left atrial enlargement with no change from previous EKGs. Chest x-ray done there she did not show any acute disease. COVID test done came back negative. He was treated for acute anxiety attacks and given a prescription for hydroxyzine to take as directed for anxiety attacks. Patient however stopped taking the hydroxyzine as it was making him very tired and drowsy.. He however would like to be referred for for grief therapy peer He would like to be checked again for COVID as he was exposed to somebody who was diagnosed with it during his son's . He also has been having severe dryness and flakiness of the skin mainly the face and arms , with no itching reported. [facility] Medical History (Updated 09/14/23 @ 11:34 by Iveth Stokes MD) Grief at loss of child Skin lesion Hx of urethral stricture Constipation Alcoholic gastritis Elevated hemoglobin Alcoholism Pneumococcal vaccination declined Refused influenza vaccine Alcohol use disorder Abdominal pain Polycythemia Vomiting SBO (small bowel obstruction) COPD (chronic obstructive pulmonary disease) Smoking Cardiomegaly Coronary artery calcification seen on CT scan History of small bowel obstruction GERD (gastroesophageal reflux disease) Emphysema lung Hypertensive cardiomegaly Change in multiple pigmented skin lesions Dyspepsia Macrocytosis without anemia Cough Heavy tobacco smoker >10 cigarettes per day Shortness of breath on exertion Essential hypertension Surgical History History of esophagogastroduodenoscopy (EGD) Hx of varicose vein stripping Hx of elbow surgery Hx of bilateral inguinal hernia repair History of surgery Hx of colonoscopy Family History Mother CAD (coronary artery disease) Maternal Grandfather Brain tumor Maternal Uncle Eye cancer Household Members: Other Household Members Other:: Uncle Housing: House Are you a primary acute care nurse to a significant other at home: No Do you presently have visiting nurse or other home services: No Alcohol intake: current Alcohol intake frequency: 3 or more drinks per day Alcohol type: hard liquor Patient Tobacco Use Status: Current everyday Tobacco user Tobacco use type: Cigarette Cigarette Packs Per Day: 0.5 Cigarettes Per Day: 10.0 Years Smoked: 50 e-Cigarette/Vaping Use: Never Used Second Hand Smoke Exposure: No Substance Use Type: Marijuana service: No Current occupational status: retired Cognitive needs: No Hearing needs: No Vision needs: No Questionnaire Thrive Questionnaire Date Thrive assessed: 02/02/22 JESS-7 AMB Questionnaire JESS-7 Date JESS - 7 assessed: 02/02/22 Source: Developed by Drs. Az Porras, Monserrat Calles, Fabrice Garcia and colleagues, with an educational shaheen from [employer]. Review of Systems Const All systems reviewed & are unremarkable except as noted in HPI and below ENT Denies dizziness Card Denies chest pain, Denies chest pain with activity, Denies pedal edema, Denies leg edema, Denies lightheadedness and Denies palpitations Resp Denies cough GI Denies hematochezia and Denies change in stool character Musc Denies abnormal gait, Denies limited range of motion, Denies muscle cramps, Denies muscle weakness and Denies stiffness Neuro Denies abnormal gait and Denies dizziness Psych Reports no additional complaints Endo Denies palpitations Physical exam (Primary Care) Vital Signs: Last Vital Signs Pulse 91 09/14/23 10:55 BP 140/88 H 09/14/23 10:55 Pulse Ox 100 09/14/23 10:55 Oxygen Delivery Method Room Air 09/14/23 10:55 BMI result Body Mass Index 24.0 Tobacco/Smoking Status: Tobacco use Status Tobacco use date assessed 09/14/23 09/14/23 11:03 Patient Tobacco Use Status Current everyday Tobacco 09/14/23 11:03 Tobacco use type Cigarette 09/14/23 11:03 e-Cigarette/Vaping Use Never Used 09/14/23 11:03 Thrive Assessment: Date of Thrive Assessment Date Thrive assessed 02/02/22 09/14/23 11:03 Const Other: Alert orient x3, no acute distress noted ambulatory with normal gait Orientation/consciousness: patient oriented x3 HENNM Mouth: Normal oral and palatal mucosa present, oropharynx normal and moist mucous membranes Eyes Other: Anicteric General: appearance normal, both eyes and all related structures Neck Neck: Yes full ROM, Yes no lymphadenopathy and Yes supple Resp Auscultation: clear to auscultation bilaterally Cardio Other: S1-S2 present regular rate and rhythm GI Other: Normal bowel sounds, soft, nontender with no mass palpated Skin Other: Try skin noted in both upper lower extremities and on face Neuro General: patient oriented x3, gait normal, moves all extremities and no focal motor deficits Extrem General: Yes full ROM, Yes no joint enlargement, Yes no pedal edema, Yes no calf tenderness and Yes normal gait Psych Appearance: grossly normal and well kempt Mental Status: mental status grossly normal Speech and movement: Normal speech and movement present Affect: Sad affect present Attitude: cooperative Thought process: Normal thought process present Assessment and Plan Assessment & Plan (1) Exposure to COVID-19 virus: Code(s): Z20.822 - Contact with and (suspected) exposure to COVID-19 Plan: COVID testing ordered. Patient currently asymptomatic (2) Grief at loss of child: Code(s): F43.21 - Adjustment disorder with depressed mood; Z63.4 - Disappearance and of family member Plan: Referred to our mental health coordinator, Mendy, for assistance in referring patient for grief counseling. Patient however does not want to take any further medications (3) Dry skin: Code(s): L85.3 - Xerosis cutis Plan: Advised to moisturize well after bathing with either CeraVe, Cetaphil cream or Aveeno. Orders: Orders COVID-19 ID NOW (Lopez) 09/14/23 Z20.822 - Contact with and (suspected) exposure to COVID-19 BinaxNOW Covid-19 Ag 09/14/23 Z20.822 - Contact with and (suspected) exposure to COVID-19 Coding Level of Care Code Est Pt Level 3 (31529) Diagnoses Exposure to COVID-19 virus Z.822 Grief at loss of child F43.21; Z63.4 Dry skin L85.3
== END 2023-09-14 13:43 | disposition home or self-care (01) ==
PROVIDERS: PCP Internal Medicine; Visit Provider Internal Medicine
DX: Z20.822 Contact with and (suspected) exposure to COVID-19 (principal); F43.21 Adjustment disorder with depressed mood; Z63.4 Disappearance and death of family member; L85.3 Xerosis cutis
CPT/HCPCS: 99213

== ENCOUNTER 2023-09-14 11:53 | Outpatient (REF) | payer MEDICARE, SELFPAY ==
[2023-09-14 12:21] LABS: Binax Internal Control QC Valid; Binax Now Covid-19 Ag Negative (Negative)
== END 2023-09-14 11:54 | disposition home or self-care (01) ==
LOC: HO.HMGCLDS 11:53
PROVIDERS: PCP Internal Medicine; Visit Provider Internal Medicine
DX: Z11.52 Encounter for screening for COVID-19 (principal); Z20.822 Contact with and (suspected) exposure to COVID-19
CPT/HCPCS: 87811; C9803

== ENCOUNTER 2023-09-19 09:25 | Outpatient (REF) | payer MEDICARE, SELFPAY ==
--- NOTE | ~2023-09-19 | CT_ITS ---
EXAMINATION: CT ANGIOGRAM OF THE CHEST WITH AND WITHOUT CONTRAST (CT PULMONARY ANGIOGRAM FOR PE) CLINICAL INFORMATION: Reason for Exam R06.09 - Other forms of dyspnea COMPARISON: Previous chest x-ray 09/02/[address] January 2023 and 2020 TECHNIQUE: Prior to contrast administration, noncontrast localization images were obtained. Subsequently, multidetector volumetric imaging was performed from the thoracic inlet to below the diaphragms following the administration of 65 mL Omnipaque 350 intravenous contrast. No contrast reaction reported Sagittal, coronal, and MIP oblique sagittal reformatted images were obtained on the CT workstation, uploaded to PACS, and reviewed. This CT examination was performed using dose optimization techniques as appropriate, variously including the following: *Automated exposure control *Adjustment of mA and/or kV according to patient size (this includes techniques or standardized protocols for targeted exams where dose is matched to indication/reason for exam; i.e. extremities or head) *Use of iterative reconstruction technique Total exam dose-length product 104 mGy-cm FINDINGS: QUALITY OF STUDY/CONTRAST BOLUS: Satisfactory. PULMONARY ARTERIES: No pulmonary emboli. THORACIC AORTA: No aneurysm. LUNG: Paraseptal and centrilobular emphysema. Scattered areas of mild central bronchial wall thickening questionable for airways disease. No evidence of pneumonia. Abnormal parenchymal density in the left upper lobe probably representing scarring. This measures 3 x 11 mm axial image 69 series 7 and is similar to January 2023. 2 mm peripheral or subpleural left lower lobe nodule axial image 434 series 7 is stable. The lungs are otherwise clear. PLEURA: No pleural effusion or pneumothorax. MEDIASTINUM: Normal heart size. No pericardial effusion. No hilar or mediastinal lymphadenopathy. No evidence of septal bowing or right heart strain. Upper normal size ascending thoracic aorta. CORONARY ARTERY CALCIFICATION: Mild CHEST WALL/AXILLA: No axillary or internal mammary lymphadenopathy. OSSEOUS STRUCTURES: No acute or suspicious osseous abnormality. Degenerative changes of the spine. UPPER ABDOMEN: Unremarkable. No reflux of contrast into the hepatic veins to suggest elevated right heart pressures. CT/CT angio chest PE protocol IMPRESSION: No pulmonary embolism. Mild central bronchial wall thickening probably representing airways disease. Stable scarring in the left upper lobe. Emphysema. Upper normal size ascending thoracic aorta. VTE: negative
[2023-09-19] MEDS: iohexoL 350 MG/ML 75 ML INFUS..BTL 65 ML IV (10:13)
== END 2023-09-19 09:26 | disposition home or self-care (01) ==
LOC: HO.CT 09:25
PROVIDERS: PCP Internal Medicine; Visit Provider Internal Medicine Pulmonary Disease
DX: R06.09 Other forms of dyspnea (principal)
CPT/HCPCS: 71275; Q9967

== ENCOUNTER → 2023-09-20 10:51 | Outpatient (REF) | payer MEDICARE, OTHER, SELFPAY ==
--- NOTE | 2023-09-20 10:56 | CA_ITS ---
Transthoracic Echocardiogram Patient (Last, First, Middle): Kingston Tomas, Gender: Male Date of : 1955 Age: 68 Procedure Date: 09/20/2023 Procedure Type: Transthoracic Echocardiogram Location: OP Height: 172.72 cm Weight: 71.67 kg BSA: 1.85 m2 Heart Rate: bpm BP: 140 / 75 mmHg Mental Health Consultant: KENYATTA Referring MD: Caryn Luna BALLER TENDER-Gladys Cell Inspector: Roberto Ruffin MD Symptoms: R06.09 - Other forms of dyspnea Study Quality: Adequate ECG Rhythm: Sinus Conclusions: - 1. Normal LV ejection fraction 55-60% with mild LVH with impaired relaxation filling pattern 2. Normal cardiac valvular Doppler 3. Normal RV systolic pressure 4. Mildly dilated ascending aorta at 4 cm 5. No gross pericardial effusion Findings Left Ventricle Normal left ventricular size and systolic function. There is mildly increased left ventricular wall thickness. The visually estimated ejection fraction is between 55-60%. Spectral Doppler is indicative of an impaired relaxation filling pattern. E/E prime ratio is between 8 and 15 consistent with indeterminate filling pressures. Peak GLS is -14.3%, which is moderately reduced. Right Ventricle Normal right ventricular cavity size and systolic function. Atria The left atrium is normal in size. There is no evidence of interatrial shunt. The right atrium is normal in size. Aortic Valve Normal aortic valve structure and function. There is mild thickening of the aortic valve. There is no aortic valve stenosis. There is no aortic valve regurgitation. Mitral Valve There is mild anterior and posterior mitral leaflet thickening. There is trace mitral valve regurgitation. There is no mitral valve stenosis. Pulmonic Valve The pulmonic valve is likely normal. Tricuspid Valve Normal tricuspid valve structure. There is trace tricuspid valve regurgitation. The right ventricular systolic pressure is normal. The right ventricular systolic pressure is 23 mmHg. Normal right atrial pressure. Great Vessels The pulmonary artery was not well visualized. There is mild dilatation of the ascending aorta measuring 4.00 cm. Venous The inferior vena cava is normal in size and collapses greater than 50% with inspiration. Pericardium/Pleural There is no evidence of pericardial effusion. Prior Study Comparison Changes noted compared to prior study dated: 05/04/2021. Ascending aorta is dilated to 4 cm Measurements 2D Linear Measurements IVSd: 1.20 0.6-0.9/0.6-1.0 cm LVIDd: 4.44 3.9-5.3/4.2-5.9 cm LVIDd Index: 2.40 2.4-3.2/2.2-3.1 cm/m2 LVIDs: 3.30 2.0-3.6 cm LVPWd: 1.07 0.7-1.1 cm LA Diam: 3.30 2.7-3.8/3.0-4.0 cm LAIDs Index: 1.78 1.5-2.3 cm/m2 LV Mass: 223.17 67-162/88-224 g LV Mass Index: 120.63 43-95/49-115 g/m2 LVOT Diam: 2.50 3.0+(-)1.3 cm 2D Systolic Function EF 4C: 50.60 >55% EF 2C: 59.10 >55% EF BiP: 56.90 >55% Mitral Valve MV Pk E: 0.46 MV PK A: 0.63 MV Decel Time: 291.00 E/A: 0.70 E'Lateral: 5.00 E'Medial: 4.35 E/E' Med: 10.50 E/E' Lat: 9.20 PHT: 85.00 MVA PHT: 2.[address] [place]: 1.58 Aortic Valve AoV Pk Nicanor: 0.96 AoV Mn Nicanor: 0.65 AoV VTI: 0.18 AoV Pk Grad: 4.00 Aov Mn Grad: 2.00 LUPILLO Cont.VTI: 4.11 LVOT LVOT Pk Nicanor: 0.68 LVOT Mn Nicanor: 0.50 LVOT VTI: 0.15 LVOT Pk Grad: 2.00 LVOT Mn Grad: 1.00 LVOT Diam: 2.50 LVOT Area: 4.91 Diastolic Function MV Pk E: 0.46 MV Pk A: 0.63 E/A: 0.70 E'Medial: 4.35 E/E' Med: 10.50 E' Laterial: 5.00 E/E' Lat: 9.20 Right Ventricle TAPSE (mm): 20.70 TVS' Nicanor: 14.90 Tricuspid Valve TR Pk Nicanor: 2.21 TR Pk Grad: 20.00 RA Press: 3.00 RVSP: 23.00 Great Vessels Aorta Sinus of Valsalva: 3.93 2.0-3.[address] [place]: 3.10 1.7-3.4 cm Ao Asc: 4.00 2.1-3.4 cm Updated in Other Vendor System with Status of Final Roberto Ruffin MD electronically signed on 09/21/2023 4:06:29 PM with status of Final
== END ==
LOC: HO.CARD 10:51
PROVIDERS: PCP Internal Medicine; Visit Provider Nurse Practitioner Family
DX: R06.09 Other forms of dyspnea (principal); R94.31 Abnormal electrocardiogram [ECG] [EKG]
CPT/HCPCS: 93306; 93356

== ENCOUNTER → 2023-09-20 10:56 | Outpatient (BNV) | payer MEDICARE, SELFPAY | PROVIDERS: PCP Internal Medicine; Visit Provider Internal Medicine Cardiovascular Disease | DX: I34.89 Other nonrheumatic mitral valve disorders (principal) | CPT/HCPCS: 93306 ==

== ENCOUNTER 2023-09-27 10:46 | Outpatient (AMB) | payer MEDICARE, SELFPAY ==
[2023-09-27 10:47] VITALS: BP 132/78; PULSE 95; O2SAT 98; BMI 23.3
--- NOTE | 2023-09-27 10:47 | A.OFFVIS_ITS ---
Intake Vital Signs 09/27/23 10:47 Height 5 ft 8 in Weight 153 lb 3.54 oz BMI 23.3 BP 132/78 Blood Pressure Location Lt brachial Position Sitting Pulse 95 Pulse Source Doppler Pulse Oximetry (%) 98 Oxygen Delivery Method Room Air Intake Visit Reasons: COPD Allergies No Known Allergies Allergy (Verified 09/27/23 10:50) HPI COPD HPI Details 68-year-old gentleman, active 50+ pack-y ear smoker followed for underlying moderate COPD and pulmonary nodules. He continues on salmeterol and duo nebs with suboptimal control of his symptoms. He was started on prednisone with improvement in his symptoms, however he did develop as a side effect weakness of his leg muscles, so he is trying not to use systemic glucocorticoids as much. He does complain of significant daytime sleepiness and unrestful sleep. [facility] Medical History (Updated 09/27/23 @ 11:41 by Seferino Mesa MD) Grief at loss of child Skin lesion Hx of urethral stricture Constipation Alcoholic gastritis Elevated hemoglobin Alcoholism Pneumococcal vaccination declined Refused influenza vaccine Alcohol use disorder Abdominal pain Polycythemia Vomiting SBO (small bowel obstruction) COPD (chronic obstructive pulmonary disease) Smoking Cardiomegaly Coronary artery calcification seen on CT scan History of small bowel obstruction GERD (gastroesophageal reflux disease) Emphysema lung Hypertensive cardiomegaly Change in multiple pigmented skin lesions Dyspepsia Macrocytosis without anemia Cough Heavy tobacco smoker >10 cigarettes per day Shortness of breath on exertion Essential hypertension Surgical History History of esophagogastroduodenoscopy (EGD) Hx of varicose vein stripping Hx of elbow surgery Hx of bilateral inguinal hernia repair History of surgery Hx of colonoscopy Family History Mother CAD (coronary artery disease) Maternal Grandfather Brain tumor Maternal Uncle Eye cancer Social History Household Members: Other Household Members Other:: Uncle Housing: House Are you a primary reproductive healthcare assistant to a significant other at home: No Do you presently have visiting nurse or other home services: No Alcohol intake: current Alcohol intake frequency: 3 or more drinks per day Alcohol type: hard liquor Comment: pt refused high fall risk Patient Tobacco Use Status: Current everyday Tobacco user Tobacco use type: Cigarette Cigarette Packs Per Day: 0.5 Cigarettes Per Day: 10.0 Years Smoked: 50 e-Cigarette/Vaping Use: Never Used Second Hand Smoke Exposure: No Substance Use Type: Marijuana service: No Current occupational status: retired Cognitive needs: No Hearing needs: No Vision needs: No Review of Systems Const Reports daytime sleepiness, Denies excessive sweating, Denies fatigue, Denies fever(s), Reports lethargy, Denies malaise, Denies night sweats, Denies snoring and Denies weight loss Eyes Denies blurry vision and Denies itchy eyes ENT Denies nasal congestion, Denies post nasal drip, Denies sinus pain, Denies sinus pressure and Denies other ( Thrush) Card Denies chest pain, Denies pedal edema, Denies dyspnea, Reports dyspnea on exertion, Denies orthopnea and Denies paroxysmal nocturnal dyspnea Resp Denies cough, Denies hemoptysis, Denies excessive phlegm production, Denies dyspnea, Reports dyspnea on exertion, Denies snoring and Denies wheezing GI Denies abdominal pain and Denies heartburn Musc Denies myalgias, Denies arthralgias and Denies joint swelling Skin/Breast Denies rash Neuro Denies memory loss and Denies seizure-like activity Psych Denies abnormal sleep pattern, Denies anxiety and Denies memory loss Endo Denies excessive sweating, Denies fatigue and Denies heat intolerance Alberto/Lymph Denies easy bruising Aller/Immun Denies itchy eyes, Denies seasonal rhinorrhea and Denies wheezing Physical Exam Vital Signs: Last Vital Signs Pulse 95 09/27/23 10:47 BP 132/78 09/27/23 10:47 Pulse Ox 98 09/27/23 10:47 Oxygen Delivery Method Room Air 09/27/23 10:47 BMI result Body Mass Index 23.3 Const General: no acute distress and alert Nutritional Appearance: not obese Orientation/consciousness: Other orientation findings ( oriented) HEENT Head: Yes atraumatic Eyes General: appearance normal, both eyes and all related structures Sclerae: sclerae normal EOM: EOMs intact bilaterally Neck Neck: Yes supple Lymphatic: no lymphadenopathy noted Resp Effort & Inspection: normal respiratory effort and no use of accessory muscles Auscultation: clear to auscultation bilaterally Cardio Rate: regular rate Rhythm: regular rhythm Heart sounds: no gallops, no murmurs and no rubs Skin General skin exam: other ( warm) Extrem General: No clubbing, No cyanosis and No edema Assessment & Plan Assessment & Plan (1) COPD (chronic obstructive pulmonary disease): Code(s): J44.9 - Chronic obstructive pulmonary disease, unspecified Plan: Suboptimal control salmeterol on duo nebs. Unable to tolerate systemic glucocorticoids chronically. Will switch salmeterol to Breo or equivalent. Results of CT angio chest reviewed, no underlying pulmonary emboli. (2) TIM (obstructive sleep apnea): Code(s): G47.33 - Obstructive sleep apnea (adult) (pediatric) Plan: Unrestful sleep, daytime sleepiness, fatigue, [place] Sleepiness Scale score of 16. Will obtain home sleep study. Orders: Orders RT home sleep study Today G47.33 - Obstructive sleep apnea (adult) (pediatric) Medications: New Symbicort 160-4.5 mcg/actuation (budesonide-formoterol) 2 puffs inhalation Q12H 10.2 grams 6RF 30 days NS G47.33 - Obstructive sleep apnea (adult) (pediatric) Discontinued salmeterol (Serevent Diskus) Discontinued Reason: Doctor's Order 2 inhalations inhalation BID 60 ea 6RF 30 days Coding Level of Care Code Est Pt Level 4 (47130) Diagnoses COPD (chronic obstructive pulmonary disease) J44.9 TIM (obstructive sleep apnea) G47.33
== END 2023-09-27 11:09 | disposition home or self-care (01) ==
PROVIDERS: PCP Internal Medicine; Visit Provider Internal Medicine Pulmonary Disease
DX: J44.9 Chronic obstructive pulmonary disease, unspecified (principal); G47.33 Obstructive sleep apnea (adult) (pediatric)
CPT/HCPCS: 99214

== ENCOUNTER → 2023-09-27 10:46 | Outpatient (BNVA) | payer MEDICARE, SELFPAY | PROVIDERS: PCP Internal Medicine; Visit Provider Internal Medicine Pulmonary Disease | DX: J44.9 Chronic obstructive pulmonary disease, unspecified (principal); G47.33 Obstructive sleep apnea (adult) (pediatric); R91.8 Other nonspecific abnormal finding of lung field; F17.210 Nicotine dependence, cigarettes, uncomplicated | CPT/HCPCS: 99212 ==

== ENCOUNTER → 2023-11-08 10:07 | Outpatient (REF) | payer MEDICARE, OTHER, SELFPAY | LOC: HO.SL 10:07 | PROVIDERS: PCP Internal Medicine; Visit Provider Internal Medicine Pulmonary Disease | DX: G47.33 Obstructive sleep apnea (adult) (pediatric) (principal) | CPT/HCPCS: 95806 ==

== ENCOUNTER → 2023-11-08 12:00 | Outpatient (BNV) | payer MEDICARE, SELFPAY | PROVIDERS: PCP Internal Medicine; Visit Provider Internal Medicine | DX: G47.33 Obstructive sleep apnea (adult) (pediatric) (principal) | CPT/HCPCS: 95806 ==

== ENCOUNTER 2023-11-23 13:59 | Outpatient (AMB) | payer MEDICARE, SELFPAY ==
--- NOTE | 2023-11-23 14:06 | A.OFFVIS_ITS ---
Intake Vital Signs 11/23/23 14:09 Height 5 ft 8 in Weight 152 lb 1.903 oz BMI 23.1 BP 122/78 Blood Pressure Location Rt brachial Position Sitting Pulse 80 Pulse Source Doppler Pulse Oximetry (%) 98 Oxygen Delivery Method Room Air Intake Visit Reasons: COPD Allergies No Known Allergies Allergy (Verified 11/23/23 14:09) HPI COPD HPI Details 68-year-old gentleman, active 50+ pack-y ear smoker followed for underlying moderate COPD, TIM, and pulmonary nodules. At the last office visit he was switched to high-dose Symbicort with improved symptom control. He is also using duo nebs and albuterol MDI as needed. Patient completed his sleep study that showed underlying moderate obstructive sleep apnea. He is interested in quitting smoking. [facility] Medical History (Updated 11/23/23 @ 14:27 by Seferino Mesa MD) Grief at loss of child Skin lesion Hx of urethral stricture Constipation Alcoholic gastritis Elevated hemoglobin Alcoholism Pneumococcal vaccination declined Refused influenza vaccine Alcohol use disorder Abdominal pain Polycythemia Vomiting SBO (small bowel obstruction) COPD (chronic obstructive pulmonary disease) Smoking Cardiomegaly Coronary artery calcification seen on CT scan History of small bowel obstruction GERD (gastroesophageal reflux disease) Emphysema lung Hypertensive cardiomegaly Change in multiple pigmented skin lesions Dyspepsia Macrocytosis without anemia Cough Heavy tobacco smoker >10 cigarettes per day Shortness of breath on exertion Essential hypertension Surgical History History of esophagogastroduodenoscopy (EGD) Hx of varicose vein stripping Hx of elbow surgery Hx of bilateral inguinal hernia repair History of surgery Hx of colonoscopy Family History Mother CAD (coronary artery disease) Maternal Grandfather Brain tumor Maternal Uncle Eye cancer Social History Household Members: Other Household Members Other:: Uncle Housing: House Are you a primary health care technician to a significant other at home: No Do you presently have visiting nurse or other home services: No Alcohol intake: current Alcohol intake frequency: 3 or more drinks per day Alcohol type: hard liquor Comment: pt refused high fall risk Patient Tobacco Use Status: Current everyday Tobacco user Tobacco use type: Cigarette Cigarette Packs Per Day: 0.5 Cigarettes Per Day: 10.0 Years Smoked: 50 e-Cigarette/Vaping Use: Never Used Second Hand Smoke Exposure: No Substance Use Type: Marijuana service: No Current occupational status: retired Cognitive needs: No Hearing needs: No Vision needs: No Review of Systems Const Reports daytime sleepiness, Denies excessive sweating, Reports fatigue, Denies fever(s), Denies lethargy, Denies malaise, Denies night sweats, Reports snoring and Denies weight loss Eyes Denies blurry vision and Denies itchy eyes ENT Denies nasal congestion, Denies post nasal drip, Denies sinus pain, Denies sinus pressure and Denies other ( Thrush) Card Denies chest pain, Denies pedal edema, Denies dyspnea, Denies orthopnea and Denies paroxysmal nocturnal dyspnea Resp Denies cough, Denies hemoptysis, Denies excessive phlegm production, Denies dyspnea, Reports snoring and Denies wheezing GI Denies abdominal pain and Denies heartburn Musc Denies myalgias, Denies arthralgias and Denies joint swelling Skin/Breast Denies rash Neuro Denies memory loss and Denies seizure-like activity Psych Denies abnormal sleep pattern, Denies anxiety and Denies memory loss Endo Denies excessive sweating, Reports fatigue and Denies heat intolerance Alberto/Lymph Denies easy bruising Aller/Immun Denies itchy eyes, Denies seasonal rhinorrhea and Denies wheezing Physical Exam Vital Signs: Last Vital Signs Pulse 80 11/23/23 14:09 BP 122/78 11/23/23 14:09 Pulse Ox 98 11/23/23 14:09 Oxygen Delivery Method Room Air 11/23/23 14:09 BMI result Body Mass Index 23.1 Const General: no acute distress and alert Nutritional Appearance: not obese Orientation/consciousness: Other orientation findings ( oriented) HEENT Head: Yes atraumatic Eyes General: appearance normal, both eyes and all related structures Sclerae: sclerae normal EOM: EOMs intact bilaterally Neck Neck: Yes supple Lymphatic: no lymphadenopathy noted Resp Effort & Inspection: normal respiratory effort and no use of accessory muscles Auscultation: clear to auscultation bilaterally Cardio Rate: regular rate Rhythm: regular rhythm Heart sounds: no gallops, no murmurs and no rubs Skin General skin exam: other ( warm) Extrem General: No clubbing, No cyanosis and No edema Assessment & Plan Assessment & Plan (1) COPD (chronic obstructive pulmonary disease): Code(s): J44.9 - Chronic obstructive pulmonary disease, unspecified Plan: Well controlled on Symbicort, duo nebs, and albuterol MDI. Continue current regimen. (2) TIM (obstructive sleep apnea): Code(s): G47.33 - Obstructive sleep apnea (adult) (pediatric) Plan: Results of sleep study reviewed, underlying moderate obstructive sleep apnea with AHI of 22. Will start on APAP of 6-16 cm of water. (3) Personal history of nicotine dependence: Code(s): Z87.891 - Personal history of nicotine dependence Plan: Patient interested in quitting smoking. Will prescribe nicotine patches. Medications: New nicotine apply 1-21 mg NICOTINE PATCH daily for 28 days; follow with 1-14 mg PA TCH daily for 14 days, then 1-7mg PATCH daily for 14 days transdermal 56 patches 0RF Coding Level of Care Code Est Pt Level 4 (98448) Diagnoses COPD (chronic obstructive pulmonary disease) J44.9 TIM (obstructive sleep apnea) G47.33 Personal history of nicotine dependence Z87.891
[2023-11-23 14:09] VITALS: BP 122/78; PULSE 80; O2SAT 98; BMI 23.1
== END 2023-11-23 14:21 | disposition home or self-care (01) ==
PROVIDERS: PCP Internal Medicine; Visit Provider Internal Medicine Pulmonary Disease
DX: J44.9 Chronic obstructive pulmonary disease, unspecified (principal); G47.33 Obstructive sleep apnea (adult) (pediatric); Z87.891 Personal history of nicotine dependence
CPT/HCPCS: 99214

== ENCOUNTER → 2023-11-23 13:59 | Outpatient (BNVA) | payer MEDICARE, SELFPAY | PROVIDERS: PCP Internal Medicine; Visit Provider Internal Medicine Pulmonary Disease | DX: J44.9 Chronic obstructive pulmonary disease, unspecified (principal); G47.33 Obstructive sleep apnea (adult) (pediatric); Z79.899 Other long term (current) drug therapy; Z87.891 Personal history of nicotine dependence | CPT/HCPCS: 99212 ==

== ENCOUNTER 2024-02-17 10:00 | Outpatient (AMB) | payer MEDICARE, SELFPAY ==
--- NOTE | 2024-02-17 10:05 | MHC.OFFVIS ---
Vital Signs 02/17/24 10:06 Height 5 ft 8 in Weight 144 lb 6.444 oz BMI 22.0 BP 128/78 Blood Pressure Location Lt brachial Position Sitting Pulse 87 Pulse Source Doppler Pulse Oximetry (%) 100 Oxygen Delivery Method Room Air Intake Visit Reasons: COPD Allergies No Known Allergies Allergy (Verified 11/23/23 14:09) HPI HPI COPD: Details: 68-year-old gentleman, active 50+ pack-year smoker followed for underlying moderate COPD, TIM, and pulmonary nodules. He has been using Symbicort and duo nebs with reasonable control his symptoms until recently when he ran out of Symbicort. Today his complain of left-sided chest pain worse with deep inspirations. In office EKG shows no ST changes and today's x-ray chest shows clear lungs. Patient is interested in quitting smoking, however his insurance is not covering nicotine patches. [facility] Medical History (Updated 02/17/24 @ 11:21 by Seferino Mesa MD) Grief at loss of child Skin lesion Hx of urethral stricture Constipation Alcoholic gastritis Elevated hemoglobin Alcoholism Pneumococcal vaccination declined Refused influenza vaccine Alcohol use disorder Abdominal pain Polycythemia Vomiting SBO (small bowel obstruction) COPD (chronic obstructive pulmonary disease) Smoking Cardiomegaly Coronary artery calcification seen on CT scan History of small bowel obstruction GERD (gastroesophageal reflux disease) Emphysema lung Hypertensive cardiomegaly Change in multiple pigmented skin lesions Dyspepsia Macrocytosis without anemia Cough Heavy tobacco smoker >10 cigarettes per day Shortness of breath on exertion Essential hypertension Surgical History History of esophagogastroduodenoscopy (EGD) Hx of varicose vein stripping Hx of elbow surgery Hx of bilateral inguinal hernia repair History of surgery Hx of colonoscopy Family History Mother CAD (coronary artery disease) Maternal Grandfather Brain tumor Maternal Uncle Eye cancer Social History Household Members: Other Household Members Other:: Uncle Housing: House Are you a primary managed care liaison to a significant other at home: No Do you presently have visiting nurse or other home services: No Alcohol intake: current Alcohol intake frequency: 3 or more drinks per day Alcohol type: hard liquor Comment: pt refused high fall risk Patient Tobacco Use Status: Current everyday Tobacco user Tobacco use type: Cigarette Cigarette Packs Per Day: 0.5 Cigarettes Per Day: 10.0 Years Smoked: 50 e-Cigarette/Vaping Use: Never Used Second Hand Smoke Exposure: No Substance Use Type: Marijuana service: No Current occupational status: retired Cognitive needs: No Hearing needs: No Vision needs: No Review of Systems Const Denies daytime sleepiness, Denies excessive sweating, Denies fatigue, Denies fever(s), Denies lethargy, Denies malaise, Denies night sweats, Denies snoring and Denies weight loss Eyes Denies blurry vision and Denies itchy eyes ENT Denies nasal congestion, Denies post nasal drip, Denies sinus pain, Denies sinus pressure and Denies other ( Thrush) Card Reports chest pain, Denies pedal edema, Denies dyspnea, Reports dyspnea on exertion, Denies orthopnea and Denies paroxysmal nocturnal dyspnea Resp Denies cough, Denies hemoptysis, Denies excessive phlegm production, Denies dyspnea, Reports dyspnea on exertion, Denies snoring and Denies wheezing GI Denies abdominal pain and Denies heartburn Musc Denies myalgias, Denies arthralgias and Denies joint swelling Skin/Breast Denies rash Neuro Denies memory loss and Denies seizure-like activity Psych Denies abnormal sleep pattern, Denies anxiety and Denies memory loss Endo Denies excessive sweating, Denies fatigue and Denies heat intolerance Alberto/Lymph Denies easy bruising Aller/Immun Denies itchy eyes, Denies seasonal rhinorrhea and Denies wheezing Physical Exam Vital Signs: Last Vital Signs Pulse 87 02/17/24 10:06 BP 128/78 02/17/24 10:06 Pulse Ox 100 02/17/24 10:06 Oxygen Delivery Method Room Air 02/17/24 10:06 BMI result Body Mass Index 22.0 Const General: no acute distress and alert Nutritional Appearance: not obese Orientation/consciousness: Other orientation findings ( oriented) HEENT Head: Yes atraumatic Eyes General: appearance normal, both eyes and all related structures Sclerae: sclerae normal EOM: EOMs intact bilaterally Neck Neck: Yes supple Lymphatic: no lymphadenopathy noted Resp Effort & Inspection: normal respiratory effort and no use of accessory muscles Auscultation: clear to auscultation bilaterally Cardio Rate: regular rate Rhythm: regular rhythm Heart sounds: no gallops, no murmurs and no rubs Skin General skin exam: other ( warm) Extrem General: No clubbing, No cyanosis and No edema Assessment & Plan Assessment & Plan (1) Chest pain: Code(s): R07.9 - Chest pain, unspecified Category: Medical Plan: In office EKG with no ST changes. Today's x-ray with clear lungs. Appears to be musculoskeletal. Patient has been advised if left-sided chest pain recurs to seek ER evaluation. (2) TIM (obstructive sleep apnea): Code(s): G47.33 - Obstructive sleep apnea (adult) (pediatric) Category: Medical Plan: Patient is not able to tolerate fullface mask. Order for under the nose mask placed. (3) COPD (chronic obstructive pulmonary disease): Code(s): J44.9 - Chronic obstructive pulmonary disease, unspecified Category: Medical Plan: Suboptimal control as patient has ran out of Symbicort. Restart Symbicort continue duo nebs. (4) Personal history of nicotine dependence: Code(s): Z87.891 - Personal history of nicotine dependence Category: Medical Plan: Patient is interested in quitting smoking, however his insurance is not covering nicotine patches. Will switch to nicotine gum/lozenges. Orders: Orders XR chest 2V Today R06.02 - Shortness of breath Medications: New nicotine (polacrilex) 4 mg buccal Q2-4H 30 days PRN 108 ea 3RF nicotine cravings Refilled Symbicort 160-4.5 mcg/actuation (budesonide-formoterol) 2 puffs inhalation Q12H 30 days 10.2 grams 6RF NS G47.33 - Obstructive sleep apnea (adult) (pediatric) Discontinued nicotine (polacrilex) Discontinued Reason: Doctor's Order 4 mg buccal Q2-4H PRN 108 ea 2RF nicotine cravings Coding Level of Care Code Est Pt Level 5 (28467) Diagnoses Chest pain R07.9 TIM (obstructive sleep apnea) G47.33 COPD (chronic obstructive pulmonary disease) J44.9 Personal history of nicotine dependence Z87.891
[2024-02-17 10:06] VITALS: BP 128/78; PULSE 87; O2SAT 100; BMI 22.0
== END 2024-02-17 11:10 | disposition home or self-care (01) ==
PROVIDERS: PCP Internal Medicine; Visit Provider Internal Medicine Pulmonary Disease
DX: J44.9 Chronic obstructive pulmonary disease, unspecified (principal); R07.9 Chest pain, unspecified; G47.33 Obstructive sleep apnea (adult) (pediatric); Z87.891 Personal history of nicotine dependence
CPT/HCPCS: 99214

== ENCOUNTER 2024-02-17 10:00 | Outpatient (REF) | payer MEDICARE, SELFPAY ==
--- NOTE | ~2024-02-17 | XR_ITS ---
EXAMINATION: XR CHEST CLINICAL INFORMATION: Shortness of breath COMPARISON: Chest radiograph 09/02/2023, chest CT 01/31/2023 TECHNIQUE: 2 views of the chest were obtained. FINDINGS: The lungs are hyperinflated with flattening of the hemidiaphragms. No focal consolidation. Increased opacity in the right mid to lower lung on the PA view is unchanged since 09/02/2023. Peribronchial thickening is again noted. No significant abnormality is noted involving the heart, mediastinum, bony thorax or soft tissues. XR/XR chest 2V IMPRESSION: No acute cardiopulmonary disease.
== END 2024-02-17 10:01 | disposition home or self-care (01) ==
LOC: HO.XRAY 10:00
PROVIDERS: PCP Internal Medicine; Visit Provider Internal Medicine Pulmonary Disease
DX: R06.02 Shortness of breath (principal); J44.9 Chronic obstructive pulmonary disease, unspecified; G47.33 Obstructive sleep apnea (adult) (pediatric); Z87.891 Personal history of nicotine dependence; R07.9 Chest pain, unspecified
CPT/HCPCS: 71046; 99212

== ENCOUNTER 2024-02-27 09:48 | Outpatient (AMB) | payer MEDICARE, SELFPAY ==
[2024-02-27 10:08] VITALS: BP 120/82; PULSE 84; BMI 21.7
--- NOTE | 2024-02-27 10:08 | A.OFFVIS_ITS ---
Vital Signs 02/27/24 10:08 Height 5 ft 8 in Weight 142 lb 6.698 oz BMI 21.7 BP 120/82 Blood Pressure Location Lt brachial Position Sitting Pulse 84 Pulse Source Monitor Intake Visit Reasons: 6 mth fu Sort Line Required: No Allergies No Known Allergies Allergy (Verified 02/27/24 10:11) Medication List - Last Reconciled 02/27/24 by Caryn Luna, [employer] amlodipine 5 mg PO DAILY aspirin 81 mg PO DAILY atorvastatin 20 mg PO BEDTIME clotrimazole-betamethasone 1-0.05 % 1 appl topical BID 10 days hydrocortisone 2.5% topical ipratropium-albuterol 0.5 mg-3 mg(2.5 mg base)/3 mL 3 mL inhalation Q6-8H PRN nicotine 1 spray intranasal BID 30 days prednisone 40 mg (2 x 20 mg) PO DAILY Symbicort 160-4.5 mcg/actuation (budesonide-formoterol) 2 puffs inhalation Q12H 30 days NS HPI HPI 6 mth fu: Details: [place] is a 68-year-old male with past medical history of hypertension, smoking, COPD, coronary calcifications on CT scan, ascending aorta ectasia, who presents for follow-up. Today he reports that since his last visit his breathing has been gradually wor sening. Recently he developed a cough and feels he may have a respiratory ailment. 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 He says he does not qualify for oxygen yet. He has been getting some pains in his anterior chest which are worse with coughing and palpation of the chest. Also is noticing some tightness which is new for him. He denies PND, orthopnea or edema. No heart palpitations, presyncope, syncope, falls. He is mostly sedentary. He continues to smoke 1/2 pack of cigarettes per day. [facility] Medical History Grief at loss of child Skin lesion Hx of urethral stricture Constipation Alcoholic gastritis Elevated hemoglobin Alcoholism Pneumococcal vaccination declined Refused influenza vaccine Alcohol use disorder Abdominal pain Polycythemia Vomiting SBO (small bowel obstruction) COPD (chronic obstructive pulmonary disease) Smoking Cardiomegaly Coronary artery calcification seen on CT scan History of small bowel obstruction GERD (gastroesophageal reflux disease) Emphysema lung Hypertensive cardiomegaly Change in multiple pigmented skin lesions Dyspepsia Macrocytosis without anemia Cough Heavy tobacco smoker >10 cigarettes per day Shortness of breath on exertion Essential hypertension Surgical History History of esophagogastroduodenoscopy (EGD) Hx of varicose vein stripping Hx of elbow surgery Hx of bilateral inguinal hernia repair History of surgery Hx of colonoscopy Family History Mother CAD (coronary artery disease) Maternal Grandfather Brain tumor Maternal Uncle Eye cancer Social History Household Members: Other Household Members Other:: Uncle Housing: House Are you a primary landcare facilitator to a significant other at home: No Do you presently have visiting nurse or other home services: No Alcohol intake: current Alcohol intake frequency: 3 or more drinks per day Alcohol type: hard liquor Comment: pt refused high fall risk Patient Tobacco Use Status: Current everyday Tobacco user Tobacco use type: Cigarette Cigarette Packs Per Day: 0.5 Cigarettes Per Day: 10.0 Years Smoked: 50 e-Cigarette/Vaping Use: Never Used Second Hand Smoke Exposure: No Substance Use Type: Marijuana service: No Current occupational status: retired Cognitive needs: No Hearing needs: No Vision needs: No Review of Systems Const All systems reviewed & are unremarkable except as noted in HPI and below ENT Reports dizziness Card Reports chest pain (with palpation of chest and coughing), Reports chest pain at rest (tightness in chest which is new), Denies chest pain with activity, Reports dyspnea and Reports dyspnea on exertion Resp Reports dyspnea and Reports dyspnea on exertion GI Denies no additional complaints Musc Denies no additional complaints Neuro Details: lightheaded when he gets up quickly Reports dizziness Physical Exam Vital Signs: Last Vital Signs Pulse 84 02/27/24 10:08 BP 120/82 02/27/24 10:08 BMI result Body Mass Index 21.7 Const General: cooperative and no acute distress Orientation/consciousness: patient oriented x3 Neck Neck: Yes normal visual inspection Resp Effort & Inspection: normal respiratory effort Auscultation: clear to auscultation bilaterally, no rales, no rhonchi and no wheezes Cardio Jugular venous distension: no JVD Rate: regular rate Rhythm: regular rhythm Heart sounds: S1 normal heart sound present, S2 normal heart sound present, no murmurs and no rubs Skin Other: skin dark appearance. cyanotic appearance to nose. Tells me he has been in the sun this past week. Sat 100%. Neuro General: patient oriented x3 Extrem General: Yes normal to inspection Psych Appearance: grossly normal Mental Status: mental status grossly normal Speech and movement: Normal speech and movement present Office Procedures EKG Details: Today read by me, SR, right atrial enlargement, rate 84, QTc 425ms [id number], Complete Assessment & Plan Assessment & Plan (1) Chest pain: Code(s): R07.9 - Chest pain, unspecified Category: Medical Plan: Patient has chronic shortness of breath with activity. He has known chronic COPD, emphysema and continues to smoke. He follows closely with pulmonology, Dr. Mesa. A nuclear stress test was done 05/26/2021 showing normal myocardial perfusion imaging. An echocardiogram was done on 09/20/2023 showing EF 55-60%, mild LVH, mildly dilated ascending aorta. Overall his breathing has worsened in the last few years. He continues to smoke about 1/2 pack of cigarettes per day. Today he reports having new chest tightness and chest discomfort with cough and deep inspiration. Overall the symptoms sound chest wall however he does have cardiac risk factors of hypertension, smoking. A CT scan of the chest in 2020 did show coronary calcifications. EKG done today showing normal sinus rhythm, right atrial enlargement, no acute ST or T-wave abnormalities, rate 84. Will order a pharmacological nuclear stress test for evaluation of ischemia. He is currently coughing so will postpone test for at least 2 weeks. No wheezes noted on exam today. If he is wheezing on the day of test it could be changed to a dobutamine nuclear stress test. Cardiology follow-up when test results are available, sooner if needed. Emergency care if ever needed for significant symptoms. (2) Dyspnea on exertion: Code(s): R06.09 - Other forms of dyspnea Category: Medical Plan: As above (3) CAD (coronary artery disease): Code(s): I25.10 - Atherosclerotic heart disease of [place] coronary artery without angina pectoris Category: Medical Qualifiers: Associated angina: without angina Coronary Disease-Associated Artery/Lesion type: [place] artery [place] vs. transplanted heart: [place] heart Qualified Code(s): I25.10 - Atherosclerotic heart disease of [place] coronary artery without angina pectoris Plan: Presumed history of CAD. CT scan done in 2020 she did show coronary calcifications, cardiomegaly. Nuclear stress test in 2020 was normal. EKG done today shows no ischemia. He does have chronic shortness of breath which is most likely related to COPD. He has newer reports of chest tightness which also could be related to his COPD. His chest discomfort with cough and palpation is likely musculoskeletal. Will be checking nuclear stress test as above. Continue daily aspirin, atorvastatin. Labs done 01/31/2023 showed LDL 107. He is due for repeat labs at this time. (4) Heavy tobacco smoker >10 cigarettes per day: Code(s): F17.210 - Nicotine dependence, cigarettes, uncomplicated Category: Social Hx Plan: Continues to smoke half a pack per day. He tells me that he is hoping to start nicotine patches soon (5) COPD (chronic obstructive pulmonary disease): Code(s): J44.9 - Chronic obstructive pulmonary disease, unspecified Category: Medical Plan: Follows with Dr. Mesa. Plan Time spent on chart review, documentation, interview and assessment Orders: Orders NM cardiolite stress test 2 Weeks I25.10 - Atherosclerotic heart disease of [place] coronary artery without angina pectoris, J44.9 - Chronic obstructive pulmonary disease, unspecified, R06.02 - Shortness of breath, R07.9 - Chest pain, unspecified CA lexiscan stress w fabrice 2 Weeks I25.10 - Atherosclerotic heart disease of [place] coronary artery without angina pectoris, J44.9 - Chronic obstructive pulmonary disease, unspecified Coding Level of Care Code Est Pt Level 4 (98487) Diagnoses Chest pain R07.9 Dyspnea on exertion R06.09 Coronary artery disease involving [place] coronary artery of [place] heart without angina pectoris I25.10 Associated angina: without angina Coronary Disease-Associated Artery/Lesion type: [place] artery [place] vs. transplanted heart: [place] heart Heavy tobacco smoker >10 cigarettes per day F17.210 COPD (chronic obstructive pulmonary disease) J44.9 CPT Codes EKG - CPT: [id number], Complete ([id number]) Time Spent (min) 30
== END 2024-02-27 10:40 | disposition home or self-care (01) ==
PROVIDERS: PCP Internal Medicine; Visit Provider Nurse Practitioner Family
DX: R07.9 Chest pain, unspecified (principal); R06.09 Other forms of dyspnea; I25.10 Atherosclerotic heart disease of native coronary artery without angina pectoris; F17.210 Nicotine dependence, cigarettes, uncomplicated; J44.9 Chronic obstructive pulmonary disease, unspecified
CPT/HCPCS: 93010; 99214

== ENCOUNTER → 2024-02-27 09:48 | Outpatient (BNVA) | payer MEDICARE, SELFPAY | PROVIDERS: PCP Internal Medicine; Visit Provider Nurse Practitioner Family | DX: R07.9 Chest pain, unspecified (principal); R06.09 Other forms of dyspnea; I25.10 Atherosclerotic heart disease of native coronary artery without angina pectoris; J44.9 Chronic obstructive pulmonary disease, unspecified; F17.210 Nicotine dependence, cigarettes, uncomplicated | CPT/HCPCS: 93005; 99212 ==

== ENCOUNTER 2024-05-17 09:03 | Outpatient (AMB) | payer MEDICARE, SELFPAY ==
[2024-05-17 09:16] VITALS: BP 138/82; PULSE 91; O2SAT 99; BMI 21.1
--- NOTE | 2024-05-17 09:16 | MHC.OFFVIS ---
Vital Signs 05/17/24 09:16 Height 5 ft 8 in Weight 138 lb 14.259 oz BMI 21.1 BP 138/82 Blood Pressure Location Lt brachial Position Sitting Pulse 91 Pulse Source Doppler Pulse Oximetry (%) 99 Oxygen Delivery Method Room Air Intake Visit Reasons: COPD Allergies No Known Allergies Allergy (Verified 03/27/24 10:36) HPI HPI COPD: Details: 68-year-old gentleman, active 50+ pack-year smoker followed for underlying moderate COPD, TIM, and pulmonary nodules. He has been using Symbicort, duo nebs, and albuterol MDI with suboptimal control of his symptoms. His insurance company declined his nicotine replacement therapy. He denies acute exacerbations. [facility] Medical History Grief at loss of child Skin lesion Hx of urethral stricture Constipation Alcoholic gastritis Elevated hemoglobin Alcoholism Pneumococcal vaccination declined Refused influenza vaccine Alcohol use disorder Abdominal pain Polycythemia Vomiting SBO (small bowel obstruction) COPD (chronic obstructive pulmonary disease) Smoking Cardiomegaly Coronary artery calcification seen on CT scan History of small bowel obstruction GERD (gastroesophageal reflux disease) Emphysema lung Hypertensive cardiomegaly Change in multiple pigmented skin lesions Dyspepsia Macrocytosis without anemia Cough Heavy tobacco smoker >10 cigarettes per day Shortness of breath on exertion Essential hypertension Surgical History History of esophagogastroduodenoscopy (EGD) Hx of varicose vein stripping Hx of elbow surgery Hx of bilateral inguinal hernia repair History of surgery Hx of colonoscopy Family History Mother CAD (coronary artery disease) Maternal Grandfather Brain tumor Maternal Uncle Eye cancer Social History Household Members: Other Household Members Other:: Uncle Housing: House Are you a primary home health care worker to a significant other at home: No Do you presently have visiting nurse or other home services: No Alcohol intake: current Alcohol intake frequency: 3 or more drinks per day Alcohol type: hard liquor Comment: pt refused high fall risk Patient Tobacco Use Status: Current everyday Tobacco user Tobacco use type: Cigarette Cigarette Packs Per Day: 0.5 Cigarettes Per Day: 10.0 Years Smoked: 50 e-Cigarette/Vaping Use: Never Used Second Hand Smoke Exposure: No Substance Use Type: Marijuana service: No Current occupational status: retired Cognitive needs: No Hearing needs: No Vision needs: No Review of Systems Const Denies daytime sleepiness, Denies excessive sweating, Denies fatigue, Denies fever(s), Denies lethargy, Denies malaise, Denies night sweats, Denies snoring and Denies weight loss Eyes Denies blurry vision and Denies itchy eyes ENT Denies nasal congestion, Denies post nasal drip, Denies sinus pain, Denies sinus pressure and Denies other ( Thrush) Card Denies chest pain, Denies pedal edema, Denies dyspnea, Reports dyspnea on exertion, Denies orthopnea and Denies paroxysmal nocturnal dyspnea Resp Denies cough, Denies hemoptysis, Denies excessive phlegm production, Denies dyspnea, Reports dyspnea on exertion, Denies snoring and Denies wheezing GI Denies abdominal pain and Denies heartburn Musc Denies myalgias, Denies arthralgias and Denies joint swelling Skin/Breast Denies rash Neuro Denies memory loss and Denies seizure-like activity Psych Denies abnormal sleep pattern, Denies anxiety and Denies memory loss Endo Denies excessive sweating, Denies fatigue and Denies heat intolerance Alberto/Lymph Denies easy bruising Aller/Immun Denies itchy eyes, Denies seasonal rhinorrhea and Denies wheezing Physical Exam Vital Signs: Last Vital Signs Pulse 91 05/17/24 09:16 BP 138/82 05/17/24 09:16 Pulse Ox 99 05/17/24 09:16 Oxygen Delivery Method Room Air 05/17/24 09:16 BMI result Body Mass Index 21.1 Const General: no acute distress and alert Nutritional Appearance: not obese Orientation/consciousness: Other orientation findings ( oriented) HEENT Head: Yes atraumatic Eyes General: appearance normal, both eyes and all related structures Sclerae: sclerae normal EOM: EOMs intact bilaterally Neck Neck: Yes supple Lymphatic: no lymphadenopathy noted Resp Effort & Inspection: normal respiratory effort and no use of accessory muscles Auscultation: clear to auscultation bilaterally Cardio Rate: regular rate Rhythm: regular rhythm Heart sounds: no gallops, no murmurs and no rubs Skin General skin exam: other ( warm) Extrem General: No clubbing, No cyanosis and No edema Assessment & Plan Assessment & Plan (1) COPD (chronic obstructive pulmonary disease): Code(s): J44.9 - Chronic obstructive pulmonary disease, unspecified Category: Medical Plan: Suboptimally controlled on Symbicort, will switch to BrezTri. Continue duo nebs and albuterol MDI. (2) Personal history of nicotine dependence: Code(s): Z87.891 - Personal history of nicotine dependence Category: Medical Plan: Nicotine gum/loading just are not covered by his insurance. Will request nicotine inhaler. (3) TIM (obstructive sleep apnea): Code(s): G47.33 - Obstructive sleep apnea (adult) (pediatric) Category: Medical Plan: Reasonable control on CPAP therapy. Continue CPAP therapy. Medications: New [id number] 160-9-4.8 mcg/actuation (Breztri Aerosphere) 2 inhalations inhalation BID 1 ea 6RF nicotine (Nicotrol NS) administer into each nostril 1 spray intranasal BID 40 mL 3RF Discontinued Symbicort 160-4.5 mcg/actuation (budesonide-formoterol) Discontinued Reason: Doctor's Order 2 puffs inhalation Q12H 30 days 10.2 grams 6RF NS G47.33 - Obstructive sleep apnea (adult) (pediatric) Coding Level of Care Code Est Pt Level 4 (72689) Diagnoses COPD (chronic obstructive pulmonary disease) J44.9 Personal history of nicotine dependence Z87.891 TIM (obstructive sleep apnea) G47.33
== END 2024-05-17 09:33 | disposition home or self-care (01) ==
PROVIDERS: PCP Internal Medicine; Visit Provider Internal Medicine Pulmonary Disease
DX: J44.9 Chronic obstructive pulmonary disease, unspecified (principal); Z87.891 Personal history of nicotine dependence; G47.33 Obstructive sleep apnea (adult) (pediatric)
CPT/HCPCS: 99214

== ENCOUNTER → 2024-05-17 09:03 | Outpatient (BNVA) | payer MEDICARE, SELFPAY | PROVIDERS: PCP Internal Medicine; Visit Provider Internal Medicine Pulmonary Disease | DX: J44.9 Chronic obstructive pulmonary disease, unspecified (principal); G47.33 Obstructive sleep apnea (adult) (pediatric); R91.8 Other nonspecific abnormal finding of lung field; F17.210 Nicotine dependence, cigarettes, uncomplicated; Z99.89 Dependence on other enabling machines and devices | CPT/HCPCS: 99212 ==

== ENCOUNTER 2024-11-08 14:02 | Outpatient (AMB) | payer MEDICARE, SELFPAY ==
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
[2024-11-08 14:19] VITALS: BP 130/86; PULSE 99; O2SAT 99; BMI 21.1
== END 2024-11-08 15:09 | disposition home or self-care (01) ==
PROVIDERS: PCP Internal Medicine; Visit Provider Internal Medicine
DX: Z00.01 Encounter for general adult medical examination with abnormal findings (principal); D75.1 Secondary polycythemia; J44.9 Chronic obstructive pulmonary disease, unspecified; F17.210 Nicotine dependence, cigarettes, uncomplicated; L40.9 Psoriasis, unspecified

== ENCOUNTER → 2024-11-08 14:02 | Outpatient (BNVA) | payer MEDICARE, SELFPAY | PROVIDERS: PCP Internal Medicine; Visit Provider Internal Medicine | DX: Z00.01 Encounter for general adult medical examination with abnormal findings (principal); D75.1 Secondary polycythemia; J44.9 Chronic obstructive pulmonary disease, unspecified; L40.9 Psoriasis, unspecified; F17.210 Nicotine dependence, cigarettes, uncomplicated; Z71.6 Tobacco abuse counseling | CPT/HCPCS: 96127; 99397 ==

== ENCOUNTER 2024-11-10 11:23 | Outpatient (REF) | payer MEDICARE, SELFPAY ==
[2024-11-10 13:33] LABS: MANUAL DIFF FLAG NO
[2024-11-10 13:35] LABS: Basophils Absolute Auto 0.1 X10*3/uL (0.0-0.2); Basophils Percent Auto 0.8 % (0-2); Eosinophils Absolute Auto 0.1 X10*3/uL (0.0-0.4); Eosinophils Percent Auto 1.3 % (0-4); Hematocrit 39.9 % (42.0-52.0); Hemoglobin 13.6 g/dl (14.0-18.0); Imm Gran Abs Auto 0.04 X10*3/uL (0.00-0.03); Imm Gran Pct Auto 0.6 % (0.0-0.4); Lymphocytes Absolute Auto 1.8 X10*3/uL (1.2-4.9); Lymphocytes Percent Auto 24.9 % (20-40); Mean Corpuscular HGB Conc 34.1 g/dl (31.0-36.0); Mean Corpuscular Hemoglobin 31.8 pg (27.0-33.0); Mean Corpuscular Volume 93.2 fL (80.0-98.0); Mean Platelet Volume 10.1 fL (9.4-12.4); Monocytes Absolute Auto 0.7 X10*3/uL (0.1-1.2); Monocytes Percent Auto 9.8 % (2-11); Neutrophils Absolute Auto 4.5 x10*3/uL (2.0-8.3); Neutrophils Percent Auto 62.6 % (45-73); Platelet Count 238 X10*3/uL (160-400); Red Blood Count 4.28 X10*6/uL (4.60-5.80); Red Cell Distribution Width 12.5 % (11.0-16.0); White Blood Count 7.1 X10*3/uL (4.8-10.8)
[2024-11-10 13:58] LABS: Alanine Aminotransferase 14 U/L (0-40); Albumin Level 3.9 g/dL (3.5-5.0); Alkaline Phosphatase 187 U/L (39-117); Anion Gap 9 (12-20); Aspartate Amino Transferase 21 U/L (5-37); Bilirubin Total 0.6 mg/dL (0.0-1.0); Blood Urea Nitrogen 21 mg/dL (9-16); Calcium 9.6 mg/dL (8.4-10.2); Carbon Dioxide 29 mmol/L (22-29); Chloride 102 mmol/L (96-108); Cholesterol 134 mg/dL (<200); Estimated Glomerular Filt Rate > 60; Glucose Fasting 93 mg/dL (60-99); HDL Cholesterol 48 mg/dL (>40); LDL Cholesterol Calculated 70 mg/dL (<100); Potassium 4.3 mmol/L (3.3-5.1); Sodium 136 mmol/L (135-145); Total Protein 7.5 g/dL (6.5-8.0); Triglycerides 84 mg/dL (<150)
[2024-11-10 14:13] LABS: PSA,Total (Free>4and<10) 0.78 ng/mL (0.00-4.00); Vitamin D 25-OH Total 34.5 ng/mL (>30)
[2024-11-10 14:28] LABS: Folate > 20.0 ng/mL (> or = 4.0); Vitamin B12 455 pg/mL (200-900)
== END 2024-11-10 11:24 | disposition home or self-care (01) ==
LOC: HO.HMGCLDS 11:23
PROVIDERS: PCP Internal Medicine; Visit Provider Internal Medicine
DX: Z00.01 Encounter for general adult medical examination with abnormal findings (principal); R10.13 Epigastric pain; D75.1 Secondary polycythemia; F17.210 Nicotine dependence, cigarettes, uncomplicated; J44.9 Chronic obstructive pulmonary disease, unspecified; Z12.5 Encounter for screening for malignant neoplasm of prostate
CPT/HCPCS: 36415; 80053; 80061; 82306; 82607; 82746; 84153; 85025

== ENCOUNTER 2024-11-15 10:51 | Outpatient (REF) | payer MEDICARE, SELFPAY ==
--- NOTE | ~2024-11-15 | CT_ITS ---
CLINICAL HISTORY: F17.210 - Nicotine dependence, cigarettes, uncomplicated CT lung cancer screening (LDCT) Comparison: 04/15/2021 Technique: Axial CT images of the chest using low-dose technique. Referring provider counseled the patient on shared decision-making for LDCT screening. Additional counseling was provided on smoking cessation. Effective radiation dose total: DLP 35.8 mGycm, CTDIvol 0.9 mGy. Findings: Lung: No new solid or semi solid pulmonary lesion Coronary artery calcifications: Moderate Limited upper abdomen: Unremarkable Other: Pulmonary bullous disease with areas of scarring , unchanged Impression: Category 2: Benign appearance Category 1: Normal; continue annual screening Category 2: Benign appearance or behavior, continue annual screening Category 3: Probably benign, [address] recommended Category 4A: Suspicious, [address] recommended; may consider PET/CT Category 4B: Suspicious, Additional diagnostics and/or tissue sampling recommended Category 4X: Suspicious, Additional diagnostics and/or tissue sampling recommended Category 0: Recalls (incomplete screen due to Incomplete coverage, Noise, Respiratory motion, Expiration, Obscured by acute abnormality) This document has been electronically signed by: Phill Carranza MD on 11/16/2024 08:46:54
== END 2024-11-15 10:52 | disposition home or self-care (01) ==
LOC: HO.CT 10:51
PROVIDERS: PCP Family Medicine; Visit Provider Physician Assistant Medical
DX: Z12.2 Encounter for screening for malignant neoplasm of respiratory organs (principal); F17.210 Nicotine dependence, cigarettes, uncomplicated
CPT/HCPCS: 71271

== ENCOUNTER → 2024-11-15 10:53 | Outpatient (BNV) | payer MEDICARE, SELFPAY | PROVIDERS: PCP Family Medicine; Visit Provider Specialist | DX: F17.210 Nicotine dependence, cigarettes, uncomplicated (principal) | CPT/HCPCS: 71271 ==

== ENCOUNTER 2024-12-27 14:44 | Inpatient (IN) | payer MEDICARE, SELFPAY ==
[2024-12-27] VITALS (7 sets, daily range): BP systolic 87–114; BP diastolic 43–62; PULSE 77–93; RESP 18–24; TEMP 36.8; O2SAT 85–98; BMI 20.4
--- NOTE | ~2024-12-27 | XR_ITS ---
EXAMINATION: XR HIP, LEFT CLINICAL INFORMATION: s/p hip replacement COMPARISON: No priors. Correlated to CT abdomen and pelvis dated: June 08, 2022 and April 30, 2021. TECHNIQUE: Two views of the left hip. FINDINGS: There is an intramedullary micki in the proximal left femur anchored with the 2 femoral head neck screws and one screw distally in the proximal diaphysis. There is an intertrochanteric fracture with osteophyte formation and persistent lucency in the lesser trochanter. Probable heterotopic bone formation and the superior aspect of the greater trochanter. No gross loosening. No gross malalignment. XR/XR hip LT w PEL1V IMPRESSION: Nonunion intertrochanteric fracture fracture and status post open reduction internal fixation with metallic hardware left femur. Electronically signed by: Shashank Paredes MD 12/27/2024 03:58 PM XIAO GUARDADO
--- NOTE | ~2024-12-27 | XR_ITS ---
EXAMINATION: XR CHEST CLINICAL INFORMATION: cough, sob COMPARISON: February 17, 2024. TECHNIQUE: 2 views of the chest were obtained. FINDINGS: Segmental opacity involving the right middle lobe. No pleural effusion or pneumothorax. Pulmonary reticular pattern. Cardiomediastinal silhouette size is normal. Multilevel thoracic spondylosis. XR/XR chest 2V IMPRESSION: Acute airspace disease, pneumonia right middle lobe. Recommend follow-up until resolution. 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 Electronically signed by: Shashank Paredes MD 12/27/2024 03:54 PM EST
--- NOTE | ~2024-12-27 | US_ITS ---
CLINICAL HISTORY: LLE pain status post hip replacement, eval for dvt Venous duplex ultrasound left lower extremity Comparison: None Findings: The visualized deep veins are fully compressible with normal Doppler color flow and spectral tracings. No popliteal cyst. IMPRESSION: 1. Negative for left lower extremity deep vein thrombosis. This document has been electronically signed by: Valdo Frye MD on 12/27/2024 21:48:20
--- NOTE | 2024-12-27 15:19 | ECG_ITS ---
Test Reason : SOB Blood Pressure : */* mmHG Vent. Rate : 77 BPM Atrial Rate : 77 BPM P-R Int : 128 ms QRS Dur : 96 ms QT Int : 406 ms P-R-T Axes : 20 15 48 degrees QTcB Int : 459 ms Sinus rhythm with occasional Premature ventricular complexes Otherwise normal ECG When compared with ECG of 02-Sep-2023 10:14, Premature ventricular complexes are now Present Referred By: Viji Vilalseñor Electronically Signed By: KAREN DELEON MD
--- NOTE | 2024-12-27 15:24 | PC.NURSE ---
patient taken to xray and off floor at this time. delay in obtaining bcx and administering abx.
--- NOTE | 2024-12-27 15:39 | ED_ITS ---
HPI - SOB/Dyspnea General Chief Complaint: Dyspnea Stated Complaint: PNEUMONIA,DIFF BRTHG FOR 4 DAYS Time Seen by Provider: 12/27/24 15:11 Source: patient, EMS, RN notes reviewed and old records reviewed Mode of arrival: EMS History of Present Illness ED Provider: Viji Villaseñor PA-C HPI Narrative: 69-year-old male with a past medical history of ETOH abuse, CAD, COPD, HTN, TIM, GERD, presenting to the ED via EMS complaining of productive cough, SOB, myalgias, generalized fatigue x 5 days. Also reports chest pain this morning. Per EMS patient was at [facility] and had x-ray that showed right middle lobe consolidation, and desaturated to 92% at their facility. patient also reports acute on chronic left hip pain radiating down LLE s/p left hip replacement in September. Denies known fever, chills, travel, history of clots, sick contacts Related Data Home Medications ?Medication ?Instructions ?Recorded ?Confirmed acetaminophen 500 mg tablet 500 mg PO Q6H PRN 11/08/24 11/12/24 (Tylenol Extra Strength) folic acid 1 mg tablet 1 mg PO DAILY 11/08/24 11/12/24 oxycodone 5 mg tablet 5 mg PO BID PRN 11/08/24 11/12/24 Previous Rx's ?Medication ?Instructions ?Recorded clotrimazole-betamethasone 1 1 appl topical BID 10 days #45 08/18/23 %-0.05 % topical cream grams aspirin 81 mg tablet,delayed 81 mg PO DAILY #90 tabs 08/25/23 release ipratropium 0.5 mg-albuterol 3 mg 3 ml inhalation Q6-8H PRN for 10/19/23 (2.5 mg base)/3 mL nebulization wheezing #180 mL soln budesonide 160 mcg-glycopyr 9 2 inh inhalation BID #1 ea 05/17/24 mcg-formot 4.8 mcg/actuation HFA inhaler (Breztri Aerosphere) nicotine 10 mg/mL nasal spray 1 spray intranasal BID #40 mL 05/17/24 (Nicotrol NS) atorvastatin 20 mg tablet 20 mg PO BEDTIME #90 tabs 08/17/24 amlodipine 5 mg tablet 5 mg PO DAILY #90 tabs 08/21/24 hydrocortisone 2.5 % topical 1 appl topical DAILY 10 days #20 11/08/24 ointment grams triamcinolone acetonide 0.1 % 1 appl topical BID PRN rash on 11/08/24 topical cream arms 10 days #453.6 grams Allergies Allergy/AdvReac Type Severity Reaction Status Date / Time No Known Allergies Allergy Verified 12/27/24 15:02 Review of Systems 2 Review of Systems: Yes all other systems are reviewed and are negative Constitutional: Constitutional: Reports as per [facility] Past Medical History Attestation statement: The following information was validated with the patient. Source: old records reviewed Medical History History of fracture of left hip Alcoholism Grief at loss of child CAD (coronary artery disease) Coronary artery calcification seen on CT scan Aortic ectasia Essential hypertension COPD (chronic obstructive pulmonary disease) Nicotine dependence, cigarettes, uncomplicated TIM (obstructive sleep apnea) Polycythemia Elevated hemoglobin Macrocytosis without anemia GERD (gastroesophageal reflux disease) Tubular adenoma of colon Constipation Alcoholic gastritis History of small bowel obstruction Hx of urethral stricture Psoriasis Change in multiple pigmented skin lesions Refused influenza vaccine Pneumococcal vaccination declined Surgical History Status post open reduction and internal fixation (ORIF) of fracture History of colonoscopy History of esophagogastroduodenoscopy (EGD) Hx of varicose vein stripping Hx of elbow surgery Hx of bilateral inguinal hernia repair History of surgery Family History Family History Mother CAD (coronary artery disease) Maternal Grandfather Brain tumor Maternal Uncle Eye cancer Social History Social History Household Members: Other Household Members Other:: Uncle Housing: House Are you a primary behavioral health care coordinator to a significant other at home: No Do you presently have visiting nurse or other home services: No Alcohol intake: current Alcohol intake frequency: a few times a month Comment: pt refused high fall risk Patient Tobacco Use Status: Current everyday Tobacco user Tobacco use type: Cigarette Cigarette Packs Per Day: 0.5 Cigarettes Per Day: 10.0 Years Smoked: 50 e-Cigarette/Vaping Use: Never Used Second Hand Smoke Exposure: No Substance Use Type: Marijuana Advance Directives: No Advance Directives Information Provided: No Do you have a plan to hurt others: No Plan service: No Current occupational status: retired Cognitive needs: No Hearing needs: No Vision needs: No Physical Exam 2 Vital Signs: Vital Signs: Last Vital Signs Temp 98.2 F 12/27/24 15:01 Pulse 93 12/27/24 16:50 Resp 18 12/27/24 16:50 BP 114/48 L 12/27/24 16:50 Pulse Ox 98 12/27/24 16:50 O2 Del Method Room Air 12/27/24 16:50 BMI result Body Mass Index 20.4 Const: General: cooperative, healthy appearing and no acute distress O rientation/consciousness: patient oriented x3 Limitations: no limitations HEENT: Head: Yes normal to inspection and Yes atraumatic Ears: hearing grossly normal bilaterally General nose exam: Normal external nose present Face and sinus: Yes normal facial exam Eyes: General: appearance normal, both eyes and all related structures EOM: EOMs intact bilaterally Neck: Neck: Yes normal visual inspection and Yes no meningeal signs Resp: Effort & Inspection: normal respiratory effort and no respiratory distress Auscultation: clear to auscultation bilaterally, no crackles, no wheezes and diminished lung sounds ( bibasilar) Cardio: Rate: regular rate Heart sounds: S1 normal heart sound present and S2 normal heart sound present GI: Inspection: Yes normal to inspection Palpation (GI): Soft to palpation, nontender, no guarding and not rigid : General: Yes no CVA tenderness Back/Spine/Pelvis: Back: no CVA tenderness Skin: Rashes: no rashes Wounds: no wounds Neuro: General: patient oriented x3, tone normal and no meningeal signs C ranial nerves: Yes CN's II-XII intact bilaterally Gait exam (Neuro): Normal gait present Extrem: Other: left hip without appreciable deformity. Pelvis stable. Reproducible left hip tenderness. Limited ROM secondary to pain. Neurovascularly intact distally. + left calf tenderness. No LLE pitting edema General: Yes normal to inspection Course Course Course Narrative: XR hip LT w PEL1V IMPRESSION: Nonunion intertrochanteric fracture fracture and status post open reduction internal fixation with metallic hardware left femur. > discussed with orthopedic JEFF Valdez who will review images XR chest 2V IMPRESSION: Acute airspace disease, pneumonia right middle lobe. Recommend follow-up until resolution. 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 > empiric IV Rocephin ordered. -1648-- Leukocytosis of 23.8. Mild anemia. BUN acute on chronically elevated > suspect from dehydration > Will discuss case with hospitalist, plan for admission. Medications Administered Generic Name Dose Route Start Last Admin Trade Name Freq PRN Reason Stop Dose Admin Sodium Chloride 1,000 mls @ 999 mls/hr 12/27/24 16:30 12/27/24 17:09 Ns IV 12/27/24 17:30 Infused .Q1H1M DEJAN Infusion Azithromycin 500 mg/ Sodium 250 mls @ 125 mls/hr 12/27/24 16:27 12/27/24 16:45 Chloride IV 12/27/24 18:26 125 mls/hr ONCE ONE Administration Lactated Ringer's 1,000 mls @ 999 mls/hr 12/27/24 16:45 12/27/24 17:09 Lr IV 12/27/24 17:45 999 mls/hr .Q1H1M DEJAN Administration Discontinued Medications Generic Name Dose Route Start Last Admin Trade Name Freq PRN Reason Stop Dose Admin Ceftriaxone Sodium 1 gm 12/27/24 15:22 12/27/24 16:18 Ceftriaxone Sodium 1 Gm Vial IVPUSH 12/27/24 15:23 1 gm ONCE ONE Administration Albuterol Sulfate 2.5 mg/ 0 mg 12/27/24 15:50 12/27/24 15:53 Albuterol/Ipratropium 3 ml INHALE 12/27/24 15:51 5 dose ONCE ONE Administration Sodium Chloride 1,000 mls @ 999 mls/hr 12/27/24 15:30 12/27/24 17:01 Ns IV 12/27/24 16:30 Infused .Q1H1M DEJAN Infusion Medical Decision Making Medical Decision Making [facility] Narrative: 15:48 - 69-year-old male with a past medical history of ETOH abuse, CAD, COPD, HTN, TIM, GERD, presenting to the ED via EMS complaining of productive cough, SOB, myalgias, generalized fatigue x 5 days. Also reports chest pain this morning. On exam mildly tachypneic, satting 95% on RA, diminished lung sounds bibasilarly, talking in complete sentences, of calf tenderness appreciated with reproducible left hip tenderness /limited ROM secondary to pain. Concern for viral illness vs pneumonia vs bronchitis. Concern for DVT. PE on differential however lower at this time without tachycardia/hypoxia. Cannot PERC out due to age plan: EKG, labs, CXR, viral testing, hip x-ray, venous duplex ultrasound, empiric antibiotics, ED bronch protocol, re-evaluate. low suspicion for severe sepsis at this time Please refer to course for remaining clinical decision making, interpretation of labs/imaging results, and discussions with consultants and/or family members. Differential Diagnosis Differential Diagnoses: The differential diagnosis associated with the presentation includes As above Admission/Observation Consideration of admission/observation: Escalation of care including admission/observation considered Lab Data MDM Lab Attestation statement: I reviewed the patient's lab results. 12/27/24 16:14 12/27/24 16:14 Labs: Lab Results 12/27/24 12/27/24 Range/Units 16:12 16:14 WBC 23.8 H (4.8-10.8) X10*3/uL RBC 3.46 L (4.60-5.80) X10*6/uL Hgb 11.0 L (14.0-18.0) g/dl Hct 32.1 L (42.0-52.0) % MCV 92.8 (80.0-98.0) fL MCH 31.8 (27.0-33.0) pg MCHC 34.3 (31.0-36.0) g/dl RDW 12.6 (11.0-16.0) % Plt Count 162 D (160-400) X10*3/uL MPV 10.0 (9.4-12.4) fL Immature Gran % (Auto) 0.9 H (0.0-0.4) % Neut % (Auto) 87.6 H (45-73) % Lymph % (Auto) 5.3 L (20-40) % [place] % (Auto) 6.0 (2-11) % Eos % (Auto) 0.0 (0-4) % Baso % (Auto) 0.2 (0-2) % Lymph # (Auto) 1.3 (1.2-4.9) X10*3/uL [place] # (Auto) 1.4 H (0.1-1.2) X10*3/uL Eos # (Auto) 0.0 (0.0-0.4) X10*3/uL Baso # (Auto) 0.0 (0.0-0.2) X10*3/uL Abs Immat Gran (auto) 0.22 H (0.00-0.03) X10*3/uL Absolute Neuts (auto) 20.9 H (2.0-8.3) x10*3/uL Absolute Nucleated RBC 0.000 (0.0-0.012) X10*3/uL Nucleated RBC % (auto) 0.0 (0.0-0.2) /100WBC Sodium 135 (135-145) mmol/L Potassium 4.0 (3.3-5.1) mmol/L Chloride 102 (96-108) mmol/L Carbon Dioxide 25 (22-29) mmol/L Anion Gap 12 (12-20) BUN 24 H (9-16) mg/dL Creatinine 1.35 (0.5-1.4) mg/dL Estim Creat Clear Calc 45.8 Estimated GFR 53 Random Glucose 139 H (60-115) mg/dL Lactic Acid 1.8 (0.5-2.0) mmol/L Calcium 9.2 (8.4-10.2) mg/dL Magnesium 1.6 (1.6-2.6) mg/dL Total Bilirubin 0.5 (0.0-1.0) mg/dL Direct Bilirubin 0.2 (0.0-0.5) mg/dL AST 24 (5-37) U/L ALT 13 (0-40) U/L Alkaline Phosphatase 97 (39-117) U/L Troponin I High Sens 4.9 D (<3.5-35.0) ng/L B-Natriuretic Peptide 107 H (<100) pg/mL Total Protein 7.0 (6.5-8.0) g/dL Albumin 3.4 L (3.5-5.0) g/dL Influenza Type A (PCR) NEGATIVE (Negative) Influenza Type B (PCR) NEGATIVE (Negative) RSV RNA Qual (PCR) NEGATIVE (Negative) SARS-CoV-2 RNA (RT-PCR) NEGATIVE (Negative) Independent Interpretation I performed an independent interpretation of an: EKG, Plain X-Ray and Ultrasound Radiology Impression Discussion of test interpretation with radiology: I have reviewed the radiologist's reading. Independent Historian Clinical information obtained from an independent historian. History obtained from or confirmed by: EMS External Record Review External record reviewed: Inpatient record, Office record, Outpatient record, Prior outpatient labs, Prior outpatient radiology, Primary care record and Outside ED record Tests considered The following testing was considered but not selected: As above Prescription Management I considered prescription management with: Pain Medication and Antibiotic Chronic Conditions Patient?s care impacted by: Other ( COPD) Social Determinants Patient?s care significantly limited by Social Determinants of Health including: Other Social Determinant of Health Critical Care Time Critical Care Time Critical Care Time: Yes Total Critical Care Time: 45 Attestation: I have personally provided critical care time exclusive of time spent on separately billable procedures. Time includes review of lab data, radiology results, discussion with consultants, and monitoring for potential decompensation. Intervention performed as documented. Discharge Plan Discharge Clinical Impression: Pneumonia Patient Disposition: Admitted As Inpatient Print Language: Tamazight
[2024-12-27] MEDS: Albuterol Sulfate 2.5 MG, Albuterol/Iprat 2.5/0.5MG 3 ML 3 ML INHALE (15:53)
[2024-12-27] MEDS: 0.9 % Sodium Chloride 1,000 ML 999 ML IV ×3 (16:00→20:45)
[2024-12-27] MEDS: cefTRIAXone sodium 1 GM VIAL IVPUSH (16:18)
[2024-12-27 16:26] LABS: Basophils Percent Auto 0.2 % (0-2); Hematocrit 32.1 % (42.0-52.0); Imm Gran Abs Auto 0.22 X10*3/uL (0.00-0.03); Imm Gran Pct Auto 0.9 % (0.0-0.4); Lymphocytes Absolute Auto 1.3 X10*3/uL (1.2-4.9); Lymphocytes Percent Auto 5.3 % (20-40); MANUAL DIFF FLAG SCAN; Mean Corpuscular HGB Conc 34.3 g/dl (31.0-36.0); Mean Corpuscular Hemoglobin 31.8 pg (27.0-33.0); Mean Corpuscular Volume 92.8 fL (80.0-98.0); Monocytes Absolute Auto 1.4 X10*3/uL (0.1-1.2); Neutrophils Absolute Auto 20.9 x10*3/uL (2.0-8.3); Neutrophils Percent Auto 87.6 % (45-73); Platelet Count 162 X10*3/uL (160-400); Red Blood Count 3.46 X10*6/uL (4.60-5.80); Red Cell Distribution Width 12.6 % (11.0-16.0); SCAN SMEAR FLAG 1; White Blood Count 23.8 X10*3/uL (4.8-10.8)
[2024-12-27 16:39] LABS: Lactic Acid 1.8 mmol/L (0.5-2.0)
[2024-12-27 16:45] LABS: B Type Natriuretic Peptide 107 pg/mL (<100)
[2024-12-27] MEDS: Azithromycin 500 MG in 0.9 % Sodium Chloride 250 ML 125 MG IV (16:45)
[2024-12-27 16:47] LABS: Alanine Aminotransferase 13 U/L (0-40); Albumin Level 3.4 g/dL (3.5-5.0); Alkaline Phosphatase 97 U/L (39-117); Anion Gap 12 (12-20); Aspartate Amino Transferase 24 U/L (5-37); Bilirubin Direct 0.2 mg/dL (0.0-0.5); Bilirubin Total 0.5 mg/dL (0.0-1.0); Blood Urea Nitrogen 24 mg/dL (9-16); Calcium 9.2 mg/dL (8.4-10.2); Carbon Dioxide 25 mmol/L (22-29); Chloride 102 mmol/L (96-108); Creatinine Clr Calc Pharmacy 45.8; Estimated Glomerular Filt Rate 53; Glucose Random 139 mg/dL (60-115); Magnesium 1.6 mg/dL (1.6-2.6); Sodium 135 mmol/L (135-145)
[2024-12-27 16:48] LABS: Troponin-I High Sensitivity 4.9 ng/L (<3.5-35.0)
[2024-12-27 17:04] LABS: Influenza A PCR NEGATIVE (Negative); Influenza B PCR NEGATIVE (Negative); Resp Syncy Virus RNA Qual PCR NEGATIVE (Negative); SARS COV2 PCR INHOUSE NEGATIVE (Negative)
[2024-12-27] MEDS: Lactated Ringers 1,000 ML 999 ML IV (17:09)
[2024-12-27 17:50] LABS: SLIDE REVIEW VERIFIED
--- NOTE | 2024-12-27 18:08 | P.HPHOSP_ITS ---
History of Present Illness Date of Service: 12/27/24 Chief Complaint: Cough, SOB A 69 years old male with PMH of HTN, ETOH abuse, CAD, COPD, COPD, GERD among others who presents to the hospital complianing of 5 days cough, weakness and shortness of breath. The patient reports that symptoms started with muscle weakness and cough and has been getting worse with reported chills, myalgia and worsening dyspnea on exertion and chest pain. No palpitations, nausea, vomiting, diarrhea or urinary symptoms. He also reports LLE pain in his hip CXR showed RML infiltrates with drop in O2 sat in ED. with elevated WBCs and acute kidney injury. Admitted for further work up and treatment. , Review of Systems 2 Review of Systems: No fever but has, chills or weakness chest pain, no palpitation shortness of breath and coughing No abdominal pain, nausea or vomiting No urinary symptoms No any rash or wounds PMFSH Medical History History of fracture of left hip Alcoholism Grief at loss of child CAD (coronary artery disease) Coronary artery calcification seen on CT scan Aortic ectasia Essential hypertension COPD (chronic obstructive pulmonary disease) Nicotine dependence, cigarettes, uncomplicated TIM (obstructive sleep apnea) Polycythemia Elevated hemoglobin Macrocytosis without anemia GERD (gastroesophageal reflux disease) Tubular adenoma of colon Constipation Alcoholic gastritis History of small bowel obstruction Hx of urethral stricture Psoriasis Change in multiple pigmented skin lesions Refused influenza vaccine Pneumococcal vaccination declined Family History Mother CAD (coronary artery disease) Maternal Grandfather Brain tumor Maternal Uncle Eye cancer Surgical History Status post open reduction and internal fixation (ORIF) of fracture History of colonoscopy History of esophagogastroduodenoscopy (EGD) Hx of varicose vein stripping Hx of elbow surgery Hx of bilateral inguinal hernia repair History of surgery Social History Household Members: Other Household Members Other:: Uncle Housing: House Are you a primary customer care assistant to a significant other at home: No Do you presently have visiting nurse or other home services: No Unable to assess alcohol history related to: Unknown Alcohol intake: current Alcohol intake frequency: a few times a month Comment: pt refused high fall risk Patient Tobacco Use Status: Current everyday Tobacco user Tobacco use type: Cigarette Cigarette Packs Per Day: 0.5 Cigarettes Per Day: 10.0 Years Smoked: 50 Smoked in Last 30 Days: No e-Cigarette/Vaping Use: Never Used Second Hand Smoke Exposure: No Use of substances other than those prescribed or required for medical reasons: Unknown Substance Use Type: Marijuana Advance Directives: No Advance Directives Information Provided: No Do you have a plan to hurt others: No Plan service: No Current occupational status: retired Cognitive needs: No Hearing needs: No Vision needs: No Meds Allergies Allergy/AdvReac Type Severity Reaction Status Date / Time No Known Allergies Allergy Verified 12/27/24 15:02 Active Medications: Current Medications Azithromycin 500 mg/ Sodium (Chloride) 250 mls @ 125 mls/hr IV ONCE ONE Stop: 12/27/24 18:26 Last Admin: 12/27/24 16:45 Dose: 125 mls/hr Home Medications ?Medication ?Instructions ?Recorded ?Confirmed ?Last Taken ?Type acetaminophen 500 mg tablet 500 mg PO Q6H PRN Pain 11/08/24 12/27/24 Unknown History (Tylenol Extra Strength) cholecalciferol (vitamin D3) 1,250 1,250 mcg PO FR 12/27/24 12/27/24 12/20/24 History mcg (50,000 unit) capsule hydrocortisone 2.5 % topical 1 appl topical DAILY PRN 12/27/24 12/27/24 Unknown History ointment Pain/Itching nicotine 10 mg/mL nasal spray 1 spray intranasal BID PRN 12/27/24 12/27/24 12/26/24 History (Nicotrol NS) Nicotine Cravings Physical Exam 2 Vital Signs and Narrative: Vital Signs: Last Vital Signs Temp 98.2 F 12/27/24 15:01 Pulse 93 12/27/24 16:50 Resp 18 12/27/24 16:50 BP 114/48 L 12/27/24 16:50 Pulse Ox 98 12/27/24 16:50 O2 Del Method Room Air 12/27/24 16:50 BMI result Body Mass Index 20.4 Const: Other: Constitutional : Awake, interactive, not in distress Neck : Normal inspection, Supple Cardiovascular : RRR, no JVP, no lower extremity edema Respiratory : fair bilateral air entry, right sided basal crackles, no wheezes Gastrointestinal: soft, lax, Normal bowel sounds, Non tender Skin : Warm, Dry Neurological : Alert & oriented x3, No focal deficit Results Labs 12/27/24 16:14 12/27/24 16:14 Labs: Laboratory Results - last 24 hr 12/27/24 12/27/24 16:12 16:14 MCV 92.8 MCH 31.8 MCHC 34.3 RDW 12.6 Plt Count 162 D MPV 10.0 Immature Gran % (Auto) 0.9 H Neut % (Auto) 87.6 H Lymph % (Auto) 5.3 L [place] % (Auto) 6.0 Eos % (Auto) 0.0 Baso % (Auto) 0.2 Lymph # (Auto) 1.3 [place] # (Auto) 1.4 H Eos # (Auto) 0.0 Baso # (Auto) 0.0 Abs Immat Gran (auto) 0.22 H Absolute Neuts (auto) 20.9 H Absolute Nucleated RBC 0.000 Nucleated RBC % (auto) 0.0 Smear Tech's Comments VERIFIED Anion Gap 12 Estim Creat Clear Calc 45.8 Estimated GFR 53 Random Glucose 139 H Lactic Acid 1.8 Calcium 9.2 Magnesium 1.6 Total Bilirubin 0.5 Direct Bilirubin 0.2 AST 24 ALT 13 Alkaline Phosphatase 97 B-Natriuretic Peptide 107 H Total Protein 7.0 Albumin 3.4 L Influenza Type A (PCR) NEGATIVE Influenza Type B (PCR) NEGATIVE RSV RNA Qual (PCR) NEGATIVE SARS-CoV-2 RNA (RT-PCR) NEGATIVE Imaging Radiologist's Impressions: Impressions Hip/Pelvis X-Ray 12/27/24 15:19 IMPRESSION: Nonunion intertrochanteric fracture fracture and status post open reduction internal fixation with metallic hardware left femur. Electronically signed by: Shashank Paredes MD 12/27/2024 03:58 PM EST RP Chest X-Ray 12/27/24 15:20 IMPRESSION: Acute airspace disease, pneumonia right middle lobe. Recommend follow-up until resolution. 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 Electronically signed by: Shashank Paredes MD 12/27/2024 03:54 PM EST RP Assessment and Plan (1) Pneumonia: Status: Acute (2) Sepsis: Status: Acute (3) Acute kidney injury: Status: Acute Plan A 69 years old male with PMH of HTN, ETOH abuse, CAD, COPD, COPD, GERD among others who presents to the hospital complianing of 5 days cough, weakness and shortness of breath. Sepsis 2/2 Community aquired pneumonia Tachypnea, Leukocytosis with normal LA CXR showing RML infiltrates Ceftriaxone and Azithromycin Cough medicine O2 as needed pending cultures Acute kidney injury Cr 1.35 from 0.8 Start gentle hydration urine studies Left hip pain XR as reported Orthopedic consult Hx Alcoholism denies drinking Smoking NRT COPD PRN Albuterol CAD ASA, statin HTN Amlodipine DVT PPx Lovenox The patient will need 2 overnight hospital stay for treatment of sepsis from pneumonia with IV antiibotics pending final cultures Quality Stroke Does the patient have a stroke diagnosis?: No VTE Prior VTE?: No VTE Risk Level:: Medical - moderate - high VTE Device Contraindication: Treatment Not Indicated VTE Drug Contraindication: N/A - Med Ordered
--- NOTE | 2024-12-27 18:13 | PHA.MEDREC ---
Pharmacy Consult ? Medication Reconciliation Pharmacy has completed the medication reconciliation. Spoke with patient and he confirmed his medications. Patient claims he is still taking the Amlodipine 5mg tab once a day and stated he last took that yesterday and is filling it at [facility] in [place]; I called his [facility] and they confirmed the patient has not picked up the Amlodipine 5mg tab since 05/21/2024 for 90 days and then said he had another script filled in August that the patient never picked up. Patient confirmed his Vitamin D3 tablet once a week and confirmed he takes it on Fridays and took it this past Tuesday. Patient last took his medications yesterday.
[2024-12-27] MEDS: ondansetron HCL 4 MG/2 ML VIAL IVPUSH (18:38)
[2024-12-27] MEDS: Ketorolac Tromethamine 15 MG/ML VIAL IVPUSH (18:38)
[2024-12-27] MEDS: Lactated Ringers 1,000 ML 80 ML IVCONT (18:48)
[2024-12-27] MEDS: Morphine Sulfate 2 MG/ML CARTRIDGE IVPUSH (19:10)
--- OUTSIDE RECORDS SUMMARY | 2024-12-27 19:13 | XMS_ITS | Clinical Summary ---
Author Organization [facility] Address [address] [place] [address] Care Team Providers Care Law [employer] Consultant Name Role Phone Unavailable Primary Care Provider Unavailabl e Social History Tobacco Use Types Packs/Day Years Used Date Smoking Tobacco: Never Assessed Sex and Gender Information Value Date Recorded Sex Assigned at Not on file Legal Sex Male 1:11 PM EST Gender Identity Not on file Sexual Orientation Not on file Plan of Treatment Health Maintenance Due Date Last Done Comments DTaP,Tdap,and Td Vaccines (1 - Tdap) 1976 Pneumococcal Vaccine: 50+ Ye ars (1 of 1 - PCV) 2007 Zoster Vaccines (1 of 2) 2007 COVID-19 Vaccine (1 - 2023-2 5 season) 2024 Influenza Vaccine (#1) 2024 RSV Immunization Patients 60 + Years Old (1 - 1-dose 75+ series) 2032 HIB Vaccines Aged Out No longer eligi ble based on patient's age to complete this topic HPV Vaccines Aged Out No longer eligi ble based on patient's age to complete this topic Hepatitis A Vaccines Aged Out No long er eligible based on patient's age to complete this topic Hepatitis B Vaccines Aged Out No long er eligible based on patient's age to complete this topic IPV Vaccines Aged Out No longer eligi ble based on patient's age to complete this topic MMR Vaccines Aged Out No longer eligi ble based on patient's age to complete this topic Meningococcal ACWY Vaccine Aged Out N o longer eligible based on patient's age to complete this topic Meningococcal B Vacine Aged Out No lo nger eligible based on patient's age to complete this topic RSV Immunization Patients Un tyrel 20 months Aged Out No longer eligible b ased on patient's age to complete this topic Varicella Vaccines Aged Out No longer eligible based on patient's age to complete this topic Advance Directives Documents on File Type Date Recorded 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
[2024-12-27] MEDS: Atorvastatin Calcium 20 MG TABLET PO (21:59)
[2024-12-27] MEDS: Heparin Sodium,Porcine 5,000 UNIT/ML VIAL 5000 UNIT SUBCUT (21:59)
[2024-12-28] VITALS (10 sets, daily range): BP systolic 99–139; BP diastolic 52–71; PULSE 70–83; RESP 18–27; TEMP 36–37; O2SAT 91–99; BMI 20.4
[2024-12-28] MEDS: Benzonatate 100 MG CAPSULE PO ×2 (01:18→09:35)
[2024-12-28] MEDS: HYDROmorphone HCl 0.5 MG/0.5 ML SYRINGE IVPUSH (01:26)
[2024-12-28] MEDS: Lactated Ringers 1,000 ML 80 ML IVCONT (06:20)
[2024-12-28] MEDS: oxyCODONE HCl Immed Release 5 MG TABLET PO ×2 (06:26→12:30)
[2024-12-28 06:40] LABS: MANUAL DIFF FLAG NO
[2024-12-28 06:52] LABS: Basophils Percent Auto 0.2 % (0-2); Eosinophils Percent Auto 0.3 % (0-4); Hematocrit 31.3 % (42.0-52.0); Hemoglobin 10.8 g/dl (14.0-18.0); Imm Gran Abs Auto 0.15 X10*3/uL (0.00-0.03); Imm Gran Pct Auto 0.9 % (0.0-0.4); Lymphocytes Absolute Auto 1.1 X10*3/uL (1.2-4.9); Lymphocytes Percent Auto 7.2 % (20-40); Mean Corpuscular HGB Conc 34.5 g/dl (31.0-36.0); Mean Corpuscular Hemoglobin 32.4 pg (27.0-33.0); Mean Platelet Volume 9.9 fL (9.4-12.4); Monocytes Absolute Auto 0.9 X10*3/uL (0.1-1.2); Monocytes Percent Auto 5.7 % (2-11); Neutrophils Absolute Auto 13.6 x10*3/uL (2.0-8.3); Neutrophils Percent Auto 85.7 % (45-73); Platelet Count 145 X10*3/uL (160-400); Red Blood Count 3.33 X10*6/uL (4.60-5.80); Red Cell Distribution Width 12.8 % (11.0-16.0); White Blood Count 15.8 X10*3/uL (4.8-10.8)
[2024-12-28 07:01] LABS: Anion Gap 10 (12-20); Blood Urea Nitrogen 19 mg/dL (9-16); Calcium 8.4 mg/dL (8.4-10.2); Carbon Dioxide 23 mmol/L (22-29); Chloride 109 mmol/L (96-108); Creatinine Clr Calc Pharmacy 77.3; Estimated Glomerular Filt Rate > 60; Glucose Random 89 mg/dL (60-115); Potassium 4.2 mmol/L (3.3-5.1); Sodium 138 mmol/L (135-145)
[2024-12-28 07:10] LABS: Appearance Urine Clear; Color Urine Yellow; Glucose Urine UA Negative (Negative); Leukocyte Esterase Urine Negative (Negative); Nitrite Urine Negative (Negative); PH 5.5 (5.0-9.0); Urine Blood Negative (Negative); Urine Ketones Negative (Negative); Urine Protein Trace mg/dL (Neg-Trace)
[2024-12-28 07:22] LABS: Bacteria Urine None Seen (None Seen); Hyaline Casts Urine 0-2 /LPF (0-2); RBC Urine 0-2 /HPF (0-2); Squamous Epithelial Cell Urine 0-2 /HPF (0-2); WBC Urine 0-5 /HPF (0-5)
[2024-12-28] MEDS: Aspirin Enteric Coated 81 MG TABLET.DR PO (09:29)
[2024-12-28] MEDS: Heparin Sodium,Porcine 5,000 UNIT/ML VIAL 5000 UNIT SUBCUT ×2 (09:30→19:52)
[2024-12-28] MEDS: Famotidine 20 MG TABLET PO (09:30)
--- NOTE | 2024-12-28 09:43 | P.CONOP_ITS ---
History of Present Illness HPI Consult date: 12/28/24 Chief complaint: cough, SOB Narrative: 69-year-old male admitted to the hospital for evaluation and treatment of pneumonia Patient was status post IM nail of left hip in September of last year at [facility] Patient reports that he has been doing well with rehab and home therapy, but reports that when he switched to outpatient therapy he began to experience increasing discomfort in the left leg Patient reports that this pain is primarily in the anterior aspect of the proximal leg, the lateral hip, but does sometimes move into the groin Patient reports that he does have an appointment with [facility] on 01/08/2025 No other acute complaints or concerns at this time Review of Systems 2 Review of Systems: Yes all other systems are reviewed and are negative [facility] Past Medical History Medical History History of fracture of left hip Alcoholism Grief at loss of child CAD (coronary artery disease) Coronary artery calcification seen on CT scan Aortic ectasia Essential hypertension COPD (chronic obstructive pulmonary disease) Nicotine dependence, cigarettes, uncomplicated TIM (obstructive sleep apnea) Polycythemia Elevated hemoglobin Macrocytosis without anemia GERD (gastroesophageal reflux disease) Tubular adenoma of colon Constipation Alcoholic gastritis History of small bowel obstruction Hx of urethral stricture Psoriasis Change in multiple pigmented skin lesions Refused influenza vaccine Pneumococcal vaccination declined Family History Family History Mother CAD (coronary artery disease) Maternal Grandfather Brain tumor Maternal Uncle Eye cancer Surgical History Surgical History Status post open reduction and internal fixation (ORIF) of fracture History of colonoscopy History of esophagogastroduodenoscopy (EGD) Hx of varicose vein stripping Hx of elbow surgery Hx of bilateral inguinal hernia repair History of surgery Social History Social History Household Members: Other Household Members Other:: Uncle Housing: House Are you a primary post acute care nurse to a significant other at home: No Do you presently have visiting nurse or other home services: No Unable to assess alcohol history related to: Unknown Alcohol intake: current Alcohol intake frequency: a few times a month Comment: pt refused high fall risk Patient Tobacco Use Status: Current everyday Tobacco user Tobacco use type: Cigarette Cigarette Packs Per Day: 0.5 Cigarettes Per Day: 10.0 Years Smoked: 50 Smoked in Last 30 Days: No e-Cigarette/Vaping Use: Never Used Second Hand Smoke Exposure: No Use of substances other than those prescribed or required for medical reasons: Unknown Substance Use Type: Marijuana Advance Directives: No Advance Directives Information Provided: No Do you have a plan to hurt others: No Plan service: No Current occupational status: retired Cognitive needs: No Hearing needs: No Vision needs: No Meds Allergies Allergy/AdvReac Type Severity Reaction Status Date / Time No Known Allergies Allergy Verified 12/27/24 15:02 Active Medications: Current Medications Acetaminophen (Acetaminophen 325 Mg Tablet) 650 mg PO Q6H PRN PRN Reason: Pain, Mild 1-3,fever,headache Albuterol/Ipratropium (Albuterol/Iprat 2.5/0.5mg 3 Ml Ampul.Neb) 3 ml INHALE Q4H PRN PRN Reason: Shortness of Breath/Wheezing Amlodipine Besylate (Amlodipine Besylate 5 Mg Tablet) 5 mg PO DAILY [facility]; Protocol Last Admin: 12/28/24 09:31 Dose: Not Given Aspirin (Aspirin Enteric Coated 81 Mg Tablet.Dr) 81 mg PO DAILY [facility] Last Admin: 12/28/24 09:29 Dose: 81 mg Atorvastatin Calcium (Atorvastatin Calcium 20 Mg Tablet) 20 mg PO BEDTIME [facility] Last Admin: 12/27/24 21:59 Dose: 20 mg Benzonatate (Benzonatate 100 Mg Capsule) 100 mg PO TID PRN PRN Reason: Cough Last Admin: 12/28/24 09:35 Dose: 100 mg Calcium Carbonate (Calcium Carbonate 750 Mg Tab.Chew) 750 mg PO Q4H PRN PRN Reason: Heartburn Ceftriaxone Sodium (Ceftriaxone Sodium 1 Gm Vial) 1 gm IVPUSH Q24H [facility] Famotidine (Famotidine 20 Mg Tablet) 20 mg PO DAILY [facility] Last Admin: 12/28/24 09:30 Dose: 20 mg Heparin Sodium (Porcine) (Heparin Sodium,Porcine 5,000 Unit/Ml Vial) 5,000 unit SUBCUT Q12H [facility] Last Admin: 12/28/24 09:30 Dose: 5,000 unit Azithromycin 500 mg/ Sodium (Chloride) 250 mls @ 125 mls/hr IV Q24H [facility] Lactated Ringer's (Lr) 1,000 mls @ 80 mls/hr IVCONT .[id number] [facility] Last Admin: 12/28/24 06:20 Dose: 80 mls/hr Magnesium Hydroxide (Milk Of Magnesia 30 Ml Oral.Susp) 30 ml PO DAILY PRN PRN Reason: Constipation Melatonin (Melatonin 3 Mg Tablet) 6 mg PO BEDTIME PRN PRN Reason: Insomnia Nicotine (Nicotine 14 Mg Patch.Td24) 14 mg TRANSDERMA DAILY [facility] Last Admin: 12/28/24 09:31 Dose: Not Given Ondansetron HCl (Ondansetron Hcl 4 Mg/2 Ml Vial) 4 mg IVPUSH Q8H PRN PRN Reason: Nausea and Vomiting Last Admin: 12/27/24 18:38 Dose: 4 mg Oxycodone HCl (Oxycodone Hcl Immed Release 5 Mg Tablet) 5 mg PO Q6H PRN PRN Reason: Pain, Severe (Pain Scale 7-10) Last Admin: 12/28/24 06:26 Dose: 5 mg Sodium Chloride (0.9 % Sodium Chloride Flush 3 Ml Syringe) [facility] Last Admin: 12/28/24 08:06 Dose: Not Given Triamcinolone Acetonide (Triamcinolone Acet 0.1 % Cream 15 Gm Tube) 1 appl TOPICAL BID PRN; Protocol PRN Reason: rash on arms Home Medications ?Medication ?Instructions ?Recorded ?Confirmed ?Last Taken ?Type acetaminophen 500 mg tablet 500 mg PO Q6H PRN Pain 11/08/24 12/27/24 Unknown History (Tylenol Extra Strength) cholecalciferol (vitamin D3) 1,250 1,250 mcg PO FR 12/27/24 12/27/24 12/20/24 History mcg (50,000 unit) capsule hydrocortisone 2.5 % topical 1 appl topical DAILY PRN 12/27/24 12/27/24 Unknown History ointment Pain/Itching nicotine 10 mg/mL nasal spray 1 spray intranasal BID PRN 12/27/24 12/27/24 12/26/24 History (Nicotrol NS) Nicotine Cravings Physical Exam 2 Vital Signs: Vital Signs: Last Vital Signs Temp 98.6 F 12/28/24 08:23 Pulse 71 12/28/24 08:23 Resp 22 H 12/28/24 08:23 BP 99/52 L 12/28/24 09:31 Pulse Ox 95 12/28/24 08:23 O2 Del Method Oxymask 12/28/24 08:23 O2 Flow Rate 3 12/28/24 08:23 BMI result Body Mass Index 20.4 Extrem: Other: Incision sites on left hip clean, dry, intact, well-healed No evidence of surrounding erythema, ecchymosis No evidence of infection Patient is able to flex and extend the digits of the left foot without difficulty Patient is able to straight leg raise the left leg off of the bed with no difficulty Compartments soft, nontender Distal sensation intact Capillary refill brisk Results Labs 12/28/24 06:13 12/28/24 06:13 Labs: Abnormal lab results 12/27/24 12/28/24 Range/Units 16:14 06:13 WBC 23.8 H 15.8 H (4.8-10.8) X10*3/uL RBC 3.46 L 3.33 L (4.60-5.80) X10*6/uL Hgb 11.0 L 10.8 L (14.0-18.0) g/dl Hct 32.1 L 31.3 L (42.0-52.0) % Plt Count 145 L (160-400) X10*3/uL Immature Gran % (Auto) 0.9 H 0.9 H (0.0-0.4) % Neut % (Auto) 87.6 H 85.7 H (45-73) % Lymph % (Auto) 5.3 L 7.2 L (20-40) % Lymph # (Auto) 1.1 L (1.2-4.9) X10*3/uL [place] # (Auto) 1.4 H (0.1-1.2) X10*3/uL Abs Immat Gran (auto) 0.22 H 0.15 H (0.00-0.03) X10*3/uL Absolute Neuts (auto) 20.9 H 13.6 H (2.0-8.3) x10*3/uL Chloride 109 H (96-108) mmol/L Anion Gap 10 L (12-20) BUN 24 H 19 H (9-16) mg/dL Random Glucose 139 H (60-115) mg/dL B-Natriuretic Peptide 107 H (<100) pg/mL Albumin 3.4 L (3.5-5.0) g/dL H & H 12/27/24 12/28/24 Range/Units 16:14 06:13 Hgb 11.0 L 10.8 L (14.0-18.0) g/dl Hct 32.1 L 31.3 L (42.0-52.0) % All other labs normal. Diagnostic results Hip x-ray: report reviewed and image reviewed (X-rays obtained in the office today and independently reviewed by me, José Miguel Dailey PA-C, demonstrate well approximated fracture of the intertrochanteric region of the left hip with evidence of interval bony healing and no evidence of hardware recession or malalignment. ) Assessment and Plan (1) History of repair of hip fracture: Status: Acute Plan 1. Left hip pain Status post IM nail in September of 2024 Surgery performed at [facility] Patient is educated that there is no radiographic evidence of acute injury or hardware issue Patient was educated that he should follow-up at [facility] when discharged from the hospital for reassessment Patient should receive PT for the left hip while in the hospital No further acute orthopedic intervention indicated at this time Procedures Date of Service Date of Service: 12/28/24
--- NOTE | 2024-12-28 12:48 | MHC.CM.PN ---
PT CONFIRMED ADDRESS AND STATES HE LIVES WITH UNCLE PT STATES HE RECEIVES LUNCH DROPPED OFF DAILY AND 1HOUR CLEANING 2 X WEEKLY PT STATES HE USES A CANE PT'S PCP DEMARCO CARCAMO PT STATES HCP IS SISTER, BRANDON VELAZQUEZ, , COPY REQUESTED. PT WOULD PREFER [facility] IF APPROPRIATE AFTER DISCHARGE IMM DELIVERED AND EXPLAINED. DCP- HOME SELF CARE, VIA RIDE FROM SISTER/FRIEND
--- NOTE | 2024-12-28 14:12 | P.PNIM_ITS ---
Subjective Subjective Date of Service: 12/28/24 Interval History: seen and evaluated this morning feels better denies fever or chills no other events Review of Systems No fever but has, chills or weakness chest pain, no palpitation shortness of breath and coughing No abdominal pain, nausea or vomiting No urinary symptoms No any rash or wounds Review of Systems: Yes all other systems are reviewed and are negative Physical Exam 2 Vital Signs: Vital Signs: Last Vital Signs Temp 97.8 F 12/28/24 12:01 Pulse 72 12/28/24 12:01 Resp 22 H 12/28/24 12:01 BP 119/61 12/28/24 12:01 Pulse Ox 97 12/28/24 12:01 O2 Del Method Oxymask 12/28/24 12:01 O2 Flow Rate 2 12/28/24 12:01 BMI result Body Mass Index 20.4 Const: Other: Constitutional : Awake, interactive, not in distress Neck : Normal inspection, Supple Cardiovascular : RRR, no JVP, no lower extremity edema Respiratory : fair bilateral air entry, right sided basal crackles, no wheezes Gastrointestinal: soft, lax, Normal bowel sounds, Non tender Skin : Warm, Dry Neurological : Alert & oriented x3, No focal deficit Objective Data Active Medications Acetaminophen (Acetaminophen 325 Mg Tablet) 650 mg PO Q6H PRN PRN Reason: Pain, Mild 1-3,fever,headache Albuterol/Ipratropium (Albuterol/Iprat 2.5/0.5mg 3 Ml Ampul.Neb) 3 ml INHALE Q4H PRN PRN Reason: Shortness of Breath/Wheezing Amlodipine Besylate (Amlodipine Besylate 5 Mg Tablet) 5 mg PO DAILY [facility]; Protocol Last Admin: 12/28/24 09:31 Dose: Not Given Documented By: RAMIRO Non-Admin Reason: Decreased Blood Pressure Aspirin (Aspirin Enteric Coated 81 Mg Tablet.) 81 mg PO DAILY [facility] Last Admin: 12/28/24 09:29 Dose: 81 mg Documented By: RAMIRO Atorvastatin Calcium (Atorvastatin Calcium 20 Mg Tablet) 20 mg PO BEDTIME [facility] Last Admin: 12/27/24 21:59 Dose: 20 mg Documented By: VAIBHAV Benzonatate (Benzonatate 100 Mg Capsule) 100 mg PO TID PRN PRN Reason: Cough Last Admin: 12/28/24 09:35 Dose: 100 mg Documented By: RAMIRO Calcium Carbonate (Calcium Carbonate 750 Mg Tab.Chew) 750 mg PO Q4H PRN PRN Reason: Heartburn Ceftriaxone Sodium (Ceftriaxone Sodium 1 Gm Vial) 1 gm IVPUSH Q24H [facility] Famotidine (Famotidine 20 Mg Tablet) 20 mg PO DAILY [facility] Last Admin: 12/28/24 09:30 Dose: 20 mg Documented By: RAMIRO Heparin Sodium (Porcine) (Heparin Sodium,Porcine 5,000 Unit/Ml Vial) 5,000 unit SUBCUT Q12H [facility] Last Admin: 12/28/24 09:30 Dose: 5,000 unit Documented By: RAMIRO Azithromycin 500 mg/ Sodium (Chloride) 250 mls @ 125 mls/hr IV Q24H [facility] Lactated Ringer's (Lr) 1,000 mls @ 80 mls/hr IVCONT .[id number] [facility] Last Admin: 12/28/24 06:20 Dose: 80 mls/hr Documented By: GATITO Magnesium Hydroxide (Milk Of Magnesia 30 Ml Oral.Susp) 30 ml PO DAILY PRN PRN Reason: Constipation Melatonin (Melatonin 3 Mg Tablet) 6 mg PO BEDTIME PRN PRN Reason: Insomnia Nicotine (Nicotine 14 Mg Patch.Td24) 14 mg TRANSDERMA DAILY [facility] Last Admin: 12/28/24 09:31 Dose: Not Given Documented By: RAMIRO Non-Admin Reason: Patient Refused Ondansetron HCl (Ondansetron Hcl 4 Mg/2 Ml Vial) 4 mg IVPUSH Q8H PRN PRN Reason: Nausea and Vomiting Last Admin: 12/27/24 18:38 Dose: 4 mg Documented By: CINDY Oxycodone HCl (Oxycodone Hcl Immed Release 5 Mg Tablet) 5 mg PO Q6H PRN PRN Reason: Pain, Severe (Pain Scale 7-10) Last Admin: 12/28/24 12:30 Dose: 5 mg Documented By: RAMIRO Sodium Chloride (0.9 % Sodium Chloride Flush 3 Ml Syringe) 3 ml IVFLUSH QSHIFT [facility] Last Admin: 12/28/24 08:06 Dose: Not Given Documented By: RAMIRO Non-Admin Reason: IV Running Triamcinolone Acetonide (Triamcinolone Acet 0.1 % Cream 15 Gm Tube) 1 appl TOPICAL BID PRN; Protocol PRN Reason: rash on arms Labs 12/28/24 06:13 12/28/24 06:13 Labs: Laboratory Results - last 24 hr 12/27/24 12/27/24 12/28/24 16:12 16:14 06:13 MCV 92.8 94.0 MCH 31.8 32.4 MCHC 34.3 34.5 RDW 12.6 12.8 Plt Count 162 D 145 L MPV 10.0 9.9 Immature Gran % (Auto) 0.9 H 0.9 H Neut % (Auto) 87.6 H 85.7 H Lymph % (Auto) 5.3 L 7.2 L [place] % (Auto) 6.0 5.7 Eos % (Auto) 0.0 0.3 Baso % (Auto) 0.2 0.2 Lymph # (Auto) 1.3 1.1 L [place] # (Auto) 1.4 H 0.9 Eos # (Auto) 0.0 0.0 Baso # (Auto) 0.0 0.0 Abs Immat Gran (auto) 0.22 H 0.15 H Absolute Neuts (auto) 20.9 H 13.6 H Absolute Nucleated RBC 0.000 0.000 Nucleated RBC % (auto) 0.0 0.0 Smear Tech's Comments VERIFIED Anion Gap 12 10 L Estim Creat Clear Calc 45.8 77.3 Estimated GFR 53 > 60 Random Glucose 139 H 89 Lactic Acid 1.8 Calcium 9.2 8.4 D Magnesium 1.6 Total Bilirubin 0.5 Direct Bilirubin 0.2 AST 24 ALT 13 Alkaline Phosphatase 97 B-Natriuretic Peptide 107 H Total Protein 7.0 Albumin 3.4 L Urine Color Urine Appearance Urine pH Ur Specific [place] Urine Protein Urine Glucose (UA) Urine Ketones Urine Blood Urine Nitrite Ur Leukocyte Esterase Urine RBC Urine WBC Ur Squamous Epith Cells Urine Bacteria Hyaline Casts Influenza Type A (PCR) NEGATIVE Influenza Type B (PCR) NEGATIVE RSV RNA Qual (PCR) NEGATIVE SARS-CoV-2 RNA (RT-PCR) NEGATIVE 12/28/24 07:02 MCV MCH MCHC RDW Plt Count MPV Immature Gran % (Auto) Neut % (Auto) Lymph % (Auto) [place] % (Auto) Eos % (Auto) Baso % (Auto) Lymph # (Auto) [place] # (Auto) Eos # (Auto) Baso # (Auto) Abs Immat Gran (auto) Absolute Neuts (auto) Absolute Nucleated RBC Nucleated RBC % (auto) Smear Tech's Comments Anion Gap Estim Creat Clear Calc Estimated GFR Random Glucose Lactic Acid Calcium Magnesium Total Bilirubin Direct Bilirubin AST ALT Alkaline Phosphatase B-Natriuretic Peptide Total Protein Albumin Urine Color Yellow Urine Appearance Clear Urine pH 5.5 Ur Specific [place] 1.020 Urine Protein Trace Urine Glucose (UA) Negative Urine Ketones Negative Urine Blood Negative Urine Nitrite Negative Ur Leukocyte Esterase Negative Urine RBC 0-2 Urine WBC 0-5 Ur Squamous Epith Cells 0-2 Urine Bacteria None Seen Hyaline Casts 0-2 Influenza Type A (PCR) Influenza Type B (PCR) RSV RNA Qual (PCR) SARS-CoV-2 RNA (RT-PCR) Assessment and Plan (1) Acute kidney injury: Status: Acute (2) Sepsis: Status: Acute (3) Pneumonia: Status: Acute Plan A 69 years old male with PMH of HTN, ETOH abuse, CAD, COPD, COPD, GERD among others who presents to the hospital complianing of 5 days cough, weakness and shortness of breath. Sepsis 2/2 Community aquired pneumonia Tachypnea, Leukocytosis with normal LA CXR showing RML infiltrates Ceftriaxone and Azithromycin Cough medicine O2 as needed pending cultures Acute kidney injury resolved DC IVF urine studies Left hip pain XR as reported Orthopedic consult, no acute intervention PT eval Hx Alcoholism denies drinking Smoking NRT COPD PRN Albuterol CAD ASA, statin HTN Amlodipine DVT PPx Lovenox The patient will need overnight hospital stay for treatment of sepsis from pneumonia with IV antiibotics pending final cultures Quality Stroke Does the patient have a stroke diagnosis?: No VTE Prior VTE?: No VTE Risk Level:: Medical - moderate - high VTE Device Contraindication: Treatment Not Indicated VTE Drug Contraindication: N/A - Med Ordered
[2024-12-28] MEDS: cefTRIAXone sodium 1 GM VIAL IVPUSH (15:41)
[2024-12-28] MEDS: Azithromycin 500 MG in 0.9 % Sodium Chloride 250 ML 125 MG IV (18:19)
[2024-12-28] MEDS: 0.9 % Sodium Chloride Flush 3 ML SYRINGE IVFLUSH ×2 (18:20→19:55)
[2024-12-28] MEDS: Atorvastatin Calcium 20 MG TABLET PO (19:52)
[2024-12-29] VITALS (7 sets, daily range): BP systolic 130–142; BP diastolic 61–68; PULSE 63–74; RESP 18; TEMP 36–36.9; O2SAT 93–98
[2024-12-29 05:58] LABS: MANUAL DIFF FLAG NO
[2024-12-29 06:06] LABS: Basophils Percent Auto 0.4 % (0-2); Eosinophils Absolute Auto 0.1 X10*3/uL (0.0-0.4); Eosinophils Percent Auto 1.2 % (0-4); Hematocrit 32.4 % (42.0-52.0); Hemoglobin 10.7 g/dl (14.0-18.0); Imm Gran Abs Auto 0.17 X10*3/uL (0.00-0.03); Imm Gran Pct Auto 1.9 % (0.0-0.4); Lymphocytes Absolute Auto 1.3 X10*3/uL (1.2-4.9); Lymphocytes Percent Auto 14.4 % (20-40); Mean Corpuscular Hemoglobin 30.8 pg (27.0-33.0); Mean Corpuscular Volume 93.4 fL (80.0-98.0); Mean Platelet Volume 10.3 fL (9.4-12.4); Monocytes Absolute Auto 0.7 X10*3/uL (0.1-1.2); Monocytes Percent Auto 7.4 % (2-11); Neutrophils Absolute Auto 6.7 x10*3/uL (2.0-8.3); Neutrophils Percent Auto 74.7 % (45-73); Platelet Count 169 X10*3/uL (160-400); Red Blood Count 3.47 X10*6/uL (4.60-5.80); Red Cell Distribution Width 12.4 % (11.0-16.0)
[2024-12-29 06:18] LABS: Anion Gap 11 (12-20); Blood Urea Nitrogen 14 mg/dL (9-16); Calcium 9.2 mg/dL (8.4-10.2); Carbon Dioxide 26 mmol/L (22-29); Chloride 103 mmol/L (96-108); Creatinine Clr Calc Pharmacy 83.5; Estimated Glomerular Filt Rate > 60; Glucose Random 88 mg/dL (60-115); Potassium 4.6 mmol/L (3.3-5.1); Sodium 135 mmol/L (135-145)
[2024-12-29] MEDS: Famotidine 20 MG TABLET PO (08:15)
[2024-12-29] MEDS: Heparin Sodium,Porcine 5,000 UNIT/ML VIAL 5000 UNIT SUBCUT (08:15)
[2024-12-29] MEDS: Aspirin Enteric Coated 81 MG TABLET.DR PO (08:15)
[2024-12-29] MEDS: amLODIPine Besylate 5 MG TABLET PO (08:15)
[2024-12-29] MEDS: 0.9 % Sodium Chloride Flush 3 ML SYRINGE IVFLUSH (08:16)
--- NOTE | 2024-12-29 10:28 | PM.DS ---
DS: Providers Provider Date of Service: 12/29/24 Date of admission: 12/27/24 18:32 Date of discharge: 12/29/24 Primary care physician: Iveth Stokes MD Consults: 12/27/24 18:34 Consult to Orthopedics Routine Consulting Provider: [facility] Orthopedic Surgeons Reason for consultation: Left hip pain, abnormal XR DS: Diagnosis Discharge Diagnosis (1) Acute kidney injury: Status: Acute (2) Sepsis: Status: Acute (3) Pneumonia: Status: Acute DS: Summary Hospital Course Hospital Course: Admission note HPI A 69 years old male with PMH of HTN, ETOH abuse, CAD, COPD, COPD, GERD among others who presents to the hospital complianing of 5 days cough, weakness and shortness of breath. The patient reports that symptoms started with muscle weakness and cough and has been getting worse with reported chills, myalgia and worsening dyspnea on exertion and chest pain. No palpitations, nausea, vomiting, diarrhea or urinary symptoms. He also reports LLE pain in his hip CXR showed RML infiltrates with drop in O2 sat in ED. with elevated WBCs and acute kidney injury. Admitted for further work up and treatment. Hospital course The patient was treated for Sepsis secondary to community aquired pneumonia. CXR showing RML infiltrates. Treated with IV Ceftriaxone and Azithromycin along with Cough medicine. Weaned down O2 to room air with good tolerance as no reported dyspnea or hypoxia. blood cultures remained negative. to discharge home on 1 more week of Azithromycin and Ceftin. To follow with PCP to repeat CXR in 2-4 weeks. Acute kidney injury on presentation. resolved with IVF as creatinine went back to baseline. Left hip pain with left hip XR showing post op changes. Evaluated by Orthopedic consult who recommended no acute intervention and to follow up as outpatient. PT evaluated the patient and recommended home PT. Advised to quit smoking. offered NRT. he is ok with what he has for now. Discharge plan Continue Azithromycin and Ceftin for 1 more week Cough medicine as needed Tylenol\Advil for pain control Follow with PCP as outpatient in 2 weeks for reeval and repeat Chest X-ray Time Attestation Discharge Coordination Time (in mins): 42 Quality: Safe Use of Opioids Does Pt have an Active Cancer Diagnosis on the Problem List?: No Quality: Stroke Does the patient have a stroke diagnosis?: No Physical Exam Vital Signs: Vital Signs: Last Vital Signs Temp 96.8 F 12/29/24 07:47 Pulse 63 12/29/24 07:47 Resp 18 12/29/24 07:47 BP 137/66 12/29/24 07:47 Pulse Ox 93 12/29/24 08:27 O2 Del Method Room Air 12/29/24 08:27 O2 Flow Rate 2 12/29/24 07:47 BMI result Body Mass Index 20.4 Const: Other: Constitutional : Awake, interactive, not in distress Neck : Normal inspection, Supple Cardiovascular : RRR, no JVP, no lower extremity edema Respiratory : good bilateral air entry, right sided fine basal crackles, no wheezes Gastrointestinal: soft, lax, Normal bowel sounds, Non tender Skin : Warm, Dry Neurological : Alert & oriented x3, No focal deficit DS: Data Data Completed and Pending Completed studies during hospitalization [Text1]: Procedures Detoxification Services for Substance Abuse Treatment (05/01/21) Labs on day of discharge: Laboratory Results - last 24 hr 12/29/24 05:28 WBC 9.0 RBC 3.47 L Hgb 10.7 L Hct 32.4 L MCV 93.4 MCH 30.8 MCHC 33.0 RDW 12.4 Plt Count 169 MPV 10.3 Immature Gran % (Auto) 1.9 H Neut % (Auto) 74.7 H Lymph % (Auto) 14.4 L [place] % (Auto) 7.4 Eos % (Auto) 1.2 Baso % (Auto) 0.4 Lymph # (Auto) 1.3 [place] # (Auto) 0.7 Eos # (Auto) 0.1 Baso # (Auto) 0.0 Abs Immat Gran (auto) 0.17 H Absolute Neuts (auto) 6.7 Absolute Nucleated RBC 0.000 Nucleated RBC % (auto) 0.0 Sodium 135 Potassium 4.6 Chloride 103 Carbon Dioxide 26 Anion Gap 11 L BUN 14 Creatinine 0.74 Estim Creat Clear Calc 83.5 Estimated GFR > 60 Random Glucose 88 Calcium 9.2 D Preliminary micro results at discharge 12/27/24 16:14 Blood Culture - Preliminary Blood - Venous No growth after 24 hours. 12/27/24 16:14 Blood Culture - Preliminary Blood - Venous No growth after 24 hours. Imaging Chest x-ray: Radiologist's impression: ITS Impressions Hip/Pelvis X-Ray 12/27/24 15:19 IMPRESSION: Nonunion intertrochanteric fracture fracture and status post open reduction internal fixation with metallic hardware left femur. Electronically signed by: Shashank Paredes MD 12/27/2024 03:58 PM EST RP Chest X-Ray 12/27/24 15:20 IMPRESSION: Acute airspace disease, pneumonia right middle lobe. Recommend follow-up until resolution. 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 Electronically signed by: Shashank Paredes MD 12/27/2024 03:54 PM EST RP Discharge Plan Discharge Anticipated Discharge Date/Time: 12/29/24 10:20 Patient Disposition: Home, Self-Care Discharge Diagnosis: Pneumonia Referrals: Iveth Stokes MD [Primary Care Provider] - 1 Week Discharge Medications: New benzonatate 100 mg Capsule 100 mg PO TID PRN (Reason: Cough) Qty: 14 0RF azithromycin 500 mg tablet 500 mg PO DAILY 7 Days Qty: 7 0RF cefuroxime axetil 500 mg tablet 500 mg PO BID Qty: 14 0RF Continued ipratropium-albuterol 0.5 mg-3 mg(2.5 mg base)/3 mL solution for nebulization 3 ml inhalation Q6-8H PRN (Reason: for wheezing) Qty: 180 6RF atorvastatin 20 mg tablet 20 mg PO BEDTIME Qty: 90 1RF amlodipine 5 mg tablet 5 mg PO DAILY Qty: 90 1RF cholecalciferol (vitamin D3) 1,250 mcg (50,000 unit) capsule 1,250 mcg PO FR Nicotrol NS 10 mg/mL spray,non-aerosol 1 spray intranasal BID PRN (Reason: Nicotine Cravings) Rx Instructions: administer into each nostril hydrocortisone 2.5 % ointment 1 appl topical DAILY PRN (Reason: Pain/Itching) acetaminophen [Tylenol Extra Strength] 500 mg tablet 500 mg PO Q6H PRN (Reason: Pain) triamcinolone acetonide 0.1 % cream 1 appl topical BID PRN (Reason: rash on arms) 10 Days Qty: 453.6 0RF aspirin 81 mg tablet,delayed release (DR/EC) 81 mg PO DAILY Qty: 90 3RF Discharge Orders: Discharge Order (Routine); Ordered 12/29/24 Ordered By: Jessica Simmons Diet: Advance to usual diet Activity on Discharge: As tolerated Stand Alone Forms: Patient Portal Discharge page Print Language: Wolof Care Plan Goals: Continue Azithromycin and Ceftin for 1 more week Cough medicine as needed Tylenol\Advil for pain control Follow with PCP as outpatient in 2 weeks for reeval and repeat Chest X-ray Health Concerns: Pneumonia Plan of Treatment: Antibiotics Assessment: as above
--- NOTE | 2024-12-29 10:58 | MHC.CM.PN ---
PT TO DC HOME TODAY WITH NO SERVICES VIA PRIVATE TRANSPORT
== END 2024-12-29 11:11 | disposition home or self-care (01) | DRG 871 ==
LOC: HO.ED 16:50 → HO.EDOVER 18:46 → HO.S3 12-28 13:19
PROVIDERS: Physician Assistant; Admitting Provider Student in an Organized Health Care Education/Training Program; Emergency Provider Emergency Medicine; PCP Internal Medicine; Visit Provider Student in an Organized Health Care Education/Training Program
DX: A41.9 Sepsis, unspecified organism (principal); J18.9 Pneumonia, unspecified organism; J44.0 Chronic obstructive pulmonary disease with (acute) lower respiratory infection; N17.9 Acute kidney failure, unspecified; G47.33 Obstructive sleep apnea (adult) (pediatric); I25.10 Atherosclerotic heart disease of native coronary artery without angina pectoris; I10 Essential (primary) hypertension; M25.552 Pain in left hip; Z20.822 Contact with and (suspected) exposure to COVID-19; Z79.899 Other long term (current) drug therapy
CPT/HCPCS: 0241U; 36415; 71046; 73502; 80048; 80076; 81001; 83605; 83735; 83880; 84484; 85025; 87040; 93005; 93971; 94640; 97162; 99285; J0456; J0696; J1171; J1644; J1885; J2270; J2405; J7120

== ENCOUNTER → 2024-12-27 15:19 | Outpatient (BNV) | payer MEDICARE, SELFPAY | PROVIDERS: Admitting Provider Student in an Organized Health Care Education/Training Program; Emergency Provider Emergency Medicine; PCP Internal Medicine; Visit Provider Internal Medicine Cardiovascular Disease | DX: R06.02 Shortness of breath (principal); I49.3 Ventricular premature depolarization | CPT/HCPCS: 93010 ==

== ENCOUNTER → 2024-12-27 15:20 | Outpatient (BNV) | payer MEDICARE, SELFPAY | PROVIDERS: Emergency Provider Emergency Medicine; PCP Internal Medicine; Visit Provider Radiology Diagnostic Radiology | DX: R07.9 Chest pain, unspecified (principal); J18.9 Pneumonia, unspecified organism; S72.144D Nondisplaced intertrochanteric fracture of right femur, subsequent encounter for closed fracture with routine healing; Z96.642 Presence of left artificial hip joint | CPT/HCPCS: 71046; 73502; 93971 ==

== ENCOUNTER → 2024-12-27 15:49 | Outpatient (BNV) | payer MEDICARE, SELFPAY | PROVIDERS: Emergency Provider Emergency Medicine; PCP Internal Medicine; Visit Provider Student in an Organized Health Care Education/Training Program | DX: N17.9 Acute kidney failure, unspecified (principal); A41.9 Sepsis, unspecified organism; J18.9 Pneumonia, unspecified organism | CPT/HCPCS: 99223; 99232; 99239 ==

== ENCOUNTER → 2024-12-27 18:32 | Outpatient (BNV) | payer MEDICARE, SELFPAY | PROVIDERS: Admitting Provider Student in an Organized Health Care Education/Training Program; Emergency Provider Emergency Medicine; PCP Internal Medicine | DX: M79.605 Pain in left leg (principal) | CPT/HCPCS: 99221 ==

== ENCOUNTER 2025-01-02 10:54 | Outpatient (AMB) | payer MEDICARE, SELFPAY ==
--- NOTE | 2025-01-02 11:26 | A.OFFPC_ITS ---
Vital Signs 01/02/25 11:36 Height 5 ft 8 in Weight 142 lb BMI 21.6 BP 118/70 Blood Pressure Location Lt brachial Position Sitting Respiration 20 Pulse 92 Pulse Source Pulse Oximeter Pulse Oximetry (%) 97 Oxygen Delivery Method Room Air Intake Visit Reasons: [facility] pneumonia Intake Note: Pt is here today [place] [facility] [place] Allergies No Known Allergies Allergy (Verified 01/07/25 03:10) Medication List - Last Reconciled 01/02/25 by Iveth Stokes MD acetaminophen (Tylenol Extra Strength) 500 mg PO Q6H PRN amlodipine 5 mg PO DAILY aspirin 81 mg PO DAILY atorvastatin 20 mg PO BEDTIME azithromycin 500 mg PO DAILY 7 days benzonatate 100 mg PO TID PRN cefuroxime axetil 500 mg PO BID cholecalciferol (vitamin D3) 1,250 mcg PO FR hydrocortisone 2.5% 1 appl topical DAILY PRN ipratropium-albuterol 0.5 mg-3 mg(2.5 mg base)/3 mL 3 mL inhalation Q6-8H PRN nicotine (Nicotrol NS) 1 spray intranasal BID PRN triamcinolone acetonide 0.1% 1 appl topical BID PRN 10 days Tobacco use date assessed: 01/02/25 Fall risk assessment: 1 Fall in past year Last assessed Fall Risk: 01/02/25 Dental Screening Dental Screen Date: 01/02/25 [place] [facility] [place] HPI Details 69 years old male with PMH of HTN, ETOH abuse, CAD, COPD, COPD, GERD here for TCM visit. He was recently admitted for sepsis secondary to community- acquired pneumonia with chest x-ray done at the ER showing right middle lobe infiltrates. He was treated with IV ceftriaxone and azithromycin along with cough medications. Blood cultures came back negative, he was then discharged with 1 more week of azithromycin and Ceftin. He developed acute kidney injury during admission which resolved with IV hydration, with creatinine returning back to baseline. He also was complaining of pain in his left hip where he recently sustained a comminuted intertrochanteric fracture and underwent ORIF at [facility] earlier this year. He was evaluated by Orthopedics, who recommended no acute intervention and to follow-up with them outpatient. He has been advised to quit smoking offered nicotine replacement therapy/ Nicotrol , which he states was not effective in helping him quit . At present patient states that he his breathing is better, but still gets occasional coughing fits when he wakes up in the morning. No fever, no chills or shortness of breath reported TCM TCM Information Date of Discharge 12/27/24 Discharged From [facility] Interactive Contact Date (Reference documentation from this date) 12/31/24 [facility] Medical History (Updated 01/07/25 @ 03:22 by Iveth Stokes MD) Chronic left hip pain Cigarette smoker motivated to quit Anemia History of fracture of left hip Alcoholism Grief at loss of child CAD (coronary artery disease) Coronary artery calcification seen on CT scan Aortic ectasia Essential hypertension COPD (chronic obstructive pulmonary disease) Nicotine dependence, cigarettes, uncomplicated TIM (obstructive sleep apnea) Polycythemia Elevated hemoglobin Macrocytosis without anemia GERD (gastroesophageal reflux disease) Tubular adenoma of colon Constipation Alcoholic gastritis History of small bowel obstruction Hx of urethral stricture Psoriasis Change in multiple pigmented skin lesions Refused influenza vaccine Pneumococcal vaccination declined Surgical History (Updated 01/06/25 @ 00:02 by Kellie Esqueda) History of repair of hip fracture Status post open reduction and internal fixation (ORIF) of fracture History of colonoscopy History of esophagogastroduodenoscopy (EGD) Hx of varicose vein stripping Hx of elbow surgery Hx of bilateral inguinal hernia repair History of surgery Family History Mother CAD (coronary artery disease) Maternal Grandfather Brain tumor Maternal Uncle Eye cancer Social History Household Members: Family Household Members Other:: Uncle Housing: House Are you a primary health care coordinator to a significant other at home: No Do you presently have visiting nurse or other home services: Yes (housework) Unable to assess alcohol history related to: Unknown Alcohol intake: current Alcohol intake frequency: a few times a month Comment: pt refused high fall risk Patient Tobacco Use Status: Current someday Tobacco user Tobacco use type: Smokeless Tobacco Cigarette Packs Per Day: 0.5 Cigarettes Per Day: 10.0 Years Smoked: 50 e-Cigarette/Vaping Use: Never Used Second Hand Smoke Exposure: No Substance Use Type: Crack/Cocaine and Marijuana service: No Current occupational status: retired Cognitive needs: No Hearing needs: No Vision needs: No Questionnaire Thrive Questionnaire Date Thrive assessed: 11/08/24 I am a: Patient What is your living situation today?: I have a steady place to live Within the past 12 months, did the food you bought not last and you didn't have the money to get more?: Never true Within the past 12 months, did you worry whether your food would run out before you got money to buy more?: I choose not to answer this question Do you have trouble paying for medicines?: No Do you have trouble getting transportation to medical appointments?: No Do you have trouble paying your heating and electricity bill?: No Do you have trouble taking care of your child, family member or friend?: No Do you have trouble with day-to-day activities such as bathing, preparing meals, shopping, managing finances, etc.?: I choose not to answer this question Are you currently unemployed and looking for a job?: No Are you interested in more education?: No Please select the resources that you would like help with: None Currently or been in a relationship where the following occur: No concerns reported THRIVE Score: 0 JESS-7 AMB Questionnaire JESS-7 Date JESS - 7 assessed: 11/08/24 Source: Developed by Drs. Az Porras, Monserrat Calles, Fabrice Garcia and colleagues, with an educational shaheen from [employer]. Review of Systems Const All systems reviewed & are unremarkable except as noted in HPI and below Physical exam (Primary Care) Vital Signs: Last Vital Signs Pulse 92 01/02/25 11:36 Resp 20 01/02/25 11:36 BP 118/70 01/02/25 11:36 Pulse Ox 97 01/02/25 11:36 Oxygen Delivery Method Room Air 01/02/25 11:36 BMI result Body Mass Index 21.6 Tobacco/Smoking Status: Tobacco use Status Tobacco use date assessed 01/02/25 01/02/25 11:29 Patient Tobacco Use Status Current someday Tobacco 01/02/25 11:40 Tobacco use type Smokeless Tobacco 01/02/25 11:27 e-Cigarette/Vaping Use Never Used 01/02/25 11:27 Thrive Assessment: Date of Thrive Assessment Date Thrive assessed 11/08/24 01/02/25 11:27 Currently or been in a relationship where the following occur: No concerns reported Const Other: Alert orient x3, no acute distress noted ambulatory with normal gait HENNM Mouth: Normal oral and palatal mucosa present, oropharynx normal and moist mucous membranes Eyes Other: Anicteric General: appearance normal, both eyes and all related structures Neck Neck: Yes full ROM, Yes no lymphadenopathy and Yes supple Resp Other: Diminished breath sounds bilaterally, no wheezing Effort & Inspection: normal respiratory effort and able to speak in complete sentences Cardio Other: S1-S2 present regular rate and rhythm GI Other: Normal bowel sounds, soft, nontender with no mass palpated General: Yes no CVA tenderness Back/Spine/Pelvis Back: no CVA tenderness Neuro General: no focal motor deficits Extrem Other: Decreased range of motion of left hip joint due to pain and stiffness. General: Yes no joint enlargement, Yes no pedal edema and Yes no calf tenderness Coding Level of Care Code TCM Mod MDM <= 7 Days Diagnoses History of repair of hip fracture Z98.890 Anemia, unspecified type D64.9 Anemia type: unspecified type COPD (chronic obstructive pulmonary disease) J44.9 Cigarette smoker motivated to quit F17.210 History of pneumonia Z87.01 Assessment & Plan Assessment & Plan (1) History of repair of hip fracture: Code(s): Z98.890 - Other specified postprocedural states Category: Surgical Plan: s/p ORIF 12 , has appt for ffup at [facility] orthopedics with Dr. Oliveira on 01/09/2020, stopped doing physical therapy (2) Anemia: Code(s): D64.9 - Anemia, unspecified Category: Medical Qualifiers: Anemia type: unspecified type Qualified Code(s): D64.9 - Anemia, unspecified Plan: Noted to have anemia during recent admission, will repeat another CBC and iron profile. Started on ferrous fumarate 325 mg to take 1 tablet daily, better to take with orange juice or vitamin-C tablets for better absorption. Patient warned that medication may cause constipation, to take [id number] stool softeners to prevent it. (3) COPD (chronic obstructive pulmonary disease): Code(s): J44.9 - Chronic obstructive pulmonary disease, unspecified Category: Medical Plan: Currently on DuoNeb by nebulizer every 6 hours as needed (4) Cigarette smoker motivated to quit: Code(s): F17.210 - Nicotine dependence, cigarettes, uncomplicated Category: Social Hx Plan: Discontinued Nicotrol inhaler, prescription sent for varenicline tartrate mg per tablet to take 1 twice a day with food and a full glass of water. Will see him back for follow-up in 4 weeks after starting medication (5) History of pneumonia: Code(s): Z87.01 - Personal history of pneumonia (recurrent) Plan: Ordered a repeat chest x-ray to be done on 01/14/2025 and CBC with differential. Patient still taking antibiotics prescribed on discharge. Orders: Orders IRON PROFILE 01/14/25 D64.9 - Anemia, unspecified XR chest 4 views 01/14/25 J18.9 - Pneumonia, unspecified organism Complete Blood Count Auto Diff 01/14/25 D64.9 - Anemia, unspecified Medications: New ferrous fumarate 324 mg PO DAILY 90 tabs 1RF D64.9 - Anemia, unspecified varenicline tartrate 1 mg PO BID 56 tabs 3RF F17.210 - Nicotine dependence, cigarettes, uncomplicated, J18.9 - Pneumonia, unspecified organism, J44.9 - Chronic obstructive pulmonary disease, unspecified
[2025-01-02 11:36] VITALS: BP 118/70; PULSE 92; RESP 20; O2SAT 97; BMI 21.6
--- OUTSIDE RECORDS SUMMARY | 2025-01-02 12:44 | XMS_ITS | Clinical Summary ---
Author Organization [facility] Address [address] [place] [address] Care Team Providers Care Hand Iii Cutter Name Role Phone Unavailable Primary Care Provider [...] Documents on File Type Date Recorded Patient Clinical Assoc Expl anation Health Care Decision (hx) 02/23/2021 AD HAN DIRECTIVE Health Care Decision (hx) 02/17/2021 AD HAN DIRECTIVE
== END 2025-01-02 12:32 | disposition home or self-care (01) ==
LOC: HO.HMCC 10:55
PROVIDERS: PCP Internal Medicine; Visit Provider Internal Medicine
DX: D64.9 Anemia, unspecified (principal); Z98.890 Other specified postprocedural states; J44.9 Chronic obstructive pulmonary disease, unspecified; F17.210 Nicotine dependence, cigarettes, uncomplicated; Z87.01 Personal history of pneumonia (recurrent)

== ENCOUNTER → 2025-01-02 10:54 | Outpatient (BNVA) | payer MEDICARE, SELFPAY | PROVIDERS: PCP Internal Medicine; Visit Provider Internal Medicine | DX: D64.9 Anemia, unspecified (principal); J44.9 Chronic obstructive pulmonary disease, unspecified; F17.210 Nicotine dependence, cigarettes, uncomplicated; Z87.01 Personal history of pneumonia (recurrent); Z71.6 Tobacco abuse counseling; Z98.890 Other specified postprocedural states | CPT/HCPCS: 99495 ==

== ENCOUNTER 2025-01-09 08:21 | Outpatient (REF) | payer MEDICARE, SELFPAY ==
--- NOTE | ~2025-01-09 | XR_ITS ---
EXAMINATION: XR CHEST 2 VIEWS HISTORY: R05.9 - Cough, unspecified COMPARISON: Comparison is made with the prior examination dated 12/27/2024. FINDINGS: PA and lateral views of the chest are submitted. The lungs remain hyperinflated, consistent with COPD. The lungs are clear. The previously seen right middle lobe pneumonia has resolved. There is no pleural effusion, pneumothorax, or pulmonary vascular congestion. The heart is normal in size. There is degenerative disc disease of the spine. XR/XR chest 2V IMPRESSION: COPD. No acute cardiopulmonary abnormality. The previously seen right middle lobe pneumonia has resolved. Electronically signed by: Az Owens MD 01/09/2025 09:50 AM EDT
[2025-01-09 11:22] LABS: Influenza A PCR NEGATIVE (Negative); Influenza B PCR NEGATIVE (Negative); Resp Syncy Virus RNA Qual PCR NEGATIVE (Negative); SARS COV2 PCR INHOUSE NEGATIVE (Negative)
== END 2025-01-09 08:22 | disposition home or self-care (01) ==
LOC: HO.LAB 08:21
PROVIDERS: PCP Internal Medicine; Visit Provider Physician Assistant
DX: R05.9 Cough, unspecified (principal); R09.89 Other specified symptoms and signs involving the circulatory and respiratory systems; J44.9 Chronic obstructive pulmonary disease, unspecified; Z87.01 Personal history of pneumonia (recurrent); B34.9 Viral infection, unspecified; R50.9 Fever, unspecified
CPT/HCPCS: 0241U; 71046; 87880; 99212

== ENCOUNTER 2025-01-09 08:21 | Outpatient (AMB) | payer MEDICARE, SELFPAY ==
[2025-01-09 08:25] VITALS: BP 138/70; PULSE 97; TEMP 36.7; O2SAT 97; BMI 21.0
--- NOTE | 2025-01-09 08:25 | AM.OFFWIN_ITS ---
Intake Vital Signs 01/09/25 08:25 Height 5 ft 8 in Weight 138 lb 4 oz BMI 21.0 BP 138/70 Blood Pressure Location Lt brachial Position Sitting Pulse 97 Pulse Source Pulse Oximeter Temp 98.1 F Temp Source Oral Pulse Oximetry (%) 97 Oxygen Delivery Method Room Air Intake Visit Reasons: EP SOB, shakes, coughing Intake Note: Pt presents to the office today for c/o SOB,chills,coughing since yesterday. Pt states he was diagnosed with Pneumonia on December 27 and just finished his course of antibiotics yesterday. Patient Tobacco Use Status: Current someday Tobacco user Allergies No Known Allergies Allergy (Verified 01/09/25 08:27) HPI HPI Comments History of Present Illness Details History The patient is a 69-year-old male presenting with suspected influenza. - He has a recent medical history of com munity-acquired pneumonia for which he was hospitalized and treated with antibiotics, specifically Azithromycin and Cefdinir, completed yesterday. - He states he felt better but then yest erday, he experienced a return of symptoms including fever, chills, left-sided headache, fatigue, weight loss of 4 pounds over one week, and decreased appetite. - Also has a productive cough with yello w phlegm along with shortness of breath. - Has nebs at home and albuterol inhaler which he has been using. Physical Exam General: Cooperative, healthy appearing, comfortable and no acute distress Orientation/consciousness: Patient oriented x3 Limitations: No limitations Head: Normal to inspection Ears: Hearing grossly normal bilaterally, external ears normal and TM's normal bilaterally Nose: Normal external nose present, Normal nares present and No nasal discharge present Face and sinus: Normal facial exam and Yes sinuses nontender Mouth: Normal oral and palatal mucosa present and moist mucous membranes Throat: Yes tonsils normal, Yes uvula midline. Posterior oropharynx erythema Eyes: Appearance normal, both eyes and all related structures Neck: Normal visual inspection, lymphadenopathy Respiratory: Clear but dim to auscultation bilaterally. Normal respiratory effort, able to speak in complete sentences, Actively coughing, no respiratory distress, not tachypneic, no tripod positioning and no use of accessory muscles, Cardiovascular: Regular rate and rhythm. Normal S1 and S2 Skin: No rashes or lesions noted Neuro: Patient oriented x3 Extremities: Normal to inspection and Yes no clubbing, cyanosis or edema PFSH Medical History (Updated 01/09/25 @ 08:53 by Casie Beaulieu PA-C) Chronic left hip pain Cigarette smoker motivated to quit Anemia History of fracture of left hip Alcoholism Grief at loss of child CAD (coronary artery disease) Coronary artery calcification seen on CT scan Aortic ectasia Essential hypertension COPD (chronic obstructive pulmonary disease) Nicotine dependence, cigarettes, uncomplicated TIM (obstructive sleep apnea) Polycythemia Elevated hemoglobin Macrocytosis without anemia GERD (gastroesophageal reflux disease) Tubular adenoma of colon Constipation Alcoholic gastritis History of small bowel obstruction Hx of urethral stricture Psoriasis Change in multiple pigmented skin lesions Refused influenza vaccine Pneumococcal vaccination declined Surgical History (Updated 01/06/25 @ 00:02 by Kellie Esqueda) History of repair of hip fracture Status post open reduction and internal fixation (ORIF) of fracture History of colonoscopy History of esophagogastroduodenoscopy (EGD) Hx of varicose vein stripping Hx of elbow surgery Hx of bilateral inguinal hernia repair History of surgery Family History Mother CAD (coronary artery disease) Maternal Grandfather Brain tumor Maternal Uncle Eye cancer Social History Household Members: Family Household Members Other:: Uncle Housing: House Are you a primary overnight caregiver to a significant other at home: No Do you presently have visiting nurse or other home services: Yes (housework) Unable to assess alcohol history related to: Unknown Alcohol intake: current Alcohol intake frequency: a few times a month Comment: pt refused high fall risk Patient Tobacco Use Status: Current someday Tobacco user Tobacco use type: Smokeless Tobacco Cigarette Packs Per Day: 0.5 Cigarettes Per Day: 10.0 Years Smoked: 50 e-Cigarette/Vaping Use: Never Used Second Hand Smoke Exposure: No Substance Use Type: Crack/Cocaine and Marijuana service: No Current occupational status: retired Cognitive needs: No Hearing needs: No Vision needs: No Review of Systems Const All systems reviewed & are unremarkable except as noted in HPI and below Physical Exam Vital Signs: Last Vital Signs Temp 98.1 F 01/09/25 08:25 Pulse 97 01/09/25 08:25 BP 138/70 01/09/25 08:25 Pulse Ox 97 01/09/25 08:25 Oxygen Delivery Method Room Air 01/09/25 08:25 BMI result Body Mass Index 21.0 Results AMB Rapid Strep AMB Rapid Strep Negative Last Edit by Mesha Scott CMA on 01/09/25 08:55 Assessment & Plan Assessment & Plan (1) Acute viral syndrome: Code(s): B34.9 - Viral infection, unspecified Plan: With regard to throat irritation and gland swelling, a swab for possible streptococcal pharyngitis was performed. Rapid strep in office negative. VSS, pt tired appearing, also down 4lbs in one week likely 2/2 low appetite, lung sounds dim. Will get CXR to ensure PNA resolved although he likely picked up a viral illness recently. Considering the patient's recent history of treated pneumonia and presenting symptoms, a Flu, Covid and RSV swab was sent. Depending on positivity, Tamiflu will be prescribed while addressing potential side effects.No steroids were prescribed as lung examination showed no wheezing, and the patient's oxygenation was satisfactory. The patient may use nebulizers and rescue inhaler he has at home, with follow-up care to be determined by test outcomes and symptom monitoring. Patient was informed and verbally consented to the use of an ambient scribe for clinic note documentation during this visit Orders: Orders SARS-CoV2/FLU/RSV Today R09.89 - Other specified symptoms and signs involving the circulatory and respiratory systems XR chest 2V Today R05.9 - Cough, unspecified AMB Rapid Strep Screen Today Z13.9 - Encounter for screening, unspecified Coding Level of Care Code Est Pt Level 4 (92747) Diagnoses Acute viral syndrome B34.9
--- OUTSIDE RECORDS SUMMARY | 2025-01-09 08:54 | XMS_ITS | Clinical Summary ---
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
== END 2025-01-09 09:03 | disposition home or self-care (01) ==
PROVIDERS: PCP Internal Medicine; Visit Provider Physician Assistant
DX: Z13.9 Encounter for screening, unspecified (principal); B34.9 Viral infection, unspecified

== ENCOUNTER → 2025-01-09 09:11 | Outpatient (BNV) | payer MEDICARE, SELFPAY | PROVIDERS: PCP Internal Medicine; Visit Provider Radiology Diagnostic Radiology | DX: J44.9 Chronic obstructive pulmonary disease, unspecified (principal) | CPT/HCPCS: 71046 ==

== ENCOUNTER 2025-03-09 11:43 | Outpatient (REF) | payer MEDICARE, SELFPAY ==
[2025-03-09 13:37] LABS: MANUAL DIFF FLAG NO
[2025-03-09 13:38] LABS: Basophils Absolute Auto 0.1 X10*3/uL (0.0-0.2); Basophils Percent Auto 0.9 % (0-2); Eosinophils Absolute Auto 0.1 X10*3/uL (0.0-0.4); Eosinophils Percent Auto 2.2 % (0-4); Hematocrit 47.8 % (42.0-52.0); Imm Gran Abs Auto 0.03 X10*3/uL (0.00-0.03); Imm Gran Pct Auto 0.5 % (0.0-0.4); Lymphocytes Absolute Auto 1.4 X10*3/uL (1.2-4.9); Lymphocytes Percent Auto 25.6 % (20-40); Mean Corpuscular HGB Conc 33.5 g/dl (31.0-36.0); Mean Corpuscular Hemoglobin 32.5 pg (27.0-33.0); Mean Platelet Volume 10.3 fL (9.4-12.4); Monocytes Absolute Auto 0.6 X10*3/uL (0.1-1.2); Monocytes Percent Auto 10.4 % (2-11); Neutrophils Absolute Auto 3.3 x10*3/uL (2.0-8.3); Neutrophils Percent Auto 60.4 % (45-73); Platelet Count 184 X10*3/uL (160-400); Red Blood Count 4.93 X10*6/uL (4.60-5.80); Red Cell Distribution Width 13.4 % (11.0-16.0); White Blood Count 5.5 X10*3/uL (4.8-10.8)
[2025-03-09 13:49] LABS: Iron 38 mcg/dL (45-160); Percent Iron Saturation 12 % (15-50); Total Iron Binding Capacity 319 mcg/dL (228-428); Unsaturated Iron Binding 281 ug/dL
== END 2025-03-09 11:44 | disposition home or self-care (01) ==
LOC: HO.HMGCLDS 11:43
PROVIDERS: PCP Internal Medicine; Visit Provider Internal Medicine
DX: D64.9 Anemia, unspecified (principal)
CPT/HCPCS: 36415; 83540; 85025

== ENCOUNTER → 2025-03-11 11:30 | Outpatient (BNVA) | payer MEDICARE, SELFPAY | PROVIDERS: PCP Internal Medicine; Visit Provider Internal Medicine | DX: Z13.89 Encounter for screening for other disorder (principal) ==

== ENCOUNTER 2025-04-05 13:14 | Outpatient (AMB) | payer MEDICARE, SELFPAY ==
[2025-04-05 13:28] VITALS: BP 138/80; PULSE 99; O2SAT 97; BMI 21.1
--- NOTE | 2025-04-05 13:28 | A.OFFVIS_ITS ---
Vital Signs 04/05/25 13:28 Height 5 ft 8 in Weight 139 lb BMI 21.1 BP 138/80 Blood Pressure Location Rt brachial Position Sitting Pulse 99 Pulse Source Pulse Oximeter Pulse Oximetry (%) 97 Oxygen Delivery Method Room Air Intake Visit Reasons: COPD Allergies No Known Allergies Allergy (Verified 04/05/25 13:33) HPI HPI COPD: Details: 69-year-old gentleman, active 50+ pack-year smoker followed for underlying moderate COPD, TIM, and pulmonary nodules. He has been using Symbicort, duo nebs, and albuterol MDI with suboptimal control of his symptoms. At the last office visit he wants to switch to Breztri, however he has not received that yet. His insurance company declined his nicotine replacement therapy. He denies acute exacerbations. He complains of unintended weight loss. [facility] Medical History (Updated 03/27/25 @ 10:26 by Mimi Mccann MD) Chronic left hip pain Cigarette smoker motivated to quit Anemia History of fracture of left hip Alcoholism Grief at loss of child CAD (coronary artery disease) Coronary artery calcification seen on CT scan Aortic ectasia Essential hypertension COPD (chronic obstructive pulmonary disease) Nicotine dependence, cigarettes, uncomplicated TIM (obstructive sleep apnea) Polycythemia Elevated hemoglobin Macrocytosis without anemia GERD (gastroesophageal reflux disease) Tubular adenoma of colon Constipation Alcoholic gastritis History of small bowel obstruction Hx of urethral stricture Psoriasis Change in multiple pigmented skin lesions Refused influenza vaccine Pneumococcal vaccination declined Surgical History (Updated 03/27/25 @ 10:26 by Mimi Mccann MD) History of repair of hip fracture Status post open reduction and internal fixation (ORIF) of fracture History of colonoscopy History of esophagogastroduodenoscopy (EGD) Hx of varicose vein stripping Hx of elbow surgery Hx of bilateral inguinal hernia repair History of surgery Family History Mother CAD (coronary artery disease) Maternal Grandfather Brain tumor Maternal Uncle Eye cancer Social History Household Members: Family Household Members Other:: Uncle Housing: House Are you a primary career technical education teacher to a significant other at home: No Do you presently have visiting nurse or other home services: Yes (housework) Unable to assess alcohol history related to: Unknown Alcohol intake: current Alcohol intake frequency: a few times a month Comment: pt refused high fall risk Patient Tobacco Use Status: Current someday Tobacco user Tobacco use type: Smokeless Tobacco Cigarette Packs Per Day: 0.5 Cigarettes Per Day: 10.0 Years Smoked: 50 e-Cigarette/Vaping Use: Never Used Second Hand Smoke Exposure: No Substance Use Type: Crack/Cocaine and Marijuana service: No Current occupational status: retired Cognitive needs: No Hearing needs: No Vision needs: No Review of Systems Const Denies daytime sleepiness, Denies excessive sweating, Denies fatigue, Denies fever(s), Denies lethargy, Denies malaise, Denies night sweats, Denies snoring and Reports weight loss Eyes Denies blurry vision and Denies itchy eyes ENT Denies nasal congestion, Denies post nasal drip, Denies sinus pain, Denies sinus pressure and Denies other ( Thrush) Card Denies chest pain, Denies pedal edema, Denies dyspnea, Denies orthopnea and Denies paroxysmal nocturnal dyspnea Resp Denies cough, Denies hemoptysis, Denies excessive phlegm production, Denies dyspnea, Denies snoring and Denies wheezing GI Denies abdominal pain and Denies heartburn Musc Denies myalgias, Denies arthralgias and Denies joint swelling Skin/Breast Denies rash Neuro Denies memory loss and Denies seizure-like activity Psych Denies abnormal sleep pattern, Denies anxiety and Denies memory loss Endo Denies excessive sweating, Denies fatigue and Denies heat intolerance Alberto/Lymph Denies easy bruising Aller/Immun Denies itchy eyes, Denies seasonal rhinorrhea and Denies wheezing Physical Exam Vital Signs: Last Vital Signs Pulse 99 04/05/25 13:28 BP 138/80 04/05/25 13:28 Pulse Ox 97 04/05/25 13:28 Oxygen Delivery Method Room Air 04/05/25 13:28 BMI result Body Mass Index 21.1 Const General: no acute distress and alert Nutritional Appearance: not obese Orientation/consciousness: Other orientation findings ( oriented) HEENT Head: Yes atraumatic Eyes General: appearance normal, both eyes and all related structures Sclerae: sclerae normal EOM: EOMs intact bilaterally Neck Neck: Yes supple Lymphatic: no lymphadenopathy noted Resp Effort & Inspection: normal respiratory effort and no use of accessory muscles Auscultation: clear to auscultation bilaterally Cardio Rate: regular rate Rhythm: regular rhythm Heart sounds: no gallops, no murmurs and no rubs Skin General skin exam: other ( warm) Extrem General: No clubbing, No cyanosis and No edema Assessment & Plan Assessment & Plan (1) COPD (chronic obstructive pulmonary disease): Code(s): J44.9 - Chronic obstructive pulmonary disease, unspecified Category: Medical Plan: Suboptimal control on Symbicort, patient pending receipt off Breztri. Continue Breztri, duo nebs, and albuterol MDI. (2) Nicotine dependence, cigarettes, uncomplicated: Comment: (active 50+ pack-year smoker) Code(s): F17.210 - Nicotine dependence, cigarettes, uncomplicated Category: Medical Plan: Results of lung cancer screening reviewed, no worrisome nodules. Continue with yearly screening, next in October of 2025, ordered. Orders: Orders CT lung screening 11/04/25 F17.210 - Nicotine dependence, cigarettes, uncomplicated Coding Level of Care Code Est Pt Level 4 (51676) Diagnoses COPD (chronic obstructive pulmonary disease) J44.9 Nicotine dependence, cigarettes, uncomplicated F17.210
--- OUTSIDE RECORDS SUMMARY | 2025-04-05 13:35 | XMS_ITS | Clinical Summary ---
Author Organization [facility] Address [address] [place] [address] Care Team Providers Care Accounting Tutor Name Role Phone Unavailable Primary Care Provider [...] Vaccines (1 of 2) 2007 COVID-19 Vaccine ( - 2023-2 5 season) 2024 Influenza Vaccine (Season Ended) 2025 RSV Immunization Adult Patie nts (1 - 1-dose 75+ series) 2032 HIB [...] age to complete this topic Meningococcal B Vaccine Aged Out No l onger eligible based on patient's age to complete this topic RSV Immunization Patients Un tyrel 20 months Aged Out No longer eligible b ased on patient's age to complete this topic Varicella Vaccines Aged Out No longer eligible based on patient's age to complete this topic Advance Directives Documents on File Type Date Recorded Patient Glass Driller Expl anation Health Care Decision (hx) 02/23/2021 AD HAN DIRECTIVE Health Care Decision (hx) 02/17/2021 AD HAN DIRECTIVE
== END 2025-04-05 13:44 | disposition home or self-care (01) ==
LOC: HO.HPS 13:15
PROVIDERS: PCP Internal Medicine; Visit Provider Internal Medicine Pulmonary Disease
DX: J44.9 Chronic obstructive pulmonary disease, unspecified (principal); F17.210 Nicotine dependence, cigarettes, uncomplicated
CPT/HCPCS: 99214

== ENCOUNTER → 2025-04-05 13:14 | Outpatient (BNVA) | payer MEDICARE, SELFPAY | PROVIDERS: PCP Internal Medicine; Visit Provider Internal Medicine Pulmonary Disease | DX: G47.33 Obstructive sleep apnea (adult) (pediatric) (principal); J44.9 Chronic obstructive pulmonary disease, unspecified; F17.210 Nicotine dependence, cigarettes, uncomplicated | CPT/HCPCS: 99212 ==

== ENCOUNTER 2025-04-09 11:37 | Outpatient (AMB) | payer MEDICARE, SELFPAY ==
[2025-04-09 11:29] VITALS: BMI 21.1
--- NOTE | 2025-04-09 11:29 | MHC.OFFVIS ---
Vital Signs 04/09/25 11:29 Height 5 ft 8 in Weight 139 lb BMI 21.1 Intake Visit Reasons: [employer]/Hem/Onc ref Left LE pain Intake Note: [employer]/ Left LE pain s/p hip surgery in September 2024. Pt states he gets calf pain at night in bilateral LE and sometimes when walking. Pt states he has bilateral LE VV w/ hx of venous procedures. 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 Complaints include pain, swelling of lower extremities, cramping, fatigue, and heaviness of the lower extremities. It has been affecting their daily activities including walking, standing, and physical activity. It is noted more so in the left leg. He states he has had increased issues since a fall with left hip fx and surgical fixation at the end of September 2024. He does note that the cramping/pain/discomfort in the calves is worse in the evening/nighttime. He is not a diabetic. He is an everyday smoker, 1/[id number]. He denies any hx of blood clots and no family hx of clotting disorders; he does state that his maternal uncle is currently being treated for bilateral PE in [place], [place]. Patient has a hx of bilateral vein procedures (? microphlebectomies) >25 years; he does not remember where/doctor Patient denies any history of DVT/ PE. Patient denies any history of phlebitis. Trial of compression includes - elevation with some relief They now present for vascular evaluation regarding their varicose veins. [facility] Medical History Chronic left hip pain Cigarette smoker motivated to quit Anemia History of fracture of left hip Alcoholism Grief at loss of child CAD (coronary artery disease) Coronary artery calcification seen on CT scan Aortic ectasia Essential hypertension COPD (chronic obstructive pulmonary disease) Nicotine dependence, cigarettes, uncomplicated TIM (obstructive sleep apnea) Polycythemia Elevated hemoglobin Macrocytosis without anemia GERD (gastroesophageal reflux disease) Tubular adenoma of colon Constipation Alcoholic gastritis History of small bowel obstruction Hx of urethral stricture Psoriasis Change in multiple pigmented skin lesions Refused influenza vaccine Pneumococcal vaccination declined Surgical History History of repair of hip fracture Status post open reduction and internal fixation (ORIF) of fracture History of colonoscopy History of esophagogastroduodenoscopy (EGD) Hx of varicose vein stripping Hx of elbow surgery Hx of bilateral inguinal hernia repair History of surgery Family History Mother CAD (coronary artery disease) Maternal Grandfather Brain tumor Maternal Uncle Eye cancer Social History Household Members: Family Household Members Other:: Uncle Housing: House Are you a primary director of patient care to a significant other at home: No Do you presently have visiting nurse or other home services: Yes (housework) Unable to assess alcohol history related to: Unknown Alcohol intake: current Alcohol intake frequency: a few times a month Comment: pt refused high fall risk Patient Tobacco Use Status: Current someday Tobacco user Tobacco use type: Smokeless Tobacco Cigarette Packs Per Day: 0.5 Cigarettes Per Day: 10.0 Years Smoked: 50 e-Cigarette/Vaping Use: Never Used Second Hand Smoke Exposure: No Substance Use Type: Crack/Cocaine and Marijuana service: No Current occupational status: retired Cognitive needs: No Hearing needs: No Vision needs: No Review of Systems Const Reports as per HPI and Denies weakness ENT Reports Normal hearing present and Denies dizziness Card Reports as per HPI, Denies chest pain, Denies chest pain at rest, Denies chest pain with activity, Denies dyspnea and Denies dyspnea on exertion Resp Reports as per HPI, Denies cough, Denies dyspnea and Denies dyspnea on exertion GI Reports as per HPI, Denies abdominal pain, Denies nausea and Denies vomiting Musc Denies numbness Skin/Breast Reports as per HPI, Denies erythema and Denies wounds Neuro Reports Normal hearing present, Denies dizziness, Denies numbness, Denies Sensory deficit (Neuro) and Denies weakness Psych Reports no additional complaints Endo Reports no additional complaints Physical Exam Vital Signs: BMI result Body Mass Index 21.1 Const General: healthy appearing and no acute distress Orientation/consciousness: patient oriented x3 HEENT Head: Yes normal to inspection Ears: hearing grossly normal bilaterally Mouth: Normal oral and palatal mucosa present Resp Effort & Inspection: normal respiratory effort and able to speak in complete sentences Auscultation: clear to auscultation bilaterally Cardio Jugular venous distension: no JVD Rate: regular rate Rhythm: regular rhythm Heart sounds: S1 normal heart sound present and S2 normal heart sound present Bruits: no abdominal aortic bruits, no carotid bruits, no femoral bruits and no renal bruits Peripheral pulses: Peripheral pulses 2+ throughout GI Inspection: Yes normal to inspection Palpation (GI): No Abdominal aortic bruit present Skin General skin exam: no rashes or lesions noted Wounds: no wounds Hair: normal Neuro General: patient oriented x3 Cranial nerves: Yes Normal hearing present Cognition (Neuro): normal cognition Gait exam (Neuro): Normal gait present Motor exam (neuro): 5/5 motor strength present throughout Sensory Exam: No Sensory deficit (Neuro) Extrem Other: Right lower extremity: small rope-like varicosities noted on the tibial area anteriorly. +1 nonpitting edema noted. Palpable DP pulse. Feet/leg warm to the touch. Discoloration noted around the ankles. Left lower extremity: larger rope-like varicosities noted on the tibial area anteriorly, largest appx 3cm. +1 nonpitting edema noted. Palpable DP pulse. Feet/leg warm to the touch. Discoloration noted around the ankles. CEAP: C - 4 E - primary A - superficial P - reflux General: Yes normal to inspection, Yes full ROM, Yes capillary refill normal and Yes normal gait Assessment & Plan Assessment & Plan (1) Varicose veins of both lower extremities with inflammation: Code(s): I83.11 - Varicose veins of right lower extremity with inflammation; I83.12 - Varicose veins of left lower extremity with inflammation Category: Medical Plan: Kingston is presenting today on a referral from Hem/Onc for concerns of ongoing bilateral lower extremity swelling, discoloration, and discomfort/pain. In short, the patient has evidence of venous insufficiency. I have discussed the pathophysiology with the patient. In addition I have provided informational material regarding venous disease to the patient. We have discussed conservative measures including compression, elevation, and exercise. I have also provided a handout regarding appropriate use of compression stockings and where to purchase good compression stockings as well. I have taken the liberty of ordering venous insufficiency testing with the patient. They will follow up with me after testing. The patient had an opportunity to ask questions regarding the treatment plan. All questions were answered. Imaging studies, laboratory studies and physical exam results were discussed and reviewed in detail. No major barriers to understanding were identified. The patient expressed understanding and agreement with the above treatment plan. The patient is aware they should contact our office by phone for worsening of the current condition or the appearance of new symptoms. Thank you for allowing me to participate in the vascular care of this patient. If you have any questions or concerns regarding the treatment for the above condition please do not hesitate to contact me. The office telephone contact is [phone]. This note is constructed using voice recognition software. While every effort has been made to ensure accuracy, panama hat blocker errors may have been included. Thank you for allowing me to participate in the care of your patient. Yours sincerely, JEFF Connor Orders: Orders US venous duplex LE BI 1 Week I83.11 - Varicose veins of right lower extremity with inflammation, I83.12 - Varicose veins of left lower extremity with inflammation Coding Level of Care Code New Pt Level 4 (15407) Diagnoses Varicose veins of both lower extremities with inflammation I83.11; I83.12
--- OUTSIDE RECORDS SUMMARY | 2025-04-09 13:16 | XMS_ITS | Clinical Summary ---
Author Organization [facility] Address [address] [place] [address] Care Team Providers Care Web Development Manager Name Role Phone Unavailable Primary Care Provider [...] Documents on File Type Date Recorded Patient Chief Analytics Officer Expl anation Health Care Decision (hx) 02/23/2021 AD HAN DIRECTIVE Health Care Decision (hx) 02/17/2021 AD HAN DIRECTIVE
== END 2025-04-09 11:49 | disposition home or self-care (01) ==
PROVIDERS: PCP Internal Medicine; Visit Provider Physician Assistant Surgical
DX: I83.11 Varicose veins of right lower extremity with inflammation (principal); I83.12 Varicose veins of left lower extremity with inflammation
CPT/HCPCS: 99204

== ENCOUNTER → 2025-04-09 11:37 | Outpatient (BNVA) | payer MEDICARE, SELFPAY | PROVIDERS: PCP Internal Medicine; Visit Provider Physician Assistant Surgical | DX: I83.12 Varicose veins of left lower extremity with inflammation (principal); I83.11 Varicose veins of right lower extremity with inflammation | CPT/HCPCS: 99202 ==

== ENCOUNTER 2025-04-18 13:34 | Outpatient (AMB) | payer MEDICARE, SELFPAY ==
--- NOTE | 2025-04-18 14:02 | MHC.PC.OV ---
Vital Signs 04/18/25 14:08 Height 5 ft 8 in Weight 137 lb BMI 20.8 BP 124/80 Blood Pressure Location Lt brachial Position Sitting Respiration 16 Pulse 88 Pulse Source Pulse Oximeter Temp 97.6 F Temp Source Oral Pulse Oximetry (%) 97 Oxygen Delivery Method Room Air Intake Visit Reasons: Follow up Intake Note: Pt is here today f/u lab results Allergies No Known Allergies Allergy (Verified 04/18/25 14:27) Medication List - Last Reconciled 04/18/25 by Iveth Stokes MD [id number] 160-9-4.8 mcg/actuation (Breztri Aerosphere) 2 inhalations inhalation BID Tobacco use date assessed: 04/18/25 Fall risk assessment: 1 Fall in past year Last assessed Fall Risk: 04/18/25 Dental Screening Dental Screen Date: 04/18/25 Did you have a dental visit in the last 12 months?: No Did you have a dental problem in the last 6 months where you did not have access to dental care?: No Was dental information given to patient?: Patient declined HPI Follow up HPI Details 69-year-old male with history of coronary artery disease, hypertension, obstructive sleep apnea, microcytosis, and COPD, here today for follow-up on his smoking cessation. Stopped taking Chantix, did not help him quit smoking. Patient states however that he has now cut down to the about 3-5 cigarettes a day, as he lives now with his sister who does not smoke. Patient states that he has been having difficulty getting his weight up. Admits to not really having a robust appetite, and continues to smoke cigarettes , which does affect appetite. He has history of anemia in the past, but recent labs done in February 2025 showed normal CBC, but still with low serum iron and % saturation in red blood cells. [facility] Medical History (Updated 04/22/25 @ 21:36 by Iveth Stokes MD) History of anemia Chronic left hip pain Cigarette smoker motivated to quit Anemia History of fracture of left hip Alcoholism Grief at loss of child CAD (coronary artery disease) Coronary artery calcification seen on CT scan Aortic ectasia Essential hypertension COPD (chronic obstructive pulmonary disease) Nicotine dependence, cigarettes, uncomplicated TIM (obstructive sleep apnea) Polycythemia Elevated hemoglobin Macrocytosis without anemia GERD (gastroesophageal reflux disease) Tubular adenoma of colon Constipation Alcoholic gastritis History of small bowel obstruction Hx of urethral stricture Psoriasis Change in multiple pigmented skin lesions Refused influenza vaccine Pneumococcal vaccination declined Surgical History History of repair of hip fracture Status post open reduction and internal fixation (ORIF) of fracture History of colonoscopy History of esophagogastroduodenoscopy (EGD) Hx of varicose vein stripping Hx of elbow surgery Hx of bilateral inguinal hernia repair History of surgery Family History Mother CAD (coronary artery disease) Maternal Grandfather Brain tumor Maternal Uncle Eye cancer Social History Household Members: Family Household Members Other:: Uncle Housing: House Are you a primary critical care specialist to a significant other at home: No Do you presently have visiting nurse or other home services: Yes (housework) Unable to assess alcohol history related to: Unknown Alcohol intake: current Alcohol intake frequency: a few times a month Comment: pt refused high fall risk Patient Tobacco Use Status: Current someday Tobacco user Tobacco use type: Smokeless Tobacco Cigarette Packs Per Day: 0.5 Cigarettes Per Day: 10.0 Years Smoked: 50 e-Cigarette/Vaping Use: Never Used Second Hand Smoke Exposure: No Substance Use Type: Crack/Cocaine and Marijuana service: No Current occupational status: retired Cognitive needs: No Hearing needs: No Vision needs: No Questionnaire Thrive Questionnaire Date Thrive assessed: 11/08/24 I am a: Patient What is your living situation today?: I have a steady place to live Within the past 12 months, did the food you bought not last and you didn't have the money to get more?: Never true Within the past 12 months, did you worry whether your food would run out before you got money to buy more?: I choose not to answer this question Do you have trouble paying for medicines?: No Do you have trouble getting transportation to medical appointments?: No Do you have trouble paying your heating and electricity bill?: No Do you have trouble taking care of your child, family member or friend?: No Do you have trouble with day-to-day activities such as bathing, preparing meals, shopping, managing finances, etc.?: I choose not to answer this question Are you currently unemployed and looking for a job?: No Are you interested in more education?: No Please select the resources that you would like help with: None Currently or been in a relationship where the following occur: No concerns reported THRIVE Score: 0 JESS-7 AMB Questionnaire JESS-7 Date JESS - 7 assessed: 11/08/24 Source: Developed by Drs. Az Porras, Monserrat Calles, Fabrice Garcia and colleagues, with an educational shaheen from [employer]. Review of Systems Const Denies weakness ENT Denies dizziness Card Denies chest pain, Denies chest pain at rest, Denies chest pain with activity, Denies dyspnea and Denies dyspnea on exertion Resp Denies cough, Denies dyspnea and Denies dyspnea on exertion GI Denies abdominal pain, Denies nausea and Denies vomiting Musc Denies numbness Skin/Breast Reports as per HPI, Denies erythema and Denies wounds Neuro Denies dizziness, Denies numbness, Denies Sensory deficit (Neuro) and Denies weakness Psych Reports no additional complaints Endo Reports no additional complaints Physical exam (Primary Care) Vital Signs: Last Vital Signs Temp 97.6 F 04/18/25 14:08 Pulse 88 04/18/25 14:08 Resp 16 04/18/25 14:08 BP 124/80 04/18/25 14:08 Pulse Ox 97 04/18/25 14:08 Oxygen Delivery Method Room Air 04/18/25 14:08 BMI result Body Mass Index 20.8 Tobacco/Smoking Status: Tobacco use Status Tobacco use date assessed 04/18/25 04/18/25 14:06 Patient Tobacco Use Status Current someday Tobacco 04/18/25 14:02 Tobacco use type Smokeless Tobacco 04/18/25 14:02 e-Cigarette/Vaping Use Never Used 04/18/25 14:02 Thrive Assessment: Date of Thrive Assessment Date Thrive assessed 11/08/24 04/18/25 14:02 Currently or been in a relationship where the following occur: No concerns reported Const Other: Alert orient x3, no acute distress noted ambulatory with normal gait HENMT Mouth: Normal oral and palatal mucosa present, oropharynx normal and moist mucous membranes Eyes Other: Anicteric General: appearance normal, both eyes and all related structures Neck Neck: Yes full ROM, Yes no lymphadenopathy and Yes supple Resp Other: Diminished breath sounds bilaterally, no wheezing Effort & Inspection: normal respiratory effort and able to speak in complete sentences Cardio Other: S1-S2 present regular rate and rhythm GI Other: Normal bowel sounds, soft, nontender with no mass palpated General: Yes no CVA tenderness Back/Spine/Pelvis Back: no CVA tenderness Neuro General: no focal motor deficits Sensory Exam: No Sensory deficit (Neuro) Extrem General: Yes no joint enlargement, Yes no pedal edema and Yes no calf tenderness Results Reviewed Results Reviewed: Name: Kingston Tomas Age/Sex: 69/M : 1955 Unit#: [id number] Attend Dr: Iveth Stokes MD Re03/09/25 Status: DEP REF Location: [facility] Disch: SPEC : [id number] MILA: 03/09/25 STATUS: COMP REQ : [id number] RECD: 03/09/[address]: Iveth Stokes MD COMP: 03/09/25 ENTERED: 03/09/[address] [facility] [address]: ORDERED: CBC Auto Diff Test Result Flag Reference WBC 5.5 4.8-10.8 X10*3/uL RBC 4.93 # 4.60-5.80 X10*6/uL HGB 16.0 # 14.0-18.0 g/dl HCT 47.8 # 42.0-52.0 % MCV 97.0 80.0-98.0 fL MCH 32.5 27.0-33.0 pg MCHC 33.5 31.0-36.0 g/dl RDW 13.4 11.0-16.0 % PLT 184 160-400 X10*3/uL MPV 10.3 9.4-12.4 fL Neut Pct Auto 60.4 45-73 % ImGran Pct Auto 0.5 H 0.0-0.4 % Lymp Pct Auto 25.6 20-40 % Pickens Pct Auto 10.4 2-11 % Eos Pct Auto 2.2 0-4 % Baso Pct Auto 0.9 0-2 % NRBC Pct Auto 0.0 0.0-0.2 /100WBC ANC Neut Abs # 3.3 2.0-8.3 x10*3/uL ImGran Abs Auto 0.03 0.00-0.03 X10*3/uL Lymph Abs Auto 1.4 1.2-4.9 X10*3/uL Pickens Abs Auto 0.6 0.1-1.2 X10*3/uL Eos Abs Auto 0.1 0.0-0.4 X10*3/uL Baso Abs Auto 0.1 0.0-0.2 X10*3/uL NRBC Abs Auto 0.000 0.0-0.012 X10*3/uL Name: Kingston Tomas Age/Sex: 69/M : 1955 Unit#: [id number] Attend Dr: Iveth Stokes MD Re03/09/25 Status: DEP REF Location: [facility] Disch: SPEC : [id number] MILA: 03/09/25 STATUS: COMP REQ : [id number] RECD: 03/09/[address]: Iveth Stokes MD COMP: 03/09/259 ENTERED: 03/09/[address]: ORDERED: IRON PROF Test Result Flag Reference Iron 38 L 45-160 mcg/dL TIBC 319 228-428 mcg/dL Saturation 12 L 15-50 % UIBC 281 ug/dL Coding Level of Care Code Est Pt Level 4 (49852) Diagnoses History of anemia Z86.2 COPD (chronic obstructive pulmonary disease) J44.9 Assessment & Plan Assessment & Plan (1) History of anemia: Code(s): Z86.2 - Personal history of diseases of the blood and blood-forming organs and certain disorders involving the immune mechanism Category: Medical Plan: Latest CBC showed normal hemoglobin hematocrit but iron stores slightly low still. Advised continued abstinence from alcohol, and healthy diet (2) COPD (chronic obstructive pulmonary disease): Code(s): J44.9 - Chronic obstructive pulmonary disease, unspecified Category: Medical Plan: Currently followed by Pulmonary Clinic, [facility]
[2025-04-18 14:08] VITALS: BP 124/80; PULSE 88; RESP 16; TEMP 36.4; O2SAT 97; BMI 20.8
--- OUTSIDE RECORDS SUMMARY | 2025-04-18 16:26 | XMS_ITS | Clinical Summary ---
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
== END 2025-04-18 14:42 | disposition home or self-care (01) ==
LOC: HO.HMCC 13:35
PROVIDERS: PCP Internal Medicine; Visit Provider Internal Medicine
DX: Z86.2 Personal history of diseases of the blood and blood-forming organs and certain disorders involving the immune mechanism (principal); J44.9 Chronic obstructive pulmonary disease, unspecified

== ENCOUNTER → 2025-04-18 13:34 | Outpatient (BNVA) | payer MEDICARE, SELFPAY | PROVIDERS: PCP Internal Medicine; Visit Provider Internal Medicine | DX: I25.10 Atherosclerotic heart disease of native coronary artery without angina pectoris (principal); I10 Essential (primary) hypertension; G47.33 Obstructive sleep apnea (adult) (pediatric); J44.9 Chronic obstructive pulmonary disease, unspecified; F17.210 Nicotine dependence, cigarettes, uncomplicated; Z86.2 Personal history of diseases of the blood and blood-forming organs and certain disorders involving the immune mechanism | CPT/HCPCS: 99212 ==

== ENCOUNTER 2025-05-06 10:13 | Outpatient (REF) | payer MEDICARE, SELFPAY ==
--- NOTE | ~2025-05-06 | US_ITS ---
EXAMINATION: US LOWER EXTREMITY VENOUS (REFLUX EXAM), BILATERAL CLINICAL INFORMATION: Status post varicose stripping, right lower extremity. COMPARISON: None. TECHNIQUE: Color flow triplex imaging and compression Doppler was performed to evaluate both the deep and the superficial systems bilaterally. To evaluate the superficial system, the examination was performed in the upright position. Color-flow Doppler ultrasound and compression ultrasound were utilized. In addition, maneuvers were utilized to demonstrate reflux. FINDINGS: 1. DEEP VENOUS ULTRASOUND OF THE RIGHT LOWER EXTREMITY: Common Femoral Vein: Compressible, normal respiratory variation and augmented flow. Femoral Vein: Compressible, normal color flow and augmentation. Popliteal Vein: Compressible, normal augmentation. Deep Reflux: There is no evidence of reflux in the deep system in either the common femoral vein, superficial femoral or the popliteal vein. There is no evidence of a Lynn's cyst. 2. SUPERFICIAL ULTRASOUND WITH DOPPLER OF RIGHT LOWER EXTREMITY: GREAT SAPHENOUS VEIN: Absent, surgically. DUPLICATED MEDIAL GREAT SAPHENOUS VEIN: Diameter: None imaged Reflux: NA DUPLICATED LATERAL GREAT SAPHENOUS VEIN: Diameter: None imaged Reflux: NA SMALL SAPHENOUS VEIN: Saphenopopliteal Junction: 0.2 cm; Reflux: 0 ms Proximal: 0.2 cm; Reflux: 0 ms Distal: 0.2 cm; Reflux: 0 ms VEIN OF GIACOMINI: Size: NA Reflux: NA PERFORATORS: Location: Mid thigh to the knee. Proximal to mid calf. Size: 0.1-0.3 cm. Reflux: NA VARICOSITIES: Location: None imaged. Size: NA Reflux: NA 3. DEEP VENOUS ULTRASOUND OF THE LEFT LOWER EXTREMITY: Common Femoral Vein: Compressible, normal respiratory variation and augmented flow. Femoral Vein: Compressible, normal color flow and augmentation. Popliteal Vein: Compressible, normal augmentation. Deep Reflux: There is no evidence of reflux in the deep system in either the common femoral vein, superficial femoral or the popliteal vein. There is no evidence of a Lynn's cyst. 4. SUPERFICIAL ULTRASOUND WITH DOPPLER OF LEFT LOWER EXTREMITY: GREAT SAPHENOUS VEIN: Saphenofemoral Junction: 0.6 cm; Reflux: 0 ms Proximal Thigh: 0.2 cm; Reflux: 0 ms Mid Thigh: vena seal Distal Thigh: vena seal At Knee: 0.3 cm; Reflux: 1704 ms Proximal Calf: 0.4 cm; Reflux: 2784 ms Mid Calf: 0.3 cm; Reflux: 2680 ms Distal Calf: 0.4 cm; Reflux: 1476 ms DUPLICATED MEDIAL GREAT SAPHENOUS VEIN: Diameter: None imaged Reflux: NA DUPLICATED LATERAL GREAT SAPHENOUS VEIN: Diameter: None imaged. Reflux: NA SMALL SAPHENOUS VEIN: Saphenopopliteal Junction: 0.3 cm; Reflux: 0 ms Proximal: 0.1 cm; Reflux: 0 ms Distal: 0.3 cm; Reflux: 0 ms VEIN OF GIACOMINI: Size: NA Reflux: NA PERFORATORS: Location: Distal thigh to the distal calf. Size: 0.2-0.3 cm. Reflux: NA VARICOSITIES: Location: None Imaged Size: NA Reflux: NA US/US venous insuf bilat IMPRESSION: Right: No venous insufficiency. Left: Venous insufficiency, great saphenous vein from the knee to the ankle. Perforators without reflux. Electronically signed by: Shashank Paredes MD 05/06/2025 03:39 PM EDT
--- OUTSIDE RECORDS SUMMARY | 2025-05-06 10:56 | XMS_ITS | Clinical Summary ---
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
== END 2025-05-06 10:14 | disposition home or self-care (01) ==
LOC: HO.US 10:13
PROVIDERS: PCP Internal Medicine; Visit Provider Physician Assistant Surgical
DX: I83.11 Varicose veins of right lower extremity with inflammation (principal); I83.12 Varicose veins of left lower extremity with inflammation
CPT/HCPCS: 93970

== ENCOUNTER → 2025-05-06 10:15 | Outpatient (BNV) | payer MEDICARE, SELFPAY | PROVIDERS: PCP Internal Medicine; Visit Provider Radiology Diagnostic Radiology | DX: I83.225 Varicose veins of left lower extremity with both ulcer other part of foot and inflammation (principal) | CPT/HCPCS: 93970 ==

== ENCOUNTER 2025-06-28 13:56 | Outpatient (AMB) | payer MEDICARE, SELFPAY ==
--- NOTE | 2025-06-28 14:01 | MHC.OFFVIS ---
Intake Visit Reasons: follow up 05/06/25 Intake Note: Patient presents for follow up US performed on 05/06/25. Patient states his left leg is constantly painful. Especially at night. Accompanied by: Self / Same As Patient Allergies No Known Allergies Allergy (Verified 06/28/25 14:02) HPI HPI follow up 05/06/25: Details: Very pleasant 69-year-old gentleman presents for follow-up evaluation regarding venous insufficiency. He had venous procedures done several years prior at [facility]. He continues to have swelling and discomfort. He does have cluster of varicosities in the left lower extremity. He does report that the left is more of an issue than the right. He has been compliant with compression which has provided minimal relief. He now presents for follow-up with venous insufficiency testing. [facility] Medical History History of anemia Chronic left hip pain Cigarette smoker motivated to quit Anemia History of fracture of left hip Alcoholism Grief at loss of child CAD (coronary artery disease) Coronary artery calcification seen on CT scan Aortic ectasia Essential hypertension COPD (chronic obstructive pulmonary disease) Nicotine dependence, cigarettes, uncomplicated TIM (obstructive sleep apnea) Polycythemia Elevated hemoglobin Macrocytosis without anemia GERD (gastroesophageal reflux disease) Tubular adenoma of colon Constipation Alcoholic gastritis History of small bowel obstruction Hx of urethral stricture Psoriasis Change in multiple pigmented skin lesions Refused influenza vaccine Pneumococcal vaccination declined Surgical History History of repair of hip fracture Status post open reduction and internal fixation (ORIF) of fracture History of colonoscopy History of esophagogastroduodenoscopy (EGD) Hx of varicose vein stripping Hx of elbow surgery Hx of bilateral inguinal hernia repair History of surgery Family History Mother CAD (coronary artery disease) Maternal Grandfather Brain tumor Maternal Uncle Eye cancer Social History Household Members: Family Household Members Other:: Uncle Housing: House Are you a primary hiv/aids care nurse to a significant other at home: No Do you presently have visiting nurse or other home services: Yes (housework) Unable to assess alcohol history related to: Unknown Alcohol intake: current Alcohol intake frequency: a few times a month Comment: pt refused high fall risk Patient Tobacco Use Status: Current someday Tobacco user Tobacco use type: Smokeless Tobacco Cigarette Packs Per Day: 0.5 Cigarettes Per Day: 10.0 Years Smoked: 50 e-Cigarette/Vaping Use: Never Used Second Hand Smoke Exposure: No Substance Use Type: Crack/Cocaine and Marijuana service: No Current occupational status: retired Cognitive needs: No Hearing needs: No Vision needs: No Review of Systems Const Reports as per HPI ENT Reports no additional complaints Card Denies chest pain, Denies chest pain at rest and Denies chest pain with activity Resp Denies chest congestion and Denies cough GI Reports no additional complaints Musc Details: pain over varicosities, aching of lower extremities, swelling, cramping, heaviness and tiredness, itching Denies abnormal gait Skin/Breast Reports pruritus and Denies wounds Neuro Reports no additional complaints and Denies abnormal gait Psych Denies no additional complaints Physical Exam Const General: cooperative, healthy appearing and comfortable Orientation/consciousness: oriented to person, oriented to place and oriented to time Neck Carotids: no bruits Chest Chest palpation & inspection: normal inspection of the chest and normal palpation of entire chest wall Resp Effort & Inspection: normal respiratory effort and able to speak in complete sentences Cardio Rate: regular rate Heart sounds: S1 normal heart sound present and S2 normal heart sound present Peripheral pulses: Peripheral pulses 2+ throughout GI Inspection: Yes normal to inspection Skin Other: +2 edema, large rope-like varicosities greater than 4 mm left calf CEAP Classification C4 - skin color changes Ep - Etiology Primary As - superficial veins P - reflux General skin exam: dry skin Neuro General: oriented to person, oriented to place and oriented to time Extrem Right lower extremity: full ROM, normal capillary refill and edema Left lower extremity: full ROM, normal capillary refill and edema Psych Mental Status: mental status grossly normal Results Reviewed Results Reviewed: Brief summary of venous insufficiency testing is as follows: right great saphenous vein: negative right small saphenous vein: negative right accessory vein: none present left great saphenous vein: Positive left calf left small saphenous vein: negative left accessory vein: none present Please note there is no evidence of any venous aneurysms or significant tortuosity Assessment & Plan Assessment & Plan (1) Varicose veins of left lower extremity with inflammation: Code(s): I83.12 - Varicose veins of left lower extremity with inflammation Category: Medical Plan: This patient has varicose veins with inflammation. They continue to be a source of discomfort for the patient. The patient has tried conservative treatment with compression, leg elevation and exercise program for over 3 months time. They have been compliant with all treatment. This has provided minimal relief for the patient. I do not anticipate this course of treatment will alter the underlying etiology. The patient has been scheduled for lower extremity venous treatment inclusive of --- left great saphenous vein Cyanoacralate ablation. Risks, benefits, and complications of this procedure has been discussed in detail with the patient including but not limited to bleeding, infection, and the development of a DVT. The patient has demonstrated a clear understanding and has consented. We will schedule the patient as soon as possible. Thank you for allowing us to participate in this patient's care. If there are any questions or concerns please do not hesitate to contact us. Coding Level of Care Code Est Pt Level 4 (04450) Diagnoses Varicose veins of left lower extremity with inflammation I83.12
--- OUTSIDE RECORDS SUMMARY | 2025-06-28 14:25 | XMS_ITS | Clinical Summary ---
Author Organization [facility] Address [address] [place] [address] Care Team Providers Care Natural Resources Professor Name Role Phone Unavailable Primary Care Provider [...] Vaccine (1 - 2023-2 5 season) 2024 Depression Screening 10/24/2024 Influenza Vaccine (#1) 2025 RSV Immunization Adult [...] Documents on File Type Date Recorded Patient External Grinder Tool Expl anation Health Care Decision (hx) 02/23/2021 AD HAN DIRECTIVE Health Care Decision (hx) 02/17/2021 AD HAN DIRECTIVE
== END 2025-06-28 14:42 | disposition home or self-care (01) ==
LOC: HO.HVS 13:57
PROVIDERS: PCP Internal Medicine; Visit Provider Surgery Vascular Surgery
DX: I83.12 Varicose veins of left lower extremity with inflammation (principal)
CPT/HCPCS: 99214

== ENCOUNTER → 2025-06-28 13:56 | Outpatient (BNVA) | payer MEDICARE, SELFPAY | PROVIDERS: PCP Internal Medicine; Visit Provider Surgery Vascular Surgery | DX: I83.12 Varicose veins of left lower extremity with inflammation (principal) | CPT/HCPCS: 99212 ==

== ENCOUNTER 2025-07-19 08:17 | Outpatient (AMB) | payer MEDICARE, SELFPAY ==
[2025-07-19 08:21] VITALS: BMI 21.1
--- NOTE | 2025-07-19 08:21 | MHC.OFFVIS ---
Vital Signs 07/19/25 08:21 Height 5 ft 8 in Weight 139 lb BMI 21.1 Intake Visit Reasons: Left GSV Venaseal Patient Registration Specialist Required: No Accompanied by: Self / Same As Patient Allergies No Known Allergies Allergy (Verified 07/19/25 08:22) [facility] Medical History History of anemia Chronic left hip pain Cigarette smoker motivated to quit Anemia History of fracture of left hip Alcoholism Grief at loss of child CAD (coronary artery disease) Coronary artery calcification seen on CT scan Aortic ectasia Essential hypertension COPD (chronic obstructive pulmonary disease) Nicotine dependence, cigarettes, uncomplicated TIM (obstructive sleep apnea) Polycythemia Elevated hemoglobin Macrocytosis without anemia GERD (gastroesophageal reflux disease) Tubular adenoma of colon Constipation Alcoholic gastritis History of small bowel obstruction Hx of urethral stricture Psoriasis Change in multiple pigmented skin lesions Refused influenza vaccine Pneumococcal vaccination declined Surgical History History of repair of hip fracture Status post open reduction and internal fixation (ORIF) of fracture History of colonoscopy History of esophagogastroduodenoscopy (EGD) Hx of varicose vein stripping Hx of elbow surgery Hx of bilateral inguinal hernia repair History of surgery Family History Mother CAD (coronary artery disease) Maternal Grandfather Brain tumor Maternal Uncle Eye cancer Social History Household Members: Family Household Members Other:: Uncle Housing: House Are you a primary skin care instructor to a significant other at home: No Do you presently have visiting nurse or other home services: Yes (housework) Unable to assess alcohol history related to: Unknown Alcohol intake: current Alcohol intake frequency: a few times a month Comment: pt refused high fall risk Patient Tobacco Use Status: Current someday Tobacco user Tobacco use type: Smokeless Tobacco Cigarette Packs Per Day: 0.5 Cigarettes Per Day: 10.0 Years Smoked: 50 e-Cigarette/Vaping Use: Never Used Second Hand Smoke Exposure: No Substance Use Type: Crack/Cocaine and Marijuana service: No Current occupational status: retired Cognitive needs: No Hearing needs: No Vision needs: No Physical Exam Vital Signs: BMI result Body Mass Index 21.1 Office Procedures Vascular Office Procedure Details Details: Diagnosis: Left Leg varicose veins with inflammation Procedure: Attempted Endovenous Ablation of the left Great Saphenous Vein with VenaSeal Closure System Anesthesia: Local infiltration 5 cc, Taper/Finisher: none Estimated Blood Loss: min Specimen: none Duplex ultrasound was used to map out the insufficient saphenous vein, and access was determined and marked on the overlying skin. The depth and diameter of the vein(s) to be treated was documented. The patient was placed supine on the procedure table and the leg was prepped and draped using sterile technique. Ultasound guidance was again used to localize the access site. 1% lidocaine was injected as a local anesthetic in the subcutaneous tissues at the target location in the GSV in the lower leg. Using ultrasound guidance, access was gained at this location with the 19 gauge thin walled access needle and followed by introduction of a short guidewire. Unfortunately we were unable to get good access due to the small caliber vein and the vein did go into spasm. Wire was not advanced. After multiple attempts to visualize the vein and spasm of the vein procedure was terminated. No Cyanoacralate was injected. All charges added?: Additional procedure code (CPT) needed Assessment & Plan Assessment & Plan (1) Varicose veins of left lower extremity with inflammation: Code(s): I83.12 - Varicose veins of left lower extremity with inflammation Category: Medical Plan: See op note Orders: Referrals Pain Management Referral M25.552 - Pain in left hip Coding Level of Care Code Procedure Only Diagnoses Varicose veins of left lower extremity with inflammation I83.12
--- OUTSIDE RECORDS SUMMARY | 2025-07-19 08:32 | XMS_ITS | Clinical Summary ---
Author Organization [facility] Address [address] [place] [address] Care Team Providers Care Medical Investigator Name Role Phone Unavailable Primary Care Provider [...] 2007 Zoster Vaccines (1 of 2) 2007 Depression Screening 10/24/2024 COVID-19 Vaccine (1 - 2023-2 5 season) 2025 Influenza Vaccine (#1) 2025 RSV Immunization Adult [...] Documents on File Type Date Recorded Patient Strap Folding Machine Operator Expl anation Health Care Decision (hx) 02/23/2021 AD HAN DIRECTIVE Health Care Decision (hx) 02/17/2021 AD HAN DIRECTIVE
== END 2025-07-19 13:54 | disposition home or self-care (01) ==
LOC: HO.HVS 08:18
PROVIDERS: PCP Internal Medicine; Visit Provider Surgery Vascular Surgery
DX: I83.12 Varicose veins of left lower extremity with inflammation (principal)
CPT/HCPCS: 36482

== ENCOUNTER → 2025-07-19 08:17 | Outpatient (BNVA) | payer MEDICARE, SELFPAY | PROVIDERS: PCP Internal Medicine; Visit Provider Surgery Vascular Surgery | DX: I83.12 Varicose veins of left lower extremity with inflammation (principal) | CPT/HCPCS: 36482; J2003 ==

== ENCOUNTER 2025-08-19 11:18 | Outpatient (AMB) | payer MEDICARE, SELFPAY ==
--- NOTE | 2025-08-19 11:25 | A.OFFVIS_ITS ---
Vital Signs 08/19/25 11:29 Height 5 ft 8 in Weight 139 lb BMI 21.1 BP 186/89 H Blood Pressure Location Lt brachial Position Sitting Pulse 80 Pulse Source Pulse Oximeter Pulse Oximetry (%) 97 Oxygen Delivery Method Room Air Intake Visit Reasons: Pain in left hip Intake Note: Pain today 1/10, worse at night Price Accuracy Supervisor Required: No Accompanied by: Self / Same As Patient Allergies No Known Allergies Allergy (Verified 08/19/25 11:28) HPI Comments Details: The patient is a 70-year-old male presenting with persistent left hip pain following previous hip surgery. The patient underwent hip surgery on October 18 of the previous year at [facility] after falling down the stairs while carrying a box and a bag, resulting in a fractured hip. The surgery involved the insertion of a femur and metallic hardware. Patient reports ongoing left buttock and left lateral hip pain since surgery. Denies any recent trauma, injury or falls. Post-surgery, the patient has experienced ongoing left hip pain, which has not improved despite physical therapy and hospitalization in December due to worsening pain. The patient reports that the pain intensifies at night, affecting the buttock and thigh areas. An ultrasound venous study showed venous insufficiency in the left great saphenous vein from the knee to the ankle, without reflux. He was seen by [facility], Dr. Beltrán who attempted Endovenous Ablation of the left Great Saphenous Vein with VenaSeal Closure System last month but patient's leg went into significant spasming and procedure was aborted. The patient reports he has not seen the Orthopedic surgeon for a long time. He had follow up scheduled with [facility] in December 2024 but cannot recall if he attended that post op visit. The patient has been managing the pain without regular use of analgesics, although gabapentin was tried earlier in the year without relief. 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 Patient with history of alcohol abuse, reports alcohol consumption few times per month and smokes to 3-5 cigarettes per day. Denies illicit drug use. - Onset: Pain began after hip surgery following a fall on October 18. - Quality: Described as hard and sore, particularly at night. - Location: Primarily in the left hip, buttock, and thigh. Low back pain. - Exacerbating factors: Movement, walking, changing positions and physical activity increase pain. - Relieving factors: No specific relieving factors. - Interference: Pain affects the ability to perform certain movements and activities. - Affect: The patient manages pain without regular medication use, indicating a significant impact on daily life. - Analgesia: Gabapentin was used earlier in the year but did not provide relief. - Adverse Effects: No adverse effects from medications were reported. - Activities of Daily Living: Pain interferes with physical activities and movements. - Aberrant Drug Related Behaviors: No signs of medication misuse or abuse reported. [facility] Medical History (Updated 08/19/25 @ 12:07 by NANCY Mckeon) History of anemia Chronic left hip pain Cigarette smoker motivated to quit Anemia History of fracture of left hip Alcoholism Grief at loss of child CAD (coronary artery disease) Coronary artery calcification seen on CT scan Aortic ectasia Essential hypertension COPD (chronic obstructive pulmonary disease) Nicotine dependence, cigarettes, uncomplicated TIM (obstructive sleep apnea) Polycythemia Elevated hemoglobin Macrocytosis without anemia GERD (gastroesophageal reflux disease) Tubular adenoma of colon Constipation Alcoholic gastritis History of small bowel obstruction Hx of urethral stricture Psoriasis Change in multiple pigmented skin lesions Refused influenza vaccine Pneumococcal vaccination declined Surgical History (Updated 08/19/25 @ 11:53 by NANCY Mckeon) History of repair of hip fracture Status post open reduction and internal fixation (ORIF) of fracture History of colonoscopy History of esophagogastroduodenoscopy (EGD) Hx of varicose vein stripping Hx of elbow surgery Hx of bilateral inguinal hernia repair History of surgery Family History Mother CAD (coronary artery disease) Maternal Grandfather Brain tumor Maternal Uncle Eye cancer Social History Household Members: Family Household Members Other:: Uncle Housing: House Are you a primary health care / medical job titles to a significant other at home: No Do you presently have visiting nurse or other home services: Yes (housework) Alcohol intake: current Alcohol intake frequency: a few times a month Comment: pt refused high fall risk Patient Tobacco Use Status: Current someday Tobacco user Tobacco use type: Smokeless Tobacco Cigarette Packs Per Day: 0.5 Cigarettes Per Day: 10.0 Years Smoked: 50 e-Cigarette/Vaping Use: Never Used Second Hand Smoke Exposure: No Substance Use Type: Crack/Cocaine and Marijuana service: No Current occupational status: retired Cognitive needs: No Hearing needs: No Vision needs: No Review of Systems Const Details: - Musculoskeletal: Reports persistent left hip pain, denies back pain. - Vascular: Reports venous insufficiency in the left leg without reflux. Unable to tolerate Vascular procedure. All systems reviewed & are unremarkable except as noted in HPI and below Physical Exam Vital Signs: Last Vital Signs Pulse 80 08/19/25 11:29 BP 186/89 H 08/19/25 11:29 Pulse Ox 97 08/19/25 11:29 Oxygen Delivery Method Room Air 08/19/25 11:29 BMI result Body Mass Index 21.1 General: Appears afebrile. Alert and oriented. Mood and affect appropriate. Follows and participates in conversation appropriately. Respiratory effort is unlabored. No cough. Able to transition from sit to stand unassisted. Ambulates with normal heel strike and toe off on the right, limping on the left with antalgic gait. General: Yes no CVA tenderness Back/Spine/Pelvis Other: Limited lumbar ROM. Lumbar extension reproduces moderate pain, lumbar flexion and bending is intact and reproduces mild symptoms. Facet loading test positive bilaterally. Elaine sign positive on the left, limited Mark?s positive on the left. Pelvic compression and Stinchfield tests are positive bilaterally. Moderate groin pain with I/E hip rotations on the left. Moderate TTP to left GTB and superior iliac crest. Back: no CVA tenderness Cervical Spine: cervical ROM normal and No Cervical spine tenderness Thoracic/Lumbar Spine: thoracic and lumbar spine normal to inspection, Thoracic/lumbar spine scar(s), No Lasegue's sign negative, No straight leg raise negative bilaterally, pain with thoraco-lumbar ROM, thoraco-lumbar ROM limited, No thoracic spinal tenderness and No lumbar spinal tenderness Sacroiliac joints: on the right nontender and on the left tender to palpation Extrem General: Yes capillary refill normal, Yes no clubbing, cyanosis or edema and Yes no calf tenderness Results Reviewed Results Reviewed: XR HIP, LEFT 12/27/24 CLINICAL INFORMATION: s/p hip replacement COMPARISON: No priors. Correlated to CT abdomen and pelvis dated: June 08, 2022 and April 30, 2021. TECHNIQUE: Two views of the left hip. FINDINGS: There is an intramedullary micki in the proximal left femur anchored with the 2 femoral head neck screws and one screw distally in the proximal diaphysis. There is an intertrochanteric fracture with osteophyte formation and persistent lucency in the lesser trochanter. Probable heterotopic bone formation and the superior aspect of the greater trochanter. No gross loosening. No gross malalignment. IMPRESSION: Nonunion intertrochanteric fracture fracture and status post open reduction internal fixation with metallic hardware left femur. US venous insuf bilat 05/06/25 IMPRESSION: Right: No venous insufficiency. Left: Venous insufficiency, great saphenous vein from the knee to the ankle. Perforators without reflux. Assessment & Plan Assessment & Plan (1) History of repair of hip fracture: Code(s): Z98.890 - Other specified postprocedural states Category: Surgical (2) Left hip pain: Code(s): M25.552 - Pain in left hip Category: Medical (3) Low back pain: Code(s): M54.50 - Low back pain, unspecified Category: Medical Plan The plan includes obtaining an MRI of the left hip to assess for loosening of the hardware, as previous imaging indicated possible hardware issues. Additionally, a back x-ray will be performed to rule out any contributing factors from the spine. The patient is advised to follow up with the Orthopedic surgeon. Pain management options are limited due to the presence of hardware and previous hip surgery, and interventional procedures such as steroid injections are not feasible. We discussed interventional treatments for back and SI joint region pain, including diagnostic nerve blocks for potential radiofrequency ablation or peripheral nerve stimulation procedures. All questions and concerns have been answered and patient agreed with the treatment plan. Follow up for MRI/xray results and sooner as needed. Patient was informed and verbally consented to the use of an ambient scribe for clinic note documentation during this visit. Orders: Orders MR hip LT wo con Today M25.552 - Pain in left hip, Z98.890 - Other specified postprocedural states XR lumbar spine 4V min Today M54.50 - Low back pain, unspecified Coding Level of Care Code New Pt Level 4 (07619) Diagnoses History of repair of hip fracture Z98.890 Left hip pain M25.552 Low back pain M54.50
[2025-08-19 11:29] VITALS: BP 186/89; PULSE 80; O2SAT 97; BMI 21.1
--- OUTSIDE RECORDS SUMMARY | 2025-08-19 14:27 | XMS_ITS | Clinical Summary ---
Author Organization [facility] Address [address] [place] [address] Care Team Providers Care Furnace And Wash Equipment Operator Name Role Phone Unavailable Primary Care Provider [...] Documents on File Type Date Recorded Patient Development Technical Lead Expl anation Health Care Decision (hx) 02/23/2021 AD HAN DIRECTIVE Health Care Decision (hx) 02/17/2021 AD HAN DIRECTIVE
== END 2025-08-19 11:46 | disposition home or self-care (01) ==
LOC: HO.PMC 11:19
PROVIDERS: PCP Internal Medicine; Visit Provider Nurse Practitioner Family
DX: Z98.890 Other specified postprocedural states (principal); M25.552 Pain in left hip; M54.50 Low back pain, unspecified
CPT/HCPCS: 99204

== ENCOUNTER → 2025-08-19 11:18 | Outpatient (BNVA) | payer MEDICARE, SELFPAY | PROVIDERS: PCP Internal Medicine; Visit Provider Nurse Practitioner Family | DX: M25.552 Pain in left hip (principal); M54.50 Low back pain, unspecified | CPT/HCPCS: 99202 ==

== ENCOUNTER → 2025-08-29 11:27 | Outpatient (BNVA) | payer MEDICARE, SELFPAY | PROVIDERS: PCP Internal Medicine | DX: I10 Essential (primary) hypertension (principal) | CPT/HCPCS: 99211 ==

== ENCOUNTER → 2025-09-12 09:48 | Outpatient (BNVA) | payer MEDICARE, SELFPAY | PROVIDERS: PCP Internal Medicine | DX: I10 Essential (primary) hypertension (principal) | CPT/HCPCS: 99211 ==

== ENCOUNTER 2025-09-14 08:28 | Outpatient (REF) | payer MEDICARE, MEDICAID, SELFPAY ==
--- OUTSIDE RECORDS SUMMARY | 2025-09-14 08:32 | XMS_ITS | Clinical Summary ---
Author Organization [facility] Address [address] [place] [address] Care Team Providers Care Material Handler Name Role Phone Unavailable Primary Care Provider [...] Depression Screening 10/24/2024 COVID-19 Vaccine (1 - 2024-2 6 season) 2025 Influenza Vaccine (#1) 2025 RSV [...] Documents on File Type Date Recorded Patient Wood Form Builder Expl anation Health Care Decision (hx) 02/23/2021 AD HAN DIRECTIVE Health Care Decision (hx) 02/17/2021 AD HAN DIRECTIVE
[2025-09-14 11:34] LABS: Alanine Aminotransferase 11 U/L (0-40); Aspartate Amino Transferase 21 U/L (5-37); Cholesterol 174 mg/dL (<200); HDL Cholesterol 55 mg/dL (>40); Triglycerides 87 mg/dL (<150)
== END 2025-09-14 08:29 | disposition home or self-care (01) ==
LOC: HO.HMGCLDS 08:28
PROVIDERS: PCP Internal Medicine; Visit Provider Internal Medicine
DX: Z13.220 Encounter for screening for lipoid disorders (principal); K29.20 Alcoholic gastritis without bleeding; F10.20 Alcohol dependence, uncomplicated
CPT/HCPCS: 36415; 80061; 84450; 84460

== ENCOUNTER 2025-10-02 18:33 | Outpatient (REF) | payer MEDICARE, MEDICAID, SELFPAY ==
--- NOTE | ~2025-10-02 | MR_ITS ---
CLINICAL HISTORY: M25.552 - Pain in left hip --- Additional Notes or Special Instructions: There is an intertrochanteric fracture with osteophyte MR left hip Comparison: CR - XR LUMBAR SPINE 4V MIN - 10/02/25 19:52 EST CR/NV/SR - XR HIP 1 VIEW LEFT WITH PELVIS - 12/27/24 15:42 EST Findings: Remote fracture of the left proximal femur status post fixation with an intramedullary micki and screws. Artifact from metallic hardware limits evaluation. There is a 9 mm region of edema in the left femoral head (series 2, image 13 and series 6, image 14). Question other regions of edema in the left femoral head, such as posteriorly (series 7, images 16 through 17). Question of edema versus artifact adjacent to the greater and lesser trochanters. There is fluid signal adjacent to intramedullary micki measuring up to 7 mm in thickness (series 7, image 7). Lucency adjacent to the intramedullary micki was not visualized on the prior radiographs. No acute fracture or aggressive osseous lesion. No joint effusion. There is increased signal within the labrum most prominent at the superior aspect which may indicate a tear. Partial-thickness femoral/acetabular chondromalacia, degenerative. Limited evaluation of the capsule and ligaments. There is mild to moderate muscular atrophy. Question left gluteus minimus and medius tendons increased signal at their insertion upon the greater trochanter with suspected partial tear, particularly involving gluteus medius. There is edema within the gluteus medius muscle. Otherwise unremarkable muscle, tendons and entheses. Status post left inguinal hernia repair. Otherwise normal vessels, nerves and soft tissues. No acute intrapelvic pathology. Impression: Remote fracture of the left proximal femur status post fixation. Fluid signal adjacent to the intramedullary micki may indicate loosening. Edema in the left femoral head is favored to be degenerative. Question edema within the left proximal femur involving the greater and lesser trochanters which could be secondary to artifact, altered biomechanics secondary to loosening and/or infection. Correlate clinically for signs/symptoms of infection and with dedicated radiographs of the left hip. This document has been electronically signed by: Mary Mars MD on 10/02/2025 20:20:42
--- NOTE | ~2025-10-02 | XR_ITS ---
EXAMINATION: XR LUMBOSACRAL SPINE CLINICAL INFORMATION: M54.50 - Low back pain, unspecified COMPARISON: Correlated to CT abdomen and pelvis dated June 08, 2022. TECHNIQUE: AP oblique and lateral views. FINDINGS: Multilevel marginal osteophyte formation and endplate sclerosis throughout the axial skeleton. Superior endplate compression deformity and Schmorl node resulting in 40% volume loss without retropulsion at L4 vertebra.. Decreased intervertebral disc height at L5-S1 and to a lesser extent L3-4 and the lower thoracic spine. No gross malalignment. No spondylolysis pars interarticularis. Facet joint hypertrophy at L4-5 and L5-S1. Osteopenia versus osteoporosis. Vascular calcifications. XR/XR lumbar spine 4V min IMPRESSION: Multilevel thoracolumbar spondylosis pronounced at L5-S1. Old superior endplate compression deformity, L4. Osteopenia versus osteoporosis. Electronically signed by: Shashank Paredes MD 10/03/2025 06:50 AM XIAO
--- OUTSIDE RECORDS SUMMARY | 2025-10-03 00:58 | XMS_ITS | Clinical Summary ---
Author Organization [facility] Address [address] [place] [address] Care Team Providers Care Hydraulic Technician Name Role Phone Unavailable Primary Care Provider [...] Documents on File Type Date Recorded Patient Therapy Site Coordinator Expl anation Health Care Decision (hx) 02/23/2021 AD HAN DIRECTIVE Health Care Decision (hx) 02/17/2021 AD HAN DIRECTIVE
== END 2025-10-02 18:34 | disposition home or self-care (01) ==
LOC: HO.MRI 18:33
PROVIDERS: PCP Internal Medicine; Visit Provider Nurse Practitioner Family
DX: M25.552 Pain in left hip (principal); M54.50 Low back pain, unspecified; Z98.890 Other specified postprocedural states
CPT/HCPCS: 72110; 73721

== ENCOUNTER → 2025-10-02 18:33 | Outpatient (BNV) | payer MEDICARE, MEDICAID, SELFPAY | PROVIDERS: PCP Internal Medicine; Visit Provider Radiology Diagnostic Radiology | DX: R60.0 Localized edema (principal) | CPT/HCPCS: 72110; 73721 ==

== ENCOUNTER → 2025-10-03 14:32 | Outpatient (BNVA) | payer MEDICARE, MEDICAID, SELFPAY | PROVIDERS: PCP Internal Medicine | DX: I10 Essential (primary) hypertension (principal); Z01.30 Encounter for examination of blood pressure without abnormal findings; Z87.891 Personal history of nicotine dependence; F10.10 Alcohol abuse, uncomplicated | CPT/HCPCS: 99211 ==

== ENCOUNTER 2025-10-21 13:34 | Outpatient (AMB) | payer MEDICARE, MEDICAID, SELFPAY ==
--- NOTE | 2025-10-21 13:41 | MHC.OFFVIS ---
Vital Signs 10/21/25 13:46 Height 5 ft 8 in Weight 148 lb BMI 22.5 BP 139/79 Blood Pressure Location Lt brachial Position Sitting Respiration 16 Pulse 91 Pulse Source Pulse Oximeter Pulse Oximetry (%) 98 Oxygen Delivery Method Room Air Intake Visit Reasons: X-RAY FOLLOW UP Lubricating Machine Tender Required: No Accompanied by: Self / Same As Patient Allergies No Known Allergies Allergy (Verified 10/21/25 13:47) HPI Comments Details: The patient is a 70 year old male presenting for follow-up on imaging results and discussion of persistent left hip pain. He has a history of a left hip surgery and subsequently reinjured the hip in a prior September when he fell down stairs while carrying a box, resulting in a hip fracture. He complains of ongoing axial low back pain and left lateral hip pain. A recent left hip MRI showed a remote fracture of the left proximal femur, status post fixation, with findings suggestive of potential loosening of the intramedullary micki with fluid signal and edema in his left femoral head. A back x-ray showed multilevel thoracolumbar spondylosis, most pronounced at L5-S1, an old superior endplate compression deformity at L4, and osteopenia or osteoporosis. The patient has a history of falls, with the most recent occurring in the late summer and a prior one in September of last year. He has not had any physical therapy for his back. Patient reports increased shortness of breaths with history of active 50+ pack-year smoker, pulmonary nodules and worsening COPD with physical therapy, therefore cannot pursue PT at this time. He was previously seen by Orthopedics in December 2024 and was hospitalized at that time. Patient is followed by [facility] Pulmonology. In terms of social history, he has stopped smoking and uses alcohol, with his last drink being on Tuesday. PRIOR: The patient is a 70-year-old male presenting with persistent left hip pain following previous hip surgery. The patient underwent hip surgery on October 18 of the previous year at [facility] after falling down the stairs while carrying a box and a bag, resulting in a fractured hip. The surgery involved the insertion of a femur and metallic hardware. Patient reports ongoing left buttock and left lateral hip pain since surgery. Denies any recent trauma, injury or falls. Post-surgery, the patient has experienced ongoing left hip pain, which has not improved despite physical therapy and hospitalization in December due to worsening pain. The patient reports that the pain intensifies at night, affecting the buttock and thigh areas. An ultrasound venous study showed venous insufficiency in the left great saphenous vein from the knee to the ankle, without reflux. He was seen by [facility] Vascular services, Dr. Beltrán who attempted Endovenous Ablation of the left Great Saphenous Vein with VenaSeal Closure System last month but patient's leg went into significant spasming and procedure was aborted. The patient reports he has not seen the Orthopedic surgeon for a long time. He had follow up scheduled with [facility] in December 2024 but cannot recall if he attended that post op visit. The patient has been managing the pain without regular use of analgesics, although gabapentin was tried earlier in the year without relief. The patient is retired and previously worked in a physically demanding job at [employer]. Patient with history of alcohol abuse, reports alcohol consumption few times per month and smokes to 3-5 cigarettes per day. Denies illicit drug use. - Onset: Pain began after hip surgery following a fall on October 18. - Quality: Described as hard and sore, particularly at night. - Location: Primarily in the left hip, buttock, and thigh. Low back pain. - Exacerbating factors: Movement, walking, changing positions and physical activity increase pain. - Relieving factors: No specific relieving factors. - Interference: Pain affects the ability to perform certain movements and activities. - Affect: The patient manages pain without regular medication use, indicating a significant impact on daily life. - Analgesia: Gabapentin was used earlier in the year but did not provide relief. - Adverse Effects: No adverse effects from medications were reported. - Activities of Daily Living: Pain interferes with physical activities and movements. - Aberrant Drug Related Behaviors: No signs of medication misuse or abuse reported. [facility] Medical History History of anemia Chronic left hip pain Cigarette smoker motivated to quit Anemia History of fracture of left hip Alcoholism Grief at loss of child CAD (coronary artery disease) Coronary artery calcification seen on CT scan Aortic ectasia Essential hypertension COPD (chronic obstructive pulmonary disease) Nicotine dependence, cigarettes, uncomplicated TIM (obstructive sleep apnea) Polycythemia Elevated hemoglobin Macrocytosis without anemia GERD (gastroesophageal reflux disease) Tubular adenoma of colon Constipation Alcoholic gastritis History of small bowel obstruction Hx of urethral stricture Psoriasis Change in multiple pigmented skin lesions Refused influenza vaccine Pneumococcal vaccination declined Surgical History History of repair of hip fracture Status post open reduction and internal fixation (ORIF) of fracture History of colonoscopy History of esophagogastroduodenoscopy (EGD) Hx of varicose vein stripping Hx of elbow surgery Hx of bilateral inguinal hernia repair History of surgery Family History Mother CAD (coronary artery disease) COPD (chronic obstructive pulmonary disease) Maternal Grandfather Brain tumor Maternal Uncle Eye cancer Social History Household Members: Family and None Household Members Other:: Other tenants Both parents involved: No Caregiver staying overnight: No Housing: Apartment Are you a primary managed care nurse to a significant other at home: No Do you presently have visiting nurse or other home services: No (housework) Alcohol intake: current Alcohol intake frequency: a few times a month Comment: 4-5 Smirnoff López Lemon Nips, sometimes every other day Patient Tobacco Use Status: Current everyday Tobacco user Tobacco use type: Cigarette Cigarette Packs Per Day: 0.5 Cigarettes Per Day: 10.0 Years Smoked: 50 e-Cigarette/Vaping Use: Never Used Second Hand Smoke Exposure: Yes Substance Use Type: Crack/Cocaine and Marijuana Trauma History: Sudden Loss of family members Special qamar needs: No Agree to transfusion: Yes service: No Current occupational status: retired Current occupational exposures/hazards: No Sexual orientation: Straight/Heterosexual Gender identity: Male Cognitive needs: Yes (Forgetful) Hearing needs: Yes Vision needs: Yes Review of Systems Narrative - Musculoskeletal: Reports ongoing back pain and left lateral hip pain. - Reports he must use a cane due to ice. Const All systems reviewed & are unremarkable except as noted in HPI and below Physical Exam Exam Exam: Vital Signs: Last Vital Signs Pulse 91 10/21/25 13:46 Resp 16 10/21/25 13:46 BP 139/79 10/21/25 13:46 Pulse Ox 98 10/21/25 13:46 Oxygen Delivery Method Room Air 10/21/25 13:46 BMI result Body Mass Index 22.5 General: Appears afebrile. Alert and oriented. Mood and affect appropriate. Follows and participates in conversation appropriately. Respiratory effort is unlabored. No cough. Able to transition from sit to stand unassisted with difficulty from rising to standing position. Ambulates with normal heel strike and toe off on the right, limping on the left with antalgic gait. General: Yes no CVA tenderness Back/Spine/Pelvis Other: Limited lumbar ROM. Lumbar extension reproduces moderate pain, lumbar flexion and bending is intact and reproduces mild symptoms. No midline TTP in cervical or thoracic spine, mild TTP in lower lumbar midline region. Facet loading test positive bilaterally. Elaine sign positive on the left, limited Mark?s positive on the left. Pelvic compression and Stinchfield tests are positive bilaterally. Moderate groin pain with I/E hip rotations on the left. Moderate TTP to left GTB and superior iliac crest. Back: no CVA tenderness Cervical Spine: cervical ROM normal, cervical muscular tenderness and No Cervical spine tenderness Thoracic/Lumbar Spine: thoracic and lumbar spine normal to inspection, Thoracic/lumbar spine scar(s), Lasegue's sign negative, straight leg raise negative bilaterally, pain with thoraco-lumbar ROM, thoraco-lumbar ROM limited, No thoracic spinal tenderness and lumbar spinal tenderness (L4-S1) Sacroiliac joints: on the right nontender and on the left tender to palpation Extrem General: Yes capillary refill normal, Yes no clubbing, cyanosis or edema and Yes no calf tenderness Results Reviewed Results Reviewed: XR HIP, LEFT 12/27/24 CLINICAL INFORMATION: s/p hip replacement COMPARISON: No priors. Correlated to CT abdomen and pelvis dated: June 08, 2022 and April 30, 2021. TECHNIQUE: Two views of the left hip. FINDINGS: There is an intramedullary micki in the proximal left femur anchored with the 2 femoral head neck screws and one screw distally in the proximal diaphysis. There is an intertrochanteric fracture with osteophyte formation and persistent lucency in the lesser trochanter. Probable heterotopic bone formation and the superior aspect of the greater trochanter. No gross loosening. No gross malalignment. IMPRESSION: Nonunion intertrochanteric fracture fracture and status post open reduction internal fixation with metallic hardware left femur. US venous insuf bilat 05/06/25 IMPRESSION: Right: No venous insufficiency. Left: Venous insufficiency, great saphenous vein from the knee to the ankle. Perforators without reflux. MR hip LT wo con 10/02/25 CLINICAL HISTORY: M25.552 - Pain in left hip --- Additional Notes or Special Instructions: There is an intertrochanteric fracture with osteophyte Comparison: CR - XR LUMBAR SPINE 4V MIN - 10/02/25 19:52 EST CR/MO/SR - XR HIP 1 VIEW LEFT WITH PELVIS - 12/27/24 15:42 EST Findings: Remote fracture of the left proximal femur status post fixation with an intramedullary micki and screws. Artifact from metallic hardware limits evaluation. There is a 9 mm region of edema in the left femoral head (series 2, image 13 and series 6, image 14). Question other regions of edema in the left femoral head, such as posteriorly (series 7, images 16 through 17). Question of edema versus artifact adjacent to the greater and lesser trochanters. There is fluid signal adjacent to intramedullary micki measuring up to 7 mm in thickness (series 7, image 7). Lucency adjacent to the intramedullary micki was not visualized on the prior radiographs. No acute fracture or aggressive osseous lesion. No joint effusion. There is increased signal within the labrum most prominent at the superior aspect which may indicate a tear. Partial-thickness femoral/acetabular chondromalacia, degenerative. Limited evaluation of the capsule and ligaments. There is mild to moderate muscular atrophy. Question left gluteus minimus and medius tendons increased signal at their insertion upon the greater trochanter with suspected partial tear, particularly involving gluteus medius. There is edema within the gluteus medius muscle. Otherwise unremarkable muscle, tendons and entheses. Status post left inguinal hernia repair. Otherwise normal vessels, nerves and soft tissues. No acute intrapelvic pathology. IMPRESSION: Remote fracture of the left proximal femur status post fixation. Fluid signal adjacent to the intramedullary micki may indicate loosening. Edema in the left femoral head is favored to be degenerative. Question edema within the left proximal femur involving the greater and lesser trochanters which could be secondary to artifact, altered biomechanics secondary to loosening and/or infection. Correlate clinically for signs/symptoms of infection and with dedicated radiographs of the left hip. XR LUMBOSACRAL SPINE 10/02/25 CLINICAL INFORMATION: M54.50 - Low back pain, unspecified COMPARISON: Correlated to CT abdomen and pelvis dated June 08, 2022. TECHNIQUE: AP oblique and lateral views. FINDINGS: Multilevel marginal osteophyte formation and endplate sclerosis throughout the axial skeleton. Superior endplate compression deformity and Schmorl node resulting in 40% volume loss without retropulsion at L4 vertebra.. Decreased intervertebral disc height at L5-S1 and to a lesser extent L3-4 and the lower thoracic spine. No gross malalignment. No spondylolysis pars interarticularis. Facet joint hypertrophy at L4-5 and L5-S1. Osteopenia versus osteoporosis. Vascular calcifications. IMPRESSION: Multilevel thoracolumbar spondylosis pronounced at L5-S1. Old superior endplate compression deformity, L4. Osteopenia versus osteoporosis. Assessment & Plan Assessment & Plan (1) History of repair of hip fracture: Code(s): Z98.890 - Other specified postprocedural states Category: Surgical (2) Left hip pain: Code(s): M25.552 - Pain in left hip Category: Medical (3) Low back pain: Code(s): M54.50 - Low back pain, unspecified Category: Medical (4) Lumbosacral spondylosis: Code(s): M47.817 - Spondylosis without myelopathy or radiculopathy, lumbosacral region Category: Medical (5) Lumbar degenerative disc disease: Code(s): M51.369 - Other intervertebral disc degeneration, lumbar region without mention of lumbar back pain or lower extremity pain Category: Medical Plan For the patient's left hip pain, the management priority is follow-up with Orthopedics. The concern is based on his left hip MRI which suggests potential loosening of his surgical hardware. As a pain management practice, options are limited for his post-surgical hip. A referral will be placed to his established [facility] Orthopedic provider to facilitate this follow-up. For his predominantly axial low back pain, attributed to spondylosis and facet arthropathy, the plan is to proceed with diagnostic injections. He will be scheduled for bilateral diagnostic L3, L4, DR L5 medial branch blocks with local and fluoroscopy for potential radiofrequency ablation, which could provide up to one year of pain relief. Expectations, risks and benefits were reviewed. Patient is aware he will be contacted to schedule this procedure. All questions and concerns have been answered and patient agreed with the treatment plan. Follow up after lumbar injections and sooner as needed. Patient was informed and verbally consented to the use of an ambient scribe for clinic note documentation during this visit. Orders: Referrals Orthopedics Referral M25.552 - Pain in left hip, Z98.890 - Other specified postprocedural states Coding Level of Care Code Est Pt Level 4 (00930) Add On Problem Visit Only Diagnoses History of repair of hip fracture Z98.890 Left hip pain M25.552 Low back pain M54.50 Lumbosacral spondylosis M47.817 Lumbar degenerative disc disease M51.369
[2025-10-21 13:46] VITALS: BP 139/79; PULSE 91; RESP 16; O2SAT 98; BMI 22.5
--- OUTSIDE RECORDS SUMMARY | 2025-10-21 15:44 | XMS_ITS | Clinical Summary ---
Author Organization [facility] Address [address] [place] [address] Care Team Providers Care Fixed Capital Clerk Name Role Phone Unavailable Primary Care Provider [...] Documents on File Type Date Recorded Patient Edging Machine Catcher Expl anation Health Care Decision (hx) 02/23/2021 AD HAN DIRECTIVE Health Care Decision (hx) 02/17/2021 AD HAN DIRECTIVE
== END 2025-10-21 14:03 | disposition home or self-care (01) ==
LOC: HO.PMC 13:35
PROVIDERS: PCP Internal Medicine; Visit Provider Nurse Practitioner Family
DX: Z98.890 Other specified postprocedural states (principal); M25.552 Pain in left hip; M54.50 Low back pain, unspecified; M47.817 Spondylosis without myelopathy or radiculopathy, lumbosacral region; M51.369 Other intervertebral disc degeneration, lumbar region without mention of lumbar back pain or lower extremity pain
CPT/HCPCS: 99214; G2211

== ENCOUNTER → 2025-10-21 13:34 | Outpatient (BNVA) | payer MEDICARE, MEDICAID, SELFPAY | PROVIDERS: PCP Internal Medicine; Visit Provider Nurse Practitioner Family | DX: M25.552 Pain in left hip (principal); M47.817 Spondylosis without myelopathy or radiculopathy, lumbosacral region; M51.360 Other intervertebral disc degeneration, lumbar region with discogenic back pain only; Z98.890 Other specified postprocedural states | CPT/HCPCS: 99212 ==